=== PATIENT | female | born 1960 | race Caucasian/White ===

== ENCOUNTER 2017-06-24 14:27 | Emergency (ER) | payer MEDICARE, MEDICAID ==
[2017-06-24 15:02] LABS: #Eosinphils 0.1 thou/uL (0.0-0.7); #Lymphocytes 1.4 thou/uL (1.20-3.40); #Monocytes 0.5 thou/uL (0.11-0.59); #Neutrophils 5.3 thou/uL (1.40-6.50); %Basophils 0.2 % (0.0-1.0); %Eosinophils 1.4 % (0.0-10.0); %Lymphocytes 18.7 % (21.0-51.0); %Neutrophils 72.7 % (42.0-75.0); Hemoglobin 9.5 g/dL (12.0-16.0); Mean Corpuscular HGB CONC 32.2 g/dL (32.0-36.0); Mean Corpuscular Hemoglobin 28.7 pg (27.0-31.0); Mean Corpuscular Volume 89.2 fl (81.0-99.0); Mean Platelet Volume 6.8 fL (7.4-10.4); Platelet Count 256 thou/uL (130-400); RBC Distribution Width 14.7 % (11.5-14.5); White Blood Cell (WBC) Count 7.2 thou/uL (4.8-10.8)
[2017-06-24 15:23] LABS: ALT (SGPT) 14 U/L (8-55); AST (SGOT) 14 U/L (5-34); Albumin 3.5 g/dL (3.5-5.0); Alkaline Phosphatase 120 U/L (40-150); Anion Gap 13 mmol/L (10-20); BUN (Urea Nitrogen) 20 mg/dL (9.8-20.1); Bilirubin, Total 0.3 mg/dL (0.2-1.2); CK (CPK) 109 U/L (29-168); Calc. Creatinine Clearance 0 mL/min (70-130); Calcium 9.2 mg/dL (7.8-10.44); Carbon Dioxide 24 mmol/L (22-29); Chloride 104 mmol/L (98-107); Estimated GFR-MDRD 30; Globulin 3.3 g/dL (2.4-3.5); Glucose 288 mg/dL (70-105); Potassium 5.2 mmol/L (3.5-5.1); Protein, Total 6.8 g/dL (6.0-8.3); Sodium 136 mmol/L (136-145)
--- NOTE | 2017-06-24 15:25 | RAD ---
4 VIEWS RIGHT ANKLE: Date: 06/24/17 INDICATION: History of fall with right ankle pain. FINDINGS: No acute fracture or subluxation is evident. There is moderate degenerative change involving the mid foot. Ankle mortise and talar dome are preserved. Soft tissue swelling is seen involving the lower le g and ankle. IMPRESSION: 1. Soft tissue swelling of the right ankle and right hindfoot may be related to lymphedema or possib ly cellulitis. Recommend correlation. 2. Osteoarthrosis of the visualized right foot. 3. No acute fracture or subluxation. POS: [facility]
--- NOTE | 2017-06-24 15:26 | RAD ---
AP VIEW CHEST: INDICATIONS: History of chest pain. FINDINGS: There is cardiomegaly with pulmonary vascular congestion and perihilar interstitial prominence, suspi cious for pulmonary edema. The left costophrenic angle is excluded. The right costophrenic angle ap pears sharp. The osseous structures appear unchanged. IMPRESSION: Findings suggesting either volume overload or mild congestive heart failure. POS: [facility]
[2017-06-24 15:27] LABS: CKMB 1.9 ng/mL (0-6.6); Troponin I 0.019 ng/mL (< 0.028)
[2017-06-24] MEDS ORDERED: Ketorolac Tromethamine 30 MG/ML VIAL ONE (16:26)
== END 2017-06-24 17:31 | disposition home or self-care (01) ==
LOC: ERS 14:27
DX: J40 Bronchitis, not specified as acute or chronic (principal); R07.89 Other chest pain; S93.401A Sprain of unspecified ligament of right ankle, initial encounter; J44.9 Chronic obstructive pulmonary disease, unspecified; E11.9 Type 2 diabetes mellitus without complications; E78.5 Hyperlipidemia, unspecified; I10 Essential (primary) hypertension; F32.9 Major depressive disorder, single episode, unspecified; W19.XXXA Unspecified fall, initial encounter
CPT/HCPCS: 71045; 80053; 82553; 84484; 85025; 93005; 94640; 96374; J1885; J7620

== ENCOUNTER 2017-07-04 11:01 | Emergency (ER) | payer MEDICARE, MEDICAID ==
--- NOTE | 2017-07-04 12:04 | CT ---
HEAD CT WITHOUT CONTRAT: DATE: 07/04/17. COMPARISON: 04/17/14. HISTORY: Head injury, fall, pain. TECHNIQUE: Serial axial CT imaging at 5 mm intervals from vertex through the skull base without contrast. FINDINGS: There is partial opacification of bilateral ethmoid air cells and the left maxillary sinus. There is no displaced calvarial fracture. No intracranial hemorrhage, midline shift, mass effect, or ventric ular enlargement. IMPRESSION: No intracranial hemorrhage or displaced calvarial fracture. POS: [facility]
--- NOTE | 2017-07-04 12:07 | CT ---
CT OF THE CERVICAL SPINE WITHOUT CONTRAST: COMPARISON: None. HISTORY: Head injury after a fall. Neck pain and pain in the shoulders. TECHNIQUE: Multiple contiguous axial images were obtained in a CT of the cervical spine without contrast. Sagit ella and coronal reformats were performed. FINDINGS: This exam is limited in the lower cervical spine secondary to beam hardening artifact and signal nois e ratio secondary to patient's large body habitus. There are degenerative changes in the cervical sp ine. The vertebral bodies demonstrate normal height and alignment without acute fracture or subluxat ion. No prevertebral soft tissue swelling is seen. The posterior facets are well aligned. Normal alignment of the skull base with the cervical spine is seen. IMPRESSION: Degenerative changes in the cervical spine without acute osseous abnormality. POS: [facility]
--- NOTE | 2017-07-04 12:15 | CT ---
THORACIC SPINE CT WITHOUT CONTRAST: Date: 07/04/17 HISTORY: Fall. Post-traumatic pain. COMPARISON: None. TECHNIQUE: Thoracic spine CT is performed without contrast. Coronal reformatted and sagittal reformatted images are submitted for interpretation. FINDINGS: Limited evaluation of the mediastinum. There is enlarged right paratracheal lymph node with a preserv ed fatty hilum, measuring 1.8 x 2.0 cm. Visualized heart size is normal. There is an indeterminate lesion involving the right adrenal gland measuring 1.8 x 2.2 cm with attenu ation coefficient of 24 Hounsfield units. Trachea and central bronchi are patent. Visualized lung parenchyma and hilum demonstrate what is pres umed to be chronic change. There is some peribronchial soft tissue prominence, predominantly in the l eft lower lobe. Evaluation is incomplete. Nonemergent chest CT can be performed for better interrogat ion of the lung parenchyma. There is a focal ground-glass opacity in the superior segment of the righ t lower lobe (axial image 43) which is incompletely evaluated. No paraspinal hematoma. Visualized aorta demonstrates a normal caliber. There is extensive osteophyte formation of the thoracic spine suggesting DISH. Thoracic spine vertebr al body height is maintained. No malalignment. No fracture. IMPRESSION: 1. No thoracic spine fracture. 2. Increased peribronchial thickening in the left lower lobe with a ground-glass opacity in the righ t lower lobe. Evaluation is incomplete. Nonemergent chest CT. 3. Indeterminate right adrenal nodule. CODE LN. POS: [facility]
== END 2017-07-04 13:04 | disposition home or self-care (01) ==
LOC: ERS 11:01
DX: S09.90XA Unspecified injury of head, initial encounter (principal); S16.1XXA Strain of muscle, fascia and tendon at neck level, initial encounter; S29.012A Strain of muscle and tendon of back wall of thorax, initial encounter; E66.01 Morbid (severe) obesity due to excess calories; J44.9 Chronic obstructive pulmonary disease, unspecified; E11.40 Type 2 diabetes mellitus with diabetic neuropathy, unspecified; E78.5 Hyperlipidemia, unspecified; I10 Essential (primary) hypertension; F32.9 Major depressive disorder, single episode, unspecified; W10.9XXA Fall (on) (from) unspecified stairs and steps, initial encounter
CPT/HCPCS: 70450; 72125; 72128

== ENCOUNTER 2017-07-30 23:54 | Inpatient (IN) | payer MEDICARE, MEDICAID ==
[2017-07-31] MEDS ORDERED: Magnesium Sulfate 2 GM/100 ML BAG ONE (00:23)
[2017-07-31] MEDS ORDERED: methylPREDNISolone Sod Succ/PF 125 MG/2 ML VIAL ONE (00:23)
[2017-07-31] MEDS ORDERED: Albuterol Sulfate 2.5 mg/3 ml Neb ONE (00:37)
[2017-07-31 00:38] LABS: #Basophils 0.1 thou/uL (0.0-0.2); #Eosinphils 0.1 thou/uL (0.0-0.7); #Lymphocytes 1.3 thou/uL (1.20-3.40); #Monocytes 0.6 thou/uL (0.11-0.59); #Neutrophils 6.8 thou/uL (1.40-6.50); %Basophils 0.6 % (0.0-1.0); %Eosinophils 1.5 % (0.0-10.0); %Lymphocytes 14.3 % (21.0-51.0); %Monocytes 6.4 % (0.0-10.0); %Neutrophils 77.1 % (42.0-75.0); Hemoglobin 9.2 g/dL (12.0-16.0); Mean Corpuscular HGB CONC 31.8 g/dL (32.0-36.0); Mean Corpuscular Hemoglobin 28.1 pg (27.0-31.0); Mean Corpuscular Volume 88.6 fl (81.0-99.0); Mean Platelet Volume 7.7 fL (7.4-10.4); Platelet Count 184 thou/uL (130-400); RBC Distribution Width 15.1 % (11.5-14.5); Red Blood Cell (RBC) Count 3.28 mill/uL (4.20-5.40); White Blood Cell (WBC) Count 8.9 thou/uL (4.8-10.8)
[2017-07-31 01:12] LABS: CKMB 1.2 ng/mL (0-6.6); Troponin I 0.014 ng/mL (< 0.028)
[2017-07-31 01:28] LABS: ALT (SGPT) 13 U/L (8-55); AST (SGOT) 13 U/L (5-34); Albumin 3.5 g/dL (3.5-5.0); Alkaline Phosphatase 103 U/L (40-150); BUN (Urea Nitrogen) 46 mg/dL (9.8-20.1); Bilirubin, Total 0.2 mg/dL (0.2-1.2); Calc. Creatinine Clearance 0 mL/min (70-130); Calcium 8.9 mg/dL (7.8-10.44); Carbon Dioxide 18 mmol/L (22-29); Estimated GFR-MDRD 27; Globulin 3.4 g/dL (2.4-3.5); Glucose 191 mg/dL (70-105); Protein, Total 6.9 g/dL (6.0-8.3)
[2017-07-31 02:03] LABS: Anion Gap 11 mmol/L (10-20); Chloride 112 mmol/L (98-107); Potassium 5.9 mmol/L (3.5-5.1); Sodium 137 mmol/L (136-145)
[2017-07-31] MEDS ORDERED: Azithromycin 500 MG VIAL ONE (04:01)
[2017-07-31 04:18] LABS: Troponin I 0.025 ng/mL (< 0.028)
[2017-07-31] MEDS ORDERED: Ondansetron ODT 4 MG TAB PO PRN (04:36)
[2017-07-31] MEDS ORDERED: Loperamide HCl 2 MG CAP PO PRN (04:36)
[2017-07-31] MEDS ORDERED: Acetaminophen 325 MG TAB PO PRN (04:36)
[2017-07-31] MEDS ORDERED: Milk Of Magnesia 30 ML UDCUP PO PRN (04:36)
[2017-07-31] MEDS ORDERED: Zolpidem Tartrate 5 MG TAB PO PRN (04:36)
[2017-07-31] MEDS ORDERED: Sodium Chloride 0.65% Nasal 44 ML BOT EA NARE PRN (04:36)
[2017-07-31] MEDS ORDERED: Nitroglycerin 0.4 MG TAB (25 Tab Bottle) SL PRN (04:36)
[2017-07-31] MEDS ORDERED: Mag-Al 1200 mg/1200 mg/30 ML UDCUP PO PRN (04:36)
[2017-07-31] MEDS ORDERED: Dextrose 5% in Water 1,000 ML IV PRN (04:36)
[2017-07-31] MEDS ORDERED: Artificial Tears 18 DROP/0.9 ML EA EYE PRN (04:36)
[2017-07-31] MEDS ORDERED: hydrALAZINE 20 MG/ML VIAL SLOW IVP PRN (04:36)
[2017-07-31] MEDS ORDERED: Eucerin (Mineral Oil/Petrolatum,White) 30 gm Jar TOP PRN (04:36)
[2017-07-31] MEDS ORDERED: Loratadine 10 MG TAB PO PRN (04:36)
[2017-07-31] MEDS ORDERED: Senokot 8.6 MG TAB PO PRN (04:36)
[2017-07-31] MEDS ORDERED: Dextrose 50% Abboject 50 ML SYRINGE SLOW IVP PRN (04:36)
[2017-07-31] MEDS ORDERED: Diabetic Tussin 200 MG/10 ML UDCUP PO PRN (04:36)
[2017-07-31] MEDS ORDERED: Ondansetron HCl/PF 4 MG/2 ML Vial IVP PRN (04:36)
[2017-07-31] MEDS: cefTRIAXone\\ROCEPHIN 1 GM in Syringe 10 ML IVPB SCH (05:24)
[2017-07-31] MEDS: Levothyroxine Sodium 100 MCG TAB PO SCH (05:30)
[2017-07-31 07:04] LABS: Troponin I 0.014 ng/mL (< 0.028)
--- NOTE | 2017-07-31 07:50 | HP ---
PRIMARY CARE PHYSICIAN: Dr. Scott Hull. REASON FOR ADMISSION: Chronic obstructive pulmonary disease/asthma exacerbation, acute on chronic ki dney injury, hyperkalemia. HISTORY OF PRESENT ILLNESS: A 56-year-old female who has underlying history of COPD/asthma, chronic kidney disease stage 3, diabetes type 2, hypertension, morbid obesity, dyslipidemia, hypothyroidism, gastroesophageal reflux disease, anxiety and depression, who came to emergency room for evaluation of increasing shortness of breath and chest discomfort for last 5 days. The patient reports that her c hest is feeling tight with the shortness of breath. She is also having cough, which is predominantly dry in nature with a scant amount of sputum. She denies any fevers. She denies any hemoptysis. Sh kaleigh has chronic diarrhea after eating food and the patient also reports that lately she was experiencin g little bit blood with the stool. She denies any fever or chills. She denies any UTI symptoms. Danny farris denies any melenotic stool. She denies any abdominal pain. She denies any NSAID abuse. The patient is not using oxygen at home. In the emergency room, the patient appeared short of breath and she was having low grade fever. Her routine blood tests showed hyperkalemia with potassium 5.9 and creatinine elevated to 1.96. Her hemoglobin is 9.2. We are admitting this patient for further evaluation and treatment as well as for COPD treatment. PAST MEDICAL HISTORY: Reactive airway disease/asthma, diabetes type 2, osteoarthritis, hypertension, dyslipidemia, morbid obesity, peripheral neuropathy. PAST PSYCHIATRIC HISTORY: Anxiety and depression. PAST SURGICAL HISTORY: Partial hysterectomy, oophorectomy of left ovary, right knee replacement surg paulina subsequent complication with a Staph infection required a spacer and prosthetic replacement, left knee cyst removal. SOCIAL HISTORY: Patient lives with her girlfriend and roommate. She currently denies any tobacco ab use. She abused marijuana in the past. She denies any alcohol abuse. She denies any other illicit drug abuse. She is on disability from her knee problem. ALLERGIES: CIPROFLOXACIN, MELOXICAM, MORPHINE, SULFA. FAMILY HISTORY: Mother of complication of renal failure. Father has a history of diabetes. REVIEW OF SYSTEMS: The following complete review of systems was negative, unless otherwise mentioned in the HPI or below: Constitutional: Weight loss or gain, ability to conduct usual activities. Skin: Rash, itching. Eyes: Double vision, pain. ENT/Mouth: Nose bleeding, neck stiffness, pain, tenderness. Cardiovascular: Palpitations, dyspnea on exertion, orthopnea. Respiratory: Shortness of breath, wheezing, cough, hemoptysis, fever or night sweats. Gastrointestinal: Poor appetite, abdominal pain, heartburn, nausea, vomiting, constipation, or diarr hea. Genitourinary: Urgency, frequency, dysuria, nocturia. Musculoskeletal: Pain, swelling. Neurologic/Psychiatric: Anxiety, depression. Allergy/Immunologic: Skin rash, bleeding tendency. Please see my HPI for pertinent positive and negative. All other review of systems reviewed and nega tive except as mentioned in the HPI. EMERGENCY ROOM COURSE: Patient is given magnesium sulfate, Solu-Medrol 125 mg, albuterol nebulizatio n, azithromycin 500 mg. CURRENT HOME MEDICATIONS: Leivasy 5 one tablet q.6 hourly p.r.n., albuterol 2 puffs q.4 hourly p.r.n., Zocor 40 mg p.o. at bedtime, Actos 30 mg p.o. daily, lisinopril 20 mg p.o. daily, Lasix 40 mg p.o. d aily, bupropion 150 mg p.o. daily, Synthroid 200 mcg p.o. daily, ranitidine 150 mg p.o. b.i.d., ibupr ofen 800 mg 3 times p.r.n. basis, Cymbalta 30 mg p.o. daily, timolol ophthalmic drops right eye b.i.d ., Tradjenta 5 mg p.o. daily, vitamin D3 1000 unit p.o. daily, Lyrica 100 mg p.o. t.i.d., vitamin B12 one tablet p.o. daily. PHYSICAL EXAMINATION: VITAL SIGNS: Currently, blood pressure 176/65, pulse 83, respiratory rate 22, temperature 99.1, satu ration 94% on room air, weight 172.4 kilograms. GENERAL: Patient is currently alert, awake, in no obvious acute distress. HEENT: Head: Normocephalic, atraumatic. Eyes: Pupils round, reactive to light. Extraocular muscl e intact. ENT: Oropharynx within normal limits. Moist mucous membranes. No oral lesion, no pharyn geal erythema, no exudate. NECK: Supple, no JVD, no thyromegaly, no carotid bruit, no jugular venous distention. LUNGS: Bilateral end expiratory wheezing heard, no rales. CARDIAC: S1, S2 regular. No murmur, no gallop, no rub. ABDOMEN: Morbid obesity, limiting examination. Bowel sounds present. No peritoneal sign, no guardi ng, no rigidity, no rebound, no suprapubic tenderness. BACK: Unremarkable, no CVA tenderness. EXTREMITIES: Upper extremity: Passive movement of all joints are normal. Lower extremity: Bilater al chronic lower extremity venous insufficiency changes noted. Good distal pulsation. SKIN: No skin rash. HEMATOLOGICAL: No lymphadenopathy. PSYCHIATRIC: Normal affect. NEUROLOGIC: Nonfocal examination. SIGNIFICANT LABORATORY DATA AND IMAGING: EKG showing normal sinus rhythm, left anterior fascicular b lock, low voltage QRS complex. Chest x-ray based on my review, no acute cardiopulmonary process. CB C: WBC 8.9, hemoglobin 9.2, platelet 184. BMP shows sodium 137, potassium 5.9, chloride 112, carbon dioxide 18, anion gap 11, BUN 46, creatinine 1.96, glucose 191, calcium 8.9. Lactic acid 1.0. LFT: AST 13, ALT 13, alkaline phosphatase 103, albumin 3.5. CK-MB 1.2, troponin 0.014, BNP 128. ASSESSMENT AND PLAN: 1. Chronic obstructive pulmonary disease/asthma exacerbation. At this point, we will continue DuoNe b q.4 hourly and p.r.n. basis, Dulera 2 puffs inhalation b.i.d., Mucinex 600 mg twice daily, empiric antibiotic therapy with Rocephin 1 gram q.24 hours, azithromycin 500 mg daily, Solu-Medrol 40 mg IV q .6 hourly. We will monitor clinical response. 2. Acute on chronic kidney failure with baseline chronic kidney disease stage 3. We will hold on La six therapy at this point. We will avoid nephrotoxin agent and we will repeat labs tomorrow. 3. Hyperkalemia. We will give her a dose of Kayexalate and will repeat labs tomorrow. 4. Metabolic acidosis. We will start sodium bicarbonate 325 mg p.o. twice daily. 5. Elevated BNP. We will obtain echocardiography to assess ejection fraction and other structural a bnormality. 6. Anemia, normocytic, normochromic. We will continue ferrous sulfate 325 mg p.o. daily. We will a lso check stool for guaiac to rule out any occult bleeding and then we will decide whether this patie nt needs any more investigation or not. The patient is advised to get outpatient endoscopic evaluati on. 7. Dyslipidemia. Continue Lipitor 40 mg p.o. at bedtime. 8. Hypothyroidism. Continue Synthroid 100 mcg p.o. daily. 9. Gastroesophageal reflux disease. We will add Protonix 40 mg p.o. daily. 10. Peripheral neuropathy. Continue Lyrica 100 mg three times daily. 11. Glaucoma. Continue Timolol maleate ophthalmic drops to right eye twice daily. 12. Anxiety and depression. Continue bupropion 150 mg p.o. daily and Cymbalta 30 mg p.o. daily as p er home dosage. 13. Hypertension. We will hold on lisinopril therapy because of hyperkalemia and worsening of renal failure, instead we will use Procardia 60 mg p.o. daily. 14. Diabetes type 2. We will continue Actos 30 mg p.o. daily. We will hold on Tradjenta, because w e do not have that medication in our hospital, instead we will continue with insulin as per sliding s jennifer protocol. Diabetic diet will be given. 15. Morbid obesity. Dietary education given, weight loss education given. Healthy lifestyle measur es discussed with the patient. 16. Deep venous thrombosis prophylaxis, heparin 5000 units subcu twice daily. 18. Gastrointestinal prophylaxis, Protonix 40 mg p.o. daily. 19. CODE STATUS: The patient is FULL CODE. Patient does not have any surrogate decision maker. Danny farris is making her decision by herself. 20. Chest pain. We will do serial cardiac enzymes x3 to rule out acute coronary syndrome, but most likely this patient's chest tightness is related with her chronic obstructive pulmonary disease/asthm a exacerbation. We will monitor on telemetry floor. Disposition plan based on clinical course. We are expecting the patient's stay in hospital more than 2 midnights. Plan of care discussed with the patient in detail.
--- NOTE | 2017-07-31 07:53 | RAD ---
AP VIEW CHEST: HISTORY: Dyspnea. FINDINGS: AP view chest is obtained on 07/31/17. Comparison is made to previous exam from 06/24/17. AP view chest demonstrates some mild pulmonary vascular congestion. No evidence of effusions, pneumo jeannine, or pneumothorax is seen. IMPRESSION: Pulmonary vascular congestion; otherwise, unremarkable AP view chest. POS: [facility]
[2017-07-31] MEDS: Mometasone/Formoterol 120 PUFF INHALER INH SCH ×2 (08:23→18:36)
[2017-07-31] MEDS: Timolol 0.25% Ophth Soln 5 ml Bottle R EYE SCH ×2 (08:53→21:43)
[2017-07-31] MEDS: Pioglitazone HCl 15 MG TAB PO SCH (08:54)
[2017-07-31] MEDS: Azithromycin 250 MG TAB PO SCH (08:55)
[2017-07-31] MEDS: guaiFENesin ER 600 MG TAB PO SCH ×2 (08:55→21:41)
[2017-07-31] MEDS: Heparin 5,000 UNITS/ML VIAL SC SCH ×4 (08:55→21:42)
[2017-07-31] MEDS: Pregabalin 50 MG CAP PO SCH ×3 (08:56→21:42)
[2017-07-31] MEDS ORDERED: DULoxetine 30 MG CAP PO SCH ×2 (09:00)
[2017-07-31] MEDS ORDERED: Bupropion 150 MG XL TAB PO SCH (09:00)
[2017-07-31 09:39] LABS: Bilirubin Negative (Negative); Blood, Urine Small (Negative); Clarity CLEAR (Clear); Glucose, Urine (Dipstick) 500 mg/dL (Negative); Leukocyte Negative (Negative); Nitrite Negative (Negative); Protein, Urine (Dipstick) 100 mg/dL (Neg-Trace); Specific Gravity, Urine 1.016 (1.002-1.036); Urobilinogen 0.2 mg/dL (0.2-1.0); pH, Urine 5.5 (5.0-9.0)
[2017-07-31 09:41] LABS: Bacteria/HPF None Seen HPF (None Seen); Hyaline Casts/LPF 0-3 HYALINE CAST LPF (0-3 Hyaline); RBC/HPF 0-3 HPF (0-3); Squamous Epithelial None Seen HPF (0-3); WBC/HPF None Seen HPF (0-3)
[2017-07-31 09:56] LABS: Creatinine, Urine 39.09 mg/dL (47-110)
--- NOTE | 2017-07-31 11:08 | PDOC.EVN ---
Event Note - Event Note Event Note: Patient seen and examined, continues to wheeze but subjectively feels better. Continue w/ steroids/duonebs and abx for now, no changes in plan of care. Weight loss advised, patient exposed to 2nd hand smoke for many years as well.
[2017-07-31] MEDS: HumaLOG 300 UNITS/3 ML VIAL SC PRN ×3 (12:11→21:43)
[2017-07-31] MEDS: HYDROcodone/Acetaminophen 5/325 mg Tablet PO PRN ×2 (15:10→23:43)
[2017-07-31] MEDS: Atorvastatin Calcium 20 MG TAB PO SCH (21:41)
[2017-08-01 05:18] LABS: #Lymphocytes 0.7 thou/uL (1.20-3.40); #Monocytes 0.3 thou/uL (0.11-0.59); %Basophils 0.1 % (0.0-1.0); %Eosinophils 0.3 % (0.0-10.0); %Lymphocytes 7.8 % (21.0-51.0); %Monocytes 3.4 % (0.0-10.0); %Neutrophils 88.4 % (42.0-75.0); Hemoglobin 9.9 g/dL (12.0-16.0); Mean Corpuscular HGB CONC 31.8 g/dL (32.0-36.0); Mean Corpuscular Hemoglobin 28.3 pg (27.0-31.0); Mean Corpuscular Volume 88.9 fl (81.0-99.0); Mean Platelet Volume 7.9 fL (7.4-10.4); Platelet Count 179 thou/uL (130-400); RBC Distribution Width 15.1 % (11.5-14.5); White Blood Cell (WBC) Count 9.1 thou/uL (4.8-10.8)
[2017-08-01] MEDS: cefTRIAXone\\ROCEPHIN 1 GM in Syringe 10 ML IVPB SCH (05:33)
[2017-08-01] MEDS: Levothyroxine Sodium 100 MCG TAB PO SCH (05:34)
[2017-08-01] MEDS: cloNIDine 0.1 MG TAB PO PRN (05:34)
[2017-08-01 05:58] LABS: ALT (SGPT) 13 U/L (8-55); AST (SGOT) 11 U/L (5-34); Albumin 3.7 g/dL (3.5-5.0); Alkaline Phosphatase 101 U/L (40-150); Anion Gap 15 mmol/L (10-20); BUN (Urea Nitrogen) 46 mg/dL (9.8-20.1); Bilirubin, Total 0.2 mg/dL (0.2-1.2); Calc. Creatinine Clearance 90 mL/min (70-130); Carbon Dioxide 15 mmol/L (22-29); Chloride 107 mmol/L (98-107); Estimated GFR-MDRD 25; Globulin 3.8 g/dL (2.4-3.5); Glucose 334 mg/dL (70-105); Potassium 6.4 mmol/L (3.5-5.1); Protein, Total 7.5 g/dL (6.0-8.3); Sodium 131 mmol/L (136-145)
[2017-08-01] MEDS: Mometasone/Formoterol 120 PUFF INHALER INH SCH ×2 (08:19→19:11)
[2017-08-01] MEDS: Timolol 0.25% Ophth Soln 5 ml Bottle R EYE SCH ×2 (08:47→21:54)
[2017-08-01] MEDS: Pregabalin 50 MG CAP PO SCH ×3 (08:47→21:58)
[2017-08-01] MEDS: Pioglitazone HCl 15 MG TAB PO SCH ×2 (08:48→10:39)
[2017-08-01] MEDS: DULoxetine 30 MG CAP PO SCH ×2 (08:48)
[2017-08-01] MEDS: Ferrous Sulfate 325 MG TAB PO SCH (08:48)
[2017-08-01] MEDS: Azithromycin 250 MG TAB PO SCH (08:49)
[2017-08-01] MEDS: hydrALAZINE 25 MG TAB PO SCH ×3 (08:49→20:07)
[2017-08-01] MEDS: NIFEdipine XL 60 MG TAB PO SCH (08:49)
[2017-08-01] MEDS: Bupropion 150 MG XL TAB PO SCH (08:49)
[2017-08-01] MEDS: Heparin 5,000 UNITS/ML VIAL SC SCH ×4 (08:49→21:53)
[2017-08-01] MEDS: guaiFENesin ER 600 MG TAB PO SCH ×2 (08:50→21:53)
--- NOTE | 2017-08-01 08:50 | PDOC.PN ---
- Subjective Encounter Start Date: 08/01/17 Encounter Start Time: 07:30 -: old records requested/rev Patient seen and examined. No new complaints. No overnight events pt reports not feeling good though when entered in her room she was comfortable , on room air, no fever BP is high and blood sugar high - Objective Resuscitation Status: Resuscitation Status FULL:Full Resuscitation MAR Reviewed: Yes Vital Signs & Weight: Vital Signs (12 hours) Temp Pulse Resp BP Pulse Ox 08/01/17 08:21 64 16 95 08/01/17 08:19 64 16 95 08/01/17 08:00 97.3 F L 66 13 140/67 94 L 08/01/17 05:00 97.6 F 84 16 217/97 H 93 L 08/01/17 02:23 89 12 94 L 08/01/17 00:00 97.7 F 89 16 177/74 H 93 L 07/31/17 22:20 74 14 96 Weight Weight 02188 lb I&O: 07/31/17 08/01/17 08/02/17 06:59 06:59 06:59 Intake Total 1820 Output Total 600 Balance 1220 Result Diagrams: 08/01/17 05:04 08/01/17 05:04 Additional Labs: Accuchecks 08/01/17 07/31/17 07/31/17 06:00 20:32 16:56 POC Glucose 321 H 331 H 336 H 07/31/17 11:21 POC Glucose 334 H EKG Reviewed by me: Yes (nsr) Phys Exam - Physical Examination Constitutional: NAD HEENT: PERRLA, moist MMs, sclera anicteric Neck: no JVD, supple Respiratory: no wheezing, no rales, no rhonchi morbid obesity limiting exam Cardiovascular: RRR, no significant murmur, no rub Gastrointestinal: soft, non-tender, no distention, positive bowel sounds morbid obesity Musculoskeletal: no edema, pulses present chronic venous stasis Neurological: non-focal, normal sensation, moves all 4 limbs Lymphatic: no nodes Psychiatric: normal affect, A&O x 3 Skin: no rash, normal turgor Dx/Plan (1) Acute worsening of stage 3 chronic kidney disease Code(s): N18.3 - CHRONIC KIDNEY DISEASE, STAGE 3 (MODERATE) Status: Acute Comment: nephrology consulted, avoid nephrotoxin and monitor renal function (2) COPD exacerbation Code(s): J44.1 - CHRONIC OBSTRUCTIVE PULMONARY DISEASE W (ACUTE) EXACERBATION Status: Acute Comment: now improving (3) Hyperkalemia Code(s): E87.5 - HYPERKALEMIA Status: Acute Comment: will give kayexalate, hold lisnopril, low potassium diet advised (4) Hypertension Code(s): I10 - ESSENTIAL (PRIMARY) HYPERTENSION Status: Acute Comment: not controlled, due to steroid, so added procardia and hydralazine (5) Metabolic acidosis Code(s): E87.2 - ACIDOSIS Status: Acute (6) Anemia, normocytic normochromic Code(s): D64.9 - ANEMIA, UNSPECIFIED Status: Chronic Comment: ferrous sulfate added (7) Anxiety and depression Code(s): F41.9 - ANXIETY DISORDER, UNSPECIFIED; F32.9 - MAJOR DEPRESSIVE DISORDER, SINGLE EPISODE, UNSPECIFIED Status: Chronic (8) CKD (chronic kidney disease) stage 3, GFR 30-59 ml/min Status: Chronic (9) DM type 2 (diabetes mellitus, type 2) Status: Chronic (10) Dyslipidemia Code(s): E78.5 - HYPERLIPIDEMIA, UNSPECIFIED Status: Chronic (11) Morbid obesity with BMI of 60.0-69.9, adult Code(s): E66.01 - MORBID (SEVERE) OBESITY DUE TO EXCESS CALORIES; Z68.44 - BODY MASS INDEX (BMI) 60.0-69.9, ADULT Status: Chronic - Plan cont current plan of care, continue antibiotics, respiratory therapy * will reduce solumedrol 20 mg IV q 8 hourly * add levemir 15 unit SC bid * continue selected home medication * give dose of kayexalate * add sodium bicarbonate. * consult nephrology * repeat labs tomorrow * add procardia XL and hydralazine for BP control * medication reviewed as below * symptomatic treatment Review of Systems - Review of Systems Constitutional: negative: fever, chills, sweats, weakness, malaise, other Eyes: negative: Pain, Vision Change, Conjunctivae Inflammation, Eyelid Inflammation, Redness, Other Respiratory: negative: Cough, Dry, Shortness of Breath, Hemoptysis, SOB with Excertion, Pleuritic Pain, Sputum, Wheezing Cardiovascular: negative: chest pain, palpitations, orthopnea, paroxysmal nocturnal dyspnea, edema, light headedness, other Gastrointestinal: negative: Nausea, Vomiting, Abdominal Pain, Diarrhea, Constipation, Melena, Hematochezia, Other Genitourinary: negative: Dysuria, Frequency, Incontinence, Hematuria, Retention , Other Musculoskeletal: negative: Neck Pain, Shoulder Pain, Arm Pain, Back Pain, Hand Pain, Leg Pain, Foot Pain, Other Skin: negative: Rash, Lesions, Srinath, Bruising, Other Neurological: negative: Weakness, Numbness, Incoordination, Change in Speech, Confusion, Seizures, Other - Medications/Allergies Allergies/Adverse Reactions: Allergies Allergy/AdvReac Type Severity Reaction Status Date / Time ciprofloxacin Allergy Verified 04/21/15 11:57 meloxicam Allergy Verified 04/21/15 11:57 morphine Allergy Verified 04/21/15 11:57 sulfamethoxazole Allergy Verified 04/21/15 11:57 [From Bactrim] tramadol Allergy Verified 04/21/15 11:57 trimethoprim [From Bactrim] Allergy Verified 04/21/15 11:57 Medications: Current Medications Acetaminophen (Tylenol) 650 mg PO Q4H PRN PRN Reason: Headache/Fever or Pain Hydrocodone Bitart/Acetaminophen ([place] 5/325) 1 tab PO Q4H PRN PRN Reason: Moderate Pain (4-6) Last Admin: 07/31/17 23:43 Dose: 1 tab Al Hydroxide/Mg Hydroxide (Maalox) 30 ml PO Q6H PRN PRN Reason: Heartburn or Indigestion Albuterol/Ipratropium (Duoneb) 3 ml NEB [id number] [facility] Last Admin: 08/01/17 08:21 Dose: 3 ml Artificial Tears (Tears Naturale) 0 drop EA EYE PRN PRN PRN Reason: Dry Eyes Atorvastatin Calcium (Lipitor) 20 mg PO HS [facility] Last Admin: 07/31/17 21:41 Dose: 20 mg Azithromycin (Zithromax) 250 mg PO DAILY [facility] Stop: 08/03/17 09:01 Last Admin: 07/31/17 08:55 Dose: 250 mg Bupropion HCl (Wellbutrin Xl) 300 mg PO DAILY [facility] Clonidine (Catapres) 0.1 mg PO Q4H PRN PRN Reason: Systolic BP > 180 Last Admin: 08/01/17 05:34 Dose: 0.1 mg Dextrose/Water (Dextrose 50%) 25 gm SLOW IVP PRN PRN PRN Reason: Hypoglycemia Duloxetine HCl (Cymbalta) 60 mg PO DAILY [facility] Ferrous Sulfate (Feosol) 325 mg PO QAM[facility] Glucagon (Glucagon) 1 mg IM PRN PRN PRN Reason: Hypoglycemia Guaifenesin (Robitussin Sf) 200 mg PO Q4H PRN PRN Reason: Cough Guaifenesin (Mucinex) 600 mg PO Q12HR [facility] Last Admin: 07/31/17 21:41 Dose: 600 mg Heparin Sodium (Porcine) (Heparin) 5,000 units SC BID [facility] Last Admin: 07/31/17 21:42 Dose: 5,000 units Hydralazine HCl (Apresoline) 10 mg SLOW IVP Q4H PRN PRN Reason: Systolic BP > 180 Last Admin: 07/31/17 12:25 Dose: 10 mg Hydralazine HCl (Apresoline) 25 mg PO TID [facility] Ceftriaxone Sodium 1 gm/ (Syringe) 10 mls @ 120 mls/hr IVPB Q24HR [facility] Last Admin: 08/01/17 05:33 Dose: 10 mls Dextrose/Water (D5w) 1,000 mls @ 0 mls/hr IV .Q0M PRN; As Directed PRN Reason: Hypoglycemia Insulin Detemir 15 units/ (Miscellaneous Medication) 0.15 mls @ 0 mls/hr SC HS [facility] Insulin Detemir 15 units/ (Miscellaneous Medication) 0.15 mls @ 0 mls/hr SC QAM [facility] Insulin Human Lispro (Humalog) 0 units SC .MODERATE SLIDING SC PRN PRN Reason: Moderate Correctional Scale Last Admin: 07/31/17 17:36 Dose: 8 unit Insulin Human Lispro (Humalog) 0 units SC .BEDTIME SLIDING SC PRN PRN Reason: Bedtime Correctional Scale Last Admin: 07/31/17 21:43 Dose: 4 unit Levothyroxine Sodium (Synthroid) 100 mcg PO 0600 [facility] Last Admin: 08/01/17 05:34 Dose: 100 mcg Loperamide HCl (Imodium) 2 mg PO PRN PRN PRN Reason: Diarrhea/Loose Stools Loratadine (Claritin) 10 mg PO DAILYPRN PRN PRN Reason: Sinus Symptoms Magnesium Hydroxide (Milk Of Magnesium) 30 ml PO DAILYPRN PRN PRN Reason: Constipation Methylprednisolone Sodium Succinate (Solu-Medrol) 20 mg IVP Q8HR [facility] Mineral Oil/White Petrolatum (Eucerin Cream) 0 gm TOP BIDPRN PRN PRN Reason: Dry Skin Mometasone Furoate/Formoterol Fumar (Dulera 200 Mcg/5 Mcg Inhaler) 2 puff INH BID-RT [facility] Last Admin: 08/01/17 08:19 Dose: 2 puff Nifedipine (Procardia Xl) 60 mg PO DAILY [facility] Nitroglycerin (Nitrostat) 0.4 mg SL Q5MIN PRN PRN Reason: Chest Pain Ondansetron HCl (Zofran Odt) 4 mg PO Q6H PRN PRN Reason: Nausea/Vomiting Ondansetron HCl (Zofran) 4 mg IVP Q6H PRN PRN Reason: Nausea/Vomiting Pantoprazole Sodium (Protonix) 40 mg PO DAILY [facility] Last Admin: 07/31/17 08:55 Dose: 40 mg Phenol (Chloraseptic [place] 180 Ml Bot) 0 ml PO PRN PRN PRN Reason: Sore Throat Pioglitazone HCl (Actos) 30 mg PO DAILY [facility] Last Admin: 07/31/17 08:54 Dose: 30 mg Pregabalin (Lyrica) 100 mg PO TID [facility] Last Admin: 07/31/17 21:42 Dose: 100 mg Senna (Senokot) 2 tab PO HSPRN PRN PRN Reason: Constipation Sodium Bicarbonate (Bicarbonate, Sodium) 650 mg PO BID [facility] Sodium Chloride (Aiken Nasal [place] 0.65%) 0 ml EA NARE QIDPRN PRN PRN Reason: Nasal Congestion Sodium Polystyrene Sulfonate (Kayexelate Oral Susp 15 Gm/60 Ml) 30 gm PO 0730 [facility] Stop: 08/01/17 10:00 Timolol Maleate (Timoptic 0.25% Ophth Soln) 1 drop R EYE BID [facility] Last Admin: 07/31/17 21:43 Dose: 1 drop Zolpidem Tartrate (Ambien) 5 mg PO HSPRN PRN PRN Reason: Insomnia
[2017-08-01] MEDS ORDERED: Sodium Bicarbonate Tab 325 MG TAB PO SCH (09:00)
[2017-08-01] MEDS: Insulin Detemir 100 UNITS/ML 15 UNITS in Pre-Filled Syringe 1 EACH SC SCH ×2 (10:37→21:53)
[2017-08-01] MEDS: HYDROcodone/Acetaminophen 5/325 mg Tablet PO PRN (10:40)
[2017-08-01] MEDS ORDERED: Sodium Bicarbonate 150 MEQ in Dextrose 5% in Water 1,000 ML IV SCH ×2 (10:45)
[2017-08-01] MEDS: HumaLOG 300 UNITS/3 ML VIAL SC PRN ×4 (10:50→21:59)
--- NOTE | 2017-08-01 13:34 | CON ---
DATE OF CONSULTATION: 08/01/2017 CONSULTING PHYSICIAN: Dr. Adela Palacios. REASON FOR CONSULTATION: Acute kidney injury and hyperkalemia. REASON FOR ADMISSION: Shortness of breath. HISTORY OF PRESENT ILLNESS: This is a 56-year-old female with morbid obesity, CKD, type 2 diabetes, hypertension, hyperlipidemia, who came to the hospital with above complaints and was found to have el evated creatinine and potassium of 6. Nephrology is consulted. The patient not able to give a good history, very lethargic, sleepy, and somnolent while during the exam. No nausea or vomiting reported . PAST MEDICAL HISTORY: Positive for COPD, type 2 diabetes, hypertension, hyperlipidemia, morbid obesi ty, and peripheral neuropathy. PAST SURGICAL HISTORY: Hysterectomy and left knee cyst removal. HOME MEDICATIONS: Include vitamin D3, [place], Trulicity, Toujeo, vitamin B12, Lyrica, lisinopril, Cym alea, levothyroxine, furosemide, Zocor, pioglitazone, linagliptin, and Wellbutrin. ALLERGIES: CIPRO, MELOXICAM, MORPHINE, TRAMADOL, and BACTRIM. SOCIAL HISTORY: She denies any tobacco use, but history of marijuana use in the past. No alcohol us e. FAMILY HISTORY: No history of kidney disease. REVIEW OF SYSTEMS: The following complete review of systems was negative, unless otherwise mentioned in the HPI or below: Constitutional: Weight loss or gain, ability to conduct usual activities. Skin: Rash, itching. Eyes: Double vision, pain. ENT/Mouth: Nose bleeding, neck stiffness, pain, tenderness. Cardiovascular: Palpitations, dyspnea on exertion, orthopnea. Respiratory: Shortness of breath, wheezing, cough, hemoptysis, fever or night sweats. Gastrointestinal: Poor appetite, abdominal pain, heartburn, nausea, vomiting, constipation, or diarrh ea. Genitourinary: Urgency, frequency, dysuria, nocturia. Musculoskeletal: Pain, swelling. Neurologic/Psychiatric: Anxiety, depression. Allergy/Immunologic: Skin rash, bleeding tendency. PHYSICAL EXAMINATION: GENERAL: This is a morbidly obese female in mild distress. VITAL SIGNS: Temperature 96, pulse 73, respiratory rate 18, and blood pressure 120/82. HEENT: Atraumatic, normocephalic. Oral mucosa dry. NECK: Supple. HEART: S1 and S2 heard. RESPIRATORY: Clear. ABDOMEN: Soft. MUSCULOSKELETAL: No edema. DERMATOLOGIC: No skin rash, but chronic skin lesions and possible signs of chronic venous stasis on the lower extremity with hyperemia. NEUROLOGIC: Somnolent but able to be arousable. EXTREMITIES: Moving all the extremities. LABORATORY DATA: Hemoglobin is 9.9, potassium is 6.4, BUN is 46, creatinine is 2.04. Bicarbonate is 15. ASSESSMENT AND PLAN: 1. Acute kidney injury, was started on IV fluids. The patient likely within the dehydrated side. 2. Chronic obstructive pulmonary disease. Continue medications. 3. Hyperkalemia. Limit potassium. 4. Acidosis. We will check ABG. We will start on bicarbonate drip for now given the hyperkalemia. 5. Recheck labs in the evening. 6. Hypoalbuminemia. 7. Anemia, mild. 8. Morbid obesity. Plan is to start on bicarbonate drip, stopped oral bicarbonate for now and monitor closely. We will follow. Recheck potassium in the evening.
[2017-08-01] MEDS: Chloraseptic Spray 180 ml Bottle PO PRN (19:49)
[2017-08-01 20:28] LABS: Anion Gap 16 mmol/L (10-20); BUN (Urea Nitrogen) 53 mg/dL (9.8-20.1); Calc. Creatinine Clearance 8842 mL/min (70-130); Calcium 9.1 mg/dL (7.8-10.44); Carbon Dioxide 19 mmol/L (22-29); Chloride 103 mmol/L (98-107); Estimated GFR-MDRD 25; Glucose 383 mg/dL (70-105); Potassium 5.6 mmol/L (3.5-5.1); Sodium 132 mmol/L (136-145)
[2017-08-01] MEDS: Atorvastatin Calcium 20 MG TAB PO SCH (21:53)
[2017-08-02] MEDS: cefTRIAXone\\ROCEPHIN 1 GM in Syringe 10 ML IVPB SCH (05:07)
[2017-08-02] MEDS: Levothyroxine Sodium 100 MCG TAB PO SCH (05:08)
[2017-08-02 05:16] LABS: #Lymphocytes 0.8 thou/uL (1.20-3.40); #Monocytes 0.5 thou/uL (0.11-0.59); #Neutrophils 9.6 thou/uL (1.40-6.50); %Basophils 0.2 % (0.0-1.0); %Eosinophils 0.4 % (0.0-10.0); %Lymphocytes 7.3 % (21.0-51.0); %Monocytes 4.8 % (0.0-10.0); %Neutrophils 87.3 % (42.0-75.0); Hemoglobin 9.3 g/dL (12.0-16.0); Mean Corpuscular HGB CONC 32.1 g/dL (32.0-36.0); Mean Corpuscular Hemoglobin 28.3 pg (27.0-31.0); Mean Corpuscular Volume 88.1 fl (81.0-99.0); Mean Platelet Volume 7.5 fL (7.4-10.4); Platelet Count 212 thou/uL (130-400); RBC Distribution Width 15.2 % (11.5-14.5); Red Blood Cell (RBC) Count 3.28 mill/uL (4.20-5.40); White Blood Cell (WBC) Count 10.9 thou/uL (4.8-10.8)
[2017-08-02 05:38] LABS: Albumin 3.5 g/dL (3.5-5.0); Anion Gap 16 mmol/L (10-20); BUN (Urea Nitrogen) 53 mg/dL (9.8-20.1); Calc. Creatinine Clearance 9336 mL/min (70-130); Calcium 8.9 mg/dL (7.8-10.44); Carbon Dioxide 17 mmol/L (22-29); Chloride 103 mmol/L (98-107); Estimated GFR-MDRD 26; Glucose 352 mg/dL (70-105); Potassium 5.5 mmol/L (3.5-5.1); Sodium 130 mmol/L (136-145)
[2017-08-02] MEDS: Mometasone/Formoterol 120 PUFF INHALER INH SCH ×2 (08:00→18:19)
[2017-08-02 08:46] VITALS: BMI 64.5
[2017-08-02] MEDS: Heparin 5,000 UNITS/ML VIAL SC SCH ×4 (09:56→21:32)
[2017-08-02] MEDS: HumaLOG 300 UNITS/3 ML VIAL SC PRN ×2 (09:56→16:02)
[2017-08-02] MEDS: NIFEdipine XL 60 MG TAB PO SCH (09:59)
[2017-08-02] MEDS: guaiFENesin ER 600 MG TAB PO SCH ×2 (09:59→21:32)
[2017-08-02] MEDS: DULoxetine 30 MG CAP PO SCH ×2 (09:59)
[2017-08-02] MEDS: Pioglitazone HCl 15 MG TAB PO SCH (09:59)
[2017-08-02] MEDS: Pregabalin 50 MG CAP PO SCH ×3 (10:00→21:30)
[2017-08-02] MEDS: Bupropion 150 MG XL TAB PO SCH (10:00)
[2017-08-02] MEDS ORDERED: Sodium Bicarbonate 150 MEQ in Dextrose 5% in Water 1,000 ML IV SCH ×2 (10:00)
[2017-08-02] MEDS: Chloraseptic Spray 180 ml Bottle PO PRN (10:01)
[2017-08-02] MEDS: Ferrous Sulfate 325 MG TAB PO SCH (10:01)
[2017-08-02] MEDS: Azithromycin 250 MG TAB PO SCH (10:01)
[2017-08-02] MEDS: hydrALAZINE 25 MG TAB PO SCH ×3 (10:02→21:31)
[2017-08-02] MEDS: Insulin Detemir 100 UNITS/ML 15 UNITS in Pre-Filled Syringe 1 EACH SC SCH ×2 (10:02→22:51)
[2017-08-02] MEDS: Timolol 0.25% Ophth Soln 5 ml Bottle R EYE SCH ×2 (10:03→21:00)
--- NOTE | 2017-08-02 15:35 | PDOC.PN ---
- Subjective Encounter Start Date: 08/02/17 Encounter Start Time: 15:49 Subjective: No complaints -: No acute events overnight - Objective Resuscitation Status: Resuscitation Status FULL:Full Resuscitation MAR Reviewed: Yes Vital Signs & Weight: Vital Signs (12 hours) Temp Pulse Resp BP BP Pulse Ox 08/02/17 14:43 98.7 F 75 18 08/02/17 14:40 98.7 F 75 18 170/102 H 95 08/02/17 14:32 75 170/102 H 08/02/17 14:09 100 20 08/02/17 11:26 95 15 95 08/02/17 10:02 99 160/56 H 08/02/17 09:59 115 H 160/56 H 08/02/17 09:53 97.3 F L 95 16 160/56 H 95 08/02/17 08:00 99 16 08/02/17 07:30 97.3 F L 95 15 95 08/02/17 04:00 97.2 F L 79 14 148/67 H 95 Weight Admit Weight 397 lb 8 oz Weight 400 lb I&O: 08/01/17 08/02/17 08/03/17 06:59 06:59 06:59 Intake Total 1820 550 Output Total 600 Balance 1220 550 Result Diagrams: 08/02/17 04:45 08/02/17 04:45 Additional Labs: Accuchecks 08/02/17 08/02/17 08/01/17 10:07 06:06 21:03 POC Glucose 277 H 331 H 374 H 08/01/17 17:02 POC Glucose 297 H Phys Exam - Physical Examination Constitutional: NAD HEENT: PERRLA, moist MMs, sclera anicteric Neck: no JVD, supple, full ROM Respiratory: no wheezing, no rales, no rhonchi, clear to auscultation bilateral Cardiovascular: RRR, no significant murmur, no rub Gastrointestinal: soft, non-tender, no distention, positive bowel sounds Musculoskeletal: no edema, pulses present Neurological: non-focal, moves all 4 limbs Psychiatric: normal affect, A&O x 3 Skin: no rash, normal turgor Dx/Plan (1) Acute worsening of stage 3 chronic kidney disease Code(s): N18.3 - CHRONIC KIDNEY DISEASE, STAGE 3 (MODERATE) Status: Acute Comment: Improving. Nephrology on board. We will avoid nephrotoxins and monitor renal function. (2) Hyperkalemia Code(s): E87.5 - HYPERKALEMIA Status: Acute Comment: will give kayexalate, hold lisnopril, low potassium diet advised (3) Hypertension Code(s): I10 - ESSENTIAL (PRIMARY) HYPERTENSION Status: Acute Comment: not controlled, due to steroid, so added procardia and hydralazine (4) Metabolic acidosis Code(s): E87.2 - ACIDOSIS Status: Acute Comment: Nephrology on board. Parenteral Sodium bicarb started. (5) Anemia, normocytic normochromic Code(s): D64.9 - ANEMIA, UNSPECIFIED Status: Chronic Comment: ferrous sulfate added (6) Anxiety and depression Code(s): F41.9 - ANXIETY DISORDER, UNSPECIFIED; F32.9 - MAJOR DEPRESSIVE DISORDER, SINGLE EPISODE, UNSPECIFIED Status: Chronic (7) DM type 2 (diabetes mellitus, type 2) Status: Chronic Qualifiers: Diabetes mellitus complication status: with kidney complications Diabetes mellitus complication detail: with chronic kidney disease Chronic kidney disease stage: stage 4 (severe) Comment: Achieving better control. (8) Dyslipidemia Code(s): E78.5 - HYPERLIPIDEMIA, UNSPECIFIED Status: Chronic (9) Morbid obesity with BMI of 60.0-69.9, adult Code(s): E66.01 - MORBID (SEVERE) OBESITY DUE TO EXCESS CALORIES; Z68.44 - BODY MASS INDEX (BMI) 60.0-69.9, ADULT Status: Chronic (10) COPD exacerbation Code(s): J44.1 - CHRONIC OBSTRUCTIVE PULMONARY DISEASE W (ACUTE) EXACERBATION Status: Resolved - Plan cont current plan of care, continue antibiotics, respiratory therapy, DVT proph w/heparin * . Review of Systems - Medications/Allergies Allergies/Adverse Reactions: Allergies Allergy/AdvReac Type Severity Reaction Status Date / Time ciprofloxacin Allergy Verified 04/21/15 11:57 meloxicam Allergy Verified 04/21/15 11:57 morphine Allergy Verified 04/21/15 11:57 sulfamethoxazole Allergy Verified 04/21/15 11:57 [From Bactrim] tramadol Allergy Verified 04/21/15 11:57 trimethoprim [From Bactrim] Allergy Verified 04/21/15 11:57 Medications: Current Medications Acetaminophen (Tylenol) 650 mg PO Q4H PRN PRN Reason: Headache/Fever or Pain Hydrocodone Bitart/Acetaminophen (Ramey 5/325) 1 tab PO Q4H PRN PRN Reason: Moderate Pain (4-6) Last Admin: 08/01/17 10:40 Dose: 1 tab Al Hydroxide/Mg Hydroxide (Maalox) 30 ml PO Q6H PRN PRN Reason: Heartburn or Indigestion Albuterol/Ipratropium (Duoneb) 3 ml NEB [id number] [facility] Last Admin: 08/02/17 14:09 Dose: 3 ml Artificial Tears (Tears Naturale) 0 drop EA EYE PRN PRN PRN Reason: Dry Eyes Atorvastatin Calcium (Lipitor) 20 mg PO HS [facility] Last Admin: 08/01/17 21:53 Dose: 20 mg Azithromycin (Zithromax) 250 mg PO DAILY [facility] Stop: 08/03/17 09:01 Last Admin: 08/02/17 10:01 Dose: 250 mg Bupropion HCl (Wellbutrin Xl) 300 mg PO DAILY [facility] Last Admin: 08/02/17 10:00 Dose: 300 mg Clonidine (Catapres) 0.1 mg PO Q4H PRN PRN Reason: Systolic BP > 180 Last Admin: 08/01/17 05:34 Dose: 0.1 mg Dextrose/Water (Dextrose 50%) 25 gm SLOW IVP PRN PRN PRN Reason: Hypoglycemia Duloxetine HCl (Cymbalta) 60 mg PO DAILY [facility] Last Admin: 08/02/17 09:59 Dose: 60 mg Ferrous Sulfate (Feosol) 325 mg PO QA-[facility] Last Admin: 08/02/17 10:01 Dose: 325 mg Glucagon (Glucagon) 1 mg IM PRN PRN PRN Reason: Hypoglycemia Guaifenesin (Robitussin Sf) 200 mg PO Q4H PRN PRN Reason: Cough Guaifenesin (Mucinex) 600 mg PO Q12HR [facility] Last Admin: 08/02/17 09:59 Dose: 600 mg Heparin Sodium (Porcine) (Heparin) 5,000 units SC BID [facility] Last Admin: 08/02/17 09:56 Dose: 5,000 units Hydralazine HCl (Apresoline) 10 mg SLOW IVP Q4H PRN PRN Reason: Systolic BP > 180 Last Admin: 07/31/17 12:25 Dose: 10 mg Hydralazine HCl (Apresoline) 25 mg PO TID [facility] Last Admin: 08/02/17 14:32 Dose: 25 mg Ceftriaxone Sodium 1 gm/ (Syringe) 10 mls @ 120 mls/hr IVPB Q24HR [facility] Last Admin: 08/02/17 05:07 Dose: 10 mls Dextrose/Water (D5w) 1,000 mls @ 0 mls/hr IV .Q0M PRN; As Directed PRN Reason: Hypoglycemia Insulin Detemir 15 units/ (Miscellaneous Medication) 0.15 mls @ 0 mls/hr SC HS [facility] Last Admin: 08/01/17 21:53 Dose: 0.15 mls Insulin Detemir 15 units/ (Miscellaneous Medication) 0.15 mls @ 0 mls/hr SC QAM [facility] Last Admin: 08/02/17 10:02 Dose: 0.15 mls Sodium Bicarbonate 150 meq/ (Dextrose/Water) 1,150 mls @ 125 mls/hr IV NOW [facility] Stop: 08/02/17 19:11 Last Admin: 08/02/17 11:59 Dose: 1,150 mls Insulin Human Lispro (Humalog) 0 units SC .MODERATE SLIDING SC PRN PRN Reason: Moderate Correctional Scale Last Admin: 08/02/17 09:56 Dose: 6 unit Insulin Human Lispro (Humalog) 0 units SC .BEDTIME SLIDING SC PRN PRN Reason: Bedtime Correctional Scale Last Admin: 08/01/17 21:59 Dose: 5 unit Levothyroxine Sodium (Synthroid) 100 mcg PO 0600 [facility] Last Admin: 08/02/17 05:08 Dose: 100 mcg Loperamide HCl (Imodium) 2 mg PO PRN PRN PRN Reason: Diarrhea/Loose Stools Loratadine (Claritin) 10 mg PO DAILYPRN PRN PRN Reason: Sinus Symptoms Magnesium Hydroxide (Milk Of Magnesium) 30 ml PO DAILYPRN PRN PRN Reason: Constipation Methylprednisolone Sodium Succinate (Solu-Medrol) 20 mg IVP Q8HR [facility] Last Admin: 08/02/17 14:32 Dose: 20 mg Mineral Oil/White Petrolatum (Eucerin Cream) 0 gm TOP BIDPRN PRN PRN Reason: Dry Skin Mometasone Furoate/Formoterol Fumar (Dulera 200 Mcg/5 Mcg Inhaler) 2 puff INH BID-RT [facility] Last Admin: 08/02/17 08:00 Dose: 2 puff Nifedipine (Procardia Xl) 60 mg PO DAILY [facility] Last Admin: 08/02/17 09:59 Dose: 60 mg Nitroglycerin (Nitrostat) 0.4 mg SL Q5MIN PRN PRN Reason: Chest Pain Ondansetron HCl (Zofran Odt) 4 mg PO Q6H PRN PRN Reason: Nausea/Vomiting Ondansetron HCl (Zofran) 4 mg IVP Q6H PRN PRN Reason: Nausea/Vomiting Pantoprazole Sodium (Protonix) 40 mg PO DAILY [facility] Last Admin: 08/02/17 10:00 Dose: 40 mg Phenol (Chloraseptic [place] 180 Ml Bot) 0 ml PO PRN PRN PRN Reason: Sore Throat Last Admin: 08/02/17 10:01 Dose: 1 ml Pioglitazone HCl (Actos) 30 mg PO DAILY [facility] Last Admin: 08/02/17 09:59 Dose: 30 mg Pregabalin (Lyrica) 100 mg PO TID [facility] Last Admin: 08/02/17 14:31 Dose: 100 mg Senna (Senokot) 2 tab PO HSPRN PRN PRN Reason: Constipation Sodium Chloride (Evans Nasal [place] 0.65%) 0 ml EA NARE QIDPRN PRN PRN Reason: Nasal Congestion Timolol Maleate (Timoptic 0.25% Ophth Soln) 1 drop R EYE BID [facility] Last Admin: 08/02/17 10:03 Dose: 1 drop Zolpidem Tartrate (Ambien) 5 mg PO HSPRN PRN PRN Reason: Insomnia
[2017-08-02] MEDS: Atorvastatin Calcium 20 MG TAB PO SCH (21:32)
[2017-08-03] MEDS: HYDROcodone/Acetaminophen 5/325 mg Tablet PO PRN (03:24)
[2017-08-03] MEDS: Levothyroxine Sodium 100 MCG TAB PO SCH (04:46)
[2017-08-03] MEDS: cloNIDine 0.1 MG TAB PO PRN (04:46)
[2017-08-03] MEDS: HumaLOG 300 UNITS/3 ML VIAL SC PRN ×2 (04:48→11:56)
[2017-08-03 05:00] LABS: #Lymphocytes 0.7 thou/uL (1.20-3.40); #Monocytes 0.5 thou/uL (0.11-0.59); #Neutrophils 7.7 thou/uL (1.40-6.50); %Basophils 0.1 % (0.0-1.0); %Eosinophils 0.4 % (0.0-10.0); %Lymphocytes 7.6 % (21.0-51.0); %Monocytes 5.5 % (0.0-10.0); %Neutrophils 86.5 % (42.0-75.0); Hemoglobin 9.4 g/dL (12.0-16.0); Mean Corpuscular HGB CONC 33.1 g/dL (32.0-36.0); Mean Corpuscular Hemoglobin 28.6 pg (27.0-31.0); Mean Corpuscular Volume 86.3 fl (81.0-99.0); Platelet Count 216 thou/uL (130-400); RBC Distribution Width 14.9 % (11.5-14.5); Red Blood Cell (RBC) Count 3.29 mill/uL (4.20-5.40); White Blood Cell (WBC) Count 8.9 thou/uL (4.8-10.8)
[2017-08-03 05:10] LABS: Anion Gap 15 mmol/L (10-20); BUN (Urea Nitrogen) 53 mg/dL (9.8-20.1); Calc. Creatinine Clearance 97 mL/min (70-130); Calcium 9.1 mg/dL (7.8-10.44); Carbon Dioxide 23 mmol/L (22-29); Chloride 101 mmol/L (98-107); Estimated GFR-MDRD 28; Glucose 329 mg/dL (70-105); Potassium 4.8 mmol/L (3.5-5.1); Sodium 134 mmol/L (136-145)
[2017-08-03] MEDS: cefTRIAXone\\ROCEPHIN 1 GM in Syringe 10 ML IVPB SCH (05:55)
[2017-08-03] MEDS: Mometasone/Formoterol 120 PUFF INHALER INH SCH (06:21)
[2017-08-03] MEDS: Timolol 0.25% Ophth Soln 5 ml Bottle R EYE SCH (09:19)
[2017-08-03] MEDS: Insulin Detemir 100 UNITS/ML 15 UNITS in Pre-Filled Syringe 1 EACH SC SCH (09:19)
[2017-08-03] MEDS: Heparin 5,000 UNITS/ML VIAL SC SCH ×2 (09:19)
[2017-08-03] MEDS: guaiFENesin ER 600 MG TAB PO SCH (09:20)
[2017-08-03] MEDS: NIFEdipine XL 60 MG TAB PO SCH (09:20)
[2017-08-03] MEDS: Azithromycin 250 MG TAB PO SCH (09:20)
[2017-08-03] MEDS: DULoxetine 30 MG CAP PO SCH ×2 (09:20)
[2017-08-03] MEDS: Pregabalin 50 MG CAP PO SCH (09:21)
[2017-08-03] MEDS: hydrALAZINE 25 MG TAB PO SCH (09:21)
[2017-08-03] MEDS: Pioglitazone HCl 15 MG TAB PO SCH (09:21)
[2017-08-03] MEDS: Ferrous Sulfate 325 MG TAB PO SCH (09:21)
[2017-08-03] MEDS: Bupropion 150 MG XL TAB PO SCH (09:22)
[2017-08-03] MEDS ORDERED: Insulin Detemir 100 UNITS/ML 20 UNITS in Pre-Filled Syringe 1 EACH SC SCH ×4 (10:23)
[2017-08-03 11:56] VITALS: BP 164/87; TEMP 97.7
--- NOTE | 2017-08-03 14:25 | DIS ---
DATE OF ADMISSION: 07/31/2017 DATE OF DISCHARGE: 08/03/2017 DISCHARGE DIAGNOSES: Metabolic acidosis, hyperkalemia, acute kidney injury on chronic kidney disease , chronic obstructive pulmonary disease/asthma exacerbation, anemia of chronic disorder, anxiety/depr ession, dyslipidemia, type 2 diabetes mellitus, morbid obesity. HISTORY OF PRESENT ILLNESS AND HOSPITAL COURSE: Ms. David Verdugo is a 56-year-old female, who pres ented to the emergency room for evaluation of increasing shortness of breath and chest discomfort for 5 days' duration. She reports tightness in her chest as well as shortness of breath with cough, whi ch is predominantly dry in nature with a scant amount of sputum. She had no fevers, hemoptysis. She also has chronic diarrhea after eating food and she stated that according to her, there is a little bit of blood in her stool. She had no fevers, no chills. Denied any UTI symptoms or melanotic stool , abdominal pain or NSAID use. She is on home oxygen, but at the emergency room, she appeared short of breath and had a low grade fever. Routine tests showed hyperkalemia with potassium of 5.9 and a c reatinine elevated to 1.96, hemoglobin was 9.2. She was admitted for COPD/asthma exacerbation. She received nebulizer treatments, parenteral steroids and antibiotics with good response. She also had a metabolic acidosis, hyperkalemia for which Nephrology was consulted. She was started on a bicarbon ate drip with improvement of her renal indices. She is to follow up with Nephrology on an outpatient basis. Her renal function also improved before discharge with creatinine improving to 1.89. From , her creatinine has ranged from 1.74-2.39. She was also hyperglycemic during admission, but this is likely worsened due to her being on parenteral steroids intravenously. DISCHARGE MEDICATIONS: Albuterol sulfate inhaler 2 puffs q.4 hours p.r.n. for shortness of breath, c lonidine 0.1 mg every 4 hours as needed for systolic blood pressure greater than 180, ferrous sulfat e 325 mg every morning with breakfast, hydralazine 50 mg 3 times a day, mometasone/formoterol inhaler 2 puffs twice a day, nifedipine 60 mg daily, nitroglycerin 0.4 mg every 5 minutes p.r.n. for chest p ain, prednisone 40 mg every morning with breakfast, senna 2 tabs at bedtime as needed for constipatio n, sodium bicarbonate 325 mg twice a day, dulaglutide 1.5 mg subcu every week, Insulin Glargine 70 u nits subcu at bedtime, cyanocobalamin 500 mcg daily, pregabalin 100 mg 3 times a day, Timolol maleate eyedrops 1 drop in the right eye twice a day, ranitidine 150 mg twice a day, duloxetine 60 mg daily, levothyroxine 100 mcg daily, simvastatin 40 mg at bedtime, pioglitazone 30 mg daily, linagliptin 5 mg daily, bupropion hydrochlori de 300 mg every morning, hydrocodone/acetaminophen 7.5/325 one tablet every 8 hours as needed, cholec alciferol 1 tablet daily, furosemide 40 mg daily, lisinopril 20 mg daily (she is to hold lisinopril a nd furosemide until she is seen by her digital service engineer). PHYSICAL EXAMINATION: She was examined on the day of discharge. VITAL SIGNS: Temperature 97.7, pulse rate 74, respiratory rate 16, oxygen saturation 95% on room air , blood pressure 164/87. GENERAL: Not in acute distress, sitting comfortably in bed and excited she is being discharged today . HEENT: PERRLA, EOMI, moist mucous membranes. Sclerae are anicteric. NECK: No JVD, supple. Full range of movement. RESPIRATORY: Vesicular breath sounds bilaterally. No wheezes, rales or rhonchi. CARDIOVASCULAR: S1 and S2 with regular rate and rhythm. No murmurs, rubs or gallops. GASTROINTESTINAL: Soft, nontender, nondistended, positive bowel sounds, no hepatosplenomegaly. MUSCULOSKELETAL: No edema with pulses present. NEUROLOGIC: Alert and well oriented to time, place and person. No focal deficit. PSYCHIATRIC: Normal mood and affect. SKIN: Warm, dry, well perfused. No rashes or lesions. LABORATORY DATA: Sodium 134, potassium 4.8, chloride 101, carbon dioxide 23, anion gap 15, BUN 53, c reatinine 1.89, glucose 329, calcium 9.1. WBC 8.9, hemoglobin 9.4, platelet count 216. X-RAY FINDINGS: Chest x-ray showed pulmonary vascular congestion, otherwise unremarkable AP chest. CONSULTATIONS: Nephrology. CONDITION ON DISCHARGE: Stable and improved. PROCEDURES: None. DIET: Diabetic, heart healthy. CARE GOALS: To follow up with primary care physician within 1 week of discharge for repeat labs. Danny farris is to hold furosemide and lisinopril until she is seen by her primary care physician. She is also to follow up with digital service engineer for treatment of her chronic kidney disease. ACTIVITY: As tolerated. DISCHARGE TIME: A 65 minutes including chart review and documentation.
--- NOTE | 2017-08-03 17:03 | PRG ---
DATE OF SERVICE: 08/02/2017 SUBJECTIVE: Patient was seen and examined at bedside and overnight events noted. Patient denies any shortness of breath or chest pain or palpitation. No history of nausea or vomiting or diarrhea or f ever or chills or cramps. OBJECTIVE: GENERAL: Morbidly obese female in no apparent distress. VITAL SIGNS: Temperature 97.3, pulse 95, respirations 16, blood pressure 160/56. HEENT: Atraumatic, normocephalic. Oral mucosa is moist. NECK: Supple. CARDIOVASCULAR: S1, S2 heard. Rate and rhythm regular. RESPIRATORY: Clear to auscultation. GASTROINTESTINAL: Abdomen is soft. MUSCULOSKELETAL: No tenderness. No edema. DERMATOLOGIC: No skin rash. NEUROLOGIC: Alert and awake and oriented x3. No focal neurologic deficits. Moving all the extremit ies. PSYCHIATRIC: Mood and affect normal LABORATORY DATA: Potassium is 5.5, BUN is 53, creatinine is 1.9, bicarbonate is 17. ASSESSMENT AND PLAN: 1. Acute kidney injury. Renal function slightly better. 2. Chronic obstructive pulmonary disease. 3. Hyperkalemia. Limit potassium. 4. Acidosis, better. We will give another bag of bicarbonate. I have to monitor in the hospital 1 more day. 5. Hypoalbuminemia. 6. Morbid obesity. 7. Continue bicarbonate drip. Possible discharge in 24 hours.
--- NOTE | 2017-08-03 17:39 | PRG ---
DATE OF SERVICE: 08/03/2017 SUBJECTIVE: Patient was seen and examined at bedside and overnight events noted. Patient denies any shortness of breath or chest pain or palpitation. No history of nausea or vomiting or diarrhea or f ever or chills or cramps. OBJECTIVE: GENERAL: This is a morbidly obese female in no apparent distress. VITAL SIGNS: Temperature is 98.0, pulse 80, respiratory rate 16 and blood pressure 164/87. HEENT: Atraumatic, normocephalic. Oral mucosa is moist. NECK: Supple. CARDIOVASCULAR: S1, S2 heard. Rate and rhythm regular. RESPIRATORY: Clear to auscultation. GASTROINTESTINAL: Abdomen is soft. MUSCULOSKELETAL: No tenderness. No edema. DERMATOLOGIC: No skin rash. NEUROLOGIC: Alert and awake and oriented x3. No focal neurologic deficits. Moving all the extremit ies. PSYCHIATRIC: Mood and affect normal. LABORATORY DATA: Potassium is 4.8, BUN is 53 and creatinine is 1.89. ASSESSMENT AND PLAN: 1. Acute kidney injury, better with IV fluids, most likely chronic kidney disease. The patient is a dvised to follow up with the clinic in 1-2 weeks. 2. Hyperkalemia, better. 3. Acidosis, much better with bicarbonate. 4. Hypoalbuminemia. 5. Morbid obesity. Okay to discharge home. Follow up in the clinic in 1-2 weeks.
[2017-08-04] MEDS ORDERED: predniSONE 20 MG TAB PO SCH (08:00)
== END 2017-08-03 12:32 | disposition home or self-care (01) | DRG 191 ==
LOC: ERS 23:54 → 2NO 07-31 02:30 → T4-A 08-02 14:03
PROVIDERS: ADMIT Internal Medicine; ATTEND Internal Medicine
DX: J44.1 Chronic obstructive pulmonary disease with (acute) exacerbation (principal); N17.9 Acute kidney failure, unspecified; E11.22 Type 2 diabetes mellitus with diabetic chronic kidney disease; E11.42 Type 2 diabetes mellitus with diabetic polyneuropathy; N18.3 Chronic kidney disease, stage 3 (moderate); E87.2 Acidosis; E66.01 Morbid (severe) obesity due to excess calories; E87.5 Hyperkalemia; I12.9 Hypertensive chronic kidney disease with stage 1 through stage 4 chronic kidney disease, or unspecified chronic kidney disease; E78.5 Hyperlipidemia, unspecified; E03.9 Hypothyroidism, unspecified; K21.9 Gastro-esophageal reflux disease without esophagitis; F41.9 Anxiety disorder, unspecified; F32.9 Major depressive disorder, single episode, unspecified; M19.90 Unspecified osteoarthritis, unspecified site; H40.9 Unspecified glaucoma; D64.9 Anemia, unspecified; R07.9 Chest pain, unspecified; E88.09 Other disorders of plasma-protein metabolism, not elsewhere classified; Z88.1 Allergy status to other antibiotic agents; Z88.2 Allergy status to sulfonamides; Z88.5 Allergy status to narcotic agent; Z90.710 Acquired absence of both cervix and uterus
CPT/HCPCS: 36415; 36416; 71045; 80048; 80053; 80069; 81001; 82274; 82553; 82570; 83605; 83880; 83970; 84100; 84156; 84484; 85025; 93005; 94640; 94664; 94760; 96365; 96375; J0360; J0456; J0696; J1644; J1815; J2920; J2930; J3475; J7070; J7611; J7620

== ENCOUNTER 2018-02-04 23:42 | Inpatient (IN) | payer MEDICARE, MEDICAID ==
[2018-02-05 00:29] LABS: #Eosinphils 0.1 thou/uL (0.0-0.7); #Monocytes 0.3 thou/uL (0.11-0.59); #Neutrophils 2.9 thou/uL (1.40-6.50); %Basophils 0.9 % (0.0-1.0); %Eosinophils 2.9 % (0.0-10.0); %Lymphocytes 23.3 % (21.0-51.0); %Monocytes 6.8 % (0.0-10.0); %Neutrophils 66.2 % (42.0-75.0); Hemoglobin 8.4 g/dL (12.0-16.0); Mean Corpuscular HGB CONC 31.3 g/dL (32.0-36.0); Mean Corpuscular Hemoglobin 28.5 pg (27.0-31.0); Mean Platelet Volume 8.7 fL (7.4-10.4); Platelet Count 145 thou/uL (130-400); Red Blood Cell (RBC) Count 2.95 mill/uL (4.20-5.40); White Blood Cell (WBC) Count 4.4 thou/uL (4.8-10.8)
[2018-02-05] MEDS ORDERED: HYDROcodone/Acetaminophen 10/325 mg Tablet ONE (00:40)
[2018-02-05 00:49] LABS: ALT (SGPT) 14 U/L (8-55); AST (SGOT) 12 U/L (5-34); Albumin 3.5 g/dL (3.5-5.0); Alkaline Phosphatase 69 U/L (40-150); Anion Gap 12 mmol/L (10-20); BUN (Urea Nitrogen) 57 mg/dL (9.8-20.1); Bilirubin, Total 0.4 mg/dL (0.2-1.2); CK (CPK) 102 U/L (29-168); Calc. Creatinine Clearance 0 mL/min (70-130); Calcium 8.8 mg/dL (7.8-10.44); Carbon Dioxide 21 mmol/L (22-29); Chloride 112 mmol/L (98-107); Estimated GFR-MDRD 20; Globulin 3.2 g/dL (2.4-3.5); Glucose 100 mg/dL (70-105); Protein, Total 6.7 g/dL (6.0-8.3); Sodium 138 mmol/L (136-145)
[2018-02-05 00:52] LABS: CKMB 1.5 ng/mL (0-6.6); Troponin I Less than 0.010 ng/mL (< 0.028)
[2018-02-05 00:55] LABS: Potassium 7.1 mmol/L (3.5-5.1)
[2018-02-05] MEDS ORDERED: Calcium Chloride 1 GM/10 ML Abboject SYRINGE ONE ×2 (01:01→03:04)
[2018-02-05 01:47] LABS: Potassium 7.3 mmol/L (3.5-5.1)
[2018-02-05 02:17] LABS: Potassium 7.2 mmol/L (3.5-5.1)
[2018-02-05] MEDS ORDERED: Ondansetron ODT 4 MG TAB SL PRN (03:00)
[2018-02-05] MEDS ORDERED: Ondansetron HCl/PF 4 MG/2 ML Vial IVP PRN (03:00)
[2018-02-05] MEDS ORDERED: Furosemide 100 MG/10 ML VIAL ONE (03:03)
[2018-02-05] MEDS ORDERED: Dextrose 50% Abboject 50 ML SYRINGE ONE ×2 (03:04→03:09)
[2018-02-05] MEDS ORDERED: Sodium Bicarb 50 MEQ/50 ML Abboject 8.4% SYRINGE ONE ×2 (03:04→03:10)
[2018-02-05] MEDS ORDERED: Insulin Regular 300 UNITS/3 ML VIAL ONE ×2 (03:04→03:11)
[2018-02-05] MEDS ORDERED: Albuterol Sulfate 2.5 mg/0.5 ml Neb ONE (06:20)
[2018-02-05] MEDS ORDERED: Albuterol Sulfate 2.5 mg/3 ml Neb ONE (06:20)
--- NOTE | 2018-02-05 07:38 | RAD ---
CHEST 1 VIEW: INDICATION: History of bilateral lower extremity swelling and pain. FINDINGS: There is cardiomegaly with mild pulmonary vascular congestion. No catherine pleural effusion or pneumoth orax is evident. IMPRESSION: Cardiomegaly with pulmonary vascular congestion. Recommend correlation for congestive heart failure. POS: [facility]
[2018-02-05 08:27] VITALS: BMI 69.5
[2018-02-05 08:40] LABS: Anion Gap 16 mmol/L (10-20); BUN (Urea Nitrogen) 56 mg/dL (9.8-20.1); Calc. Creatinine Clearance 83 mL/min (70-130); Calcium 9.7 mg/dL (7.8-10.44); Carbon Dioxide 18 mmol/L (22-29); Chloride 113 mmol/L (98-107); Estimated GFR-MDRD 21; Potassium 5.8 mmol/L (3.5-5.1); Sodium 141 mmol/L (136-145)
--- NOTE | 2018-02-05 08:58 | ULT ---
PRELIMINARY REPORT/[facility]/EMERGENTY AFTER-HOURS PROCEDURE US Bilateral Duplex Lower Extremity Veins EXAM DATE/TIME: 02/05/2018 12:31 AM CLINICAL HISTORY: 57 years old, female; Pain; Other: Ble pain, swelling, redness; Prior surgery; Surgery date: 6+ month s; Surgery type: RT knee TECHNIQUE: Real-time duplex ultrasound of the Bilateral Lower Extremities with 2-D porter scale, color Doppler analisa w and spectral waveform analysis. Complete exam focused on the bilateral lower extremity veins. COMPARISON: No relevant prior studies available. FINDINGS: Right deep veins: Unremarkable. The common femoral, femoral and popliteal veins are patent without th rombus. Normal compressibility, augmentation response and Doppler waveforms. Right superficial veins: Saphenofemoral junction is patent without thrombus. Left deep veins: Unremarkable. The common femoral, femoral and popliteal veins are patent without thr ombus. Normal compressibility, augmentation response and Doppler waveforms. Left superficial veins: Saphenofemoral junction is patent without thrombus. Soft tissues: Superficial edema. IMPRESSION: 1. Superficial edema. 2. No evidence of DVT. Thank you for allowing us to participate in the care of your patient. Dictated and Authenticated by: Blue Singh MD 02/05/2018 2:02 AM Central Time ([place] & [place]) FINAL REPORT BILATERAL LOWER EXTREMITY VENOUS ULTRASOUND WITH DOPPLER: HISTORY: Edema. Swelling. COMPARISON: 08/30/2013. TECHNIQUE: Porter scale, color flow, Doppler imaging with spectral waveform analysis is performed of the left and right lower extremity venous system. FINDINGS: This report is in agreement with the preliminary report by [facility]. There is bilateral lower extremity s oft tissue edema and swelling. Bilaterally, no evidence of deep vein thrombus in the visualized veno us system. POS: [facility]
[2018-02-05 09:04] LABS: Glucose 56 mg/dL (70-105)
[2018-02-05] MEDS: Sodium Chloride 0.9% 1,000 ML IV SCH ×2 (09:47→12:08)
[2018-02-05] MEDS ORDERED: Furosemide 40 MG/4 ML VIAL SLOW IVP SCH ×2 (12:00→19:00)
[2018-02-05 12:47] LABS: Anion Gap 15 mmol/L (10-20); BUN (Urea Nitrogen) 57 mg/dL (9.8-20.1); Calc. Creatinine Clearance 84 mL/min (70-130); Calcium 9.4 mg/dL (7.8-10.44); Carbon Dioxide 19 mmol/L (22-29); Chloride 112 mmol/L (98-107); Estimated GFR-MDRD 22; Glucose 97 mg/dL (70-105); Sodium 139 mmol/L (136-145)
[2018-02-05 12:48] LABS: Potassium 6.7 mmol/L (3.5-5.1)
--- NOTE | 2018-02-05 13:57 | HP ---
PRIMARY CARE PROVIDER: Scott Hull M.D. CHIEF COMPLAINT: Shortness of breath. HISTORY OF PRESENT ILLNESS: Ms. Verdugo is a pleasant 57-year-old lady who was seen at [facility] on February 05, 2018. She reports that she has a history of chronic kidney disease. She reports having leg swelling over t he last 2 weeks. The leg swelling has been getting progressively worse, to the point she is unable t o walk secondary to leg pain. Over the last 2 days, she also developed shortness of breath with exer tion. She denies any chest pain, fevers, chills, nausea, or vomiting. She reports diarrhea over the last 2 days, which resolved after she took Imodium. She has also not been eating for the last few d ays secondary to stress. REVIEW OF SYSTEMS: All other systems reviewed and found to be negative. PAST MEDICAL HISTORY: Chronic kidney disease stage 3 to 4; intermittent hyperkalemia; COPD; anemia o f chronic kidney disease; anxiety/depression; dyslipidemia; diabetes mellitus type 2, insulin requiri ng; morbid obesity; and peripheral neuropathy. PAST SURGICAL HISTORY: 1. Status post partial hysterectomy. 2. Status post left oophorectomy. 3. Status post right knee replacement with postoperative Staphylococcal infection, requiring antibio tic spacer, and prosthetic replacement and status post left knee cyst removal. ALLERGIES: CIPROFLOXACIN, MELOXICAM, MORPHINE, and SULFA. CURRENT MEDICATIONS: Dulaglutide 1.5 mg subcutaneously every week, Wellbutrin-XL 300 mg daily, vitam in D3 1000 units daily, vitamin B12 500 mcg daily, Cymbalta 60 mg daily, ferrous sulfate 325 mg daily , [place] 7.5/325 mg every 8 hours as needed, Toujeo 70 units at bedtime, levothyroxine 100 mcg daily, Tradjenta 5 mg daily, pioglitazone 30 mg daily, prednisone 40 mg daily, Pregabalin 100 mg 3 times a d ay, ranitidine 150 mg 2 times a day, Zocor 40 mg at bedtime, Timolol 1 drop to right eye 2 times a da y. SOCIAL HISTORY: The patient denies tobacco use, alcohol use, or recreational drug use. FAMILY HISTORY: She denies any family history of heart disease. PHYSICAL EXAMINATION: GENERAL: Ms. Verdugo is awake and alert, not in acute distress. She is morbidly obese, with a BMI o f 69.6. VITAL SIGNS: Blood pressure is 147/63, pulse 83, respiratory rate 18, and oxygen saturation 97% on r oom air. She is afebrile. EYES: No scleral icterus. No conjunctival pallor. ENT: Moist mucosal membranes, no oropharyngeal erythema or exudates. NECK: Supple, nontender, trachea is midline. RESPIRATORY: Accessory muscles of breathing are not active. Chest wall movements are symmetric bila terally. LUNGS: Clear to auscultation without wheeze, rhonchi, or crepitations. CARDIOVASCULAR: S1 and S2 are heard, regular. Peripheral pulses palpable. No carotid bruit, no per icardial rub. ABDOMEN: Soft, distended, nontender, bowel sounds are heard. NEUROLOGIC: Cranial nerves II-XII are intact. Deep tendon reflexes are 2+. MUSCULOSKELETAL: Power is 5/5 in all 4 extremities. SKIN: Mild erythema over the right blanchard, nontender, no elevated temperature. LYMPHATIC: No cervical lymphadenopathy. PSYCHIATRIC: Normal mood, normal affect. The patient is oriented to person, place, and time. LABORATORY DATA: Ms. Verdugo's labs and investigations were reviewed. I reviewed her electrocardiog dianne, which shows normal sinus rhythm, no tall tented T waves, no ST changes to suggest an acute coron alethea syndrome. I also reviewed her chest x-ray, which does not show any pulmonary infiltrates. She d oes have cardiomegaly with congestion of the pulmonary vessels. She has a white count of 4400, normo cytic anemia with hemoglobin 8.4, normal platelet count, elevated D-dimer of 1.25, normal sodium, arlette vated potassium of 5.8, decreased from 7.2, elevated blood urea nitrogen of 56, elevated creatinine o f 2.37, lactate dehydrogenase is elevated at 334, BNP mildly elevated at 126.1 and an unremarkable li daniel profile. ASSESSMENT AND PLAN: Ms. Verdugo is a pleasant 57-year-old lady who was seen at [facility] on February 05, 2018. Her problem list includes: 1. Hyperkalemia: Ms. Verdugo is presenting with significant hyperkalemia. She has received treatme nts in the form of insulin, Kayexalate, and lactulose. We will recheck her potassium level. 2. Shortness of breath: Differential is wide at this point, also includes pulmonary embolism and co ngestive heart failure. We will diurese her. We will check VQ scan. Further management depending o n the outcome. 3. Diabetes mellitus type 2: Start Accu-Cheks and insulin sliding scale. 4. Chronic kidney disease: Appears to be stable. Nephrology Service is being consulted both for hy perkalemia and for chronic kidney disease. 5. Dyslipidemia: Continue statin. 6. Chronic obstructive pulmonary disease: The patient does not appear to be in exacerbation at this time. Many thanks for allowing me to participate in your patient's care. Please feel free to contact me wi th any questions or concerns. LEVEL OF RISK: High. LEVEL OF COMPLEXITY: High.
[2018-02-05] MEDS ORDERED: Insulin Regular 300 UNITS/3 ML VIAL SC SCH (14:30)
[2018-02-05] MEDS ORDERED: Dextrose 50% Abboject 50 ML SYRINGE SLOW IVP SCH (14:30)
[2018-02-06 05:46] LABS: Anion Gap 13 mmol/L (10-20); BUN (Urea Nitrogen) 58 mg/dL (9.8-20.1); Calc. Creatinine Clearance 82 mL/min (70-130); Calcium 8.9 mg/dL (7.8-10.44); Carbon Dioxide 19 mmol/L (22-29); Chloride 111 mmol/L (98-107); Estimated GFR-MDRD 21; Glucose 113 mg/dL (70-105); Sodium 136 mmol/L (136-145)
[2018-02-06 05:51] LABS: Potassium 6.8 mmol/L (3.5-5.1)
[2018-02-06] MEDS ORDERED: Insulin Regular 300 UNITS/3 ML VIAL SC SCH (08:30)
[2018-02-06] MEDS ORDERED: Dextrose 50% Abboject 50 ML SYRINGE SLOW IVP SCH (08:30)
[2018-02-06] MEDS ORDERED: Albuterol Sulfate 2.5 mg/3 ml Neb NEB SCH (08:30)
[2018-02-06] MEDS: Furosemide 40 MG/4 ML VIAL SLOW IVP SCH (09:01)
[2018-02-06 09:09] LABS: Actual Bicarbonate (HCO3a) 21.9 mEq/L (22-28); Base Excess (BEa) -4.9 mEq/L (-2.0 to +3.0); CO2 Tension 49.4 mmHg (35.0-45.0); Carboxyhemoglobin (COHb) 0.2 gm% (0.0-3.0); Hemoglobin (Hb) 8.8 g/dL (12.0-16.0); O2 Tension (PaO2) 257.7 mmHg (80.0-100.0); pH, Arterial 7.27 (7.35-7.45)
[2018-02-06 09:10] LABS: Calcium, Ionized 1.18 mmol/L (1.12-1.30); Potassium - ABG Lab 5.78 mmol/L (3.70-5.30); Puncture Site LBA
--- NOTE | 2018-02-06 10:34 | PRG ---
DATE OF SERVICE: 02/06/2018 SUBJECTIVE: This is a 57-year-old female being seen for acute kidney injury. The patient denies any nausea, vomiting or chest pain. PHYSICAL EXAMINATION: GENERAL: Patient is awake, alert. VITAL SIGNS: Afebrile, pulse 60, breathing 16, blood pressure 130/59. OBJECTIVE: See above. Awake, alert, in no acute distress. GENERAL APPEARANCE AND MENTAL STATUS: Fair. HEAD/NECK: Normocephalic. Atraumatic. EYES: EOMI. No deformity. EARS: Clear. No ulcers. NOSE: Intact. No lesions. MOUTH: Clear. No discharge. THROAT: Clear. No exudate. LUNGS: Clear. No crackles. CARDIAC: S1, S2. No rub. ABDOMEN: Benign. BS+. GENITALIA/RECTUM: Cuevas absent. BACK/EXTREMITIES: Edema 0+ Ulcer- NEUROLOGICAL: Alert and motor intact. SKIN: Rash- Bruise- LYMPHATICS: Edema- Ulcer- LABORATORY: Creatinine 2.3, bicarbonate 19, potassium was 5.7 on blood gas. ASSESSMENT AND RECOMMENDATIONS: 1. Acute kidney injury with chronic kidney disease due to cardiorenal syndrome, hyperkalemia. Agree with Kayexalate. Patient's blood serum potassium is drawn because of poor veins. Would recommend c hecking a blood gas with potassium as there is tissue present in the serum potassium. History of ser um with tissue potassium. 2. Anemia, stable. 3. Respiratory failure management per primary team. Overall, prognosis is poor.
--- NOTE | 2018-02-06 11:06 | CON ---
DATE OF CONSULTATION: 02/05/2018 CONSULTING PHYSICIAN: Ryan Willard DO REASON FOR CONSULTATION: Acute kidney injury. REASON FOR ADMISSION: Shortness of breath, leg swelling. HISTORY OF PRESENT ILLNESS: This is a 56-year-old morbidly obese female with past medical history of chronic kidney disease stage 3, COPD, anemia, hypertension, type 2 diabetes, who came to the [facility] with leg swelling and was found to have elevated creatinine. The patient's creatinine was found to be 2.4, which is in the range that he has been with a GFR of 21. Her last GFR was 16-19 and a few m onths back, she was 26. The patient is feeling a little bit better. She was on IV fluids. Her sugars were also low. The pa tient is very sleepy. No chest pain or palpitation. No fever or chills. No nausea or vomiting repo rted to me. PAST MEDICAL HISTORY: Positive for chronic kidney disease stage IV, chronic obstructive pulmonary di sease, anemia, hypertension, anxiety, diabetes, morbid obesity, peripheral vascular disease. PAST SURGICAL HISTORY: Hysterectomy, oophorectomy, knee replacement. HOME MEDICATIONS: Include Tradjenta, , Trulicity, Cymbalta, Augmentin, Wellbutrin, sodium bicar bonate, Zocor, ranitidine, Pregabalin, nitro, Procardia, prednisone, hydralazine, clonidine. ALLERGIES: CIPRO, MELOXICAM, MORPHINE, SULFAMETHOXAZOLE, TRAMADOL, TRIMETHOPRIM. SOCIAL HISTORY: No smoking, alcohol or drugs. FAMILY HISTORY: No history of kidney disease. REVIEW OF SYSTEMS: The following complete review of systems was negative, unless otherwise mentioned in the HPI or below: Constitutional: Weight loss or gain, ability to conduct usual activities. Skin: Rash, itching. Eyes: Double vision, pain. ENT/Mouth: Nose bleeding, neck stiffness, pain, tenderness. Cardiovascular: Palpitations, dyspnea on exertion, orthopnea. Respiratory: Shortness of breath, wheezing, cough, hemoptysis, fever or night sweats. Gastrointestinal: Poor appetite, abdominal pain, heartburn, nausea, vomiting, constipation, or diarrhea. Genitourinary: Urgency, frequency, dysuria, nocturia. Musculoskeletal: Pain, swelling. Neurologic/Psychiatric: Anxiety, depression. Allergy/Immunologic: Skin rash, bleeding tendency. PHYSICAL EXAMINATION: GENERAL: This is a morbidly obese female, sleepy, lethargic. VITAL SIGNS: Temperature 97.5, pulse 87, respiratory 18, blood pressure 140/62. HEENT: Atraumatic, normocephalic. NECK: Supple. HEART: S1, S2 heard. RESPIRATORY: Clear. GASTROINTESTINAL: Abdomen is soft. MUSCULOSKELETAL: 1+ edema. DERMATOLOGIC: No skin rash. NEUROLOGIC: Alert, awake. PSYCHIATRIC: Mood and affect normal. DATA: Hemoglobin is 8.4, potassium is 5.8, BUN 56, creatinine 2.3, potassium 7.3 on admission. ASSESSMENT AND PLAN: 1. Acute kidney injury on chronic kidney stage IV. Renal function not much different from her basel ine. We will add Lasix given her edema. 2. Hyperkalemia. We will have Lasix. I agree with Kayexalate and limit potassium. metabolic acidosis. 3. History of type 2 diabetes and morbid obesity. 4. Hypertension. 5. Chronic anemia. 6. Prognosis guarded. We will have a dose of Lasix and monitor. Limit potassium intake. I will st op intravenous fluids for now. We will follow.
[2018-02-06] MEDS: Metolazone 2.5 MG TAB PO SCH (11:36)
[2018-02-06 11:37] LABS: #Eosinphils 0.1 thou/uL (0.0-0.7); #Lymphocytes 1.3 thou/uL (1.20-3.40); #Monocytes 0.4 thou/uL (0.11-0.59); #Neutrophils 2.4 thou/uL (1.40-6.50); %Basophils 0.4 % (0.0-1.0); %Eosinophils 3.3 % (0.0-10.0); %Lymphocytes 30.4 % (21.0-51.0); %Monocytes 8.5 % (0.0-10.0); %Neutrophils 57.4 % (42.0-75.0); Hemoglobin 8.1 g/dL (12.0-16.0); Mean Corpuscular HGB CONC 31.2 g/dL (32.0-36.0); Mean Corpuscular Hemoglobin 28.1 pg (27.0-31.0); Mean Corpuscular Volume 90.3 fL (78.0-98.0); Mean Platelet Volume 8.6 fL (7.4-10.4); Platelet Count 135 thou/uL (130-400); RBC Distribution Width 14.9 % (11.5-14.5); Red Blood Cell (RBC) Count 2.86 mill/uL (4.20-5.40); White Blood Cell (WBC) Count 4.2 thou/uL (4.8-10.8)
--- NOTE | 2018-02-06 14:27 | PDOC.PN ---
- Subjective Encounter Start Date: 02/06/18 Encounter Start Time: 10:00 Pt seen for followup re: hyperkalemia. Denies chest pain. Pt is tearful at times, tells me electricity is turned off at her house. Does not want to speak to drug abuse social worker. - Objective MAR Reviewed: Yes Vital Signs & Weight: Vital Signs (12 hours) Temp Pulse Resp BP Pulse Ox 02/06/18 11:47 98.1 F 77 20 108/51 L 97 02/06/18 08:51 97.9 F 72 20 159/69 H 95 02/06/18 08:42 63 16 02/06/18 04:00 97.9 F 63 16 144/65 H 94 L Weight Weight 446 lb 8 oz I&O: 02/05/18 02/06/18 02/07/18 06:59 06:59 06:59 Intake Total 2540 Output Total 3000 Balance -460 Result Diagrams: 02/06/18 11:22 02/06/18 05:13 Additional Labs: Accuchecks 02/06/18 02/06/18 02/05/18 10:45 06:24 20:50 POC Glucose 133 H 119 H 108 02/05/18 16:41 POC Glucose 127 H EKG Reviewed by me: Yes (Tele: NSR) Phys Exam - Physical Examination Morbid obesity HEENT: moist MMs, sclera anicteric, oral pharynx no lesions, 2+ tonsils Neck: no nodes, no JVD, supple, full ROM Respiratory: no wheezing, no rales, no rhonchi, clear to auscultation bilateral Cardiovascular: RRR, no rub S1, S2 Gastrointestinal: soft, non-tender, positive bowel sounds distention Neurological: moves all 4 limbs Psychiatric: A&O x 3 Deviation from normal: Tearful Dx/Plan (1) Hyperkalemia Code(s): E87.5 - HYPERKALEMIA Status: Acute Comment: administer kayexalate, insulin. Potassium is better on ABG (2) CKD (chronic kidney disease) stage 3, GFR 30-59 ml/min Status: Chronic Comment: stable (3) DM type 2 (diabetes mellitus, type 2) Status: Chronic Comment: continue accuchecks, insulin sliding scale (4) Hypertension Code(s): I10 - ESSENTIAL (PRIMARY) HYPERTENSION Status: Chronic Qualifiers: Hypertension type: essential hypertension Qualified Code(s): I10 - Essential (primary) hypertension Comment: monitor vital signs, titrate antihypertensives as needed (5) Dyslipidemia Code(s): E78.5 - HYPERLIPIDEMIA, UNSPECIFIED Status: Chronic Comment: continue statin - Plan * . Review of Systems - Review of Systems Constitutional: negative: fever, chills, sweats, weakness, malaise Respiratory: SOB with Excertion. negative: Cough, Dry, Shortness of Breath, Hemoptysis, Pleuritic Pain, Sputum, Wheezing Cardiovascular: negative: chest pain, palpitations, orthopnea, paroxysmal nocturnal dyspnea, edema, light headedness Gastrointestinal: negative: Nausea, Vomiting, Abdominal Pain, Diarrhea, Constipation, Melena, Hematochezia Genitourinary: negative: Dysuria, Frequency, Incontinence, Hematuria, Retention Skin: negative: Rash, Lesions, Srinath, Bruising - Medications/Allergies Allergies/Adverse Reactions: Allergies Allergy/AdvReac Type Severity Reaction Status Date / Time ciprofloxacin Allergy Verified 04/21/15 11:57 meloxicam Allergy Verified 04/21/15 11:57 morphine Allergy Verified 04/21/15 11:57 sulfamethoxazole Allergy Verified 04/21/15 11:57 [From Bactrim] tramadol Allergy Verified 04/21/15 11:57 trimethoprim [From Bactrim] Allergy Verified 04/21/15 11:57 Medications: Current Medications Acetaminophen (Tylenol) 650 mg PO Q6H PRN PRN Reason: Headache/Fever or Pain Furosemide (Lasix) 40 mg SLOW IVP DAILY [facility] Last Admin: 02/06/18 09:01 Dose: 40 mg Metolazone (Zaroxolyn) 2.5 mg PO 1000 [place] Last Admin: 02/06/18 11:36 Dose: 2.5 mg Sodium Chloride (Flush - Normal Saline) 10 ml IVF PRN PRN PRN Reason: Saline Flush
--- NOTE | 2018-02-06 14:40 | NM ---
VQ SCAN: INDICATION: Elevated D-dimer. RADIOPHARMACEUTICAL: 6.5 mCi of Technetium 99m-MAA IV and 25.5 mCi Xenon 133 inhaled. FINDINGS: No large mismatched perfusion defect is evident when comparing the ventilatory and perfusion nuclear medicine evaluations. There is some loss of the perfusion radiotracer intensity of the left lung on the left lateral and left anterior oblique perfusion images likely related to attenuation from the gail dy wall. Comparisons are made with the chest radiograph dated 02/04/2018. No definite ventilatory r etention is evident. IMPRESSION: Low probability of VQ scan for PE. POS: [facility]
[2018-02-06] MEDS: Acetaminophen 325 MG TAB PO PRN (16:05)
[2018-02-06 18:55] LABS: Potassium 5.3 mmol/L (3.5-5.1)
[2018-02-06] MEDS ORDERED: HYDROcodone/Acetaminophen 5/325 mg Tablet PO PRN (23:30)
[2018-02-07] MEDS ORDERED: HYDROcodone/Acetaminophen 5/325 mg Tablet ONE (01:57)
[2018-02-07 06:22] LABS: #Eosinphils 0.1 thou/uL (0.0-0.7); #Lymphocytes 1.2 thou/uL (1.20-3.40); #Monocytes 0.4 thou/uL (0.11-0.59); %Basophils 0.5 % (0.0-1.0); %Eosinophils 2.9 % (0.0-10.0); %Lymphocytes 31.8 % (21.0-51.0); %Monocytes 9.6 % (0.0-10.0); %Neutrophils 55.2 % (42.0-75.0); Mean Corpuscular HGB CONC 31.3 g/dL (32.0-36.0); Mean Corpuscular Volume 89.5 fL (78.0-98.0); Mean Platelet Volume 8.7 fL (7.4-10.4); Platelet Count 137 thou/uL (130-400); RBC Distribution Width 15.1 % (11.5-14.5); Red Blood Cell (RBC) Count 2.86 mill/uL (4.20-5.40); White Blood Cell (WBC) Count 3.7 thou/uL (4.8-10.8)
[2018-02-07 06:44] LABS: BUN (Urea Nitrogen) 52 mg/dL (9.8-20.1); Calc. Creatinine Clearance 88 mL/min (70-130); Calcium 8.8 mg/dL (7.8-10.44); Carbon Dioxide 21 mmol/L (22-29); Chloride 109 mmol/L (98-107); Estimated GFR-MDRD 22; Glucose 128 mg/dL (70-105); Potassium 5.7 mmol/L (3.5-5.1); Sodium 138 mmol/L (136-145)
[2018-02-07 07:09] LABS: Anion Gap 14 mmol/L (10-20)
[2018-02-07] MEDS ORDERED: Metolazone 2.5 MG TAB PO SCH (09:15)
--- NOTE | 2018-02-07 09:29 | PRG ---
DATE OF SERVICE: 02/07/2018 SUBJECTIVE: This is a 57-year-old female being seen for acute kidney injury. The patient denies any nausea, vomiting or chest pain. PHYSICAL EXAMINATION: GENERAL: Patient is awake, alert. VITAL SIGNS: Afebrile, pulse 69, breathing 16, blood pressure 150/67. OBJECTIVE: See above. Awake, alert, in no acute distress. GENERAL APPEARANCE AND MENTAL STATUS: Fair. HEAD/NECK: Normocephalic. Atraumatic. EYES: EOMI. No deformity. EARS: Clear. No ulcers. NOSE: Intact. No lesions. MOUTH: Clear. No discharge. THROAT: Clear. No exudate. LUNGS: Clear. No crackles. CARDIAC: S1, S2. No rub. ABDOMEN: Benign. BS+. GENITALIA/RECTUM: Cuevas absent. BACK/EXTREMITIES: Edema 0+ Ulcer- NEUROLOGICAL: Alert and motor intact. SKIN: Rash- Bruise- LYMPHATICS: Edema- Ulcer- LABORATORY: Hemoglobin 8.0, potassium was 5.7, creatinine 2.3. ASSESSMENT: 1. Chronic kidney disease stage 4, stable. 2. Hypertension, stable. 3. Hyperkalemia, improved. Would recommend giving Kayexalate. 4. Hyperkalemia. We will give Kayexalate and Zaroxolyn. 5. Anemia, stable. 6. Medication based on glomerular filtration rate are appropriate.
[2018-02-07] MEDS: Furosemide 40 MG/4 ML VIAL SLOW IVP SCH (09:39)
[2018-02-07] MEDS: Metolazone 2.5 MG TAB PO SCH (09:39)
[2018-02-07] MEDS: HYDROcodone/Acetaminophen 5/325 mg Tablet PO PRN (09:47)
[2018-02-07 10:44] LABS: Actual Bicarbonate (HCO3a) 23.7 mEq/L (22-28); Base Excess (BEa) -1.9 mEq/L (-2.0 to +3.0); CO2 Tension 43.9 mmHg (35.0-45.0); Calcium, Ionized 1.15 mmol/L (1.12-1.30); Carboxyhemoglobin (COHb) 1.1 gm% (0.0-3.0); Hemoglobin (Hb) 8.6 g/dL (12.0-16.0); O2 Tension (PaO2) 75.9 mmHg (80.0-100.0); Potassium - ABG Lab 5.05 mmol/L (3.70-5.30); Puncture Site RRA; pH, Arterial 7.35 (7.35-7.45)
[2018-02-07 10:45] LABS: ALV-art Gradient 18.955 (0-20)
[2018-02-07] MEDS ORDERED: cloNIDine 0.1 MG TAB PO PRN (11:33)
[2018-02-07] MEDS ORDERED: Nitroglycerin 0.4 MG TAB (25 Tab Bottle) SL PRN (11:33)
[2018-02-07] MEDS ORDERED: Senokot 8.6 MG TAB PO PRN (11:33)
[2018-02-07] MEDS ORDERED: Dextrose 5% in Water 1,000 ML IV PRN (11:37)
[2018-02-07] MEDS ORDERED: Dextrose 50% Abboject 50 ML SYRINGE SLOW IVP PRN (11:37)
[2018-02-07] MEDS ORDERED: HumaLOG 300 UNITS/3 ML VIAL SC PRN (11:37)
[2018-02-07] MEDS ORDERED: PROVENTIL INHALER 6.7 G (200 INHALATIONS) INH PRN (11:45)
[2018-02-07] MEDS ORDERED: Calcium Carbonate 500 MG ChewTAB PO PRN (11:48)
--- NOTE | 2018-02-07 14:24 | PDOC.PN ---
- Subjective Encounter Start Date: 02/07/18 Encounter Start Time: 07:20 Pt seen for followup re: hyperkalemia. Denies chest pain, shortness of breath, fevers or chills. - Objective MAR Reviewed: Yes Vital Signs & Weight: Vital Signs (12 hours) Temp Pulse Resp BP Pulse Ox 02/07/18 11:29 97.7 F 78 18 181/61 H 96 02/07/18 09:13 98.3 F 72 15 166/72 H 96 02/07/18 03:02 98.1 F 69 15 150/67 H 93 L Weight Weight 446 lb 8 oz I&O: 02/06/18 02/07/18 02/08/18 06:59 06:59 06:59 Intake Total 2540 Output Total 3000 Balance -460 Result Diagrams: 02/07/18 05:42 02/07/18 05:42 Additional Labs: Accuchecks 02/07/18 02/07/18 02/06/18 11:08 05:08 20:06 POC Glucose 139 H 132 H 161 H 02/06/18 16:48 POC Glucose 147 H EKG Reviewed by me: Yes (Tele: NSR) Phys Exam - Physical Examination Morbid obesity HEENT: moist MMs, sclera anicteric, oral pharynx no lesions, 2+ tonsils Neck: no nodes, no JVD, supple, full ROM Respiratory: no wheezing, no rales, no rhonchi, clear to auscultation bilateral Cardiovascular: RRR, no rub S1, S2 Gastrointestinal: soft, non-tender, positive bowel sounds distention Musculoskeletal: edema present Neurological: moves all 4 limbs Psychiatric: normal affect, A&O x 3 Dx/Plan (1) Hyperkalemia Code(s): E87.5 - HYPERKALEMIA Status: Acute Comment: Potassium improved to 5.7, pt to receive kayexalate today (2) CKD (chronic kidney disease) stage 3, GFR 30-59 ml/min Status: Chronic Comment: stable, creatinine is 2.32 today (3) DM type 2 (diabetes mellitus, type 2) Status: Chronic Comment: start lantus at lower than home dose (episode of hypoglycemia), continue accuchecks, insulin sliding scale (4) Hypertension Code(s): I10 - ESSENTIAL (PRIMARY) HYPERTENSION Status: Chronic Qualifiers: Hypertension type: essential hypertension Qualified Code(s): I10 - Essential (primary) hypertension Comment: resume home medications, monitor vital signs, titrate antihypertensives as needed (5) Dyslipidemia Code(s): E78.5 - HYPERLIPIDEMIA, UNSPECIFIED Status: Chronic Comment: continue statin - Plan * . Review of Systems - Review of Systems Constitutional: negative: fever, chills, sweats, weakness, malaise Respiratory: negative: Cough, Shortness of Breath, SOB with Excertion, Pleuritic Pain, Wheezing Cardiovascular: negative: chest pain, palpitations, orthopnea, paroxysmal nocturnal dyspnea, edema, light headedness Skin: negative: Rash, Lesions, Srinath, Bruising Neurological: negative: Weakness, Numbness, Incoordination, Change in Speech, Confusion, Seizures - Medications/Allergies Allergies/Adverse Reactions: Allergies Allergy/AdvReac Type Severity Reaction Status Date / Time ciprofloxacin Allergy Verified 04/21/15 11:57 meloxicam Allergy Verified 04/21/15 11:57 morphine Allergy Verified 04/21/15 11:57 sulfamethoxazole Allergy Verified 04/21/15 11:57 [From Bactrim] tramadol Allergy Verified 04/21/15 11:57 trimethoprim [From Bactrim] Allergy Verified 04/21/15 11:57 Medications: Current Medications Acetaminophen (Tylenol) 650 mg PO Q6H PRN PRN Reason: Headache/Fever/MILD PAIN 1-3 Last Admin: 02/06/18 16:05 Dose: 650 mg Hydrocodone Bitart/Acetaminophen ([place] 5/325) 1 tab PO Q6H PRN PRN Reason: Moderate Pain (4-6) Hydrocodone Bitart/Acetaminophen ([place] 5/325) 2 tab PO Q6H PRN PRN Reason: Severe Pain (7-10) Last Admin: 02/07/18 09:47 Dose: 2 tab Albuterol Sulfate (Proventil Hfa) 2 puff INH Q4H PRN PRN Reason: SOB &/or Wheezing Bupropion HCl (Wellbutrin Xl) 300 mg PO DAILY [place] Calcium Carbonate (Tums) 1,000 mg PO Q4H PRN PRN Reason: STOMACH ACID Cholecalciferol (Vitamin D3) 1,000 units PO DAILY [place] Clonidine (Catapres) 0.1 mg PO Q4H PRN PRN Reason: Systolic BP > 180 Cyanocobalamin (Vitamin B-12) 500 mcg PO DAILY [facility] Dextrose/Water (Dextrose 50%) 25 gm SLOW IVP PRN PRN PRN Reason: Hypoglycemia Duloxetine HCl (Cymbalta) 60 mg PO DAILY [facility] Famotidine (Pepcid) 20 mg PO 2100 [facility] Ferrous Sulfate (Feosol) 325 mg PO QAM [facility] Furosemide (Lasix) 40 mg SLOW IVP DAILY [facility] Last Admin: 02/07/18 09:39 Dose: 40 mg Glucagon (Glucagon) 1 mg IM PRN PRN PRN Reason: Hypoglycemia Hydralazine HCl (Apresoline) 50 mg PO TID [facility] Dextrose/Water (D5w) 1,000 mls @ 0 mls/hr IV .Q0M PRN PRN Reason: Hypoglycemia Insulin Glargine 20 units/ (Miscellaneous Medication) 0.2 mls @ 0 mls/hr SC QAM [facility] Insulin Human Lispro (Humalog) 0 units SC .MILD SLIDING SCALE PRN PRN Reason: Mild Correctional Scale Levothyroxine Sodium (Synthroid) 100 mcg PO 0600 [facility] Metolazone (Zaroxolyn) 2.5 mg PO 1000 [place] Last Admin: 02/07/18 09:39 Dose: 2.5 mg Mometasone Furoate/Formoterol Fumar (Dulera 200 Mcg/5 Mcg Inhaler) 2 puff INH BID-RT [facility] Nifedipine (Procardia Xl) 60 mg PO DAILY [facility] Nitroglycerin (Nitrostat) 0.4 mg SL Q5MIN PRN PRN Reason: Chest Pain Pregabalin (Lyrica) 100 mg PO TID [facility] Senna (Senokot) 2 tab PO HSPRN PRN PRN Reason: Constipation Simvastatin (Zocor) 40 mg PO HS [facility] Sodium Chloride (Flush - Normal Saline) 10 ml IVF PRN PRN PRN Reason: Saline Flush Timolol Maleate (Timoptic 0.5% [facility]) 1 drop R EYE BID [facility]
[2018-02-07] MEDS: Pregabalin 50 MG CAP PO SCH ×2 (15:03→20:40)
[2018-02-07] MEDS: hydrALAZINE 25 MG TAB PO SCH ×2 (15:04→20:39)
[2018-02-07] MEDS: Acetaminophen 325 MG TAB PO PRN (18:37)
[2018-02-07] MEDS: Mometasone/Formoterol 120 PUFF INHALER INH SCH (18:55)
[2018-02-07] MEDS: Timolol 0.5% Ophth Soln 5 ml Bottle R EYE SCH (20:57)
[2018-02-07] MEDS ORDERED: INSULIN GLARGINE HUM REC ANLOG 70 UNIT SQ SCH (21:00)
[2018-02-07] MEDS ORDERED: Simvastatin 40 MG TAB PO SCH (21:00)
[2018-02-07] MEDS ORDERED: Famotidine 20 MG TAB PO SCH (21:00)
[2018-02-08 05:50] LABS: #Eosinphils 0.1 thou/uL (0.0-0.7); #Lymphocytes 0.9 thou/uL (1.20-3.40); #Monocytes 0.4 thou/uL (0.11-0.59); %Basophils 0.7 % (0.0-1.0); %Lymphocytes 26.7 % (21.0-51.0); %Monocytes 10.3 % (0.0-10.0); %Neutrophils 59.4 % (42.0-75.0); Hemoglobin 8.4 g/dL (12.0-16.0); Mean Corpuscular HGB CONC 31.6 g/dL (32.0-36.0); Mean Corpuscular Hemoglobin 28.4 pg (27.0-31.0); Mean Platelet Volume 8.7 fL (7.4-10.4); Platelet Count 139 thou/uL (130-400); RBC Distribution Width 14.9 % (11.5-14.5); Red Blood Cell (RBC) Count 2.94 mill/uL (4.20-5.40); White Blood Cell (WBC) Count 3.4 thou/uL (4.8-10.8)
[2018-02-08] MEDS ORDERED: Levothyroxine Sodium 100 MCG TAB PO SCH (06:00)
[2018-02-08 06:07] LABS: Anion Gap 13 mmol/L (10-20); BUN (Urea Nitrogen) 45 mg/dL (9.8-20.1); Calc. Creatinine Clearance 98 mL/min (70-130); Calcium 8.7 mg/dL (7.8-10.44); Carbon Dioxide 22 mmol/L (22-29); Chloride 108 mmol/L (98-107); Estimated GFR-MDRD 25; Glucose 171 mg/dL (70-105); Potassium 4.8 mmol/L (3.5-5.1); Sodium 138 mmol/L (136-145)
[2018-02-08] MEDS: Mometasone/Formoterol 120 PUFF INHALER INH SCH (07:17)
[2018-02-08] MEDS ORDERED: Insulin Glargine 20 UNITS in Pre-Filled Syringe 1 EACH SC SCH (09:00)
[2018-02-08] MEDS ORDERED: Ferrous Sulfate 325 MG TAB PO SCH (09:00)
[2018-02-08] MEDS ORDERED: DULoxetine 30 MG CAP PO SCH (09:00)
[2018-02-08] MEDS ORDERED: Cyanocobalamin (Vitamin B-12) 1,000 MCG TAB PO SCH (09:00)
[2018-02-08] MEDS ORDERED: Non-Formulary Item 1 EACH (Linagliptin [Tradjenta] 5 MG) PO SCH (09:00)
[2018-02-08] MEDS ORDERED: Bupropion 150 MG XL TAB PO SCH (09:00)
[2018-02-08] MEDS ORDERED: NIFEdipine XL 60 MG TAB PO SCH (09:00)
[2018-02-08] MEDS: hydrALAZINE 25 MG TAB PO SCH ×2 (09:07→14:52)
[2018-02-08] MEDS: Acetaminophen 325 MG TAB PO PRN (09:09)
[2018-02-08] MEDS: Furosemide 40 MG/4 ML VIAL SLOW IVP SCH (09:09)
[2018-02-08] MEDS: Pregabalin 50 MG CAP PO SCH ×2 (09:09→14:52)
[2018-02-08] MEDS: Metolazone 2.5 MG TAB PO SCH (09:16)
[2018-02-08] MEDS: Timolol 0.5% Ophth Soln 5 ml Bottle R EYE SCH (09:20)
[2018-02-08] MEDS: HYDROcodone/Acetaminophen 5/325 mg Tablet PO PRN (10:59)
[2018-02-08 11:36] VITALS: TEMP 98
--- NOTE | 2018-02-08 12:33 | PRG ---
DATE OF SERVICE: 02/08/2018 SUBJECTIVE: A 57-year-old female, being seen for acute kidney injury. The patient denies any nausea , vomiting, or chest pain. OBJECTIVE: See above. GENERAL: Patient is awake and alert. VITAL SIGNS: Afebrile, pulse is 69, breathing at 16, blood pressure 132/60. GENERAL APPEARANCE AND MENTAL STATUS: Fair. HEAD/NECK: Normocephalic. Atraumatic. EYES: EOMI. No deformity. EARS: Clear. No ulcers. NOSE: Intact. No lesions. MOUTH: Clear. No discharge. THROAT: Clear. No exudate. LUNGS: Clear. No crackles. CARDIAC: S1, S2. No rub. ABDOMEN: Benign. BS+. GENITALIA/RECTUM: Cuevas absent. BACK/EXTREMITIES: Edema 0+, ulcer. NEUROLOGICAL: Alert and motor intact. SKIN: Rash - bruise. LYMPHATICS: Edema - ulcer. LABORATORY DATA: Labs show hemoglobin 8.4, creatinine 2.0. ASSESSMENT AND RECOMMENDATIONS: 1. Acute kidney injury with chronic kidney disease stage 4, stable. 2. Hypertension, stable. 3. Anemia, stable. 4. Metabolic acidosis, stable. 5. Hyperkalemia, stable. No indication for dialysis. The patient will follow up with Dr. Corey.
--- NOTE | 2018-02-08 13:32 | DIS ---
DATE OF ADMISSION: 02/05/2018 DATE OF DISCHARGE: 02/08/2018 PRIMARY CARE PHYSICIAN: Scott Hull M.D. ADMITTING DIAGNOSES: 1. Hyperkalemia. 2. Acute on chronic stage 4 renal failure. 3. Hypoglycemia. CONDITION OF PATIENT ON THE DAY OF DISCHARGE: Stable. I assessed Ms. Verdugo on the day of discharg e. She denies any chest pain or shortness of breath. PHYSICAL EXAMINATION: VITAL SIGNS: Stable. HEART: S1 and S2 are heard, regular. LUNGS: Clear to auscultation bilaterally. DISCHARGE MEDICATIONS: Lasix 20 mg daily, Lantus insulin 20 units daily, Wellbutrin-XL 300 mg in the morning, vitamin D3 1000 units daily, vitamin B12 500 mcg daily, Cymbalta 60 mg daily, ferrous sulfa te 325 mg daily, levothyroxine 100 mcg daily, Lyrica 100 mg 3 times a day, ranitidine 150 mg 2 times a day, Zocor 40 mg at bedtime, timolol eyedrops 1 drop to right eye 2 times a day, Proventil HFA 2 p uffs every 4 hours as needed, and Procardia-XL 60 mg daily. CONSULTATIONS DURING THIS HOSPITALIZATION: Nephrology, Dr. Celia Bowles. HOSPITAL COURSE: Ms. Verdugo is a pleasant 57-year-old lady who was admitted to [facility] on February 05, 2018, for hyperkalemia. She also had an elevated D-dimer at the time of admission. She also had shortness of breath, likely secondary to volume overload. She received diu retics. VQ scan was low probability for pulmonary embolism. Lower extremity venogram did not show a ny evidence of deep vein thrombosis. She received treatments for hyperkalemia, with marked improvement of her potassium level. It is susp ected that her venous potassium was higher because of contamination from tissue potassium, since her potassium level on ABG was lower than that on the venous sample. She also had acute on chronic stage IV renal failure at the time of admission, with a creatinine of 2 .46. It improved to 2.08 on the day of discharge. She had episode of hypoglycemia during this hospitalization. Her Lantus insulin dose has been change d to 20 units daily. She has been advised to check her Accu-Cheks and adjust her insulin accordingly after showing the readings to her primary care provider. Many thanks for allowing me to participate in your patient's care. Please feel free to contact me wi th any questions or concerns. DISCHARGE DESTINATION: Home. TOTAL AMOUNT OF TIME SPENT COORDINATING THIS DISCHARGE: 32 minutes.
[2018-02-08 14:53] VITALS: BP 137/80
[2018-02-14] MEDS ORDERED: Non-Formulary Item 1 EACH (Dulaglutide [Trulicity] 1.5 MG) SQ SCH (09:00)
== END 2018-02-08 16:05 | disposition home or self-care (01) | DRG 682 ==
LOC: ERS 23:42 → 2NO 02-05 07:25
PROVIDERS: ADMIT Internal Medicine; ATTEND Internal Medicine
DX: N17.9 Acute kidney failure, unspecified (principal); J96.90 Respiratory failure, unspecified, unspecified whether with hypoxia or hypercapnia; Z68.45 Body mass index [BMI] 70 or greater, adult; E87.5 Hyperkalemia; J44.9 Chronic obstructive pulmonary disease, unspecified; D63.1 Anemia in chronic kidney disease; F41.9 Anxiety disorder, unspecified; F32.9 Major depressive disorder, single episode, unspecified; E78.5 Hyperlipidemia, unspecified; N18.4 Chronic kidney disease, stage 4 (severe); E11.22 Type 2 diabetes mellitus with diabetic chronic kidney disease; I12.9 Hypertensive chronic kidney disease with stage 1 through stage 4 chronic kidney disease, or unspecified chronic kidney disease; E11.649 Type 2 diabetes mellitus with hypoglycemia without coma; E11.42 Type 2 diabetes mellitus with diabetic polyneuropathy; E66.01 Morbid (severe) obesity due to excess calories; Z79.4 Long term (current) use of insulin; Z88.5 Allergy status to narcotic agent; Z88.2 Allergy status to sulfonamides; Z88.8 Allergy status to other drugs, medicaments and biological substances; Z96.651 Presence of right artificial knee joint
CPT/HCPCS: 36415; 36416; 71045; 78582; 80048; 80053; 82553; 82805; 83615; 83880; 84484; 85025; 85379; 93005; 93970; 94640; 94664; 96361; 96374; 96375; A9540; A9558; J1815; J1940; J3370; J7611

== ENCOUNTER 2018-03-10 14:56 | Inpatient (IN) | payer MEDICARE, MEDICAID ==
[2018-03-10 15:50] LABS: #Eosinphils 0.1 thou/uL (0.0-0.7); #Monocytes 0.5 thou/uL (0.11-0.59); #Neutrophils 5.3 thou/uL (1.40-6.50); %Basophils 0.4 % (0.0-1.0); %Eosinophils 1.6 % (0.0-10.0); %Lymphocytes 14.7 % (21.0-51.0); %Monocytes 7.3 % (0.0-10.0); %Neutrophils 76.1 % (42.0-75.0); Hemoglobin 8.9 g/dL (12.0-16.0); Mean Corpuscular HGB CONC 31.7 g/dL (32.0-36.0); Mean Corpuscular Hemoglobin 28.2 pg (27.0-31.0); Mean Corpuscular Volume 88.8 fL (78.0-98.0); Mean Platelet Volume 8.7 fL (7.4-10.4); Platelet Count 182 thou/uL (130-400); RBC Distribution Width 14.9 % (11.5-14.5); Red Blood Cell (RBC) Count 3.17 mill/uL (4.20-5.40)
[2018-03-10 15:54] LABS: ALT (SGPT) 12 U/L (8-55); AST (SGOT) 10 U/L (5-34); Albumin 3.5 g/dL (3.5-5.0); Alkaline Phosphatase 95 U/L (40-150); Anion Gap 13 mmol/L (10-20); BUN (Urea Nitrogen) 31 mg/dL (9.8-20.1); Bilirubin, Total 0.3 mg/dL (0.2-1.2); Calc. Creatinine Clearance 0 mL/min (70-130); Calcium 8.9 mg/dL (7.8-10.44); Carbon Dioxide 24 mmol/L (22-29); Chloride 106 mmol/L (98-107); Estimated GFR-MDRD 31; Globulin 3.3 g/dL (2.4-3.5); Glucose 297 mg/dL (70-105); Potassium 4.5 mmol/L (3.5-5.1); Protein, Total 6.8 g/dL (6.0-8.3); Sodium 138 mmol/L (136-145)
[2018-03-10] MEDS ORDERED: MEROPENEM 1 GM/50 ML 1 GM in Premix Bag 1 BAG IVPB SCH (16:45)
--- NOTE | 2018-03-10 17:44 | ULT ---
BILATERAL LOWER EXTREMITY VENOUS ULTRASOUND WITH DOPPLER: HISTORY: Past medical history of swelling and edema. Cellulitis. COMPARISON: 02/05/2018 TECHNIQUE: Porter-scale, color-flow, Doppler imaging, and spectral wave-form analysis is performed of the left and right lower extremity venous system. FINDINGS: Bilaterally, there is compressibility, presence of flow, and augmentation in the common femoral veins , femoral veins, and popliteal veins. There is flow in the bilateral greater saphenous veins, poplit eal veins, and posterior tibial veins. IMPRESSION: No evidence of thrombus in the left or right lower extremity deep venous system. POS: [facility]
[2018-03-10] MEDS ORDERED: hydrALAZINE 20 MG/ML VIAL ONE (18:21)
[2018-03-10] MEDS ORDERED: Sodium Chloride 0.9% 1,000 ML IV SCH (19:30)
[2018-03-10] MEDS ORDERED: Ondansetron PF 4 MG/2 ML Vial IVP PRN (19:37)
[2018-03-10] MEDS ORDERED: Dextrose 5% in Water 1,000 ML IV PRN (19:37)
[2018-03-10] MEDS ORDERED: Dextrose 50% Abboject 50 ML SYRINGE SLOW IVP PRN (19:37)
[2018-03-10] MEDS ORDERED: hydrALAZINE 20 MG/ML VIAL SLOW IVP PRN (19:40)
[2018-03-10] MEDS: Acetaminophen 325 MG TAB PO PRN (21:07)
[2018-03-11] MEDS ORDERED: HYDROcodone/Acetaminophen 5/325 mg Tablet PO SCH (00:15)
[2018-03-11 00:33] VITALS: BMI 70.2
[2018-03-11] MEDS: MEROPENEM 1 GM/50 ML 1 GM in Premix Bag 1 BAG IVPB SCH ×3 (02:48→17:25)
[2018-03-11] MEDS ORDERED: diphenhydrAMINE 25 MG CAP PO SCH (05:00)
[2018-03-11] MEDS: HumaLOG 300 UNITS/3 ML VIAL SC PRN (06:11)
[2018-03-11 06:31] LABS: #Eosinphils 0.1 thou/uL (0.0-0.7); #Lymphocytes 1.1 thou/uL (1.20-3.40); #Monocytes 0.5 thou/uL (0.11-0.59); #Neutrophils 4.2 thou/uL (1.40-6.50); %Basophils 0.8 % (0.0-1.0); %Monocytes 8.5 % (0.0-10.0); %Neutrophils 69.7 % (42.0-75.0); Hemoglobin 7.9 g/dL (12.0-16.0); Mean Corpuscular HGB CONC 31.6 g/dL (32.0-36.0); Mean Corpuscular Hemoglobin 27.9 pg (27.0-31.0); Mean Corpuscular Volume 88.3 fL (78.0-98.0); Mean Platelet Volume 8.5 fL (7.4-10.4); Platelet Count 175 thou/uL (130-400); RBC Distribution Width 14.7 % (11.5-14.5); Red Blood Cell (RBC) Count 2.83 mill/uL (4.20-5.40)
[2018-03-11] MEDS: Sodium Chloride 0.9% 1,000 ML IV SCH ×2 (06:36→16:01)
[2018-03-11 06:58] LABS: Anion Gap 11 mmol/L (10-20); BUN (Urea Nitrogen) 27 mg/dL (9.8-20.1); Calc. Creatinine Clearance 129 mL/min (70-130); Calcium 8.5 mg/dL (7.8-10.44); Carbon Dioxide 23 mmol/L (22-29); Chloride 110 mmol/L (98-107); Estimated GFR-MDRD 35; Glucose 161 mg/dL (70-105); Potassium 4.1 mmol/L (3.5-5.1); Sodium 140 mmol/L (136-145)
[2018-03-11] MEDS: Enoxaparin Sodium 40 MG/0.4 ML SYRINGE SC SCH (08:10)
[2018-03-11] MEDS: Insulin Glargine 20 UNITS in Pre-Filled Syringe SC SCH (08:10)
[2018-03-11] MEDS: Acetaminophen 325 MG TAB PO PRN ×2 (08:12→20:32)
--- NOTE | 2018-03-11 22:27 | PDOC.PN ---
- Subjective Encounter Start Date: 03/11/18 Encounter Start Time: 12:00 Patient seen and examined for Cellulitis. No new complaints. No overnight events - Objective Resuscitation Status: Resuscitation Status FULL:Full Resuscitation MAR Reviewed: Yes Vital Signs & Weight: Vital Signs (12 hours) Temp Pulse Resp BP Pulse Ox 03/11/18 20:00 94 L 03/11/18 19:55 97.8 F 83 16 159/77 H 94 L 03/11/18 16:37 97.9 F 80 20 174/71 H 95 03/11/18 11:38 97.5 F L 61 18 170/72 H 95 Weight Weight 434 lb 15.905 oz I&O: 03/10/18 03/11/18 03/12/18 06:59 06:59 06:59 Intake Total 720 Balance 720 Result Diagrams: 03/11/18 05:51 03/11/18 05:51 Additional Labs: Accuchecks 03/11/18 03/11/18 03/11/18 19:52 16:31 11:22 POC Glucose 232 H 228 H 179 H 03/11/18 04:44 POC Glucose 181 H Phys Exam - Physical Examination Constitutional: NAD Respiratory: no wheezing, no rhonchi Cardiovascular: RRR, no rub Gastrointestinal: soft, non-tender, positive bowel sounds Musculoskeletal: edema present Erythema in LE Neurological: moves all 4 limbs Dx/Plan - Plan DVT proph w/lovenox, DVT proph w/SCDs 1. LLE Cellulitis 2. Morbid obesity BMI 70.2 3. Chronic Anemia 4. CKD 4 5. DM2 / HTN/ Other issues per previous notes PLAN: Cont Vancomycin and Meropenema Monitor Vancomycin level AM labs Cont sliding scale Home meds to be verified Start Procardia XL Review of Systems - Review of Systems Respiratory: negative: Cough, Dry, Shortness of Breath, Hemoptysis, SOB with Excertion, Pleuritic Pain, Sputum, Wheezing Cardiovascular: negative: chest pain, palpitations, orthopnea, paroxysmal nocturnal dyspnea, edema, light headedness, other - Medications/Allergies Allergies/Adverse Reactions: Allergies Allergy/AdvReac Type Severity Reaction Status Date / Time ciprofloxacin Allergy Verified 04/21/15 11:57 meloxicam Allergy Verified 04/21/15 11:57 morphine Allergy Verified 04/21/15 11:57 sulfamethoxazole Allergy Verified 04/21/15 11:57 [From Bactrim] tramadol Allergy Verified 04/21/15 11:57 trimethoprim [From Bactrim] Allergy Verified 04/21/15 11:57 Medications: Current Medications Acetaminophen (Tylenol) 650 mg PO Q6H PRN PRN Reason: Headache/Fever or Pain Last Admin: 03/11/18 20:32 Dose: 650 mg Dextrose/Water (Dextrose 50%) 25 gm SLOW IVP PRN PRN PRN Reason: Hypoglycemia Enoxaparin Sodium (Lovenox) 40 mg SC 0900 [facility] Last Admin: 03/11/18 08:10 Dose: 40 mg Glucagon (Glucagon) 1 mg IM PRN PRN PRN Reason: Hypoglycemia Hydralazine HCl (Apresoline) 10 mg SLOW IVP Q6H PRN PRN Reason: SYSTOLIC BP >170 Meropenem 1 gm/ Device 50 mls @ 100 mls/hr IVPB 0200,1000,1800 [facility] Stop: 03/16/18 04:30 Last Admin: 03/11/18 17:25 Dose: 50 mls Dextrose/Water (D5w) 1,000 mls @ 0 mls/hr IV .Q0M PRN PRN Reason: Hypoglycemia Insulin Glargine 20 units/ (Miscellaneous Medication) 0.2 mls @ 0 mls/hr SC QAM [facility] Last Admin: 03/11/18 08:10 Dose: 0.2 mls Vancomycin HCl 2 gm/ Sodium (Chloride) 500 mls @ 250 mls/hr IVPB 2100 [facility] Last Admin: 03/11/18 20:35 Dose: 500 mls Sodium Chloride (Normal Saline 0.9%) 1,000 mls @ 90 mls/hr IV .Q11H7M [facility] Last Admin: 03/11/18 16:01 Dose: 1,000 mls Insulin Human Lispro (Humalog) 0 units SC .MILD SLIDING SCALE PRN PRN Reason: Mild Correctional Scale Last Admin: 03/11/18 06:11 Dose: 2 unit Miscellaneous Medication (Pharmacy To Dose) 0 each IVPB ONE [facility] Stop: 03/20/18 21:16 Ondansetron HCl (Zofran) 4 mg IVP Q6H PRN PRN Reason: Nausea/Vomiting
[2018-03-11] MEDS ORDERED: hydrALAZINE 20 MG/ML VIAL SLOW IVP PRN (22:28)
[2018-03-11] MEDS ORDERED: cloNIDine 0.1 MG TAB PO PRN (22:28)
[2018-03-12] MEDS: MEROPENEM 1 GM/50 ML 1 GM in Premix Bag 1 BAG IVPB SCH ×2 (02:00→09:43)
[2018-03-12] MEDS: HumaLOG 300 UNITS/3 ML VIAL SC PRN ×2 (05:14→11:35)
[2018-03-12] MEDS: Sodium Chloride 0.9% 1,000 ML IV SCH ×2 (05:26→07:48)
[2018-03-12] MEDS ORDERED: Levothyroxine Sodium 100 MCG TAB PO SCH (06:00)
[2018-03-12] MEDS: Enoxaparin Sodium 40 MG/0.4 ML SYRINGE SC SCH (07:45)
[2018-03-12 07:51] VITALS: BP 164/74; TEMP 97.9
[2018-03-12 08:27] LABS: #Eosinphils 0.2 thou/uL (0.0-0.7); #Lymphocytes 0.9 thou/uL (1.20-3.40); #Monocytes 0.6 thou/uL (0.11-0.59); #Neutrophils 4.3 thou/uL (1.40-6.50); %Basophils 0.1 % (0.0-1.0); %Eosinophils 2.5 % (0.0-10.0); %Lymphocytes 15.6 % (21.0-51.0); %Monocytes 9.2 % (0.0-10.0); %Neutrophils 72.6 % (42.0-75.0); Hemoglobin 8.5 g/dL (12.0-16.0); Mean Corpuscular HGB CONC 31.4 g/dL (32.0-36.0); Mean Corpuscular Hemoglobin 28.2 pg (27.0-31.0); Mean Corpuscular Volume 89.9 fL (78.0-98.0); Mean Platelet Volume 9.2 fL (7.4-10.4); Platelet Count 164 thou/uL (130-400); Red Blood Cell (RBC) Count 3.01 mill/uL (4.20-5.40); White Blood Cell (WBC) Count 5.9 thou/uL (4.8-10.8)
[2018-03-12] MEDS: Insulin Glargine 20 UNITS in Pre-Filled Syringe SC SCH (08:27)
[2018-03-12 08:46] LABS: Anion Gap 13 mmol/L (10-20); BUN (Urea Nitrogen) 22 mg/dL (9.8-20.1); Calc. Creatinine Clearance 131 mL/min (70-130); Calcium 8.9 mg/dL (7.8-10.44); Carbon Dioxide 21 mmol/L (22-29); Chloride 110 mmol/L (98-107); Estimated GFR-MDRD 36; Glucose 181 mg/dL (70-105); Potassium 4.7 mmol/L (3.5-5.1); Sodium 139 mmol/L (136-145)
[2018-03-12] MEDS ORDERED: NIFEdipine XL 30 MG TAB PO SCH (09:00)
--- NOTE | 2018-03-12 14:28 | HP ---
PRIMARY CARE DOCTOR: . CODE STATUS: FULL CODE. TIME OF EVALUATION: 7:40 p.m. CHIEF COMPLAINT: Left leg redness and tenderness. HISTORY OF PRESENT ILLNESS: This is a 57-year-old female patient with past medical history of being morbidly obese, also history of diabetes, asthma, history of kidney failure, COPD, diabetes type 2, hyperlipidemia, hypertension, who came to the hospital after having left lower leg redness, pain, swelling, decreased range of motion, difficulty walking due to the tenderness, this is new , was noticed by the home health care nurse, no clear triggers, no alleviating factors, symptoms are reported as moderate gradual onset. REVIEW OF SYSTEMS: Constitutional: The patient has no fever. She reported occasional chills, generalized weakness. Respiratory: No cough, sputum production, or shortness of breath. Cardiovascular: No chest pain, palpitation. Gastrointestinal: No nausea, vomiting, diarrhea, or abdominal pain. [employer]: No dizziness, headache, or feeling lightheaded. Genitourinary: No burning with urination. Extremities: The patient has a left lower extremity redness, swelling, tenderness, decreased range of motion due to tenderness. All other systems were reviewed and negative except for the findings mentioned above. PAST MEDICAL HISTORY: As mentioned in the HPI. FAMILY HISTORY: from the father part, there is no history. The mother has history of cancer of the pancreas. PAST SURGICAL HISTORY: The patient has multiple right knee replacements, oophorectomy, hysterectomy. PSYCHIATRIC HISTORY: Depression. SOCIAL HISTORY: The patient lives alone at home. No alcohol, no drug use, no smoking history. She lives at home with family. ALLERGIES: CIPRO MELOXICAM, MORPHINE, SULFA and TRIMETHOPRIM. REPORTED MEDICATIONS: Albuterol, simvastatin, , lisinopril, bupropion, levothyroxine, ranitidine, ibuprofen, duloxetine, timolol, Tradjenta, vitamin D3 , Lyrica, vitamin B12, Lantus, Advair, Flexeril, tramadol, tranexamic acid. PHYSICAL EXAMINATION: VITAL SIGNS: On presentation, blood pressure 190/77 with heart rate 82, respiratory rate was 18, temperature 98.2, pain 8, oxygen saturation 99 on room air. GENERAL APPEARANCE: The patient is alert, oriented, not in any acute distress. HEENT: Eyes, normal conjunctiva, moist oral mucosa. Anicteric. NECK: No JVD. RESPIRATORY: Bilateral air entry. No rales, no wheezing. Symmetric expansion. CARDIOVASCULAR: Normal rate, regular rhythm. No murmurs, no gallop. Bilateral leg edema. ABDOMEN: Soft, normal bowel sounds. The patient is morbidly obese. MUSCULOSKELETAL: Baseline range of motion and strength and no tenderness except for the left lower leg. There is redness, swelling, decreased range of motion, tenderness. SKIN: Please see musculoskeletal description. Peripheral pulses are brisk and capillary refill seems to be intact. NEUROLOGIC: No evidence of any new focal weakness. Baseline speech. Cranial nerve seems to be intact. PSYCHIATRIC: The patient is in good mood. No anxiety, oriented, optimal adjustment. IMAGING STUDIES: DVT studies were done. The patient has no evidence of thrombus in the left or right lower extremities . LABORATORY DATA: Labs were reviewed. The patient has white count 7.0, hemoglobin 8.9, MCV 88.8, platelet count 182. Sodium 138, potassium 4.5, chloride 106, carbon dioxide 24, anion gap 13, BUN 31, creatinine 1.72. In previous visits, the patient had creatinine of 2.0, so this is chronic. Glucose . GFR 31. Lactic acid 1.5. LFTs were normal. ASSESSMENT AND PLAN: The patient was placed in the hospital with the following medical problems. 1. Acute left lower extremity cellulitis, due to redness, swelling, tenderness and decreased range of motion, the patient will be placed on antibiotics. We will continue for now, follow cultures, . 2. Morbidly obese. The patient has been advised to lose weight. 3. History of diabetes, that is uncontrolled with blood sugar 297-hyperglycemia , sliding scale for optimal control, reconcile home medications. 4. uncontrolled Hypertension. The patient presented with uncontrolled hypertension with systolic blood pressure in the 190s, reconcile home medications, we will adjust treatment as needed. 5. Hyperlipidemia. Low cholesterol diet is advised. 6. Deep venous thrombosis prophylaxis. 7. History of chronic kidney disease, creatinine seems better than the previous admissions, reconcile home meds, monitor kidney function, might need __ ___ if kidney function gets worse. [facility]
--- NOTE | 2018-03-13 11:58 | DIS ---
DATE OF ADMISSION: 03/10/2018 DATE OF DISCHARGE: 03/12/2018 DISCHARGE DISPOSITION: Home. FOLLOWUP: Follow up with primary care physician, Dr. Hull, in 1 week. ALLERGIES: The patient is allergic to multiple medications including CIPROFLOXACIN and BACTRIM. A base met after 2 weeks is recommended. Primary care physician advised to follow. DISCHARGE MEDICATIONS: Keflex 250 mg every 8 hourly for next 10 days, doxycycline 100 mg twice a day for 10 days. All other home medications were left, unchanged. Please note that home medications ar e still unclear. The patient was unable to provide the list of home medications. BRIEF HOSPITAL COURSE: The patient is a 57-year-old female with morbid obesity, diabetes mellitus ty pe 2, hypertension and hyperlipidemia who presented to the hospital with left lower extremity erythem a and tenderness. Her workup was consistent with left lower extremity cellulitis. Please refer to briana luciano history and physical for further details. She showed good improvement with IV antibiotics. Due t o some personal reasons she requested to be discharged. Her blood culture so far has been negative. She still has significant erythema; however, has improved since admission. She understands the risk of early dismissal. She will be placed on Keflex and doxycycline. She was advised to follow up wit h the primary care physician next week. FINAL DIAGNOSES: 1. Left lower extremity cellulitis. 2. Morbid obesity with a BMI of 70.2. 3. Chronic anemia. 4. Chronic kidney disease stage 4. 5. Diabetes mellitus type 2. 6. Hypertension. Plan of care was discussed with the patient in detail. She stated understanding. DIAGNOSTIC TESTS: Bilateral lower extremity Doppler was negative for DVT.
== END 2018-03-12 16:01 | disposition home or self-care (01) | DRG 603 ==
LOC: ERS 14:56 → T4-B 16:30 → ERS 18:26
PROVIDERS: ADMIT Internal Medicine; ATTEND Internal Medicine
DX: L03.116 Cellulitis of left lower limb (principal); Z68.45 Body mass index [BMI] 70 or greater, adult; E66.01 Morbid (severe) obesity due to excess calories; E11.65 Type 2 diabetes mellitus with hyperglycemia; J45.909 Unspecified asthma, uncomplicated; E11.22 Type 2 diabetes mellitus with diabetic chronic kidney disease; J44.9 Chronic obstructive pulmonary disease, unspecified; E78.5 Hyperlipidemia, unspecified; I12.9 Hypertensive chronic kidney disease with stage 1 through stage 4 chronic kidney disease, or unspecified chronic kidney disease; Z96.651 Presence of right artificial knee joint; Z88.1 Allergy status to other antibiotic agents; Z88.2 Allergy status to sulfonamides; Z88.5 Allergy status to narcotic agent; Z88.8 Allergy status to other drugs, medicaments and biological substances; D64.9 Anemia, unspecified
CPT/HCPCS: 36415; 36416; 80048; 80053; 83605; 85025; 87040; 93970; J0360; J1650; J2185; J3370; J7050

== ENCOUNTER 2018-06-23 12:58 | Emergency (ER) | payer MEDICARE, MEDICAID ==
[2018-06-23] MEDS ORDERED: Ondansetron ODT 4 MG TAB ONE (14:20)
[2018-06-23] MEDS ORDERED: HYDROcodone/Acetaminophen 10/325 mg Tablet ONE (14:59)
--- NOTE | 2018-06-23 15:43 | RAD ---
RIGHT FEMUR 2 VIEWS: Date: 06/23/18 HISTORY: Right femur injury secondary to a fall. FINDINGS: Right total knee arthroplasty changes are noted. No evidence for acute femoral fracture or dislocatio n or malalignment. Mild degenerative changes of the hip joint. IMPRESSION: No acute fracture or dislocation. Right total knee arthroplasty. Mild degenerative changes. POS: [facility]
[2018-06-23] MEDS ORDERED: traMADol HCl 50 MG TAB ONE (16:40)
== END 2018-06-23 16:50 | disposition home or self-care (01) ==
LOC: ERS 12:58
DX: S09.90XA Unspecified injury of head, initial encounter (principal); S70.01XA Contusion of right hip, initial encounter; J44.9 Chronic obstructive pulmonary disease, unspecified; E11.9 Type 2 diabetes mellitus without complications; I10 Essential (primary) hypertension; F32.9 Major depressive disorder, single episode, unspecified; Z79.899 Other long term (current) drug therapy; W18.30XA Fall on same level, unspecified, initial encounter
CPT/HCPCS: Q0162

== ENCOUNTER 2018-09-23 14:48 | Emergency (ER) | payer MEDICARE, MEDICAID | END 2018-09-23 15:59 | disposition home or self-care (01) | LOC: ERS 14:48 | DX: S91.114A Laceration without foreign body of right lesser toe(s) without damage to nail, initial encounter (principal); J45.909 Unspecified asthma, uncomplicated; E78.5 Hyperlipidemia, unspecified; I10 Essential (primary) hypertension; E11.40 Type 2 diabetes mellitus with diabetic neuropathy, unspecified; F41.9 Anxiety disorder, unspecified; F31.9 Bipolar disorder, unspecified; W01.0XXA Fall on same level from slipping, tripping and stumbling without subsequent striking against object, initial encounter | CPT/HCPCS: 99283 ==

== ENCOUNTER 2018-11-01 20:11 | Inpatient (IN) | payer MEDICARE, MEDICAID ==
[~2018-11-01 20:11] MED LIST: ISOVUE-370 76%-LOCM 1 ML ONE
--- NOTE | 2018-11-01 20:50 | RAD ---
CHEST ONE VIEW: 11/01/18 HISTORY: Dyspnea. COMPARISON: 02/04/18. FINDINGS: Heart size is enlarged. Mild pulmonary venous congestion. No pneumothorax. No significant effusion. N o acute osseous abnormality. IMPRESSION: Cardiomegaly and mild pulmonary venous congestion. POS: HOME
[2018-11-01 20:51] LABS: #Eosinphils 0.1 thou/uL (0.0-0.7); #Lymphocytes 1.6 thou/uL (1.20-3.40); #Monocytes 0.5 thou/uL (0.11-0.59); #Neutrophils 6.4 thou/uL (1.40-6.50); %Basophils 0.1 % (0.0-1.0); %Eosinophils 1.5 % (0.0-10.0); %Monocytes 6.1 % (0.0-10.0); %Neutrophils 74.3 % (42.0-75.0); Hemoglobin 10.2 g/dL (12.0-16.0); Mean Corpuscular HGB CONC 31.9 g/dL (32.0-36.0); Mean Corpuscular Hemoglobin 27.9 pg (27.0-31.0); Mean Corpuscular Volume 87.5 fL (78.0-98.0); Mean Platelet Volume 7.3 fL (7.4-10.4); Platelet Count 249 thou/uL (130-400); RBC Distribution Width 15.2 % (11.5-14.5); Red Blood Cell (RBC) Count 3.67 mill/uL (4.20-5.40); White Blood Cell (WBC) Count 8.6 thou/uL (4.8-10.8)
[2018-11-01] MEDS ORDERED: Nitroglycerin 2% Ointment 1 INCH/1 GM Packet ONE (21:03)
[2018-11-01 21:07] LABS: ALT (SGPT) 13 U/L (8-55); AST (SGOT) 9 U/L (5-34); Albumin 3.2 g/dL (3.5-5.0); Alkaline Phosphatase 99 U/L (40-150); Anion Gap 11 mmol/L (10-20); BUN (Urea Nitrogen) 21 mg/dL (9.8-20.1); Bilirubin, Total 0.3 mg/dL (0.2-1.2); CK (CPK) 27 U/L (29-168); Calc. Creatinine Clearance 0 mL/min (70-130); Calcium 8.7 mg/dL (7.8-10.44); Carbon Dioxide 25 mmol/L (22-29); Chloride 102 mmol/L (98-107); Estimated GFR-MDRD 32; Glucose 448 mg/dL (70-105); Potassium 4.2 mmol/L (3.5-5.1); Protein, Total 6.2 g/dL (6.0-8.3); Sodium 134 mmol/L (136-145)
[2018-11-01 21:15] LABS: Acetaminophen Less than 6.0 mcg/mL (10.0-30.0); Alcohol Less than 10 mg/dL (Less than 10); Salicylate Less than 8.0 mg/dL (15.0-30.0)
--- NOTE | 2018-11-01 22:26 | CT ---
EXAM: CT pulmonary angiogram with IV contrast and 3-D MIP reconstructions PROVIDED CLINICAL HISTORY: Shortness of breath COMPARISON: 09/02/2017 FINDINGS: Filling defects are noted within the right lower lobe pulmonary artery and several of its branches co mpatible with pulmonary emboli. Vascular calcification including coronary calcium. The lungs are free of significant opacity. No pleural fluid or pneumothorax apparent. No evidence for thoracic lymp h node enlargement. The airway appears patent and of normal caliber. Stable right adrenal mass. Gallstone noted. Hypodensity left kidney incompletely characterized not definitely a cyst. The osseou s structures demonstrate no concerning lytic or blastic lesions. IMPRESSION: 1. Right-sided pulmonary emboli as above. 2. Incompletely characterized left renal hypodensity. Follow-up nonemergent renal ultrasound recommen ded.
[2018-11-01] MEDS ORDERED: Acetaminophen 500 MG TAB ONE (22:50)
[2018-11-01] MEDS ORDERED: Enoxaparin Sodium 60 MG/0.6 ML SYRINGE ONE ×2 (23:25→23:52)
[2018-11-01] MEDS ORDERED: Enoxaparin Sodium 100 MG/ML SYRINGE ONE (23:25)
[2018-11-01 23:40] LABS: Bacteria/HPF None Seen HPF (None Seen); Bilirubin Negative (Negative); Blood, Urine 1+ (Negative); Clarity Clear (Clear); Glucose, Urine (Dipstick) Greater than 1000 mg/dL (Negative); Leukocyte Negative Leu/uL (Negative); Nitrite Negative (Negative); Protein, Urine (Dipstick) 300 mg/dL (Neg-Trace); RBC/HPF 0-3 HPF (0-3); Urobilinogen Normal mg/dL (Less than 2)
[2018-11-01 23:50] LABS: Amphetamine Not Detected (NotDetected); Barbiturates Screen Not Detected (NotDetected); Benzodiazepine Screen Not Detected (NotDetected); Cocaine Metabolite Screen Not Detected (NotDetected); Medtox Control Line Valid? VALID (VALID); Medtox Reader # READER 4; Methadone Not Detected (NotDetected); Methamphetamine Not Detected (NotDetected); Opiate Screen Not Detected (NotDetected); Oxycodone Screen Not Detected (NotDetected); Phencyclidine (PCP) Not Detected (NotDetected); THC/Cannabinoid Screen Not Detected (NotDetected); Tricyclic Screen Not Detected (NotDetected)
[2018-11-01] MEDS ORDERED: Enoxaparin Sodium 30 MG/0.3 ML SYRINGE ONE (23:50)
[2018-11-01] MEDS ORDERED: Enoxaparin Sodium 40 MG/0.4 ML SYRINGE ONE (23:52)
[2018-11-02] MEDS ORDERED: hydrALAZINE 20 MG/ML VIAL ONE
[2018-11-02 00:13] LABS: Troponin I Less than 0.010 ng/mL (< 0.028)
[2018-11-02] MEDS ORDERED: Ondansetron PF 4 MG/2 ML Vial IVP PRN ×2 (01:45→07:41)
[2018-11-02] MEDS ORDERED: Ondansetron ODT 4 MG TAB SL PRN (01:45)
[2018-11-02] MEDS ORDERED: [UNRECOGNIZED DRUG - REMARK] IVPB PRN (02:38)
[2018-11-02 02:54] LABS: Hemoglobin 11.3 g/dL (12.0-16.0); Platelet Count 256 thou/uL (130-400)
[2018-11-02 03:02] LABS: INR-International Normal Ratio 1.1; PTT 26.9 SEC (22.9-36.1); Prothrombin Time 13.7 SEC (12.0-14.7)
[2018-11-02 03:11] LABS: Troponin I 0.024 ng/mL (< 0.028)
[2018-11-02] MEDS: Heparin 25,000 units/D5W 500 ML IVPB SCH ×2 (04:37→15:38)
[2018-11-02] MEDS ORDERED: Dextrose 5% in Water 1,000 ML IV PRN (07:37)
[2018-11-02] MEDS ORDERED: Dextrose 50% Abboject 50 ML SYRINGE SLOW IVP PRN (07:37)
[2018-11-02] MEDS ORDERED: Insulin Regular 300 UNITS/3 ML VIAL SC PRN (07:37)
[2018-11-02] MEDS ORDERED: cloNIDine 0.1 MG TAB PO PRN (07:38)
[2018-11-02] MEDS ORDERED: PROVENTIL INHALER 6.7 G (200 INHALATIONS) INH PRN (07:38)
[2018-11-02] MEDS ORDERED: Ondansetron ODT 4 MG TAB PO PRN (07:41)
[2018-11-02] MEDS ORDERED: Calcium Carbonate 500 MG ChewTAB PO PRN (07:41)
[2018-11-02] MEDS ORDERED: Bisacodyl 10 MG SUPP PR PRN (07:41)
[2018-11-02] MEDS ORDERED: Melatonin 3 MG TAB PO PRN (07:44)
[2018-11-02] MEDS ORDERED: hydrALAZINE 20 MG/ML VIAL SLOW IVP PRN (07:44)
[2018-11-02] MEDS ORDERED: Nitroglycerin 0.4 MG TAB (25 Tab Bottle) PO PRN (07:44)
[2018-11-02] MEDS: Acetaminophen 325 MG TAB PO PRN (08:29)
[2018-11-02] MEDS: Cyanocobalamin (Vitamin B-12) 1,000 MCG TAB PO SCH (08:29)
[2018-11-02] MEDS: glipiZIDE 5 MG TAB PO SCH (08:29)
[2018-11-02] MEDS: DULoxetine 60 MG CAP PO SCH (08:30)
[2018-11-02] MEDS: Lisinopril 20 MG TAB PO SCH (08:30)
[2018-11-02] MEDS: Bupropion 150 MG XL TAB PO SCH (08:31)
[2018-11-02] MEDS: hydrALAZINE 25 MG TAB PO SCH (08:31)
[2018-11-02] MEDS: Famotidine 20 MG TAB PO SCH ×2 (08:31→20:18)
[2018-11-02] MEDS: Ferrous Sulfate 325 MG TAB PO SCH (08:31)
[2018-11-02] MEDS: Furosemide 40 MG TAB PO SCH (08:31)
[2018-11-02] MEDS: Senokot S 8.6-50 MG TAB PO SCH ×2 (08:32→20:22)
[2018-11-02] MEDS ORDERED: Famotidine 20 MG TAB PO SCH (09:00)
[2018-11-02] MEDS ORDERED: Non-Formulary Item 1 EACH (Ferrous Sulfate 325 MG) PO SCH (09:00)
[2018-11-02] MEDS ORDERED: Non-Formulary Item 1 EACH (Cyanocobalamin (Vitamin B-12) [Vitamin B-12] 500 MCG) PO SCH (09:00)
[2018-11-02] MEDS ORDERED: Non-Formulary Item 1 EACH (Pregabalin [Lyrica] 100 MG) PO SCH (09:00)
[2018-11-02] MEDS ORDERED: CHOLECALCIFEROL PO SCH (09:00)
[2018-11-02] MEDS ORDERED: Furosemide 20 MG TAB PO SCH (09:00)
[2018-11-02] MEDS ORDERED: Non-Formulary Item 1 EACH (Linagliptin [Tradjenta] 5 MG) PO SCH (09:00)
[2018-11-02] MEDS ORDERED: Non-Formulary Item 1 EACH (Ranitidine Hcl [Ranitidine Hcl] 150 MG) PO SCH (09:00)
[2018-11-02] MEDS ORDERED: Non-Formulary Item 1 EACH (Bupropion Hcl [Wellbutrin Xl] 300 MG) PO SCH (09:00)
[2018-11-02] MEDS ORDERED: Non-Formulary Item 1 EACH (Sertraline Hcl [Zoloft] 50 MG) PO SCH (09:00)
[2018-11-02] MEDS ORDERED: Non-Formulary Item 1 EACH (Fluticasone/Salmeterol [Advair Diskus 100/50] 1 INH) IH SCH (09:00)
--- NOTE | 2018-11-02 09:34 | ULT ---
Bilateral lower extremity venous Doppler ultrasound: 11/02/2018 COMPARISON: None HISTORY: Acute pulmonary embolism noted on CT examination of chest performed 11/01/2018 TECHNIQUE: Multiplanar grayscale sonographic imaging of the venous structures of bilateral lower extr emities obtained with color flow and spectral analysis FINDINGS: Right common femoral vein, greater saphenous vein, and profunda femoral vein appears grossl y unremarkable. Secondary to body habitus, the proximal and distal aspects of the right femoral vein are not well seen. Mid right femoral vein appears patent. There is partially compressible clot within the right popliteal vein consistent with right popliteal vein nonocclusive DVT. Right posterior tibial vein appears patent. The left common femoral vein, greater saphenous vein, profunda femoral vein, and mid femoral vein nhi ear unremarkable. The distal left femoral vein is not well seen secondary to body habitus. Left popliteal vein appears patent as does left posterior tibial vein IMPRESSION: DVT within the right popliteal vein.
[2018-11-02] MEDS: Alogliptin 25 MG TAB PO SCH (10:05)
[2018-11-02] MEDS: Pregabalin 50 MG CAP PO SCH ×4 (10:05→20:20)
[2018-11-02] MEDS: Timolol 0.5% Ophth Soln 5 ml Bottle R EYE SCH ×2 (11:16→20:49)
[2018-11-02] MEDS ORDERED: Insulin Glargine 25 UNITS in Pre-Filled Syringe 1 EACH SC SCH (11:45)
[2018-11-02] MEDS: Insulin Regular 300 UNITS/3 ML VIAL SC PRN ×3 (12:46→21:31)
--- NOTE | 2018-11-02 13:33 | CT ---
CT BRAIN WITHOUT CONTRAST: HISTORY: Persistent worsening headache COMPARISON: 07/04/2017 FINDINGS: No evidence of acute infarct, hemorrhage, midline shift or abnormal extra-axial fluid collections is seen. The ventricular size is appropriate and the basilar cisterns are patent. The bony calvarium is intact. The visualized paranasal sinuses and mastoid air cells are well aerated. IMPRESSION: No CT evidence of acute intracranial process.
[2018-11-02] MEDS: HYDROcodone/Acetaminophen 5/325 mg Tablet PO PRN ×2 (14:03→20:53)
--- NOTE | 2018-11-02 14:52 | CON ---
DATE OF CONSULTATION: 11/02/2018 REASON FOR CONSULTATION: Pulmonary embolism. CONSULTING PHYSICIAN: Hospitalist Group. The following encompassed 70 minutes of time, of that time, greater than 50% was spent with the patient and/or the patient's unit in the hospital. HISTORY OF PRESENT ILLNESS: The patient is a 57-year-old female, who presented to the hospital with a month long history of increasing shortness of breath. She had a workup in the ER and was found to have a right-sided pulmonary emboli in the right lower lobe. She subsequently has had a venogram since admission, which demonstrates a DVT in the right popliteal vein. She says she has never had any type of blood clot issues in the past. She has had multiple surgical procedures on the right leg, but nothing recent. She is morbidly obese and has difficulty ambulating. PAST MEDICAL HISTORY: 1. Morbid obesity. 2. Asthma. 3. Chronic kidney disease with a baseline creatinine about 1.6. 4. Diabetes mellitus. 5. Hyperlipidemia. 6. Hypertension. 7. Neuropathy. PAST SURGICAL HISTORY: 1. Partial hysterectomy with left oophorectomy. 2. Right knee replacement. 3. Left cyst removal. SOCIAL HISTORY: Does not smoke or drink alcohol. Has used marijuana in the past. ALLERGIES: CIPRO, MELOXICAM, MORPHINE, SULFA, TRAMADOL, AND TRIMETHOPRIM. REVIEW OF SYSTEMS: Remarkable for lack of mobility. Denies any hematemesis, melena, hematochezia, hematuria, or dysuria. PHYSICAL EXAMINATION: VITAL SIGNS: Temperature 97.9, pulse 85, respirations 20, O2 saturation 99% on room air, and blood pressure 207/99. The patient is 5 feet and 6 inches, weighs 374 pounds. HEENT: Unremarkable. NECK: No adenopathy or JVD. CHEST: Clear to auscultation without wheezing. CARDIAC: S1 and S2. Regular. ABDOMEN: Morbidly obese, soft, and nontender. EXTREMITIES: She has edematous bilateral lower extremities. She has multiple scars of her right knee. Her right distal leg below the knee is swollen, more so on the right side than the left. LABORATORY DATA: Hemoglobin 11, hematocrit 34, and platelet count 256. PTT 53.2. Sodium 134, potassium 4.2, chloride 102, CO2 of 25, BUN 21, creatinine 1.6, and glucose 448. IMAGING DATA: I reviewed her CT pulmonary angiogram. I did confirm the pulmonary embolism. ASSESSMENT: 1. Pulmonary embolism. 2. Deep venous thrombosis. RECOMMENDATIONS: At least 6 months of anticoagulation. It appears that the Primary Service will be treating with a heparin drip and then warfarin. I would assume warfarin is being given because of the patient's elevated creatinine. She will need frequent outpatient checks of her INR with the primary care provider. No further workup is indicated at this time. Job ID: [id number]
[2018-11-02] MEDS: Warfarin Sodium 5 MG TAB PO SCH (17:15)
[2018-11-02] MEDS ORDERED: Mometasone/Formoterol 120 PUFF INHALER INH SCH (18:30)
[2018-11-02] MEDS: Mometasone/Formoterol 120 PUFF INHALER INH SCH (19:03)
[2018-11-02] MEDS: Atorvastatin Calcium 20 MG TAB PO SCH ×2 (20:17→20:18)
[2018-11-02] MEDS: Insulin Glargine 30 UNITS in Pre-Filled Syringe 1 EACH SC SCH (20:56)
[2018-11-02] MEDS ORDERED: Insulin Glargine 50 UNITS in Pre-Filled Syringe 1 EACH SC SCH (21:00)
[2018-11-02] MEDS ORDERED: INSULIN GLARGINE HUM REC ANLOG 50 UNIT SQ SCH (21:00)
[2018-11-02] MEDS ORDERED: Simvastatin 40 MG TAB PO SCH (21:00)
[2018-11-03] MEDS: Heparin 25,000 units/D5W 500 ML IVPB SCH ×3 (01:49→20:33)
[2018-11-03 03:47] LABS: Hemoglobin 9.6 g/dL (12.0-16.0); Platelet Count 263 thou/uL (130-400)
[2018-11-03 03:49] LABS: Prothrombin Time 13.5 SEC (12.0-14.7)
[2018-11-03 04:01] LABS: ALT (SGPT) 11 U/L (8-55); AST (SGOT) 8 U/L (5-34); Albumin 3.1 g/dL (3.5-5.0); Alkaline Phosphatase 91 U/L (40-150); Anion Gap 15 mmol/L (10-20); BUN (Urea Nitrogen) 24 mg/dL (9.8-20.1); Bilirubin, Total 0.3 mg/dL (0.2-1.2); Calc. Creatinine Clearance 90 mL/min (70-130); Calcium 8.6 mg/dL (7.8-10.44); Carbon Dioxide 20 mmol/L (22-29); Chloride 102 mmol/L (98-107); Estimated GFR-MDRD 28; Globulin 3.1 g/dL (2.4-3.5); Glucose 144 mg/dL (70-105); Magnesium 1.6 mg/dL (1.6-2.6); Potassium 4.2 mmol/L (3.5-5.1); Protein, Total 6.2 g/dL (6.0-8.3); Sodium 133 mmol/L (136-145)
--- NOTE | 2018-11-03 07:42 | HP ---
PRIMARY CARE PHYSICIAN: Dr. Scott Hull. CHIEF COMPLAINT: Shortness of breath. HISTORY OF PRESENT ILLNESS: The patient is a 57-year-old white female with diabetes mellitus type 2, hypertension, morbid obesity with a BMI of 60.4, presented to the emergency room with shortness of breath. Over the last 1 month, the patient has progressive worsening shortness of breath. The shortness of breath got worse over the last 24 to 48 hours. She also had some chest tightness earlier today. She denies any syncope, palpitations, or diaphoresis. The shortness of breath gets worse on minimal exertion. Earlier today while she was sitting on her couch, she had some hallucinations per the patient report. At this time, the patient denies any double vision, blurring of vision, facial asymmetry, or hallucinations. She has mild generalized headache that has been going on for last 3 to 4 days. She denies any recent fall, cough, or wheezing. In the emergency room, CT angiogram of the chest was positive for pulmonary embolism. She received 1 mg/kg dose of Lovenox. Nitro patch was placed. She also received hydralazine IV and Tylenol. PAST MEDICAL HISTORY: 1. Morbid obesity with a BMI of 60.4. 2. Hypertension. 3. Diabetes mellitus, type 2. 4. Chronic kidney disease, stage 3. 5. Hyperlipidemia. 6. Depression. PAST SURGICAL HISTORY: 1. Multiple knee surgeries. 2. Hysterectomy. 3. Oophorectomy. ALLERGIES: THE PATIENT IS ALLERGIC TO MULTIPLE MEDICATIONS INCLUDING MORPHINE, BACTRIM, MELOXICAM, AND CIPROFLOXACIN. CURRENT HOME MEDICATIONS: The patient is unable to recall all of her home medications. We will try to obtain the list from the family. SOCIAL HISTORY: The patient currently lives at home. No alcohol, tobacco, or drug use. FAMILY HISTORY: Negative for heart disease. Mother with pancreatic cancer. REVIEW OF SYSTEMS: All other review of systems was reviewed and was found negative. PHYSICAL EXAMINATION: VITAL SIGNS: Temperature 98.3, respiration of 18, pulse rate of 99, blood pressure of 202/107 with O2 saturation 99% on room air. GENERAL: A 57-year-old female, in no significant distress at rest. Denies any hallucination at this time. HEENT: Head; atraumatic and normocephalic. Sclerae anicteric. Moist mucous membranes. No oral lesion. NECK: Supple. No JVD. No carotid bruit. LUNGS: Clear to auscultation bilaterally. No wheezing, rales, or rhonchi. There is diminished air entry at bilateral bases. HEART: S1 and S2 present. Regular rate and rhythm. No rubs or gallops. ABDOMEN: Soft and nontender. Bowel sounds present. Obese. EXTREMITIES: Bilateral lower extremity edema with some calf tenderness. PERIPHERAL VASCULAR: Radial pulses palpable bilaterally. MUSCULOSKELETAL: No joint swelling tenderness. SKIN: Warm and dry. LYMPH NODES: No palpable lymph nodes in the neck. NEUROLOGIC: Power was 5/5 in all extremities. Sypubw-iq-aerm test was normal. LABORATORY FINDINGS: WBC 8.6, hemoglobin 10.2, hematocrit 32.1, platelet 249. INR 1.1. Creatinine 1.6, BUN 21, sodium 134, potassium 4.2. Troponin was negative. TSH 2.3. Urinalysis showed 7 to 10 wbc's without any bacteria. Urine drug screen was negative. IMAGING STUDIES: Chest x-ray by my review was negative for infiltrate. CT angiogram of the chest by my review showed right-sided pulmonary embolism. There is an incompletely characterized left renal hypodensity. Primary care physician advised to follow. EKG by my review showed sinus rhythm with nonspecific ST-T wave changes. IMPRESSION: 1. Pulmonary embolism probably secondary to immobilization. 2. Right lower extremity deep venous thrombosis. 3. Morbid obesity with a BMI of 60.4. 4. Diabetes mellitus, type 2. 5. Hypertension. 6. Hyperlipidemia. 7. Chronic kidney disease, stage 3. 8. Hypothyroidism. 9. Depression, mild, stable. The patient denies any suicidal ideation. 10. Gastroesophageal reflux disease. 11. Glaucoma. 12. Headache without any focal findings. PLAN: The patient will be monitored in the telemetry unit. We will continue heparin drip for now. We will get echocardiogram. We will get CT scan of the brain noncontrast due to persistent headache. We will obtain an echocardiogram. We will monitor hemoglobin and hematocrit closely. The patient understands the risk associated with anticoagulation. We will verify home medications and start accordingly. Continuous pulse oximetry. Plan of care was discussed with the patient in detail. She stated understanding. The patient will require 3 to 4 days for stabilization. Job ID: [id number]
[2018-11-03] MEDS: Mometasone/Formoterol 120 PUFF INHALER INH SCH ×2 (07:50→18:38)
[2018-11-03] MEDS: Levothyroxine Sodium 100 MCG TAB PO SCH (08:26)
[2018-11-03] MEDS: Senokot S 8.6-50 MG TAB PO SCH ×2 (08:27→20:37)
[2018-11-03] MEDS: Alogliptin 25 MG TAB PO SCH (08:28)
[2018-11-03] MEDS: Ferrous Sulfate 325 MG TAB PO SCH (08:28)
[2018-11-03] MEDS: Bupropion 150 MG XL TAB PO SCH (08:28)
[2018-11-03] MEDS: DULoxetine 60 MG CAP PO SCH (08:28)
[2018-11-03] MEDS: Furosemide 40 MG TAB PO SCH (08:28)
[2018-11-03] MEDS: Famotidine 20 MG TAB PO SCH ×2 (08:28→20:34)
[2018-11-03] MEDS: glipiZIDE 5 MG TAB PO SCH (08:28)
[2018-11-03] MEDS: Lisinopril 20 MG TAB PO SCH (08:29)
[2018-11-03] MEDS: Cyanocobalamin (Vitamin B-12) 1,000 MCG TAB PO SCH (08:29)
[2018-11-03] MEDS: hydrALAZINE 25 MG TAB PO SCH (08:29)
[2018-11-03] MEDS: Timolol 0.5% Ophth Soln 5 ml Bottle R EYE SCH ×3 (08:31→20:47)
[2018-11-03] MEDS: Insulin Glargine 30 UNITS in Pre-Filled Syringe 1 EACH SC SCH ×2 (09:30→20:31)
--- NOTE | 2018-11-03 09:38 | PRG ---
DATE OF SERVICE: 11/03/2018 SUBJECTIVE: The patient feels okay. Has no acute complaints. OBJECTIVE: VITAL SIGNS: On exam, temperature 97.6, pulse 61, O2 saturation 96% on room air, and blood pressure 140/63. HEENT: Unremarkable. NECK: No JVD. LUNGS: Clear, but distant breath sounds. CARDIAC: S1 and S2, regular. ABDOMEN: Morbidly obese. EXTREMITIES: No edema. LABORATORY DATA: Sodium 133, potassium 4.2, BUN 24, creatinine 1.9, and glucose 144. PTT is 97.3. Hematocrit 31.6. ASSESSMENT: 1. Deep vein thrombosis/pulmonary embolism. 2. Chronic renal insufficiency. PLAN: The patient is currently on heparin drip, waiting for conversion to therapeutic INR on Coumadin. Dr. Paulino will be available this weekend if needed. Otherwise, I will check again on Tuesday. Job ID: [id number]
[2018-11-03] MEDS: Insulin Regular 300 UNITS/3 ML VIAL SC PRN ×2 (11:32→16:59)
[2018-11-03] MEDS: Pregabalin 50 MG CAP PO SCH ×2 (15:28→20:34)
[2018-11-03] MEDS: Warfarin Sodium 5 MG TAB PO SCH (17:00)
[2018-11-03] MEDS ORDERED: cefOXitin Sodium/Dextrose,Iso 2 GM in Premix Bag 1 BAG IVPB SCH (17:30)
--- NOTE | 2018-11-03 20:18 | PDOC.PN ---
- Subjective Encounter Start Date: 11/03/18 Encounter Start Time: 08:30 Patient seen and examined for PE. Discomfort in perineal area with small amt of bleeding earlier. No fever/chills.. No other complaints. No overnight events - Objective Resuscitation Status - Order Detail: 11/02/18 07:41 Resuscitation Status Routine Resuscitation Status: FULL: Full Resuscitation MAR Reviewed: Yes Vital Signs & Weight: Vital Signs (12 hours) Temp Pulse Pulse Resp BP BP Pulse Ox 11/03/18 18:38 95 11/03/18 18:37 96 11/03/18 18:34 94 L 11/03/18 15:15 98.2 F 62 20 136/64 99 11/03/18 13:52 78 16 94 L 11/03/18 11:20 97.9 F 64 20 153/70 H 99 11/03/18 11:08 66 153/70 H 11/03/18 10:22 75 16 93 L Weight Admit Weight 374 lb Weight 381 lb 12.8 oz I&O: 11/02/18 11/03/18 11/04/18 06:59 06:59 06:59 Intake Total 240 3040 1580 Output Total 1 870 640 Balance 239 2170 940 Result Diagrams: 11/03/18 02:53 11/03/18 02:53 Additional Labs: Accuchecks 11/03/18 11/03/18 11/03/18 16:46 10:41 05:37 POC Glucose 187 H 207 H 140 H 11/02/18 20:38 POC Glucose 223 H Radiology Reviewed by me: Yes (CT chest - PE) EKG Reviewed by me: Yes (Tele SR) Phys Exam - Physical Examination Constitutional: NAD Neck: no JVD Respiratory: no wheezing, no rales, no rhonchi, clear to auscultation bilateral Cardiovascular: RRR, no rub no heaves/pulsations Gastrointestinal: soft, non-tender, no distention, positive bowel sounds Musculoskeletal: edema present Neurological: non-focal, moves all 4 limbs Dx/Plan - Plan IMPRESSION: 1. Pulmonary embolism/RLE DVT 2. Perineal abscess 3. Morbid obesity with a BMI of 60.4. 4. Diabetes mellitus, type 2. 5. Hypertension. 6. Hyperlipidemia. 7. Chronic kidney disease, stage 3. 8. Hypothyroidism. 9. Depression, mild, stable. The patient denies any suicidal ideation. 10. Gastroesophageal reflux disease. 11. Glaucoma. 12. Headache - improved 13. Chronic diastolic HF PLAN: Cont IV Heparin drip with PTT monitoring Cont Warfarin with INR monitoring Consult Gen surg per wound care rec Add PO Doxy Echo - normal EF Cont Tele monitoring AM labs Review of Systems - Review of Systems Respiratory: SOB with Excertion. negative: Cough, Dry, Shortness of Breath, Hemoptysis, Pleuritic Pain, Sputum, Wheezing Cardiovascular: negative: chest pain, palpitations, orthopnea, paroxysmal nocturnal dyspnea, edema, light headedness, other Gastrointestinal: negative: Nausea, Vomiting, Abdominal Pain, Diarrhea, Constipation, Melena, Hematochezia, Other - Medications/Allergies Allergies/Adverse Reactions: Allergies Allergy/AdvReac Type Severity Reaction Status Date / Time ciprofloxacin Allergy Verified 04/21/15 11:57 meloxicam Allergy Verified 04/21/15 11:57 morphine Allergy Verified 04/21/15 11:57 sulfamethoxazole Allergy Verified 04/21/15 11:57 [From Bactrim] trimethoprim [From Bactrim] Allergy Verified 04/21/15 11:57 Medications: Current Medications Acetaminophen (Tylenol) 650 mg PO Q4H PRN PRN Reason: Headache/Fever or Mild Pain Last Admin: 11/02/18 08:29 Dose: 650 mg Albuterol Sulfate (Proventil Hfa) 2 puff INH Q6H PRN PRN Reason: SOB &/or Wheezing Albuterol/Ipratropium (Duoneb) 3 ml NEB [id number] [facility] Last Admin: 11/03/18 18:34 Dose: 3 ml Albuterol/Ipratropium (Duoneb) 3 ml NEB [id number] PRN PRN Reason: SOB &/or Wheezing Alogliptin Benzoate (Alogliptin) 25 mg PO DAILY [facility] Last Admin: 11/03/18 08:28 Dose: 25 mg Atorvastatin Calcium (Lipitor) 20 mg PO HS [facility] Last Admin: 11/02/18 20:18 Dose: 20 mg Bisacodyl (Dulcolax) 10 mg [place] DAILYPRN PRN PRN Reason: Constipation Bupropion HCl (Wellbutrin Xl) 300 mg PO DAILY [facility] Last Admin: 11/03/18 08:28 Dose: 300 mg Calcium Carbonate (Tums) 1,000 mg PO Q4H PRN PRN Reason: Heartburn or Indigestion Cholecalciferol (Vitamin D3) 1,000 units PO DAILY [facility] Last Admin: 11/03/18 08:28 Dose: 1,000 units Clonidine (Catapres) 0.1 mg PO Q4H PRN PRN Reason: Systolic BP > 180 Cyanocobalamin (Vitamin B-12) 500 mcg PO DAILY [facility] Last Admin: 11/03/18 08:29 Dose: 500 mcg Dextrose/Water (Dextrose 50%) 25 gm SLOW IVP PRN PRN PRN Reason: Hypoglycemia Duloxetine HCl (Cymbalta) 60 mg PO DAILY [facility] Last Admin: 11/03/18 08:28 Dose: 60 mg Famotidine (Pepcid) 20 mg PO BID [facility] Last Admin: 11/03/18 08:28 Dose: 20 mg Ferrous Sulfate (Feosol) 325 mg PO QAM [facility] Last Admin: 11/03/18 08:28 Dose: 325 mg Furosemide (Lasix) 40 mg PO DAILY [facility] Last Admin: 11/03/18 08:28 Dose: 40 mg Glipizide (Glucotrol) 5 mg PO DAILY [facility] Last Admin: 11/03/18 08:28 Dose: 5 mg Glucagon (Glucagon) 1 mg IM PRN PRN PRN Reason: Hypoglycemia Heparin Sodium (Porcine) (Heparin 1,000 Units/Ml (10 Ml)) 0 units SLOW IVP ASDIR [facility]; Protocol Hydralazine HCl (Apresoline) 25 mg PO DAILY [facility] Last Admin: 11/03/18 08:29 Dose: 25 mg Hydralazine HCl (Apresoline) 10 mg SLOW IVP Q4H PRN PRN Reason: SBP Greater Than 180 Heparin Sodium/Dextrose (Heparin 25,000 Units/D5w 500 Ml) 500 mls @ 0 mls/hr IVPB INF [facility]; Protocol Last Admin: 11/03/18 11:31 Dose: 500 mls Dextrose/Water (D5w) 1,000 mls @ 0 mls/hr IV .Q0M PRN PRN Reason: Hypoglycemia Insulin Glargine 30 units/ (Miscellaneous Medication) 0.3 mls @ 0 mls/hr SC BID [facility] Last Admin: 11/03/18 09:30 Dose: 0.3 mls Cefoxitin Sodium/Dextrose 2 gm (/ Device) 50 mls @ 100 mls/hr IVPB ONCALL-OR [facility] Stop: 11/04/18 17:31 Insulin Human Regular (Humulin R) 0 units SC .BEDTIME SLIDING SC PRN PRN Reason: Bedtime Correctional Scale Last Admin: 11/02/18 21:31 Dose: 2 unit Insulin Human Regular (Humulin R) 0 units SC .AGGRESSIVE SLIDING PRN PRN Reason: Aggressive Sliding Scale Last Admin: 11/03/18 16:59 Dose: 3 unit Levothyroxine Sodium (Synthroid) 100 mcg PO 0600 [facility] Last Admin: 11/03/18 08:26 Dose: 100 mcg Lisinopril (Zestril) 20 mg PO DAILY [facility] Last Admin: 11/03/18 08:29 Dose: 20 mg Melatonin (Melatonin) 3 mg PO HS PRN PRN Reason: Insomnia Miscellaneous Medication (Pharmacy To Dose) 1 each IVPB ONE PRN PRN Reason: DOSING Stop: 12/02/18 02:39 Mometasone Furoate/Formoterol Fumar (Dulera 100 Mcg/5 Mcg Inhaler) 2 puff INH BID-RT [facility] Last Admin: 11/03/18 18:38 Dose: 2 puff Nitroglycerin (Nitrostat) 0.4 mg PO Q5MIN PRN PRN Reason: Chest Pain Ondansetron HCl (Zofran Odt) 4 mg PO Q6H PRN PRN Reason: Nausea/Vomiting Ondansetron HCl (Zofran) 4 mg IVP Q6H PRN PRN Reason: Nausea/Vomiting Pregabalin (Lyrica) 100 mg PO TID [facility] Last Admin: 11/03/18 15:28 Dose: Not Given Senna/Docusate Sodium (Senokot S) 2 tab PO BID [facility] Last Admin: 11/03/18 08:27 Dose: 2 tab Sertraline HCl (Zoloft) 50 mg PO DAILY [facility] Last Admin: 11/03/18 08:29 Dose: 50 mg Sodium Chloride (Flush - Normal Saline) 10 ml IVF Q12HR [facility] Last Admin: 11/03/18 08:31 Dose: Not Given Sodium Chloride (Flush - Normal Saline) 10 ml IVF PRN PRN PRN Reason: Saline Flush Timolol Maleate (Timoptic 0.5% Oph Soln) 1 drop R EYE BID [facility] Last Admin: 11/03/18 08:31 Dose: 1 drop Warfarin Sodium (Coumadin) 5 mg PO 1700 [facility] Last Admin: 11/03/18 17:00 Dose: 5 mg
[2018-11-03] MEDS: Doxycycline 100 MG CAP PO SCH (22:12)
--- NOTE | 2018-11-03 22:25 | CON ---
DATE OF CONSULTATION: CHIEF COMPLAINT: Painful cyst in perineum. HISTORY OF PRESENT ILLNESS: The patient is a 57-year-old diabetic female, morbidly obese, who was admitted with a pulmonary embolus and is anticoagulated. She says that about a year ago she had a cyst removed from near her labia on the left side. She said once they started anticoagulation, it started draining bloody fluid and is causing pain. PAST MEDICAL HISTORY: Insulin-dependent diabetes, morbid obesity, hypertension, renal insufficiency, bipolar, anxiety. PAST SURGICAL HISTORY: She has had a hysterectomy and she has had 6 knee surgeries. ALLERGIES: SHE HAS ALLERGIES TO MULTIPLE MEDICATIONS INCLUDING MORPHINE, BACTRIM, MELOXICAM, CIPROFLOXACIN. HOME MEDICATIONS: She knows about insulin, she do not remember. SOCIAL HISTORY: She is single, unemployed. Lives alone. No tobacco. No alcohol. FAMILY HISTORY: Mother had colon cancer. Grandmother and uncle had nose cancer. PHYSICAL EXAMINATION: VITAL SIGNS: Temperature 98.2, pulse 62, blood pressure 136/64. GENERAL: She is awake, alert, does not appear to be in any distress. She is morbidly obese. HEENT: Unremarkable. LUNGS: Clear. HEART: Regular rate and rhythm. ABDOMEN: Soft, obese, nontender. PERINEUM: She has a 3-cm raised tender mass just lateral to the labia majora on the left side that is draining bloody purulent fluid. EXTREMITIES: She has hypertrophic scars, right knee and a lot of venous stasis changes as well as edema. ASSESSMENT: Perineal abscess, on anticoagulation. PLAN: I and D in the OR under controlled circumstances. Job ID: [id number]
[2018-11-04] MEDS: Levothyroxine Sodium 100 MCG TAB PO SCH (05:21)
[2018-11-04 06:13] LABS: #Eosinphils 0.2 thou/uL (0.0-0.7); #Lymphocytes 1.8 thou/uL (1.20-3.40); #Monocytes 0.7 thou/uL (0.11-0.59); #Neutrophils 6.6 thou/uL (1.40-6.50); %Basophils 0.2 % (0.0-1.0); %Lymphocytes 19.3 % (21.0-51.0); %Monocytes 7.5 % (0.0-10.0); %Neutrophils 70.9 % (42.0-75.0); Hemoglobin 9.2 g/dL (12.0-16.0); Mean Corpuscular HGB CONC 30.6 g/dL (32.0-36.0); Mean Corpuscular Hemoglobin 27.3 pg (27.0-31.0); Mean Corpuscular Volume 89.3 fL (78.0-98.0); Mean Platelet Volume 7.6 fL (7.4-10.4); Platelet Count 243 thou/uL (130-400); RBC Distribution Width 15.7 % (11.5-14.5); Red Blood Cell (RBC) Count 3.36 mill/uL (4.20-5.40); White Blood Cell (WBC) Count 9.3 thou/uL (4.8-10.8)
[2018-11-04 06:32] LABS: Anion Gap 15 mmol/L (10-20); BUN (Urea Nitrogen) 32 mg/dL (9.8-20.1); Calc. Creatinine Clearance 78 mL/min (70-130); Calcium 8.1 mg/dL (7.8-10.44); Carbon Dioxide 21 mmol/L (22-29); Chloride 97 mmol/L (98-107); Estimated GFR-MDRD 22; Glucose 191 mg/dL (70-105); Potassium 4.4 mmol/L (3.5-5.1); Sodium 129 mmol/L (136-145)
[2018-11-04 06:34] LABS: Prothrombin Time 13.5 SEC (12.0-14.7)
[2018-11-04] MEDS: Mometasone/Formoterol 120 PUFF INHALER INH SCH ×2 (06:54→18:24)
[2018-11-04 07:00] LABS: PTT 123.5 SEC (22.9-36.1)
[2018-11-04] MEDS ORDERED: Fentanyl 100 MCG/2 ML VIAL ONE (07:31)
[2018-11-04] MEDS ORDERED: Famotidine/PF 20 mg/2ml Vial ONE (07:31)
[2018-11-04] MEDS ORDERED: Bupivacaine/Epinephrine 0.25% 30 ML VIAL ONE (07:38)
[2018-11-04] MEDS ORDERED: Midazolam HCl 2 mg/2 ml Vial ONE (07:48)
[2018-11-04] MEDS ORDERED: cefOXitin 2 GM VIAL ONE (07:52)
[2018-11-04] MEDS ORDERED: Sodium Chloride 0.9% 100 ML ONE (07:53)
[2018-11-04] MEDS ORDERED: Ondansetron HCl/PF 4 MG/2 ML Vial IVP PRN (08:27)
[2018-11-04] MEDS ORDERED: Promethazine HCl 25 MG/ML VIAL SLOW IVP PRN (08:27)
[2018-11-04] MEDS ORDERED: Promethazine HCl 25 MG/ML VIAL IM PRN (08:27)
[2018-11-04] MEDS: Heparin 25,000 units/D5W 500 ML IVPB SCH ×2 (11:10→23:54)
[2018-11-04] MEDS: Ferrous Sulfate 325 MG TAB PO SCH (11:26)
[2018-11-04] MEDS: Cyanocobalamin (Vitamin B-12) 1,000 MCG TAB PO SCH (11:26)
[2018-11-04] MEDS: DULoxetine 60 MG CAP PO SCH (11:28)
[2018-11-04] MEDS: Lisinopril 20 MG TAB PO SCH (11:30)
[2018-11-04] MEDS: Pregabalin 50 MG CAP PO SCH ×3 (11:30→20:52)
[2018-11-04] MEDS: glipiZIDE 5 MG TAB PO SCH (11:30)
[2018-11-04] MEDS: Furosemide 40 MG TAB PO SCH (11:30)
[2018-11-04] MEDS: hydrALAZINE 25 MG TAB PO SCH (11:31)
[2018-11-04] MEDS: Famotidine 20 MG TAB PO SCH ×2 (11:31→20:53)
[2018-11-04] MEDS: Senokot S 8.6-50 MG TAB PO SCH ×2 (11:32→20:53)
[2018-11-04] MEDS: Alogliptin 25 MG TAB PO SCH (11:32)
[2018-11-04] MEDS: Acetaminophen 325 MG TAB PO PRN (11:34)
[2018-11-04] MEDS: Timolol 0.5% Ophth Soln 5 ml Bottle R EYE SCH ×2 (11:45→21:27)
--- NOTE | 2018-11-04 13:04 | EKG ---
Test Reason : Blood Pressure : / mmHG Vent. Rate : 089 BPM Atrial Rate : 089 BPM P-R Int : 198 ms QRS Dur : 096 ms QT Int : 402 ms P-R-T Axes : 071 -49 044 degrees QTc Int : 489 ms Normal sinus rhythm Left axis deviation Low voltage QRS Septal infarct , age undetermined Abnormal ECG Confirmed by IVY GILLETTE, DURGA Fraga ([id number]), medical transcription editor ALBERT TRAN ([id number]) on 11/04/2018 1:04:23 PM Referred By: Confirmed By:DURGA HAYNES MD
[2018-11-04] MEDS: Insulin Glargine 30 UNITS in Pre-Filled Syringe 1 EACH SC SCH ×2 (15:51→20:53)
[2018-11-04] MEDS: Bupropion 150 MG XL TAB PO SCH (15:54)
[2018-11-04] MEDS: Doxycycline 100 MG CAP PO SCH ×2 (15:56→20:52)
[2018-11-04] MEDS ORDERED: Lidocaine 1% PF 5 ML VIAL ONE (16:18)
[2018-11-04] MEDS ORDERED: PROPOFOL 200 MG/20 ML VIAL ONE (16:18)
[2018-11-04] MEDS ORDERED: Ondansetron PF 4 MG/2 ML Vial ONE (16:18)
[2018-11-04] MEDS ORDERED: Metoclopramide HCl 10 MG/2 ML VIAL ONE (16:18)
[2018-11-04] MEDS ORDERED: Succinylcholine Chloride 20 MG/ML 10 ml SYRINGE FS ONE (16:18)
[2018-11-04] MEDS: Warfarin Sodium 5 MG TAB PO SCH (17:26)
[2018-11-04] MEDS: Insulin Regular 300 UNITS/3 ML VIAL SC PRN ×2 (17:26→20:53)
--- NOTE | 2018-11-04 17:38 | PDOC.PN ---
- Subjective Encounter Start Date: 11/04/18 Encounter Start Time: 17:36 Patient seen and examined for PE. s/p perineal abscess I&D. No fever/chills. No new complaints. No overnight events - Objective Resuscitation Status - Order Detail: 11/02/18 07:41 Resuscitation Status Routine Resuscitation Status: FULL: Full Resuscitation MAR Reviewed: Yes Vital Signs & Weight: Vital Signs (12 hours) Temp Pulse Resp BP BP BP Pulse Ox 11/04/18 16:00 97.8 F 66 20 131/64 94 L 11/04/18 13:54 72 14 98 11/04/18 12:00 97.6 F 72 18 156/79 H 98 11/04/18 11:52 95 11/04/18 11:45 77 171/85 H 11/04/18 11:31 77 171/85 H 11/04/18 11:30 171/85 H 11/04/18 09:40 97.7 F 74 18 171/85 H 95 11/04/18 06:54 98 11/04/18 06:53 77 14 98 Weight Admit Weight 374 lb Weight 390 lb 11.2 oz I&O: 11/03/18 11/04/18 11/05/18 06:59 06:59 06:59 Intake Total 3040 3599.7 Output Total 870 640 Balance 2170 2959.7 Result Diagrams: 11/04/18 05:29 11/04/18 05:29 Additional Labs: Accuchecks 11/04/18 11/04/18 11/04/18 17:05 11:59 05:41 POC Glucose 215 H 199 H 207 H 11/03/18 20:10 POC Glucose 150 H Phys Exam - Physical Examination Constitutional: NAD Respiratory: no wheezing, no rhonchi Cardiovascular: RRR, no rub Gastrointestinal: soft, non-tender, positive bowel sounds Musculoskeletal: no edema Neurological: moves all 4 limbs Dx/Plan - Plan IMPRESSION: 1. Pulmonary embolism/RLE DVT - on IV Heparin/Warfarin 2. Perineal abscess - s/p I&D 11/04 3. SINA on CKD 3 4. Diabetes mellitus, type 2. - on sliding scale 5. Hypertension. 6. Hyperlipidemia. 7. Morbid obesity with a BMI of 60.4. 8. Hypothyroidism. 9. Depression, mild, stable. 10. Gastroesophageal reflux disease. 11. Glaucoma. 12. Headache - improved 13. Chronic diastolic HF PLAN: Cont IV Heparin with Warfarin Daily INR Hold Lisinopril/Lasix due to SINA AM labs Cont PO Doxycycline Cont other meds as below Review of Systems - Review of Systems Respiratory: negative: Cough, Dry, Shortness of Breath, Hemoptysis, SOB with Excertion, Pleuritic Pain, Sputum, Wheezing Cardiovascular: negative: chest pain, palpitations, orthopnea, paroxysmal nocturnal dyspnea, edema, light headedness, other Gastrointestinal: negative: Nausea, Vomiting, Abdominal Pain, Diarrhea, Constipation, Melena, Hematochezia, Other - Medications/Allergies Allergies/Adverse Reactions: Allergies Allergy/AdvReac Type Severity Reaction Status Date / Time ciprofloxacin Allergy Verified 04/21/15 11:57 meloxicam Allergy Verified 04/21/15 11:57 morphine Allergy Verified 04/21/15 11:57 sulfamethoxazole Allergy Verified 04/21/15 11:57 [From Bactrim] trimethoprim [From Bactrim] Allergy Verified 04/21/15 11:57 Medications: Current Medications Acetaminophen (Tylenol) 650 mg PO Q4H PRN PRN Reason: Headache/Fever or Mild Pain Last Admin: 11/04/18 11:34 Dose: 650 mg Albuterol Sulfate (Proventil Hfa) 2 puff INH Q6H PRN PRN Reason: SOB &/or Wheezing Albuterol/Ipratropium (Duoneb) 3 ml NEB [id number] [facility] Last Admin: 11/04/18 13:54 Dose: 3 ml Albuterol/Ipratropium (Duoneb) 3 ml NEB [id number] PRN PRN Reason: SOB &/or Wheezing Alogliptin Benzoate (Alogliptin) 25 mg PO DAILY [facility] Last Admin: 11/04/18 11:32 Dose: 25 mg Atorvastatin Calcium (Lipitor) 20 mg PO HS [facility] Last Admin: 11/02/18 20:18 Dose: 20 mg Bisacodyl (Dulcolax) 10 mg [place] DAILYPRN PRN PRN Reason: Constipation Bupropion HCl (Wellbutrin Xl) 300 mg PO DAILY [facility] Last Admin: 11/04/18 15:54 Dose: 300 mg Calcium Carbonate (Tums) 1,000 mg PO Q4H PRN PRN Reason: Heartburn or Indigestion Cholecalciferol (Vitamin D3) 1,000 units PO DAILY [facility] Last Admin: 11/04/18 11:29 Dose: 1,000 units Clonidine (Catapres) 0.1 mg PO Q4H PRN PRN Reason: Systolic BP > 180 Cyanocobalamin (Vitamin B-12) 500 mcg PO DAILY [facility] Last Admin: 11/04/18 11:26 Dose: 500 mcg Dextrose/Water (Dextrose 50%) 25 gm SLOW IVP PRN PRN PRN Reason: Hypoglycemia Doxycycline Hyclate (Vibramycin) 100 mg PO BID [facility] Last Admin: 11/04/18 15:56 Dose: Not Given Duloxetine HCl (Cymbalta) 60 mg PO DAILY [facility] Last Admin: 11/04/18 11:28 Dose: 60 mg Famotidine (Pepcid) 20 mg PO BID [facility] Last Admin: 11/04/18 11:31 Dose: 20 mg Ferrous Sulfate (Feosol) 325 mg PO QAM [facility] Last Admin: 11/04/18 11:26 Dose: 325 mg Furosemide (Lasix) 40 mg PO DAILY [facility] Last Admin: 11/04/18 11:30 Dose: 40 mg Glipizide (Glucotrol) 5 mg PO DAILY [facility] Last Admin: 11/04/18 11:30 Dose: 5 mg Glucagon (Glucagon) 1 mg IM PRN PRN PRN Reason: Hypoglycemia Heparin Sodium (Porcine) (Heparin 1,000 Units/Ml (10 Ml)) 0 units SLOW IVP ASDIR [facility]; Protocol Hydralazine HCl (Apresoline) 25 mg PO DAILY [facility] Last Admin: 11/04/18 11:31 Dose: 25 mg Hydralazine HCl (Apresoline) 10 mg SLOW IVP Q4H PRN PRN Reason: SBP Greater Than 180 Heparin Sodium/Dextrose (Heparin 25,000 Units/D5w 500 Ml) 500 mls @ 0 mls/hr IVPB INF [facility]; Protocol Last Admin: 11/04/18 11:10 Dose: 500 mls Dextrose/Water (D5w) 1,000 mls @ 0 mls/hr IV .Q0M PRN PRN Reason: Hypoglycemia Insulin Glargine 30 units/ (Miscellaneous Medication) 0.3 mls @ 0 mls/hr SC BID [facility] Last Admin: 11/04/18 15:51 Dose: Not Given Insulin Human Regular (Humulin R) 0 units SC .BEDTIME SLIDING SC PRN PRN Reason: Bedtime Correctional Scale Last Admin: 11/02/18 21:31 Dose: 2 unit Insulin Human Regular (Humulin R) 0 units SC .AGGRESSIVE SLIDING PRN PRN Reason: Aggressive Sliding Scale Last Admin: 11/04/18 17:26 Dose: 6 unit Levothyroxine Sodium (Synthroid) 100 mcg PO 0600 [facility] Last Admin: 11/04/18 05:21 Dose: 100 mcg Lisinopril (Zestril) 20 mg PO DAILY [facility] Last Admin: 11/04/18 11:30 Dose: 20 mg Melatonin (Melatonin) 3 mg PO HS PRN PRN Reason: Insomnia Miscellaneous Medication (Pharmacy To Dose) 1 each IVPB ONE PRN PRN Reason: DOSING Stop: 12/02/18 02:39 Mometasone Furoate/Formoterol Fumar (Dulera 100 Mcg/5 Mcg Inhaler) 2 puff INH BID-RT [facility] Last Admin: 11/04/18 06:54 Dose: 2 puff Nitroglycerin (Nitrostat) 0.4 mg PO Q5MIN PRN PRN Reason: Chest Pain Ondansetron HCl (Zofran Odt) 4 mg PO Q6H PRN PRN Reason: Nausea/Vomiting Ondansetron HCl (Zofran) 4 mg IVP Q6H PRN PRN Reason: Nausea/Vomiting Pregabalin (Lyrica) 100 mg PO TID [facility] Last Admin: 11/04/18 15:55 Dose: Not Given Senna/Docusate Sodium (Senokot S) 2 tab PO BID [facility] Last Admin: 11/04/18 11:32 Dose: 2 tab Sertraline HCl (Zoloft) 50 mg PO DAILY [facility] Last Admin: 11/04/18 11:30 Dose: 50 mg Sodium Chloride (Flush - Normal Saline) 10 ml IVF Q12HR [facility] Last Admin: 11/04/18 11:46 Dose: Not Given Sodium Chloride (Flush - Normal Saline) 10 ml IVF PRN PRN PRN Reason: Saline Flush Timolol Maleate (Timoptic 0.5% Oph Soln) 1 drop R EYE BID [facility] Last Admin: 11/04/18 11:45 Dose: Not Given Warfarin Sodium (Coumadin) 5 mg PO 1700 [facility] Last Admin: 11/04/18 17:26 Dose: 5 mg
[2018-11-04] MEDS: Heparin 10,000 UNITS/ 10 ML VIAL SLOW IVP SCH (19:16)
[2018-11-04] MEDS: Atorvastatin Calcium 20 MG TAB PO SCH (20:53)
[2018-11-05 01:06] LABS: PTT 130.1 SEC (22.9-36.1)
[2018-11-05 03:18] LABS: Hemoglobin 9.1 g/dL (12.0-16.0); Platelet Count 223 thou/uL (130-400)
[2018-11-05 05:46] LABS: Anion Gap 15 mmol/L (10-20); BUN (Urea Nitrogen) 35 mg/dL (9.8-20.1); Calc. Creatinine Clearance 67 mL/min (70-130); Calcium 7.9 mg/dL (7.8-10.44); Carbon Dioxide 19 mmol/L (22-29); Chloride 101 mmol/L (98-107); Estimated GFR-MDRD 19; Glucose 98 mg/dL (70-105); Potassium 4.5 mmol/L (3.5-5.1); Sodium 130 mmol/L (136-145)
[2018-11-05] MEDS: Levothyroxine Sodium 100 MCG TAB PO SCH (06:16)
[2018-11-05 06:34] LABS: INR-International Normal Ratio 1.1; Prothrombin Time 13.8 SEC (12.0-14.7)
[2018-11-05] MEDS: Mometasone/Formoterol 120 PUFF INHALER INH SCH ×2 (07:51→18:20)
[2018-11-05] MEDS: Timolol 0.5% Ophth Soln 5 ml Bottle R EYE SCH ×2 (09:25→21:07)
[2018-11-05] MEDS: hydrALAZINE 25 MG TAB PO SCH (09:26)
[2018-11-05] MEDS: DULoxetine 60 MG CAP PO SCH (09:27)
[2018-11-05] MEDS: Cyanocobalamin (Vitamin B-12) 1,000 MCG TAB PO SCH (09:28)
[2018-11-05] MEDS: Pregabalin 50 MG CAP PO SCH ×2 (09:28→21:00)
[2018-11-05] MEDS: Famotidine 20 MG TAB PO SCH ×2 (09:28→21:01)
[2018-11-05] MEDS: glipiZIDE 5 MG TAB PO SCH (09:28)
[2018-11-05] MEDS: Ferrous Sulfate 325 MG TAB PO SCH (09:28)
[2018-11-05] MEDS: Alogliptin 25 MG TAB PO SCH (09:28)
[2018-11-05] MEDS: Insulin Glargine 30 UNITS in Pre-Filled Syringe 1 EACH SC SCH ×2 (09:29→21:01)
[2018-11-05] MEDS: Senokot S 8.6-50 MG TAB PO SCH ×2 (09:31→21:00)
[2018-11-05] MEDS: Sodium Chloride 0.9% 1,000 ML IV SCH ×2 (09:38→23:57)
--- NOTE | 2018-11-05 10:17 | PRG ---
DATE OF SERVICE: 11/05/2018 SUBJECTIVE: The patient is doing well, not really complaining of any pain. She has not had any wound care to the area. OBJECTIVE: VITAL SIGNS: On examination, temperature 97, pulse 68, blood pressure 108/58. GENERAL: She looks comfortable. The wound is clean. There is no cellulitis. There was a little packing that was removed. No active bleeding. LABORATORY DATA: The micro is growing Proteus. ASSESSMENT: Doing well. PLAN: Continue antibiotics, local wound care, sitz baths. As long she is doing well, no need to follow up with me. Job ID: [id number]
[2018-11-05] MEDS: Bupropion 150 MG XL TAB PO SCH (12:22)
[2018-11-05] MEDS: Doxycycline 100 MG CAP PO SCH ×2 (12:22→21:07)
[2018-11-05] MEDS: Heparin 10,000 UNITS/ 10 ML VIAL SLOW IVP SCH (14:08)
[2018-11-05] MEDS: Heparin 25,000 units/D5W 500 ML IVPB SCH (15:30)
--- NOTE | 2018-11-05 15:34 | PDOC.PN ---
- Subjective Encounter Start Date: 11/05/18 Encounter Start Time: 08:00 Patient seen and examined for PE. No CP/SOB. No Perineal pain. No new complaints. No overnight events - Objective Resuscitation Status - Order Detail: 11/02/18 07:41 Resuscitation Status Routine Resuscitation Status: FULL: Full Resuscitation MAR Reviewed: Yes Vital Signs & Weight: Vital Signs (12 hours) Temp Pulse Resp BP BP Pulse Ox 11/05/18 11:00 97.8 F 68 18 123/82 96 11/05/18 09:26 68 108/58 L 11/05/18 09:25 68 11/05/18 08:00 97.7 F 68 18 108/56 L 96 11/05/18 04:00 97.7 F 69 18 99/85 96 Weight Admit Weight 374 lb Weight 393 lb I&O: 11/04/18 11/05/18 11/06/18 06:59 06:59 06:59 Intake Total 3599.7 2230 Output Total 640 Balance 2959.7 2230 Result Diagrams: 11/05/18 03:10 11/05/18 05:18 Additional Labs: Accuchecks 11/05/18 11/05/18 11/04/18 11:55 04:56 19:39 POC Glucose 135 H 102 209 H 11/04/18 17:05 POC Glucose 215 H Phys Exam - Physical Examination Constitutional: NAD Respiratory: no wheezing, no rhonchi Cardiovascular: RRR, no rub Gastrointestinal: soft, non-tender, positive bowel sounds Musculoskeletal: no edema Neurological: moves all 4 limbs Dx/Plan - Plan IMPRESSION: 1. Pulmonary embolism/RLE DVT - on IV Heparin/Warfarin 2. Perineal abscess - s/p I&D 11/04 3. SINA on CKD 3 - Lasix/Lisinopril on hold 4. Diabetes mellitus, type 2. - on sliding scale 5. Hypertension. 6. Hyperlipidemia. 7. Morbid obesity with a BMI of 60.4. 8. Hypothyroidism. 9. Depression, mild, stable. 10. Gastroesophageal reflux disease. 11. Glaucoma. 12. Headache - improved 13. Chronic diastolic HF PLAN: Cont IV Heparin Cont Warfarin Increase Warfarin dose Daily INR Start IVF Hold Lisinopril/Lasix due to SINA Check UA AM labs Cont PO Doxycycline for Perineal abscess - I confirmed with Dr Rogers Reduce Lyrica dose due to SINA Cont other meds as below Review of Systems - Review of Systems Respiratory: negative: Cough, Dry, Shortness of Breath, Hemoptysis, SOB with Excertion, Pleuritic Pain, Sputum, Wheezing Cardiovascular: negative: chest pain, palpitations, orthopnea, paroxysmal nocturnal dyspnea, edema, light headedness, other - Medications/Allergies Allergies/Adverse Reactions: Allergies Allergy/AdvReac Type Severity Reaction Status Date / Time ciprofloxacin Allergy Verified 04/21/15 11:57 meloxicam Allergy Verified 04/21/15 11:57 morphine Allergy Verified 04/21/15 11:57 sulfamethoxazole Allergy Verified 04/21/15 11:57 [From Bactrim] trimethoprim [From Bactrim] Allergy Verified 04/21/15 11:57 Medications: Current Medications Acetaminophen (Tylenol) 650 mg PO Q4H PRN PRN Reason: Headache/Fever or Mild Pain Last Admin: 11/04/18 11:34 Dose: 650 mg Albuterol Sulfate (Proventil Hfa) 2 puff INH Q6H PRN PRN Reason: SOB &/or Wheezing Albuterol/Ipratropium (Duoneb) 3 ml NEB A2FS-AQ PRN PRN Reason: SOB &/or Wheezing Alogliptin Benzoate (Alogliptin) 25 mg PO DAILY [facility] Last Admin: 11/05/18 09:28 Dose: 25 mg Atorvastatin Calcium (Lipitor) 20 mg PO HS [facility] Last Admin: 11/04/18 20:53 Dose: 20 mg Bisacodyl (Dulcolax) 10 mg [place] DAILYPRN PRN PRN Reason: Constipation Bupropion HCl (Wellbutrin Xl) 300 mg PO DAILY [facility] Last Admin: 11/05/18 12:22 Dose: 300 mg Calcium Carbonate (Tums) 1,000 mg PO Q4H PRN PRN Reason: Heartburn or Indigestion Cholecalciferol (Vitamin D3) 1,000 units PO DAILY [facility] Last Admin: 11/05/18 09:28 Dose: 1,000 units Clonidine (Catapres) 0.1 mg PO Q4H PRN PRN Reason: Systolic BP > 180 Cyanocobalamin (Vitamin B-12) 500 mcg PO DAILY [facility] Last Admin: 11/05/18 09:28 Dose: 500 mcg Dextrose/Water (Dextrose 50%) 25 gm SLOW IVP PRN PRN PRN Reason: Hypoglycemia Doxycycline Hyclate (Vibramycin) 100 mg PO BID [facility] Last Admin: 11/05/18 12:22 Dose: 100 mg Duloxetine HCl (Cymbalta) 60 mg PO DAILY [facility] Last Admin: 11/05/18 09:27 Dose: 60 mg Famotidine (Pepcid) 20 mg PO BID [facility] Last Admin: 11/05/18 09:28 Dose: 20 mg Ferrous Sulfate (Feosol) 325 mg PO QAM [facility] Last Admin: 11/05/18 09:28 Dose: 325 mg Furosemide (Lasix) 40 mg PO DAILY [facility] Last Admin: 11/04/18 11:30 Dose: 40 mg Glipizide (Glucotrol) 5 mg PO DAILY [facility] Last Admin: 11/05/18 09:28 Dose: 5 mg Glucagon (Glucagon) 1 mg IM PRN PRN PRN Reason: Hypoglycemia Heparin Sodium (Porcine) (Heparin 1,000 Units/Ml (10 Ml)) 0 units SLOW IVP ASDIR [facility]; Protocol Last Admin: 11/05/18 14:08 Dose: 6.7 ml Hydralazine HCl (Apresoline) 25 mg PO DAILY [facility] Last Admin: 11/05/18 09:26 Dose: Not Given Hydralazine HCl (Apresoline) 10 mg SLOW IVP Q4H PRN PRN Reason: SBP Greater Than 180 Heparin Sodium/Dextrose (Heparin 25,000 Units/D5w 500 Ml) 500 mls @ 0 mls/hr IVPB INF [facility]; Protocol Last Admin: 11/05/18 15:30 Dose: 500 mls Dextrose/Water (D5w) 1,000 mls @ 0 mls/hr IV .Q0M PRN PRN Reason: Hypoglycemia Insulin Glargine 30 units/ (Miscellaneous Medication) 0.3 mls @ 0 mls/hr SC BID [facility] Last Admin: 11/05/18 09:29 Dose: 0.3 mls Sodium Chloride (Normal Saline 0.9%) 1,000 mls @ 70 mls/hr IV .[id number] [facility] Last Admin: 11/05/18 09:38 Dose: 1,000 mls Insulin Human Regular (Humulin R) 0 units SC .BEDTIME SLIDING SC PRN PRN Reason: Bedtime Correctional Scale Last Admin: 11/04/18 20:53 Dose: 2 unit Insulin Human Regular (Humulin R) 0 units SC .AGGRESSIVE SLIDING PRN PRN Reason: Aggressive Sliding Scale Last Admin: 11/04/18 17:26 Dose: 6 unit Levothyroxine Sodium (Synthroid) 100 mcg PO 0600 [facility] Last Admin: 11/05/18 06:16 Dose: 100 mcg Lisinopril (Zestril) 20 mg PO DAILY [facility] Last Admin: 11/04/18 11:30 Dose: 20 mg Melatonin (Melatonin) 3 mg PO HS PRN PRN Reason: Insomnia Miscellaneous Medication (Pharmacy To Dose) 1 each IVPB ONE PRN PRN Reason: DOSING Stop: 12/02/18 02:39 Miscellaneous Medication (Pharmacy To Dose) 1 each PO .WARFARIN [facility] Mometasone Furoate/Formoterol Fumar (Dulera 100 Mcg/5 Mcg Inhaler) 2 puff INH BID-RT [facility] Last Admin: 11/05/18 07:51 Dose: 2 puff Nitroglycerin (Nitrostat) 0.4 mg PO Q5MIN PRN PRN Reason: Chest Pain Ondansetron HCl (Zofran Odt) 4 mg PO Q6H PRN PRN Reason: Nausea/Vomiting Ondansetron HCl (Zofran) 4 mg IVP Q6H PRN PRN Reason: Nausea/Vomiting Pregabalin (Lyrica) 100 mg PO BID [facility] Last Admin: 11/05/18 09:28 Dose: 100 mg Senna/Docusate Sodium (Senokot S) 2 tab PO BID [facility] Last Admin: 11/05/18 09:31 Dose: 2 tab Sertraline HCl (Zoloft) 50 mg PO DAILY [facility] Last Admin: 11/05/18 09:27 Dose: 50 mg Sodium Chloride (Flush - Normal Saline) 10 ml IVF Q12HR [facility] Last Admin: 11/05/18 09:00 Dose: Not Given Sodium Chloride (Flush - Normal Saline) 10 ml IVF PRN PRN PRN Reason: Saline Flush Timolol Maleate (Timoptic 0.5% [facility] Sol) 1 drop R EYE BID [facility] Last Admin: 11/05/18 09:25 Dose: Not Given Warfarin Sodium (Coumadin) 10 mg PO 1700 [facility]
[2018-11-05] MEDS: Warfarin Sodium 10 MG TAB PO SCH (16:41)
[2018-11-05] MEDS: Insulin Regular 300 UNITS/3 ML VIAL SC PRN (16:41)
[2018-11-05 18:01] LABS: Bilirubin Negative (Negative); Blood, Urine Trace (Negative); Clarity Clear (Clear); Glucose, Urine (Dipstick) Normal (Negative); Leukocyte 25 Leu/uL (Negative); Nitrite Negative (Negative); Protein, Urine (Dipstick) 70 mg/dL (Neg-Trace); RBC/HPF 0-3 HPF (0-3); Squamous Epithelial 0-3 HPF (0-3); Urobilinogen Normal mg/dL (Less than 2)
[2018-11-05 18:09] LABS: Bacteria/HPF 1+ HPF (None Seen)
[2018-11-05 18:17] LABS: Unclassified Crystals None Seen HPF (None Seen)
[2018-11-05 20:24] LABS: PTT 140.4 SEC (22.9-36.1)
[2018-11-05] MEDS: Atorvastatin Calcium 20 MG TAB PO SCH (21:01)
[2018-11-06 05:14] LABS: INR-International Normal Ratio 1.2; Prothrombin Time 15.4 SEC (12.0-14.7)
[2018-11-06 05:15] LABS: PTT 61.7 SEC (22.9-36.1)
[2018-11-06 05:25] LABS: Anion Gap 15 mmol/L (10-20); BUN (Urea Nitrogen) 38 mg/dL (9.8-20.1); Calc. Creatinine Clearance 70 mL/min (70-130); Carbon Dioxide 21 mmol/L (22-29); Chloride 100 mmol/L (98-107); Estimated GFR-MDRD 20; Glucose 171 mg/dL (70-105); Potassium 4.5 mmol/L (3.5-5.1); Sodium 131 mmol/L (136-145)
[2018-11-06] MEDS: Levothyroxine Sodium 100 MCG TAB PO SCH (05:27)
[2018-11-06] MEDS: Heparin 10,000 UNITS/ 10 ML VIAL SLOW IVP SCH (06:00)
[2018-11-06] MEDS: Insulin Regular 300 UNITS/3 ML VIAL SC PRN ×2 (06:01→20:37)
[2018-11-06] MEDS: Heparin 25,000 units/D5W 500 ML IVPB SCH ×2 (07:11→22:48)
[2018-11-06] MEDS: Mometasone/Formoterol 120 PUFF INHALER INH SCH ×2 (07:35→18:58)
[2018-11-06] MEDS: Cyanocobalamin (Vitamin B-12) 1,000 MCG TAB PO SCH (08:08)
[2018-11-06] MEDS: Pregabalin 50 MG CAP PO SCH ×2 (08:08→20:33)
[2018-11-06] MEDS: glipiZIDE 5 MG TAB PO SCH (08:09)
[2018-11-06] MEDS: Senokot S 8.6-50 MG TAB PO SCH (08:09)
[2018-11-06] MEDS: Bupropion 150 MG XL TAB PO SCH (08:09)
[2018-11-06] MEDS: DULoxetine 60 MG CAP PO SCH (08:10)
[2018-11-06] MEDS: hydrALAZINE 25 MG TAB PO SCH (08:10)
[2018-11-06] MEDS: Doxycycline 100 MG CAP PO SCH ×2 (08:10→20:33)
[2018-11-06] MEDS: Ferrous Sulfate 325 MG TAB PO SCH (08:10)
[2018-11-06] MEDS: Alogliptin 25 MG TAB PO SCH (08:10)
[2018-11-06] MEDS: Famotidine 20 MG TAB PO SCH ×2 (08:10→20:34)
[2018-11-06] MEDS: Timolol 0.5% Ophth Soln 5 ml Bottle R EYE SCH ×2 (08:11→20:34)
[2018-11-06] MEDS: Insulin Glargine 30 UNITS in Pre-Filled Syringe 1 EACH SC SCH ×2 (08:11→20:34)
--- NOTE | 2018-11-06 08:35 | PRG ---
DATE OF SERVICE: 11/06/2018 SUBJECTIVE: The patient remains in the hospital on anticoagulation. She is not quite therapeutic yet. Her INR today is 1.2 and her PTT is 61.7. OBJECTIVE: VITAL SIGNS: Temperature 97.5, pulse 69, respirations 18, O2 saturation 97%, and blood pressure 154/78. HEENT: Unremarkable. NECK: No JVD. LUNGS: Clear to auscultation anteriorly. CARDIAC: S1 and S2. Regular. ABDOMEN: Obese, soft, nontender. EXTREMITIES: No edema. ASSESSMENT: Pulmonary embolism/deep vein thrombosis. PLAN: Await therapeutic anticoagulation. Job ID: [id number]
[2018-11-06] MEDS ORDERED: Cephalexin 250 MG CAP PO SCH (09:00)
[2018-11-06] MEDS ORDERED: Polyethylene Glycol 3350 17 GM Packet PO PRN (09:05)
[2018-11-06] MEDS ORDERED: Senokot 8.6 MG TAB PO PRN (09:05)
--- NOTE | 2018-11-06 09:21 | PDOC.PN ---
- Subjective Encounter Start Date: 11/06/18 Encounter Start Time: 09:16 Patient seen and examined for PE/DVT. No CP/SOB. No new complaints. No overnight events - Objective Resuscitation Status - Order Detail: 11/02/18 07:41 Resuscitation Status Routine Resuscitation Status: FULL: Full Resuscitation MAR Reviewed: Yes Vital Signs & Weight: Vital Signs (12 hours) Temp Pulse Resp BP Pulse Ox 11/06/18 07:13 97.5 F L 69 18 154/78 H 97 11/06/18 04:00 98.0 F 69 20 110/65 97 11/06/18 00:00 97.8 F 69 20 137/71 94 L Weight Admit Weight 374 lb Weight 398 lb 6.4 oz I&O: 11/05/18 11/06/18 11/07/18 06:59 06:59 06:59 Intake Total 2230 2820 Output Total 500 Balance 2230 2320 Result Diagrams: 11/05/18 03:10 11/06/18 04:34 Additional Labs: Accuchecks 11/06/18 11/05/18 11/05/18 04:55 20:02 16:25 POC Glucose 189 H 200 H 183 H 11/05/18 11:55 POC Glucose 135 H Phys Exam - Physical Examination Constitutional: NAD Respiratory: no wheezing, no rhonchi Cardiovascular: RRR, no rub Gastrointestinal: soft, non-tender, positive bowel sounds Musculoskeletal: no edema Neurological: moves all 4 limbs Psychiatric: A&O x 3 Dx/Plan - Plan IMPRESSION: 1. Pulmonary embolism/RLE DVT - on IV Heparin/Warfarin 2. Perineal abscess - s/p I&D 11/04 3. SINA on CKD 3 - Lasix/Lisinopril on hold 4. Diabetes mellitus, type 2. - on sliding scale 5. Hypertension. 6. Hyperlipidemia. 7. Morbid obesity with a BMI of 60.4. 8. Hypothyroidism. 9. Depression, mild, stable. 10. Gastroesophageal reflux disease. 11. Glaucoma. 12. Headache - improved 13. Chronic diastolic HF PLAN: Cont IV Heparin until INR therapeutic Cont Warfarin - dose increased Daily INR Cont IVF Lisinopril/Lasix on hold due to SINA Cont PO Doxycycline for Perineal abscess Add Keflex Reduce Bupropion dose due to SINA Cont other meds as below Review of Systems - Review of Systems Respiratory: negative: Cough, Dry, Shortness of Breath, Hemoptysis, SOB with Excertion, Pleuritic Pain, Sputum, Wheezing Cardiovascular: negative: chest pain, palpitations, orthopnea, paroxysmal nocturnal dyspnea, edema, light headedness, other Gastrointestinal: negative: Nausea, Vomiting, Abdominal Pain, Diarrhea, Constipation, Melena, Hematochezia, Other - Medications/Allergies Allergies/Adverse Reactions: Allergies Allergy/AdvReac Type Severity Reaction Status Date / Time ciprofloxacin Allergy Verified 04/21/15 11:57 meloxicam Allergy Verified 04/21/15 11:57 morphine Allergy Verified 04/21/15 11:57 sulfamethoxazole Allergy Verified 04/21/15 11:57 [From Bactrim] trimethoprim [From Bactrim] Allergy Verified 04/21/15 11:57 Medications: Current Medications Acetaminophen (Tylenol) 650 mg PO Q4H PRN PRN Reason: Headache/Fever or Mild Pain Last Admin: 11/04/18 11:34 Dose: 650 mg Albuterol Sulfate (Proventil Hfa) 2 puff INH Q6H PRN PRN Reason: SOB &/or Wheezing Albuterol/Ipratropium (Duoneb) 3 ml NEB C2OB-QD PRN PRN Reason: SOB &/or Wheezing Alogliptin Benzoate (Alogliptin) 25 mg PO DAILY [facility] Last Admin: 11/06/18 08:10 Dose: 25 mg Atorvastatin Calcium (Lipitor) 20 mg PO HS [facility] Last Admin: 11/05/18 21:01 Dose: 20 mg Bisacodyl (Dulcolax) 10 mg [place] DAILYPRN PRN PRN Reason: Constipation Bupropion HCl (Wellbutrin Xl) 150 mg PO DAILY [facility] Calcium Carbonate (Tums) 1,000 mg PO Q4H PRN PRN Reason: Heartburn or Indigestion Cephalexin (Keflex) 250 mg PO TID [facility] Cholecalciferol (Vitamin D3) 1,000 units PO DAILY [facility] Last Admin: 11/06/18 08:10 Dose: 1,000 units Clonidine (Catapres) 0.1 mg PO Q4H PRN PRN Reason: Systolic BP > 180 Cyanocobalamin (Vitamin B-12) 500 mcg PO DAILY [facility] Last Admin: 11/06/18 08:08 Dose: 500 mcg Dextrose/Water (Dextrose 50%) 25 gm SLOW IVP PRN PRN PRN Reason: Hypoglycemia Doxycycline Hyclate (Vibramycin) 100 mg PO BID [facility] Last Admin: 11/06/18 08:10 Dose: 100 mg Duloxetine HCl (Cymbalta) 60 mg PO DAILY [facility] Last Admin: 11/06/18 08:10 Dose: 60 mg Famotidine (Pepcid) 20 mg PO BID [facility] Last Admin: 11/06/18 08:10 Dose: 20 mg Ferrous Sulfate (Feosol) 325 mg PO QAM [facility] Last Admin: 11/06/18 08:10 Dose: 325 mg Furosemide (Lasix) 40 mg PO DAILY [facility] Last Admin: 11/04/18 11:30 Dose: 40 mg Glipizide (Glucotrol) 5 mg PO DAILY [facility] Last Admin: 11/06/18 08:09 Dose: 5 mg Glucagon (Glucagon) 1 mg IM PRN PRN PRN Reason: Hypoglycemia Heparin Sodium (Porcine) (Heparin 1,000 Units/Ml (10 Ml)) 0 units SLOW IVP ASDIR [facility]; Protocol Last Admin: 11/06/18 06:00 Dose: 6.8 ml Hydralazine HCl (Apresoline) 25 mg PO DAILY [facility] Last Admin: 11/06/18 08:10 Dose: 25 mg Hydralazine HCl (Apresoline) 10 mg SLOW IVP Q4H PRN PRN Reason: SBP Greater Than 180 Heparin Sodium/Dextrose (Heparin 25,000 Units/D5w 500 Ml) 500 mls @ 0 mls/hr IVPB INF [facility]; Protocol Last Admin: 11/06/18 07:11 Dose: 500 mls Dextrose/Water (D5w) 1,000 mls @ 0 mls/hr IV .Q0M PRN PRN Reason: Hypoglycemia Insulin Glargine 30 units/ (Miscellaneous Medication) 0.3 mls @ 0 mls/hr SC BID [facility] Last Admin: 11/06/18 08:11 Dose: 0.3 mls Sodium Chloride (Normal Saline 0.9%) 1,000 mls @ 70 mls/hr IV .[id number] [facility] Last Admin: 11/05/18 23:57 Dose: 1,000 mls Insulin Human Regular (Humulin R) 0 units SC .BEDTIME SLIDING SC PRN PRN Reason: Bedtime Correctional Scale Last Admin: 11/04/18 20:53 Dose: 2 unit Insulin Human Regular (Humulin R) 0 units SC .AGGRESSIVE SLIDING PRN PRN Reason: Aggressive Sliding Scale Last Admin: 11/06/18 06:01 Dose: 3 unit Levothyroxine Sodium (Synthroid) 100 mcg PO 0600 [facility] Last Admin: 11/06/18 05:27 Dose: 100 mcg Lisinopril (Zestril) 20 mg PO DAILY [facility] Last Admin: 11/04/18 11:30 Dose: 20 mg Melatonin (Melatonin) 3 mg PO HS PRN PRN Reason: Insomnia Miscellaneous Medication (Pharmacy To Dose) 1 each IVPB ONE PRN PRN Reason: DOSING Stop: 12/02/18 02:39 Miscellaneous Medication (Pharmacy To Dose) 1 each PO .WARFARIN [facility] Mometasone Furoate/Formoterol Fumar (Dulera 100 Mcg/5 Mcg Inhaler) 2 puff INH BID-RT [facility] Last Admin: 11/06/18 07:35 Dose: 2 puff Nitroglycerin (Nitrostat) 0.4 mg PO Q5MIN PRN PRN Reason: Chest Pain Ondansetron HCl (Zofran Odt) 4 mg PO Q6H PRN PRN Reason: Nausea/Vomiting Ondansetron HCl (Zofran) 4 mg IVP Q6H PRN PRN Reason: Nausea/Vomiting Polyethylene Glycol (Miralax) 17 gm PO DAILY PRN PRN Reason: Constipation Pregabalin (Lyrica) 100 mg PO BID [facility] Last Admin: 11/06/18 08:08 Dose: 100 mg Senna (Senokot) 2 tab PO HSPRN PRN PRN Reason: Constipation Sertraline HCl (Zoloft) 50 mg PO DAILY [facility] Last Admin: 11/06/18 08:10 Dose: 50 mg Sodium Chloride (Flush - Normal Saline) 10 ml IVF Q12HR [facility] Last Admin: 11/06/18 08:11 Dose: Not Given Sodium Chloride (Flush - Normal Saline) 10 ml IVF PRN PRN PRN Reason: Saline Flush Timolol Maleate (Timoptic 0.5% Oph Soln) 1 drop R EYE BID [facility] Last Admin: 11/06/18 08:11 Dose: Not Given Warfarin Sodium (Coumadin) 10 mg PO 1700 [facility] Last Admin: 11/05/18 16:41 Dose: 10 mg
--- NOTE | 2018-11-06 09:42 | OP ---
DATE OF PROCEDURE: 11/04/2018 PREOPERATIVE DIAGNOSIS: Left labial abscess. PROCEDURE PERFORMED: Incision and drainage. INDICATIONS: A 57-year-old female, who is being treated for an acute pulmonary embolus, on anticoagulation, who developed a perineal abscess. FINDINGS: A 3-cm left labial abscess. DESCRIPTION OF PROCEDURE: After informed consent was obtained, the patient was taken to the operating room, given general mask anesthesia, and placed in lithotomy position. Her perineum was prepped and draped in usual fashion. An elliptical incision was performed to drain this left labial abscess. Cultures were obtained. Hemostasis achieved with electrocautery. The wound irrigated. Surgicel was inserted after thorough cauterization and then a sterile bandage. The patient tolerated the procedure well, transferred to recovery in good condition. Sponge and needle count verified correct x2. Job ID: [id number]
[2018-11-06] MEDS: Cephalexin 250 MG CAP PO SCH ×3 (09:51→20:33)
[2018-11-06 12:19] LABS: PTT 219.5 SEC (22.9-36.1)
[2018-11-06] MEDS: Sodium Chloride 0.9% 1,000 ML IV SCH (14:48)
[2018-11-06] MEDS: Warfarin Sodium 10 MG TAB PO SCH (17:03)
[2018-11-06] MEDS: Atorvastatin Calcium 20 MG TAB PO SCH (20:33)
[2018-11-07 02:00] LABS: Hemoglobin 8.6 g/dL (12.0-16.0); Platelet Count 229 thou/uL (130-400)
[2018-11-07 02:18] LABS: INR-International Normal Ratio 1.4; Prothrombin Time 17.4 SEC (12.0-14.7)
[2018-11-07 02:29] LABS: Anion Gap 15 mmol/L (10-20); BUN (Urea Nitrogen) 40 mg/dL (9.8-20.1); Calc. Creatinine Clearance 78 mL/min (70-130); Calcium 8.5 mg/dL (7.8-10.44); Carbon Dioxide 22 mmol/L (22-29); Chloride 101 mmol/L (98-107); Estimated GFR-MDRD 22; Glucose 188 mg/dL (70-105); Potassium 4.8 mmol/L (3.5-5.1); Sodium 133 mmol/L (136-145)
[2018-11-07] MEDS: Heparin 10,000 UNITS/ 10 ML VIAL SLOW IVP SCH ×2 (02:35→21:59)
[2018-11-07] MEDS: Sodium Chloride 0.9% 1,000 ML IV SCH ×2 (04:42→20:09)
[2018-11-07] MEDS: Amoxicillin/Potassium Clav 250 MG TAB PO SCH ×3 (04:43→21:20)
[2018-11-07] MEDS: Levothyroxine Sodium 100 MCG TAB PO SCH (04:43)
[2018-11-07] MEDS: Mometasone/Formoterol 120 PUFF INHALER INH SCH ×2 (07:00→19:29)
--- NOTE | 2018-11-07 08:46 | PRG ---
DATE OF SERVICE: 11/07/2018 SUBJECTIVE: The patient is doing reasonably well. She has no acute complaints. OBJECTIVE: VITAL SIGNS: Her temperature is 97.9, pulse 69, blood pressure 126/71, and O2 saturation 97% on room air. HEENT: Unremarkable. NECK: No JVD. LUNGS: Clear. CARDIAC: S1 and S2. Regular. ABDOMEN: Soft. EXTREMITIES: No edema. LABORATORY DATA: Hematocrit is 27.3, hemoglobin 8.6. Creatinine 2.3. INR 1.4. ASSESSMENT: Deep venous thrombosis/pulmonary embolism. PLAN: Continuing heparin bridge with Coumadin. Awaiting INR of 2.0. No further recommendations at this time. We will sign off. Please recall, if further assistance is needed. Job ID: [id number]
[2018-11-07] MEDS: glipiZIDE 5 MG TAB PO SCH (09:34)
[2018-11-07] MEDS: Ferrous Sulfate 325 MG TAB PO SCH (09:34)
[2018-11-07] MEDS: Alogliptin 25 MG TAB PO SCH (09:35)
[2018-11-07] MEDS: Pregabalin 50 MG CAP PO SCH ×2 (09:35→20:10)
[2018-11-07] MEDS: Bupropion 150 MG XL TAB PO SCH (09:35)
[2018-11-07] MEDS: Famotidine 20 MG TAB PO SCH ×2 (09:35→20:10)
[2018-11-07] MEDS: hydrALAZINE 25 MG TAB PO SCH (09:35)
[2018-11-07] MEDS: Cyanocobalamin (Vitamin B-12) 1,000 MCG TAB PO SCH (09:35)
[2018-11-07] MEDS: Insulin Glargine 30 UNITS in Pre-Filled Syringe 1 EACH SC SCH (09:37)
[2018-11-07 10:07] LABS: PTT Greater than 250.0 SEC (22.9-36.1)
[2018-11-07] MEDS: Timolol 0.5% Ophth Soln 5 ml Bottle R EYE SCH ×2 (10:48→20:13)
[2018-11-07] MEDS: DULoxetine 60 MG CAP PO SCH (14:51)
[2018-11-07] MEDS: Heparin 25,000 units/D5W 500 ML IVPB SCH (15:34)
[2018-11-07] MEDS: Warfarin Sodium 10 MG TAB PO SCH (17:14)
--- NOTE | 2018-11-07 17:15 | PDOC.HOSPP ---
- Subjective Subjective: Patient seen and examined for PE. No CP/SOB or palpitations. No new complaints. No overnight events - Objective Vital Signs & Weight: Vital Signs (12 hours) Temp Pulse Resp BP Pulse Ox 11/07/18 10:48 69 11/07/18 09:35 69 11/07/18 08:32 97.8 F 69 20 156/88 H 97 11/07/18 08:00 97 Weight Admit Weight 374 lb Weight 398 lb 6.4 oz I&O: 11/06/18 11/07/18 11/08/18 06:59 06:59 06:59 Intake Total 2820 2320 Output Total 500 Balance 2320 2320 Result Diagrams: 11/07/18 01:46 11/07/18 01:46 Additional Labs: Accuchecks 11/07/18 11/07/18 11/06/18 11:51 04:37 19:50 POC Glucose 140 H 158 H 208 H ROS - Review of Systems All systems: All other ROS were reviewed and found negative. - Medication Medications: Active Medications Generic Name Dose Route Start Last Admin Trade Name Freq PRN Reason Stop Dose Admin Acetaminophen 650 mg 11/02/18 07:40 11/04/18 11:34 Tylenol PO 650 mg Q4H PRN Administration Headache/Fever or Mild Pain Alogliptin Benzoate 25 mg 11/02/18 09:00 11/07/18 09:35 Alogliptin PO 25 mg DAILY [facility] Administration Amoxicillin/Clavulanate Potassium 250 mg 11/07/18 06:00 11/07/18 14:51 Augmentin PO 250 mg Q8HR [facility] Administration Atorvastatin Calcium 20 mg 11/02/18 21:00 11/06/18 20:33 Lipitor PO 20 mg HS [facility] Administration Bupropion HCl 150 mg 11/07/18 09:00 11/07/18 09:35 Wellbutrin Xl PO 150 mg DAILY [facility] Administration Cholecalciferol 1,000 units 11/02/18 09:00 11/07/18 09:35 Vitamin D3 PO 1,000 units DAILY [facility] Administration Cyanocobalamin 500 mcg 11/02/18 09:00 11/07/18 09:35 Vitamin B-12 PO 500 mcg DAILY [facility] Administration Duloxetine HCl 60 mg 11/02/18 09:00 11/07/18 14:51 Cymbalta PO 60 mg DAILY [facility] Administration Famotidine 20 mg 11/02/18 09:00 11/07/18 09:35 Pepcid PO 20 mg BID [facility] Administration Ferrous Sulfate 325 mg 11/02/18 09:00 11/07/18 09:34 Feosol PO 325 mg QAM [facility] Administration Furosemide 40 mg 11/02/18 09:00 11/04/18 11:30 Lasix PO 40 mg DAILY [facility] Administration Glipizide 5 mg 11/02/18 09:00 11/07/18 09:34 Glucotrol PO 5 mg DAILY [facility] Administration Heparin Sodium (Porcine) 0 units 11/02/18 02:45 11/07/18 02:35 Heparin 1,000 Units/Ml (10 Ml) SLOW IVP 6.8 ml ASDIR [facility] Administration Protocol Hydralazine HCl 25 mg 11/02/18 09:00 11/07/18 09:35 Apresoline PO 25 mg DAILY [facility] Administration Heparin Sodium/Dextrose 500 mls @ 0 mls/hr 11/02/18 02:45 11/07/18 15:34 Heparin 25,000 Units/D5w 500 Ml IVPB 500 mls INF [facility] Administration Protocol Per Protocol Insulin Glargine 30 units/ 0.3 mls @ 0 mls/hr 11/02/18 21:00 11/07/18 09:37 Miscellaneous Medication SC 0.3 mls BID [facility] Administration Sodium Chloride 1,000 mls @ 70 mls/hr 11/05/18 08:45 11/07/18 04:42 Normal Saline 0.9% IV 1,000 mls .[id number] [facility] Administration Insulin Human Regular 0 units 11/02/18 07:37 11/06/18 20:37 Humulin R SC 2 unit .BEDTIME SLIDING SC PRN Administration Bedtime Correctional Scale Insulin Human Regular 0 units 11/02/18 11:40 11/06/18 06:01 Humulin R SC 3 unit .AGGRESSIVE SLIDING PRN Administration Aggressive Sliding Scale Levothyroxine Sodium 100 mcg 11/03/18 06:00 11/07/18 04:43 Synthroid PO 100 mcg 0600 [facility] Administration Lisinopril 20 mg 11/02/18 09:00 11/04/18 11:30 Zestril PO 20 mg DAILY [facility] Administration Mometasone Furoate/Formoterol Fumar 2 puff 11/02/18 18:30 11/07/18 07:00 Dulera 100 Mcg/5 Mcg Inhaler INH 2 puff BID-RT [facility] Administration Pregabalin 100 mg 11/05/18 09:00 11/07/18 09:35 Lyrica PO 100 mg BID [facility] Administration Sertraline HCl 50 mg 11/02/18 09:00 11/07/18 09:36 Zoloft PO 50 mg DAILY [facility] Administration Sodium Chloride 10 ml 11/02/18 09:00 11/07/18 10:48 Flush - Normal Saline IVF Not Given Q12HR [facility] Timolol Maleate 1 drop 11/02/18 09:00 11/07/18 10:48 Timoptic 0.5% Ophth Soln R EYE Not Given BID [facility] - Exam NAD Heart: RRR, no rubs Respiratory: CTAB, no ronchi Gastrointestinal: soft, non-tender, normal bowel sounds Neurological: no focal deficits Psychiatric: normal affect, A&O x 3 Hosp A/P - Plan IMPRESSION: 1. Pulmonary embolism/RLE DVT - on IV Heparin/Warfarin - INR 1.4 2. Perineal abscess - s/p I&D 11/04 3. SINA on CKD 3 - Lasix/Lisinopril on hold 4. Diabetes mellitus, type 2. - on sliding scale 5. Hypertension. 6. Hyperlipidemia. 7. Morbid obesity with a BMI of 60.4. 8. Hypothyroidism. 9. Depression, mild, stable. 10. Gastroesophageal reflux disease. 11. Glaucoma. 12. Headache - improved 13. Chronic diastolic HF PLAN: Cont IV Heparin until INR therapeutic Cont Warfarin Daily INR Cont IVF due to SINA - Lisinopril/Lasix on hold Change Atbx to Augmentin Cont other meds as below AM labs Reduce Lantus to 25 BID
[2018-11-07] MEDS: Atorvastatin Calcium 20 MG TAB PO SCH (20:10)
[2018-11-07] MEDS: Insulin Glargine 25 UNITS in Pre-Filled Syringe 1 EACH SC SCH (21:21)
[2018-11-07] MEDS: Insulin Regular 300 UNITS/3 ML VIAL SC PRN (21:22)
[2018-11-08 04:45] LABS: INR-International Normal Ratio 1.9; Prothrombin Time 21.6 SEC (12.0-14.7)
[2018-11-08 04:58] LABS: PTT 237.2 SEC (22.9-36.1)
[2018-11-08 04:59] LABS: Anion Gap 11 mmol/L (10-20); BUN (Urea Nitrogen) 37 mg/dL (9.8-20.1); Calc. Creatinine Clearance 90 mL/min (70-130); Carbon Dioxide 25 mmol/L (22-29); Chloride 106 mmol/L (98-107); Estimated GFR-MDRD 26; Glucose 123 mg/dL (70-105); Potassium 4.9 mmol/L (3.5-5.1); Sodium 137 mmol/L (136-145)
[2018-11-08] MEDS: Amoxicillin/Potassium Clav 250 MG TAB PO SCH ×3 (05:31→21:08)
[2018-11-08] MEDS: Levothyroxine Sodium 100 MCG TAB PO SCH (05:31)
[2018-11-08] MEDS: Mometasone/Formoterol 120 PUFF INHALER INH SCH ×2 (06:56→19:53)
[2018-11-08] MEDS: Insulin Glargine 25 UNITS in Pre-Filled Syringe 1 EACH SC SCH ×2 (09:49→21:11)
[2018-11-08] MEDS: Ferrous Sulfate 325 MG TAB PO SCH (09:50)
[2018-11-08] MEDS: Bupropion 150 MG XL TAB PO SCH (09:50)
[2018-11-08] MEDS: Famotidine 20 MG TAB PO SCH ×2 (09:50→21:08)
[2018-11-08] MEDS: Pregabalin 50 MG CAP PO SCH ×2 (09:50→21:08)
[2018-11-08] MEDS: glipiZIDE 5 MG TAB PO SCH (09:51)
[2018-11-08] MEDS: hydrALAZINE 25 MG TAB PO SCH (09:51)
[2018-11-08] MEDS: Alogliptin 25 MG TAB PO SCH (09:51)
[2018-11-08] MEDS: Cyanocobalamin (Vitamin B-12) 1,000 MCG TAB PO SCH (09:51)
[2018-11-08] MEDS: DULoxetine 60 MG CAP PO SCH (09:56)
[2018-11-08] MEDS: Heparin 25,000 units/D5W 500 ML IVPB SCH (09:57)
[2018-11-08] MEDS: Sodium Chloride 0.9% 1,000 ML IV SCH (09:58)
[2018-11-08] MEDS: Timolol 0.5% Ophth Soln 5 ml Bottle R EYE SCH ×2 (10:00→22:09)
--- NOTE | 2018-11-08 14:31 | PDOC.HOSPP ---
- Subjective Subjective: Pt seen for followup re:pulmonary embolism. Denies chest pain, shortness of breath, fevers or chills. - Objective Vital Signs & Weight: Vital Signs (12 hours) Temp Pulse Resp BP BP Pulse Ox 11/08/18 10:00 74 11/08/18 09:51 74 167/70 H 11/08/18 08:00 97 11/08/18 07:47 98.3 F 74 16 167/70 H 97 11/08/18 06:56 99 24 H 11/08/18 04:28 97.4 F L 74 20 153/74 H 97 Weight Admit Weight 374 lb Weight 398 lb 6.4 oz I&O: 11/07/18 11/08/18 11/09/18 06:59 06:59 06:59 Intake Total 2320 3740 440 Balance 2320 3740 440 Result Diagrams: 11/07/18 01:46 11/08/18 04:31 Additional Labs: Accuchecks 11/08/18 11/08/18 11/07/18 11:21 04:28 20:24 POC Glucose 118 H 131 H 206 H 11/07/18 16:48 POC Glucose 101 Labs and MARs reviewed by me ROS - Review of Systems All systems: All other ROS were reviewed and found negative. Respiratory: denies: cough, dry, shortness of breath, hemoptysis, SOB with excertion, pleuritic pain, sputum, wheezing Cardiovascular: denies: chest pain, palpitations, orthopnea, paroxysmal noc. dyspnea, edema, light headedness - Medication Medications: Active Medications Generic Name Dose Route Start Last Admin Trade Name Dukeq PRN Reason Stop Dose Admin Acetaminophen 650 mg 11/02/18 07:40 11/04/18 11:34 Tylenol PO 650 mg Q4H PRN Administration Headache/Fever or Mild Pain Alogliptin Benzoate 25 mg 11/02/18 09:00 11/08/18 09:51 Alogliptin PO 25 mg DAILY [facility] Administration Amoxicillin/Clavulanate Potassium 250 mg 11/07/18 06:00 11/08/18 13:49 Augmentin PO 250 mg Q8HR [facility] Administration Atorvastatin Calcium 20 mg 11/02/18 21:00 11/07/18 20:10 Lipitor PO 20 mg HS [facility] Administration Bupropion HCl 150 mg 11/07/18 09:00 11/08/18 09:50 Wellbutrin Xl PO 150 mg DAILY [facility] Administration Cholecalciferol 1,000 units 11/02/18 09:00 11/08/18 09:50 Vitamin D3 PO 1,000 units DAILY [facility] Administration Cyanocobalamin 500 mcg 11/02/18 09:00 11/08/18 09:51 Vitamin B-12 PO 500 mcg DAILY [facility] Administration Duloxetine HCl 60 mg 11/08/18 09:00 11/08/18 09:56 Cymbalta PO 60 mg DAILY [facility] Administration Famotidine 20 mg 11/02/18 09:00 11/08/18 09:50 Pepcid PO 20 mg BID [facility] Administration Ferrous Sulfate 325 mg 11/02/18 09:00 11/08/18 09:50 Feosol PO 325 mg QAM [facility] Administration Furosemide 40 mg 11/02/18 09:00 11/04/18 11:30 Lasix PO 40 mg DAILY [facility] Administration Glipizide 5 mg 11/02/18 09:00 11/08/18 09:51 Glucotrol PO 5 mg DAILY [facility] Administration Heparin Sodium (Porcine) 0 units 11/02/18 02:45 11/07/18 21:59 Heparin 1,000 Units/Ml (10 Ml) SLOW IVP 6.8 ml ASDIR M[facility] Administration Protocol Hydralazine HCl 25 mg 11/02/18 09:00 11/08/18 09:51 Apresoline PO 25 mg DAILY [facility] Administration Heparin Sodium/Dextrose 500 mls @ 0 mls/hr 11/02/18 02:45 11/08/18 09:57 Heparin 25,000 Units/D5w 500 Ml IVPB 500 mls INF [facility] Administration Protocol Per Protocol Sodium Chloride 1,000 mls @ 70 mls/hr 11/05/18 08:45 11/08/18 09:58 Normal Saline 0.9% IV 1,000 mls .[id number] [facility] Administration Insulin Glargine 25 units/ 0.25 mls @ 0 mls/hr 11/07/18 21:00 11/08/18 09:49 Miscellaneous Medication SC 0.25 mls BID [facility] Administration Insulin Human Regular 0 units 11/02/18 07:37 11/07/18 21:22 Humulin R SC 2 unit .BEDTIME SLIDING SC PRN Administration Bedtime Correctional Scale Insulin Human Regular 0 units 11/02/18 11:40 11/06/18 06:01 Humulin R SC 3 unit .AGGRESSIVE SLIDING PRN Administration Aggressive Sliding Scale Levothyroxine Sodium 100 mcg 11/03/18 06:00 11/08/18 05:31 Synthroid PO 100 mcg 0600 [facility] Administration Lisinopril 20 mg 11/02/18 09:00 11/04/18 11:30 Zestril PO 20 mg DAILY [facility] Administration Mometasone Furoate/Formoterol Fumar 2 puff 11/02/18 18:30 11/08/18 06:56 Dulera 100 Mcg/5 Mcg Inhaler INH 2 puff BID-RT [facility] Administration Pregabalin 100 mg 11/05/18 09:00 11/08/18 09:50 Lyrica PO 100 mg BID [facility] Administration Sertraline HCl 50 mg 11/02/18 09:00 11/08/18 09:50 Zoloft PO 50 mg DAILY [facility] Administration Sodium Chloride 10 ml 11/02/18 09:00 11/08/18 10:00 Flush - Normal Saline IVF Not Given Q12HR [facility] Timolol Maleate 1 drop 11/02/18 09:00 11/08/18 10:00 Timoptic 0.5% Ophth Soln R EYE Not Given BID M[facility] Warfarin Sodium 15 mg 11/07/18 17:00 11/07/18 17:14 Coumadin PO 15 mg 1700 [facility] Administration - Exam awake alert Eye: anicteric sclera ENT: moist mucosa Neck: supple Heart: RRR Respiratory: CTAB Gastrointestinal: soft, non-tender Extremities: no edema Skin: no rashes Musculoskeletal: normal strength Psychiatric: normal affect Hosp A/P (1) Pulmonary embolism Code(s): I26.99 - OTHER PULMONARY EMBOLISM WITHOUT ACUTE COR PULMONALE Status : Acute (2) Labial abscess Code(s): N76.4 - ABSCESS OF VULVA Status: Acute (3) DM type 2 (diabetes mellitus, type 2) Status: Chronic (4) Dyslipidemia Code(s): E78.5 - HYPERLIPIDEMIA, UNSPECIFIED Status: Chronic (5) Hypertension Code(s): I10 - ESSENTIAL (PRIMARY) HYPERTENSION Status: Chronic Qualifiers: Hypertension type: essential hypertension Qualified Code(s): I10 - Essential (primary) hypertension (6) Morbid obesity with BMI of 60.0-69.9, adult Code(s): E66.01 - MORBID (SEVERE) OBESITY DUE TO EXCESS CALORIES; Z68.44 - BODY MASS INDEX (BMI) 60.0-69.9, ADULT Status: Chronic - Plan continue antibiotics, PT/OT, out of bed/ambulate INR 1.9 today, continue heparin drip. Continue Augmentin for left labial abscess s/p I&D. Blood sugars reasonably controlled, continue accuchecks and insulin sliding scale.
[2018-11-08 14:53] VITALS: BMI 64.3
[2018-11-08] MEDS: Heparin 10,000 UNITS/ 10 ML VIAL SLOW IVP SCH (16:33)
[2018-11-08] MEDS: Warfarin Sodium 10 MG TAB PO SCH (17:52)
[2018-11-08] MEDS: Acetaminophen 325 MG TAB PO PRN (17:56)
[2018-11-08] MEDS: Atorvastatin Calcium 20 MG TAB PO SCH (21:08)
[2018-11-09] MEDS: Sodium Chloride 0.9% 1,000 ML IV SCH (01:30)
[2018-11-09 03:17] LABS: Hemoglobin 9.4 g/dL (12.0-16.0); Platelet Count 228 thou/uL (130-400)
[2018-11-09 03:25] LABS: INR-International Normal Ratio 2.1; Prothrombin Time 23.8 SEC (12.0-14.7)
[2018-11-09] MEDS: Heparin 25,000 units/D5W 500 ML IVPB SCH (05:16)
[2018-11-09] MEDS: Levothyroxine Sodium 100 MCG TAB PO SCH (05:17)
[2018-11-09] MEDS: Amoxicillin/Potassium Clav 250 MG TAB PO SCH (05:17)
[2018-11-09] MEDS: Mometasone/Formoterol 120 PUFF INHALER INH SCH (06:34)
[2018-11-09 07:46] VITALS: TEMP 97.7
[2018-11-09] MEDS: Bupropion 150 MG XL TAB PO SCH (08:57)
[2018-11-09] MEDS: Famotidine 20 MG TAB PO SCH (08:57)
[2018-11-09] MEDS: Cyanocobalamin (Vitamin B-12) 1,000 MCG TAB PO SCH (08:57)
[2018-11-09] MEDS: glipiZIDE 5 MG TAB PO SCH (08:57)
[2018-11-09] MEDS: Ferrous Sulfate 325 MG TAB PO SCH (08:57)
[2018-11-09] MEDS: DULoxetine 60 MG CAP PO SCH (08:57)
[2018-11-09] MEDS: Alogliptin 25 MG TAB PO SCH (08:57)
[2018-11-09] MEDS: hydrALAZINE 25 MG TAB PO SCH (08:58)
[2018-11-09] MEDS: Pregabalin 50 MG CAP PO SCH (08:58)
[2018-11-09] MEDS: Insulin Glargine 25 UNITS in Pre-Filled Syringe 1 EACH SC SCH (08:59)
[2018-11-09] MEDS: Timolol 0.5% Ophth Soln 5 ml Bottle R EYE SCH (09:00)
[2018-11-09 12:04] VITALS: BP 177/82
--- NOTE | 2018-11-10 05:29 | DIS ---
DATE OF ADMISSION: 11/01/2018 DATE OF DISCHARGE: 11/09/2018 DISCHARGE DIAGNOSES: 1. Right-sided pulmonary emboli. 2. Right lower extremity deep venous thrombosis. 3. Left labial abscess, status post incision and drainage 11/04/2018 with Proteus mirabilis and Klebsiella pneumoniae species. 4. Acute kidney injury on chronic kidney disease stage 3. 5. Diabetes mellitus type 2 with diabetic nephropathy. 6. Hypertension, stable. 7. Morbid obesity with a body mass index of 60.4. 8. Hypothyroidism. CONSULTATIONS: 1. Dr. Wheeler with Pulmonology Service. 2. Dr. Rogers with General Surgery Service. PERTINENT LAB AND X-RAY FINDINGS: Creatinine ranged between 1.66 to 2.64. Estimated GFR ranged between 19 to 32. BNP 141. TSH 2.36. CBC showed a hemoglobin ranged between 8.6 to 11.3, PT 23.8, INR 2.1, 11/09/2018. Urine drug screen dated 11/01/2018, negative. Perineal abscess culture dated 11/04/2018, showed Proteus mirabilis and Klebsiella pneumoniae species. CT angiogram of the chest dated 11/01/2018 showed right-sided pulmonary emboli. Portable chest x-ray dated 11/01/2018, showed cardiomegaly with mild pulmonary venous congestion. Bilateral lower extremity venous Doppler study dated 11/02/2018, showed DVT in the right popliteal vein. CT of the brain without contrast dated 11/02/2018, showed no acute intracranial process. 2D transthoracic echocardiogram dated 11/02/2018, showed ejection fraction of 55% to 60%. Grade 2 diastolic dysfunction. Moderate left atrial enlargement. HOSPITAL COURSE: The patient was initially admitted after presenting with increased shortness of breath and headache. The patient underwent extensive evaluation including CT angiogram of the chest showing evidence of a right pulmonary embolus. The patient also underwent bilateral venous Doppler study of the lower extremities confirming right popliteal vein thrombosis. The patient was initially placed on a heparin infusion and treated symptomatically. The patient also concomitantly was treated with Coumadin, attaining a therapeutic INR on the date of discharge. The patient was also evaluated for left perineal abscess during her hospital course, undergoing incision and drainage by the General Surgery Service without complication on 11/04/2018. The patient was placed on IV antibiotic therapy, transitioning to Augmentin to complete outpatient coverage. Overall, the patient did remain clinically stable during the hospital course, tolerating regular oral intake and ambulating without assistance or difficulty. I have examined the patient at the time of discharge and discussed followup instructions. The patient verbalized understanding and agreement, and ready for discharge on 11/09/2018. DISCHARGE MEDICATIONS: 1. Coumadin 5 mg p.o. daily with goal INR of 2 to 3. 2. Augmentin 250 mg p.o. t.i.d. x7 days. 3. ProAir HFA 2 puffs inhaled q.6 hours p.r.n. 4. Wellbutrin XL 300 mg p.o. daily. 5. Vitamin D3 of 1000 units p.o. daily. 6. Vitamin B12 of 500 mcg p.o. daily. 7. Trulicity 1.5 mg subcutaneously q.7 days. 8. Cymbalta 60 mg p.o. daily. 9. Ferrous sulfate 325 mg p.o. daily. 10. Advair Diskus one inhalation b.i.d. 11. Lasix 40 mg p.o. daily. 12. Glipizide 5 mg p.o. daily. 13. Hydralazine 25 mg p.o. daily. 14. Glargine insulin 70 units subcutaneously at bedtime. 15. Levothyroxine 100 mcg p.o. daily. 16. Tradjenta 5 mg p.o. daily. 17. Lisinopril 20 mg p.o. daily. 18. Lyrica 100 mg p.o. t.i.d. 19. Ranitidine 150 mg p.o. b.i.d. 20. Zoloft 50 mg p.o. daily. 21. Zocor 40 mg p.o. at bedtime. 22. Timolol Maleate one drop to the right eye b.i.d. 23. Ambien 2.5 mg p.o. at bedtime. 24. Dulera 2 puffs inhaled b.i.d. FOLLOWUP: The patient will follow up with her primary care provider, Dr. Scott Hull, within 7 days of discharge. CONDITION ON DISCHARGE: Fair. ACTIVITY: Ad-chiquis. DIET: Coumadin, prudent, ADA and heart healthy. SPECIAL INSTRUCTIONS: Repeat PT/INR in 3 days with goal INR of 2 to 3. CODE STATUS: Full. DISPOSITION: Home, 11/09/2018. TIME SPENT: Total time preparing and coordinating discharge, 32 minutes. Job ID: [id number]
== END 2018-11-09 12:09 | disposition home or self-care (01) | DRG 987 ==
LOC: ERS 20:11 → 2NO 22:35 → T4-A 11-04 09:44
PROVIDERS: ADMIT Family Medicine; ATTEND Family Medicine
PROC: 0U9MXZZ Drainage of Vulva, External Approach (ICD-10-PCS; principal; 2018-11-04)
DX: I82.401 Acute embolism and thrombosis of unspecified deep veins of right lower extremity (principal); I26.99 Other pulmonary embolism without acute cor pulmonale; Z68.44 Body mass index [BMI] 60.0-69.9, adult; I13.0 Hypertensive heart and chronic kidney disease with heart failure and stage 1 through stage 4 chronic kidney disease, or unspecified chronic kidney disease; I50.32 Chronic diastolic (congestive) heart failure; N17.9 Acute kidney failure, unspecified; N76.4 Abscess of vulva; E66.01 Morbid (severe) obesity due to excess calories; E11.22 Type 2 diabetes mellitus with diabetic chronic kidney disease; N18.3 Chronic kidney disease, stage 3 (moderate); E78.5 Hyperlipidemia, unspecified; J45.909 Unspecified asthma, uncomplicated; F41.9 Anxiety disorder, unspecified; E03.9 Hypothyroidism, unspecified; K21.9 Gastro-esophageal reflux disease without esophagitis; F31.9 Bipolar disorder, unspecified; H40.9 Unspecified glaucoma; R51 Headache; Z90.710 Acquired absence of both cervix and uterus; Z88.5 Allergy status to narcotic agent; Z88.1 Allergy status to other antibiotic agents; Z79.4 Long term (current) use of insulin; Z79.51 Long term (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 of inhaled steroids; Z79.899 Other long term (current) drug therapy
CPT/HCPCS: 36415; 36416; 70450; 71045; 71275; 80048; 80053; 80306; 80307; 81001; 81003; 81015; 82550; 83735; 83880; 84443; 84484; 85014; 85018; 85025; 85049; 85379; 85610; 85730; 87070; 87076; 87077; 87186; 87205; 93005; 93306; 93970; 94640; 94760; 96372; 96374; J0360; J0694; J1644; J1650; J1815; J2001; J2250; J2405; J2704; J2765; J3010; J3490; J7620; Q9966; S0028

== ENCOUNTER 2019-07-22 20:48 | Inpatient (IN) | payer MEDICARE, MEDICAID, OTHER ==
[~2019-07-22 20:48] MED LIST changes: +Heparin 1,000 UNITS/ML VIAL ONE; -ISOVUE-370 76%-LOCM 1 ML ONE; +Iopamidol 370 76% 50 ML VIAL FS ONE
[2019-07-22 21:13] LABS: Base Excess-Venous -5.8 mmol/L (-2.0 to 3.0); Bicarbonate (HCO3v) 18.8 mmol/L (22.0-28.0); Calcium, Ionized 1.08 mmol/L (See Comments:); Chloride 98 mmol/L (98-107); Hemoglobin - Calc 12.1 g/dL (12.0-16.0); Potassium 4.1 mmol/L (3.5-5.1); Sodium 129 mmol/L (138-145); T. Carbon Dioxide 19.8 mmol/L (22.0-28.0); vO2 Saturation-calc 90.4 % (60.0-85.0)
[2019-07-22 21:18] LABS: #Eosinphils 0.1 thou/uL (0.0-0.7); #Lymphocytes 1.8 thou/uL (1.20-3.40); #Monocytes 0.5 thou/uL (0.11-0.59); #Neutrophils 5.4 thou/uL (1.40-6.50); %Basophils 0.4 % (0.0-1.0); %Lymphocytes 23.5 % (21.0-51.0); %Monocytes 6.1 % (0.0-10.0); Hemoglobin 11.9 g/dL (12.0-16.0); Mean Corpuscular HGB CONC 33.2 g/dL (32.0-36.0); Mean Corpuscular Hemoglobin 29.3 pg (27.0-31.0); Mean Corpuscular Volume 88.1 fL (78.0-98.0); Mean Platelet Volume 8.3 fL (7.4-10.4); Platelet Count 267 thou/uL (130-400); RBC Distribution Width 13.5 % (11.5-14.5); Red Blood Cell (RBC) Count 4.06 mill/uL (4.20-5.40); White Blood Cell (WBC) Count 7.8 thou/uL (4.8-10.8)
[2019-07-22] MEDS ORDERED: Ketamine 50 MG/ML (10ML VIAL) ONE (21:20)
[2019-07-22 21:25] LABS: INR-International Normal Ratio 0.9; PTT 24.9 SEC (22.9-36.1); Prothrombin Time 11.7 SEC (12.0-14.7)
[2019-07-22 21:33] LABS: Acetaminophen Less than 6.0 mcg/mL (10.0-30.0); Alcohol Less than 10 mg/dL (Less than 10); Salicylate Less than 8.0 mg/dL (15.0-30.0)
[2019-07-22 21:42] LABS: ALT (SGPT) 11 U/L (8-55); AST (SGOT) 10 U/L (5-34); Albumin 3.2 g/dL (3.5-5.0); Alkaline Phosphatase 122 U/L (40-110); Anion Gap 17 mmol/L (10-20); BUN (Urea Nitrogen) 48 mg/dL (9.8-20.1); Bilirubin, Total 0.3 mg/dL (0.2-1.2); CK (CPK) 41 U/L (29-168); Calc. Creatinine Clearance 0 mL/min (70-130); Calcium 8.6 mg/dL (7.8-10.44); Carbon Dioxide 16 mmol/L (22-29); Chloride 96 mmol/L (98-107); Estimated GFR-MDRD 16; Globulin 3.8 g/dL (2.4-3.5); Lipase 62 U/L (8-78); Potassium 4.1 mmol/L (3.5-5.1); Sodium 125 mmol/L (136-145)
--- NOTE | 2019-07-22 21:51 | RAD ---
PORTABLE CHEST: History: Fall, altered mental status. Comparison: 11-01-18 FINDINGS: Heart size appears slightly enlarged. Lungs are clear of any infiltrative process. I do not see any s igns of failure. No rib fractures visualized. IMPRESSION: Mild cardiomegaly. POS: [facility]
[2019-07-22] MEDS ORDERED: Insulin Regular 300 UNITS/3 ML VIAL ONE (21:53)
[2019-07-22 21:55] LABS: Glucose 758 mg/dL (70-105)
[2019-07-22] MEDS ORDERED: Lorazepam 2 MG/ML VIAL ONE (21:56)
--- NOTE | 2019-07-22 22:03 | CT ---
CT OF BRAIN PERFORMED WITHOUT CONTRAST ENHANCEMENT: History: Altered mental status, confusion. Patient claims he cannot see. Comparison: 11-02-18 FINDINGS: The ventricular and cisternal system is within normal limits. There are no signs of intracerebral hem orrhage or extraaxial fluid collections. Mastoid air cells and visualized sinuses are clear. IMPRESSION: No acute intracranial abnormalities. Findings telephoned to Dr. Alicea at 2132 hours. POS: [facility] [place]
--- NOTE | 2019-07-22 22:07 | CT ---
CT ANGIOGRAM OF HEAD AND NECK PERFORMED WITH INTRAVENOUS CONTRAST ENHANCEMENT WITH 3D RECONSTRUCTIONS : History: Altered mental status. Patient states she cannot see. FINDINGS: Some mild air trapping in the lung apices. The thyroid gland is normal in appearance. No jugular chain adenopathy. Fatty changes of the parotid glands are noted. Parapharyngeal spaces are clear. Angiographic portion of this examination shows a separate origin of the left common carotid artery fr om the aortic arch. The vertebral arteries appear co-dominant. On the right side there is mild plaque formation at the origin of the right internal carotid artery w ithout any significant stenosis by NASCET criteria. On the left side there is a focally prominent plaque at the origin of the left internal carotid arter y. This makes it difficult to assess this area but narrowing appears to be less than 50%. CT ANGIOGRAM OF HEAD: The vertebral basilar system appear unremarkable. The anterior and middle cerebral arteries and the b ranches are unremarkable. IMPRESSION: 1. Moderate plaque formation in the origin of the left internal carotid artery without definite signi ficant stenosis. No intracranial findings. Mild air trapping in the lung bases. 2. Findings telephoned to Dr. Alicea at 2145 hours. [place]: [facility] [place]
[2019-07-22] MEDS ORDERED: Haloperidol Lactate 5 MG/ML VIAL ONE (22:10)
[2019-07-22] MEDS ORDERED: Rocuronium Bromide 10 MG/ML (10ML VIAL) ONE (22:31)
[2019-07-22] MEDS ORDERED: Propofol 1,000 MG/100 ML VIAL IV ONE (22:52)
[2019-07-22 23:22] LABS: Analyzer IN Cardio ER; Base Excess (BEa) -9.3 mEq/L (-2.0 to +3.0); CO2 Tension 38.4 mmHg (35.0-45.0); Calcium, Ionized 1.19 mmol/L (1.12-1.30); O2 Tension (PaO2) 93.5 mmHg (80.0-100.0); Potassium - ABG Lab 3.86 mmol/L (3.70-5.30); pH, Arterial 7.26 (7.35-7.45)
[2019-07-22 23:25] LABS: Puncture Site LRA
--- NOTE | 2019-07-22 23:27 | RAD ---
PORTABLE CHEST: History: Intubation. FINDINGS: Comparison is made with exam from earlier in the day. Endotracheal tube has been placed. The tip is at or near the level of the right mainstem bronchus and should be retracted slightly for more optimal placement. An NG tube is coiled within the diaphragm. IMPRESSION: Endotracheal tube which appears slightly low in position. It is at the level of the right mainstem br onchus. POS: [facility]
[2019-07-22] MEDS ORDERED: Ondansetron PF 4 MG/2 ML Vial IVP PRN (23:33)
[2019-07-22 23:39] LABS: Bacteria/HPF None Seen HPF (None Seen); Bilirubin Negative (Negative); Blood, Urine Trace (Negative); Clarity Clear (Clear); Glucose, Urine (Dipstick) Greater than 1000 mg/dL (Negative); Leukocyte Negative Leu/uL (Negative); Nitrite Negative (Negative); Protein, Urine (Dipstick) 300 mg/dL (Neg-Trace); RBC/HPF 0-3 HPF (0-3); Squamous Epithelial None Seen HPF (0-3); Urobilinogen Normal mg/dL (Less than 2); WBC/HPF 0-3 HPF (0-3)
[2019-07-22] MEDS ORDERED: niCARdipine 20MG In NaCl 20 MG/200 ML BAG ONE (23:42)
[2019-07-22] MEDS ORDERED: DISCONTINUE PREVIOUS NARCOTIC PAIN MEDICATIONS AND BENZODIAZEPINES FS SCH (23:43)
[2019-07-22] MEDS ORDERED: fentaNYL Citrate/PF 2,000 MCG in Sodium Chloride 0.9% 60 ML IV SCH (23:43)
[2019-07-22] MEDS ORDERED: Propofol BOLUS 1,000 MG/100 ML VIAL IV PRN (23:43)
[2019-07-22] MEDS ORDERED: Fentanyl BOLUS 250 ML IVPB PRN (23:43)
[2019-07-22] MEDS ORDERED: HUMULIN R 100 UNITS in Sodium Chloride 0.9% 100 ML IVPB SCH (23:45)
[2019-07-22] MEDS ORDERED: Ventilator Sedation Protocol 1 EACH FS SCH (23:45)
[2019-07-22] MEDS ORDERED: Sodium Chloride 0.9% 1,000 ML IV SCH ×2 (23:45)
[2019-07-22 23:47] LABS: Amphetamine Not Detected (NotDetected); Barbiturates Screen Not Detected (NotDetected); Benzodiazepine Screen Not Detected (NotDetected); Cocaine Metabolite Screen Not Detected (NotDetected); Medtox Control Line Valid? VALID (VALID); Medtox Reader # READER 4; Methadone Not Detected (NotDetected); Methamphetamine Not Detected (NotDetected); Opiate Screen Not Detected (NotDetected); Oxycodone Screen Not Detected (NotDetected); Phencyclidine (PCP) Not Detected (NotDetected); THC/Cannabinoid Screen Not Detected (NotDetected); Tricyclic Screen Not Detected (NotDetected)
[2019-07-22] MEDS ORDERED: cefTRIAXone\\ROCEPHIN 2 GM in Sodium Chloride 0.9% 100 ML IVPB SCH (23:59)
[2019-07-23] MEDS ORDERED: Enoxaparin Sodium 100 MG/ML SYRINGE ONE (00:08)
[2019-07-23] MEDS ORDERED: Enoxaparin Sodium 60 MG/0.6 ML SYRINGE ONE (00:08)
[2019-07-23] MEDS ORDERED: niCARdipine 40MG In NaCl 40 MG/200 ML BAG IVPB SCH (00:15)
[2019-07-23] MEDS ORDERED: Vancomycin HCl 2.5 GM in Sodium Chloride 0.9% 500 ML IVPB SCH (01:00)
[2019-07-23] MEDS: Propofol 1,000 MG/100 ML VIAL IV PRN ×7 (01:56→23:45)
[2019-07-23] MEDS: niCARdipine 50 MG in Sodium Chloride 0.9% 250 ML 230 ML IV SCH ×2 (02:03→05:11)
[2019-07-23] MEDS: Lorazepam 2 MG/ML VIAL SLOW IVP PRN ×6 (02:18→19:27)
[2019-07-23 04:15] LABS: ALT (SGPT) 13 U/L (8-55); AST (SGOT) 31 U/L (5-34); Albumin 2.9 g/dL (3.5-5.0); Alkaline Phosphatase 111 U/L (40-110); Anion Gap 21 mmol/L (10-20); BUN (Urea Nitrogen) 50 mg/dL (9.8-20.1); Bilirubin, Total 0.3 mg/dL (0.2-1.2); Calc. Creatinine Clearance 51 mL/min (70-130); Calcium 8.3 mg/dL (7.8-10.44); Carbon Dioxide 11 mmol/L (22-29); Chloride 100 mmol/L (98-107); Estimated GFR-MDRD 15; Globulin 4.4 g/dL (2.4-3.5); Glucose 757 mg/dL (70-105); Protein, Total 7.3 g/dL (6.0-8.3); Sodium 127 mmol/L (136-145)
[2019-07-23 04:26] LABS: Hemoglobin 11.9 g/dL (12.0-16.0); Mean Corpuscular HGB CONC 32.6 g/dL (32.0-36.0); Mean Corpuscular Hemoglobin 29.7 pg (27.0-31.0); Mean Corpuscular Volume 91.1 fL (78.0-98.0); Mean Platelet Volume 9.7 fL (7.4-10.4); Platelet Count 285 thou/uL (130-400); RBC Distribution Width 13.9 % (11.5-14.5); Red Blood Cell (RBC) Count 4.02 mill/uL (4.20-5.40); White Blood Cell (WBC) Count 19.9 thou/uL (4.8-10.8)
[2019-07-23 04:27] LABS: Band 8 % (5-11); Lymphocytes 2 % (21-51); MDiff Complete? YES; Monocytes 7 % (0-10); Neutrophil 83 % (42-75); Platelet Morphology Comment Appears Adequate; RBC Morphology Normal
[2019-07-23] MEDS ORDERED: Dextrose 5% in Water 1,000 ML IV PRN ×2 (04:42→18:05)
[2019-07-23] MEDS ORDERED: NS 0.9% w/ 20 MEQ KCL 1,000 ML/1,000 ML BAG IV PRN ×2 (04:42)
[2019-07-23] MEDS ORDERED: Sodium Chloride 0.9% 1,000 ML IV PRN ×4 (04:42)
[2019-07-23] MEDS ORDERED: Dextrose 5 %-0.45 % NaCl 1,000 ML IV PRN (04:42)
[2019-07-23] MEDS ORDERED: D5 1/2 NS w/20 mEq KCL 1,000 ML IV PRN (04:42)
[2019-07-23] MEDS ORDERED: Potassium Chloride 40 MEQ in Sodium Chloride 0.9% 250 ML 250 ML IVPB PRN ×2 (04:43→11:01)
[2019-07-23] MEDS ORDERED: CCU ELECTROLYTE REPLACEMENT PROTOCOL FS PRN ×2 (04:43→11:01)
[2019-07-23] MEDS ORDERED: Magnesium Oxide 400 MG TAB PO PRN ×4 (04:43→11:01)
[2019-07-23] MEDS ORDERED: Potassium Chloride 20 MEQ TAB PO PRN ×2 (04:43→11:01)
[2019-07-23] MEDS ORDERED: Dextrose 50% Abboject 50 ML SYRINGE SLOW IVP PRN ×2 (04:43→18:05)
[2019-07-23] MEDS ORDERED: Potassium Phosphate 9 MMOL in Sodium Chloride 0.9% 100 ML IVPB PRN ×2 (04:43→11:01)
[2019-07-23] MEDS ORDERED: PHOS-NAK 1 PKT PACK PO PRN ×4 (04:43→11:01)
[2019-07-23] MEDS ORDERED: Potassium Phosphate 12 MMOL in Sodium Chloride 0.9% 250 ML 250 ML IV PRN ×2 (04:43→11:01)
[2019-07-23] MEDS ORDERED: Potassium Chloride 40 MEQ in Premix Bag 1 BAG IVPB PRN ×2 (04:43→11:01)
[2019-07-23] MEDS ORDERED: Potassium Phosphate 15 MMOL in Sodium Chloride 0.9% 250 ML 250 ML IV PRN ×2 (04:43→11:01)
[2019-07-23] MEDS ORDERED: Magnesium 2 GM/50 ML 2 GM in Premix Bag 1 BAG IVPB PRN ×2 (04:43→11:01)
[2019-07-23] MEDS ORDERED: Insulin Regular 300 UNITS/3 ML VIAL IVP SCH (04:45)
[2019-07-23] MEDS ORDERED: ADD ELECTROLYTE REPLACEMENT SET TO PROFILE FS SCH (04:45)
--- NOTE | 2019-07-23 05:00 | PDOC.EVN ---
Event Note - Event Note Event Note: H& P dictated
[2019-07-23 05:17] LABS: Actual Bicarbonate (HCO3a) 14.4 mEq/L (22-28); Base Excess (BEa) -11.6 mEq/L (-2.0 to +3.0); CO2 Tension 32.9 mmHg (35.0-45.0); Calcium, Ionized 1.13 mmol/L (1.12-1.30); Carboxyhemoglobin (COHb) 0.5 gm% (0.0-3.0); O2 Tension (PaO2) 87.9 mmHg (80.0-100.0); pH, Arterial 7.26 (7.35-7.45)
[2019-07-23 05:21] LABS: ALV-art Gradient 156.175 (0-20); Puncture Site LRA
--- NOTE | 2019-07-23 05:45 | HP ---
CHIEF COMPLAINT: Altered mental status. HISTORY OF PRESENT ILLNESS: Ms. Verdugo is a 58-year-old female with multiple medical problems including diabetes mellitus, type 2; BMI more than 60, hypertension, chronic kidney disease, stage 3; hyperlipidemia; depression, among others, was brought to the emergency room by EMS with altered mental status. The patient was combative and screaming, she states that she cannot see, though, she does follow commands by nurse to grab certain things. She is morbidly obese, weighing more than 380 pounds. The patient was not cooperative in the emergency room, screaming. EMS stated that her blood sugar was so high. No reports of trauma. Family found the patient down about 2 hours ago. In the emergency room , the patient was not able to coherently answer any questions, very restless. The patient was given ketamine immediately upon arrival and then she was able to go for CTA of the brain and neck, which came back no acute finding. The patient became more combative after that and the patient had to be intubated and mechanically ventilated. Initial lab work, the patient was found to have a glucose more than 700. Anion gap is 17. Sodium 125. Troponin 0.04. The patient also was found to be hypertensive with a blood pressure 230/130. The patient was started on Cardene drip in the ED. The patient is being admitted to the intensive care unit for further management. PAST MEDICAL HISTORY: Pulmonary embolism. As mentioned above in history of present illness. PAST SURGICAL HISTORY: 1. Multiple knee surgeries. 2. Hysterectomy. 3. Oophorectomy. ALLERGIES: THE PATIENT IS ALLERGIC TO MULTIPLE MEDICATIONS INCLUDING MORPHINE, BACTRIM, MELOXICAM, CIPROFLOXACIN. HOME MEDICATIONS: Please see home medication reconciliation form for updated medications. SOCIAL HISTORY: As per records, the patient lives at home. No alcohol, tobacco , or drug use. FAMILY HISTORY: As per records, mother had a pancreatic cancer. REVIEW OF SYSTEMS: Unable to obtain. The patient currently intubated and sedated, mechanically ventilated. PHYSICAL EXAMINATION: VITAL SIGNS: Blood pressure 230/130, pulse is 140, respiratory rate is 22, oxygen saturation is 100% on ventilator, temperature 97.6. GENERAL: The patient is intubated, mechanically ventilated, and sedated. Morbidly obese. HEAD AND NECK: Head is normocephalic. Neck is supple. No JVD. CHEST: Decreased air entry bilaterally. HEART: S1, S2. Regular, tachycardic. ABDOMEN: Obese, soft. Bowel sounds present. NEURO: Unable to assess. The patient is intubated, sedated and mechanically ventilated. PSYCH: Intubated, sedated, mechanically ventilated. EXTREMITIES: No clubbing or cyanosis. SKIN: Unable to assess at this point. Deferred. LABORATORY DATA: As mentioned above in history of present illness. IMAGING STUDIES: As mentioned above in history of present illness. ASSESSMENT AND PLAN: Acute Respiratory Failure 1. Acute encephalopathy, metabolic?? ?Suscpected COVID 2019 infection.. Unlikely, Test done in ED 2. Severe hyperglycemia secondary to diabetes mellitus type 2. 3. Hypertensive urgency/emergency. 4. Acute on chronic renal failure. 5. Morbid obesity with BMI more than 60. 6. History of pulmonary embolism. 7. Hyperlipidemia. 8. Depression. PLAN: 1. Admit to the intensive care unit. 2. Continue full ventilator support. 3. Pulmonary/art editor consulted for critical care management. 4. Frequent neuro checks. 5. Monitor and control blood glucose. We will start the patient on insulin drip and IV fluids. 6. The patient's Cardene drip was started. Monitor blood pressure closely. 7. We will give the patient one dose empirically of IV vancomycin and ceftriaxone, reassess in a.m., no obvious source of infection at this time. 8. DVT prophylaxis as appropriate. 9. GI prophylaxis as appropriate. 10. Reconcile home medications. 11. The patient's condition is critical. 12. Expected length of stay, 3 midnights or more. Job ID: [id number] [facility]
[2019-07-23 08:28] LABS: Anion Gap 17 mmol/L (10-20); BUN (Urea Nitrogen) 49 mg/dL (9.8-20.1); Calc. Creatinine Clearance 51 mL/min (70-130); Calcium 8.2 mg/dL (7.8-10.44); Carbon Dioxide 13 mmol/L (22-29); Chloride 104 mmol/L (98-107); Estimated GFR-MDRD 15; Magnesium 1.6 mg/dL (1.6-2.6); Potassium 4.5 mmol/L (3.5-5.1); Sodium 129 mmol/L (136-145)
[2019-07-23 08:31] LABS: Glucose 585 mg/dL (70-105); Phosphorus 1.7 mg/dL (2.3-4.7)
[2019-07-23] MEDS: Famotidine/PF 20 mg/2ml Vial SLOW IVP SCH (08:34)
[2019-07-23] MEDS: Heparin 5,000 UNITS/ML VIAL SC SCH ×3 (09:48→21:29)
[2019-07-23] MEDS ORDERED: CCU Electrolyte Replacement 1 EACH FS ONE (10:55)
[2019-07-23] MEDS ORDERED: Sodium Bicarbonate Tab 325 MG TAB PO SCH (11:30)
--- NOTE | 2019-07-23 12:11 | CON ---
DATE OF CONSULTATION: REASON FOR CONSULTATION: Elevated creatinine. HISTORY OF PRESENT ILLNESS: This is a very pleasant 58-year-old female, who presented to the hospital with a creatinine of more than 3. Her prior baseline was in the 2s. The patient was admitted for altered mental status as well as hyperglycemia, metabolic acidosis, and acute renal failure. The patient is being ruled out for COVID-19. The patient was hypertensive as well. The patient also had a CAT scan with contrast. PAST MEDICAL HISTORY: Significant for CKD, acute kidney injury, hyperkalemia, pulmonary embolism, multiple knee surgery, hysterectomy, oophorectomy, morbid obesity, and COPD. MEDICATIONS: Home medications list reviewed. Hospital medications list reviewed. ALLERGIES: REVIEWED. REVIEW OF SYSTEMS: Unobtainable. PHYSICAL EXAMINATION: GENERAL: The patient is resting. VITAL SIGNS: Afebrile, pulse 75, breathing at 16, and blood pressure 130/70. HEENT: Head normocephalic and atraumatic. Eyes intact, no ulcers. Nose intact , no ulcers. Ears intact, no ulcers. NECK: Supple. No JVD. CHEST: Symmetrical and clear. CARDIOVASCULAR: Shows S1 and S2, no rub, no murmur. GASTROINTESTINAL: Abdomen is soft, bowel sounds positive. EXTREMITIES: Show no edema or ulcers. SKIN: Shows no rash or petechiae. MUSCULOSKELETAL: Shows no joint swelling or stiffness. GENITOURINARY: Shows no Cuevas or CVA tenderness. NEUROLOGIC: Motor intact. Cranial nerves intact. LABORATORY DATA: Reviewed. ASSESSMENT AND PLAN: 1. Acute kidney injury with chronic kidney disease in the setting of sepsis, most likely because of acute tubular necrosis. The patient does not require dialysis at this time. 2. Metabolic acidosis, anion gap and non-anion gap with respiratory acidosis. Continue current management. Can start bicarbonate if the bicarbonate is lower any further. 3. Anemia, stable. Medication based on GFR are appropriate. No indication for dialysis. Overall, prognosis is poor. Job ID: [id number] [facility]
[2019-07-23] MEDS ORDERED: Insulin Glargine 10 UNITS in Pre-Filled Syringe 1 EACH SC SCH (17:00)
--- NOTE | 2019-07-23 17:11 | PDOC.EVN ---
Event Note - Event Note Event Note: pt continues to spike a fever on ceftriaxone and vanco. urine is negative. covid pending but cxr no infiltrate noted. blood cx done. Tried to call family multiple times to get a better history but no answer. I will cover her will for possible meningitis. her change in mental status could be from her hyperglycemia but unclear about fever. she also has a elevated wbc. pt examined by consultants will follow along.
[2019-07-23] MEDS: Ampicillin 2 GM in Sodium Chloride 0.9% 100 ML IVPB SCH ×2 (17:42→23:46)
[2019-07-23] MEDS ORDERED: HumaLOG 300 UNITS/3 ML VIAL SC PRN (18:05)
[2019-07-23] MEDS: Acetaminophen 325 MG TAB PO PRN ×2 (18:07→23:46)
[2019-07-23] MEDS: Sodium Chloride 0.9% 1,000 ML IV SCH (18:19)
[2019-07-23] MEDS: cefTRIAXone\\ROCEPHIN 2 GM in Sodium Chloride 0.9% 100 ML IVPB SCH (19:25)
[2019-07-23] MEDS ORDERED: cefTRIAXone\\ROCEPHIN 2 GM in Sodium Chloride 0.9% 100 ML IVPB SCH (21:00)
[2019-07-23] MEDS: Sodium Bicarbonate Tab 325 MG TAB PO SCH (21:30)
[2019-07-23] MEDS: SODIUM CHLORIDE 0.9% IVPB SCH (21:30)
[2019-07-23] MEDS: Atorvastatin Calcium 20 MG TAB PO SCH (21:30)
[2019-07-23] MEDS: ACYCLOVIR SODIUM IVPB SCH (21:30)
[2019-07-23] MEDS ORDERED: Meropenem 1 GM in Sodium Chloride 0.9% 100 ML IVPB SCH (22:00)
[2019-07-23] MEDS: HumaLOG 300 UNITS/3 ML VIAL SC PRN (23:52)
[2019-07-24] MEDS ORDERED: Vancomycin 1 GM in Premix Bag 1 BAG IVPB SCH (01:00)
[2019-07-24] MEDS: Lorazepam 2 MG/ML VIAL SLOW IVP PRN ×3 (01:23→15:32)
[2019-07-24] MEDS: Vancomycin 1 GM in Premix Bag 1 BAG IVPB SCH (02:06)
[2019-07-24 03:43] LABS: Band 4 % (5-11); Lymphocytes 22 % (21-51); MDiff Complete? YES; Mean Corpuscular HGB CONC 34.1 g/dL (32.0-36.0); Mean Corpuscular Hemoglobin 30.1 pg (27.0-31.0); Mean Corpuscular Volume 88.4 fL (78.0-98.0); Mean Platelet Volume 9.4 fL (7.4-10.4); Monocytes 4 % (0-10); Neutrophil 70 % (42-75); Platelet Count 192 thou/uL (130-400); Platelet Morphology Comment Appears Adequate; RBC Distribution Width 13.6 % (11.5-14.5); White Blood Cell (WBC) Count 10.4 thou/uL (4.8-10.8)
[2019-07-24 03:47] LABS: ALT (SGPT) 9 U/L (8-55); AST (SGOT) 18 U/L (5-34); Albumin 2.4 g/dL (3.5-5.0); Alkaline Phosphatase 73 U/L (40-110); Anion Gap 17 mmol/L (10-20); BUN (Urea Nitrogen) 49 mg/dL (9.8-20.1); Bilirubin, Total Less than 0.2 mg/dL (0.2-1.2); Calc. Creatinine Clearance 49 mL/min (70-130); Calcium 7.9 mg/dL (7.8-10.44); Carbon Dioxide 12 mmol/L (22-29); Chloride 109 mmol/L (98-107); Estimated GFR-MDRD 14; Globulin 3.2 g/dL (2.4-3.5); Glucose 290 mg/dL (70-105); Potassium 4.3 mmol/L (3.5-5.1); Protein, Total 5.6 g/dL (6.0-8.3); Sodium 134 mmol/L (136-145)
[2019-07-24] MEDS: Propofol 1,000 MG/100 ML VIAL IV PRN ×5 (04:33→23:20)
[2019-07-24] MEDS: Ampicillin 2 GM in Sodium Chloride 0.9% 100 ML IVPB SCH ×4 (05:12→23:21)
[2019-07-24] MEDS: HumaLOG 300 UNITS/3 ML VIAL SC PRN ×4 (05:56→23:21)
[2019-07-24] MEDS: Acetaminophen 325 MG TAB PO PRN (05:57)
[2019-07-24] MEDS: Levothyroxine Sodium 100 MCG TAB PO SCH (05:57)
[2019-07-24] MEDS: SODIUM CHLORIDE 0.9% IVPB SCH ×3 (05:57→21:57)
[2019-07-24] MEDS: ACYCLOVIR SODIUM IVPB SCH ×3 (05:57→21:57)
[2019-07-24] MEDS: Sodium Chloride 0.9% 1,000 ML IV SCH (05:58)
[2019-07-24] MEDS: cefTRIAXone\\ROCEPHIN 2 GM in Sodium Chloride 0.9% 100 ML IVPB SCH ×2 (08:20→20:15)
[2019-07-24] MEDS: Bupropion 150 MG XL TAB PO SCH (08:21)
[2019-07-24] MEDS: Sodium Bicarbonate Tab 325 MG TAB PO SCH ×2 (08:21→20:30)
[2019-07-24] MEDS: DULoxetine 60 MG CAP PO SCH (08:21)
[2019-07-24] MEDS: Famotidine/PF 20 mg/2ml Vial SLOW IVP SCH (08:22)
[2019-07-24 08:26] LABS: Actual Bicarbonate (HCO3a) 15.2 mEq/L (22-28); Base Excess (BEa) -10.5 mEq/L (-2.0 to +3.0); Calcium, Ionized 1.17 mmol/L (1.12-1.30); Carboxyhemoglobin (COHb) 0.1 gm% (0.0-3.0); Hemoglobin (Hb) 9.8 g/dL (12.0-16.0); O2 Tension (PaO2) 122.5 mmHg (80.0-100.0); Potassium - ABG Lab 4.03 mmol/L (3.70-5.30); pH, Arterial 7.28 (7.35-7.45)
[2019-07-24 08:35] LABS: Puncture Site RR
[2019-07-24] MEDS: Heparin 5,000 UNITS/ML VIAL SC SCH ×3 (09:14→20:30)
[2019-07-24] MEDS: Sodium Bicarbonate 75 MEQ in Sodium Chloride 0.45% 1,000 ML IV SCH ×2 (09:23→21:57)
--- NOTE | 2019-07-24 10:51 | CON ---
DATE OF CONSULTATION: 07/23/2019 HISTORY OF PRESENT ILLNESS: David Verdugo is a 58-year-old female, who presented with altered mental status. She was subsequently intubated. She is care unit. She is unable go give a history. PAST MEDICAL HISTORY: Remarkable for; 1. Diabetes. 2. Life-threatening obesity. 3. Hypertension. 4. disorder. 5. Depression. 6. History of knee surgery in the past. 7. Status post hysterectomy. ALLERGIES: SHE REPORTS ALLERGIES TO MORPHINE, BACTRIM, MELOXICAM, AND CIPRO. FAMILY HISTORY: Negative for PHYSICAL EXAMINATION: VITAL SIGNS: Heart rate is in the 90s, blood pressure 147/71, rate in the 20s. LUNGS: Clear and distant. HEART: Regular rhythm. ABDOMEN: Soft . EXTREMITIES: . LABORATORY DATA: White count . Sodium 129, potassium 4.5, chloride 104, bicarb 13, BUN 59, creatinine 3.16, glucose was 757. IMPRESSION: 1. Hyperosmolar state, likely encephalopathy. 2. Life-threatening obesity. 3. Febrile illness of unclear source. chest x-ray showed on presentation she had no infiltrates to suggest . COVID has ruled out. Cultures so far are negative. We will follow the other physicians . Critical care time is 35 minutes. Job ID: [id number] [facility]
--- NOTE | 2019-07-24 11:05 | PRG ---
DATE OF SERVICE: 07/24/2019 SUBJECTIVE: This is a 58-year-old female, being seen for acute kidney injury. The patient is resting. OBJECTIVE: General: The patient is resting. Vital Signs: Afebrile, pulse 88, breathing 16, and blood pressure 119/76. HEENT: Head normocephalic and atraumatic. Eyes intact, no ulcers. Nose intact, no ulcers. Ears intact, no ulcers. Neck: Supple. No JVD. Chest: Symmetrical and clear. Cardiovascular: Shows S1 and S2, no rub, no murmur. Gastrointestinal: Abdomen is soft, bowel sounds positive. Extremities: Show no edema or ulcers. Skin: Shows no rash or petechiae. Musculoskeletal: Shows no joint swelling or stiffness. Genitourinary: Shows no Cuevas or CVA tenderness. Neurologic: The patient is resting. LABORATORY DATA: Creatinine is 3.4. Hemoglobin is 10. Bicarb is 12. ASSESSMENT AND RECOMMENDATIONS: 1. Acute kidney injury with chronic kidney disease, most likely due to sepsis and possibly contrast-induced nephropathy. No indication for dialysis. Continue hydration. The patient is nonoliguric. 2. Medication based on GFR appropriate. Job ID: [id number]
--- NOTE | 2019-07-24 15:09 | PRG ---
DATE OF SERVICE: 07/24/2019 SUBJECTIVE: Ms. Verdugo remains mechanically ventilated. Her exam is reported as unchanged. OBJECTIVE: VITAL SIGNS: She is afebrile. Blood pressure 151/83, FiO2 is 40%, respiratory rates in the teens. LUNGS: Reported as unchanged. HEART: Reported as unchanged. ABDOMEN: Reported as unchanged. GENERAL: She is sedated for ventilation. LABORATORY DATA: White count 10.4, hemoglobin 10.0, and platelets 192,000. Sodium 134, potassium 4.3, chloride 109, bicarb 12, BUN 49, and creatinine 3.34, up from 3.16 yesterday. Intake and output positive 2646. IMPRESSION: 1. Respiratory failure secondary to her encephalopathy, which is likely related to a hyperosmolar state. Until we have her COVID status, we would not recommend extubation or weaning. 2. Acute on chronic kidney disease. 3. Life-threatening obesity. PLAN: Continue supportive care. Critical care time is 35 minutes. Job ID: [id number] [facility]
--- NOTE | 2019-07-24 19:55 | PQF ---
BEST CHEW KARISHMA [id number] CLINICAL DOCUMENTATION IMPROVEMENT CLARIFICATION FORM: ICD-10 Updated PLEASE DO AN ADDENDUM TO THE PROGRESS NOTE WITH ANY DOCUMENTATION UPDATES OR ADDITIONS AND CARRY THROUGH TO DC SUMMARY. THANK YOU. DATE: 07/24/2019, 07/25/2019 ATTN: DR. Gino DIEGO Please exercise your independent, professional judgment in responding to the clarification form. Clinical indicators are provided on the bottom of this form for your review. Please check appropriate box(es): [ x] Sepsis present on admission [ ] Sepsis NOT present on admission [ ] Unable to determine [ ] Sepsis Due to: COVID 19 [ ] Sepsis Not Due to COVID 19 [ ] Severe sepsis present on admission [ ] Severe Sepsis NOT present on admission [ ] Unable to determine with acute organ dysfunction of: ____ [ ] Septic Shock present on Admission [ ] Septic Shock NOT present on Admission [ ] Unable to determine [ ] Other diagnosis [ ] Unable to determine For continuity of documentation, please document condition throughout progress notes and discharge summary. Thank You. CLINICAL INDICATORS - SIGNS / SYMPTOMS / LABS / RESULTS AND LOCATION IN MR 07/22 TEMP 100.5 - 103.2, WBC 19.9, LACTIC ACID 4 07/23 TEMP 103.7 07/22 ED REPORT : PRESENTS FOR AMS, SCREAMING AND COMBATIVE, VS FOLLOWS: , P 114-142, RESP 16-22, TEMP 101.3, O2 SATS 100 % VENTILATOR, ED PHYSICIAN FINAL DX : AMS, COVID PRECAUTIONS, MORBID OBESITY, HYPERGLYCEMIA 07/22 H&P (COLIN) A/P ? SUSPECTED COVID 19, UNLIKELY, TEST DONE IN ED. 07/22 CONSULT ( LISA) A/P: SINA WITH CKD IN THE SETTING OF SEPSIS MOST LIKELY BECAUSE OF ACUTE TUBULAR NECROSIS. 07/22 EVENT NOTE (JOHNATHON) PT CONTINUES TO SPIKE FEER ON CEFTRIAXONE AND VANCO. URINE IS NEGATIVE, COVID IS PENDING BUT CXR W NO INFILTRATES NOTED. 07/23 PN (LISA) SINA WITH CKD MOST LIKELY DUE TO SEPSIS AND POSSIBLY CONTRAST INDUCED NEPHROLOGY RISK: SUSPECTED COVID 19, ACUTE RESPIRATORY FAILURE, ( H&P/MOHAMED) 4/6 ACUTE TUBULAR NECROSIS( CONSULT/LISA) 07/22 TREATMENTS: MECHANICAL VENTILATION (07/22 - PRESENT) ROCEPHIN IV (07/22 - PRESENT) THANK YOU! SPIKE (This form is maintained as a part of the permanent medical record) 2014 [email or web address]. All Rights Reserved [email or web address]
[2019-07-24] MEDS: Atorvastatin Calcium 20 MG TAB PO SCH (20:30)
[2019-07-25 01:24] LABS: Vancomycin, Trough 18.4 ug/mL
[2019-07-25] MEDS: Vancomycin 1 GM in Premix Bag 1 BAG IVPB SCH (01:49)
[2019-07-25] MEDS: Propofol 1,000 MG/100 ML VIAL IV PRN ×6 (01:55→23:02)
[2019-07-25] MEDS: HumaLOG 300 UNITS/3 ML VIAL SC PRN ×4 (03:48→20:21)
[2019-07-25 03:59] LABS: ALT (SGPT) 8 U/L (8-55); AST (SGOT) 11 U/L (5-34); Albumin 2.4 g/dL (3.5-5.0); Alkaline Phosphatase 70 U/L (40-110); Anion Gap 15 mmol/L (10-20); BUN (Urea Nitrogen) 53 mg/dL (9.8-20.1); Bilirubin, Total Less than 0.2 mg/dL (0.2-1.2); Calc. Creatinine Clearance 43 mL/min (70-130); Calcium 7.7 mg/dL (7.8-10.44); Carbon Dioxide 16 mmol/L (22-29); Chloride 108 mmol/L (98-107); Estimated GFR-MDRD 12; Globulin 3.1 g/dL (2.4-3.5); Glucose 254 mg/dL (70-105); Potassium 4.1 mmol/L (3.5-5.1); Protein, Total 5.5 g/dL (6.0-8.3); Sodium 135 mmol/L (136-145)
[2019-07-25] MEDS: Ampicillin 2 GM in Sodium Chloride 0.9% 100 ML IVPB SCH ×4 (03:59→23:02)
[2019-07-25 04:03] LABS: Band 2 % (5-11); Hemoglobin 9.3 g/dL (12.0-16.0); Hypochromia SLIGHT = 6-15 cells (100X) (0-5/hpf); Lymphocytes 7 % (21-51); MDiff Complete? YES; Mean Corpuscular HGB CONC 33.5 g/dL (32.0-36.0); Mean Corpuscular Hemoglobin 29.9 pg (27.0-31.0); Mean Corpuscular Volume 89.1 fL (78.0-98.0); Monocytes 7 % (0-10); Neutrophil 84 % (42-75); Platelet Count 184 thou/uL (130-400); Platelet Morphology Comment Appears Adequate; RBC Distribution Width 13.8 % (11.5-14.5); White Blood Cell (WBC) Count 7.8 thou/uL (4.8-10.8)
[2019-07-25] MEDS: SODIUM CHLORIDE 0.9% IVPB SCH ×3 (05:40→21:58)
[2019-07-25] MEDS: Levothyroxine Sodium 100 MCG TAB PO SCH (05:40)
[2019-07-25] MEDS: ACYCLOVIR SODIUM IVPB SCH ×3 (05:40→21:58)
--- NOTE | 2019-07-25 08:09 | PDOC.EVN ---
Event Note - Event Note Event Note: pt continues to be intubated, her creatinine continues to worsen. will monitor. if her urine output worsens she may need dialysis. will continue abx. Unclear of her metabolic encephalopathy. will continue abx. COVID still pending
[2019-07-25 08:33] LABS: Actual Bicarbonate (HCO3a) 18.8 mEq/L (22-28); Base Excess (BEa) -7.5 mEq/L (-2.0 to +3.0); CO2 Tension 41.5 mmHg (35.0-45.0); Calcium, Ionized 1.13 mmol/L (1.12-1.30); Carboxyhemoglobin (COHb) 0.6 gm% (0.0-3.0); Hemoglobin (Hb) 9.4 g/dL (12.0-16.0); O2 Tension (PaO2) 141.8 mmHg (80.0-100.0); Potassium - ABG Lab 4.02 mmol/L (3.70-5.30); pH, Arterial 7.27 (7.35-7.45)
[2019-07-25 08:34] LABS: ALV-art Gradient 91.525 (0-20); Puncture Site L.R.
[2019-07-25] MEDS: cefTRIAXone\\ROCEPHIN 2 GM in Sodium Chloride 0.9% 100 ML IVPB SCH ×2 (08:56→20:30)
[2019-07-25] MEDS: DULoxetine 60 MG CAP PO SCH (08:58)
[2019-07-25] MEDS: Heparin 5,000 UNITS/ML VIAL SC SCH ×3 (08:58→20:30)
[2019-07-25] MEDS: Sodium Bicarbonate Tab 325 MG TAB PO SCH ×2 (08:58→20:37)
[2019-07-25] MEDS: Famotidine/PF 20 mg/2ml Vial SLOW IVP SCH (08:58)
[2019-07-25] MEDS: Bupropion 150 MG XL TAB PO SCH (08:58)
--- NOTE | 2019-07-25 10:18 | PRG ---
DATE OF SERVICE: SUBJECTIVE: A 58-year-old female being seen for acute kidney injury. The patient remains intubated. OBJECTIVE: GENERAL: The patient is resting. VITAL SIGNS: Afebrile, pulse 59, breathing at 16, blood pressure 136/67. HEENT: Head normocephalic and atraumatic. Eyes intact, no ulcers. Nose intact, no ulcers. Ears intact, no ulcers. NECK: Supple. No JVD. CHEST: Symmetrical and clear. CARDIOVASCULAR: Shows S1 and S2, no rub, no murmur. GASTROINTESTINAL: Abdomen is soft, bowel sounds positive. EXTREMITIES: Show no edema or ulcers. SKIN: Shows no rash or petechiae. MUSCULOSKELETAL: Shows no joint swelling or stiffness. GENITOURINARY: Shows no Cuevas or CVA tenderness. NEUROLOGIC: Motor intact. Cranial nerves intact. LABORATORY DATA: Hemoglobin 9.3. Creatinine 3.9. ASSESSMENT AND PLAN: Acute kidney injury with chronic kidney disease, stage 5, multifactorial, no urgent indication for dialysis. Acidosis, improved. Hypertension, stable. Medication based on GFR appropriate. I have discussed the risks versus benefits of dialysis with the patient's sister who is the medical power of personal injury attorney and she is undecided at this time. No urgent indication for dialysis. Continue current management and care. Overall prognosis is guarded. Job ID: [id number]
[2019-07-25] MEDS: Sodium Bicarbonate 75 MEQ in Sodium Chloride 0.45% 1,000 ML IV SCH (11:44)
--- NOTE | 2019-07-25 14:03 | EKG ---
Test Reason : Blood Pressure : / mmHG Vent. Rate : 101 BPM Atrial Rate : 101 BPM P-R Int : 190 ms QRS Dur : 110 ms QT Int : 380 ms P-R-T Axes : 066 -49 077 degrees QTc Int : 492 ms Sinus tachycardia Left anterior fascicular block Abnormal ECG Confirmed by HOWARD GILLETTE, DONNIE ([id number]), editor & co founder BERRY LOCO ([id number]) on 07/25/2019 2:03:04 PM Referred By: Confirmed By:DONNIE LAWRENCE MD
--- NOTE | 2019-07-25 14:46 | PRG ---
DATE OF SERVICE: 07/25/2019 SUBJECTIVE: David Verdugo remains mechanically ventilated. OBJECTIVE: VITAL SIGNS: Her heart rates in the 60s, blood pressure 160/67, respiratory rates in the teens, FiO2 is 40%. LUNGS: Reported as unchanged. HEART: Reported as unchanged. ABDOMEN: Reported as unchanged. EXTREMITIES: Reported as unchanged. LABORATORY DATA: White count 7.8, hemoglobin 9.3, and platelets 184. Sodium 135, potassium 4.1, chloride 108, bicarb 16, BUN 53, and creatinine 3.89. PH 7.27, CO2 of 41, pO2 of 141. IMPRESSION: 1. Respiratory failure. 2. Metabolic acidosis secondary to renal failure. 3. Hyperosmolar state. 4. Encephalopathy on admission leading to intubation. It is very likely she will end up getting dialyzed in my opinion in this admission. We still do not have COVID PCR results yet. Hopefully, we will have those soon. Critical care time 40 min. Job ID: [id number] MTDD
[2019-07-25] MEDS: Atorvastatin Calcium 20 MG TAB PO SCH (20:30)
[2019-07-25] MEDS: Lorazepam 2 MG/ML VIAL SLOW IVP PRN (21:08)
[2019-07-26] MEDS: HumaLOG 300 UNITS/3 ML VIAL SC PRN ×5 (00:25→20:23)
[2019-07-26] MEDS: Sodium Bicarbonate 75 MEQ in Sodium Chloride 0.45% 1,000 ML IV SCH ×2 (01:00→14:14)
[2019-07-26] MEDS: Propofol 1,000 MG/100 ML VIAL IV PRN ×7 (02:51→23:50)
[2019-07-26] MEDS: Vancomycin 1 GM in Premix Bag 1 BAG IVPB SCH (02:51)
[2019-07-26 03:58] LABS: Band 3 % (5-11); Eosinophils 1 % (0-10); Hemoglobin 8.1 g/dL (12.0-16.0); Lymphocytes 8 % (21-51); MDiff Complete? YES; Mean Corpuscular HGB CONC 33.1 g/dL (32.0-36.0); Mean Corpuscular Hemoglobin 29.5 pg (27.0-31.0); Mean Corpuscular Volume 89.3 fL (78.0-98.0); Mean Platelet Volume 8.5 fL (7.4-10.4); Monocytes 4 % (0-10); Neutrophil 83 % (42-75); Platelet Count 156 thou/uL (130-400); Platelet Morphology Comment Appears Adequate; RBC Distribution Width 13.7 % (11.5-14.5); Red Blood Cell (RBC) Count 2.75 mill/uL (4.20-5.40); White Blood Cell (WBC) Count 5.7 thou/uL (4.8-10.8)
[2019-07-26] MEDS: Lorazepam 2 MG/ML VIAL SLOW IVP PRN ×3 (04:00→15:07)
[2019-07-26 04:08] LABS: ALT (SGPT) 7 U/L (8-55); AST (SGOT) 8 U/L (5-34); Albumin 2.3 g/dL (3.5-5.0); Alkaline Phosphatase 63 U/L (40-110); Anion Gap 16 mmol/L (10-20); BUN (Urea Nitrogen) 50 mg/dL (9.8-20.1); Bilirubin, Total Less than 0.2 mg/dL (0.2-1.2); Calc. Creatinine Clearance 48 mL/min (70-130); Calcium 7.5 mg/dL (7.8-10.44); Carbon Dioxide 18 mmol/L (22-29); Chloride 108 mmol/L (98-107); Estimated GFR-MDRD 13; Globulin 2.9 g/dL (2.4-3.5); Glucose 209 mg/dL (70-105); Potassium 3.8 mmol/L (3.5-5.1); Protein, Total 5.2 g/dL (6.0-8.3); Sodium 138 mmol/L (136-145)
[2019-07-26] MEDS: Ampicillin 2 GM in Sodium Chloride 0.9% 100 ML IVPB SCH ×4 (05:04→23:49)
[2019-07-26] MEDS: ACYCLOVIR SODIUM IVPB SCH ×4 (05:36→21:08)
[2019-07-26] MEDS: Levothyroxine Sodium 100 MCG TAB PO SCH (05:36)
[2019-07-26] MEDS: SODIUM CHLORIDE 0.9% IVPB SCH ×4 (05:36→21:08)
[2019-07-26 07:10] LABS: Actual Bicarbonate (HCO3a) 19.7 mEq/L (22-28); CO2 Tension 39.7 mmHg (35.0-45.0); Calcium, Ionized 1.07 mmol/L (1.12-1.30); Carboxyhemoglobin (COHb) 0.2 gm% (0.0-3.0); Hemoglobin (Hb) 9.8 g/dL (12.0-16.0); O2 Tension (PaO2) 98.1 mmHg (80.0-100.0); Potassium - ABG Lab 3.88 mmol/L (3.70-5.30); pH, Arterial 7.31 (7.35-7.45)
[2019-07-26 07:17] LABS: Puncture Site RRA
[2019-07-26 07:18] LABS: ALV-art Gradient 137.475 (0-20)
[2019-07-26] MEDS: cefTRIAXone\\ROCEPHIN 2 GM in Sodium Chloride 0.9% 100 ML IVPB SCH ×2 (07:53→19:33)
[2019-07-26] MEDS: Famotidine/PF 20 mg/2ml Vial SLOW IVP SCH (08:08)
[2019-07-26] MEDS: Bupropion 150 MG XL TAB PO SCH (08:08)
[2019-07-26] MEDS: DULoxetine 60 MG CAP PO SCH (08:08)
[2019-07-26] MEDS: Heparin 5,000 UNITS/ML VIAL SC SCH ×3 (08:09→20:24)
[2019-07-26] MEDS: Sodium Bicarbonate Tab 325 MG TAB PO SCH ×2 (08:10→20:24)
--- NOTE | 2019-07-26 08:55 | RAD ---
EXAM: CHEST ONE VIEW HISTORY: Respiratory failure, intubated. COMPARISON: 07/22/2019 FINDINGS: Endotracheal tube has been withdrawn with tip now overlying the T4-5 level and above the level of the connor. Nasogastric tube noted in place which courses into the left upper quadrant. Tip is not well imaged. Cardiac silhouette is magnified by projection. Pulmonary vasculature is within normal li mits. There is patchy airspace opacity seen at the right lung base which could be related to pneumonitis/pneumonia. Follow-up to resolution is recommended. Probable small right pleural effusion is present. Degenerative changes noted spine. No other interval change IMPRESSION: 1. Interval increase in patchy airspace opacity at the right lung base worrisome for pneumonia/pneumo nitis. Follow-up to resolution is recommended. 2. Endotracheal tube has now been withdrawn and is above the level of the connor. 3. Nasogastric tube noted in place.
--- NOTE | 2019-07-26 10:09 | PRG ---
DATE OF SERVICE: 07/26/2019 SUBJECTIVE: Ms. Verdugo's COVID was negative. OBJECTIVE: VITAL SIGNS: She is afebrile. Heart rate is in the 60s, blood pressure 149/66, respiratory rate 20. LUNGS: Distant and clear. HEART: Regular rhythm. ABDOMEN: Soft. LABORATORY DATA: White count 5.7, hemoglobin 8.1, platelets 156. Sodium 138, potassium 3.8, chloride 108, bicarb 18, BUN 50, creatinine 3.52. PH 7.31, CO2 39, PO2 98. IMPRESSION: 1. Metabolic acidosis secondary to renal failure. 2. Encephalopathy on presentation, likely secondary to hyperosmolar state. We will add in some Haldol and see if this helps. She is not currently not weanable. She probably needs dialysis to correct her acid-base status. Surgery is consulted for line placement. CRITICAL CARE TIME: 30 minutes. Job ID: [id number]
[2019-07-26] MEDS: Haloperidol Lactate 5 MG/ML VIAL IM SCH ×3 (10:57→22:45)
--- NOTE | 2019-07-26 11:51 | PRG ---
DATE OF SERVICE: 07/26/2019 SUBJECTIVE: A 58-year-old female, being seen for acute kidney injury. The patient is resting. On exam, the patient is resting. PHYSICAL EXAMINATION: General: The patient is awake and alert. Vital Signs: Afebrile, pulse 65, breathing at 16, blood pressure 154/60. HEENT: Head normocephalic and atraumatic. Eyes intact, no ulcers. Nose intact, no ulcers. Ears intact, no ulcers. Neck: Supple. No JVD. Chest: Symmetrical and clear. Cardiovascular: Shows S1 and S2, no rub, no murmur. Gastrointestinal: Abdomen is soft, bowel sounds positive. Extremities: Show no edema or ulcers. Skin: Shows no rash or petechiae. Musculoskeletal: Shows no joint swelling or stiffness. Genitourinary: Shows no Cuevas or CVA tenderness. Neurologic: Motor intact. Cranial nerves intact. LABORATORY DATA: Lab showed hemoglobin 8.1, creatinine 3.5. ASSESSMENT AND PLAN: 1. Acute kidney injury, improved. 2. Chronic kidney disease, stage 5, stable. 3. Hypertension, stable. 4. No urgent indication for dialysis. We will follow renal function closely. Job ID: [id number]
--- NOTE | 2019-07-26 14:03 | CON ---
DATE OF CONSULTATION: 07/26/2019 CONSULTING PHYSICIAN: Hospitalist Service. IMPRESSION: 1. Toxic metabolic encephalopathy. 2. Morbid obesity. 3. Renal failure. 4. Sepsis. 5. Diabetes with uncontrolled sugars. 6. Severe hypertension. PLAN: 1. Continue supportive measures. 2. Cortisols level. HISTORY OF PRESENT ILLNESS: Ms. Verdugo is a 58-year-old woman, who came into the emergency room with signs of some degree of encephalopathy. She was agitated and combative. She had to be sedated with ketamine to obtain her CT of the brain. CT of the brain was negative. CT angiogram was also negative. Her blood sugar was over 700. Her BUN and creatinine were elevated. She has been subsequently intubated and on a propofol drip. She is on a Cardene drip to get her blood pressure under control. She had an initial fever and apparently is now afebrile. She has been a bit less agitated today according to the nurse. Dr. Ramírez started her on Haldol. I was asked to give a neurologic opinion. PAST MEDICAL HISTORY: As listed above. ALLERGIES: CIPROFLOXACIN, MELOXICAM, MORPHINE, SULFA. SOCIAL HISTORY: Unknown. FAMILY HISTORY: Unknown. REVIEW OF SYSTEMS: Not obtainable. PHYSICAL EXAMINATION: GENERAL: Morbidly overweight, middle-aged woman, on ventilatory support. VITAL SIGNS: Blood pressure 158/134, pulse 72 and in a sinus rhythm, saturations 100%, and respiratory rate of 20. HEENT: Pupils are equal. Conjunctivae are clear. Eyes are conjugate. She is orally intubated. NECK: Supple. EXTREMITIES: No cyanosis. NEUROLOGIC: She would not follow any commands. She moves all 4 extremities spontaneously at times. No abnormal movements are seen. She responds to peripheral stimulation. Her toes are downgoing bilaterally. LABORATORY DATA: COVID-19 antibody screening was negative. SUMMARY: This is a middle-aged woman with multiple medical problems, who presented with a degree of encephalopathy due to multiple issues. I agree with Dr. Ramírez's assessment and treatment plan. I will check her cortisol level for completeness. Job ID: [id number]
[2019-07-26] MEDS: Atorvastatin Calcium 20 MG TAB PO SCH (20:24)
[2019-07-27] MEDS: HumaLOG 300 UNITS/3 ML VIAL SC PRN ×5 (00:14→20:18)
[2019-07-27 01:32] LABS: Vancomycin, Trough 23.9 ug/mL
[2019-07-27] MEDS: Vancomycin 1 GM in Premix Bag 1 BAG IVPB SCH (01:41)
[2019-07-27 02:16] LABS: ALT (SGPT) 9 U/L (8-55); AST (SGOT) 20 U/L (5-34); Albumin 2.2 g/dL (3.5-5.0); Alkaline Phosphatase 80 U/L (40-110); Anion Gap 17 mmol/L (10-20); BUN (Urea Nitrogen) 47 mg/dL (9.8-20.1); Bilirubin, Total Less than 0.2 mg/dL (0.2-1.2); Calc. Creatinine Clearance 52 mL/min (70-130); Calcium 7.3 mg/dL (7.8-10.44); Carbon Dioxide 17 mmol/L (22-29); Chloride 108 mmol/L (98-107); Estimated GFR-MDRD 14; Globulin 3.4 g/dL (2.4-3.5); Glucose 200 mg/dL (70-105); Potassium 4.2 mmol/L (3.5-5.1); Protein, Total 5.6 g/dL (6.0-8.3); Sodium 138 mmol/L (136-145)
[2019-07-27] MEDS: Haloperidol Lactate 5 MG/ML VIAL IM SCH ×4 (04:35→21:37)
[2019-07-27] MEDS: Ampicillin 2 GM in Sodium Chloride 0.9% 100 ML IVPB SCH ×3 (05:00→18:22)
[2019-07-27 05:12] LABS: Band 6 % (5-11); Lymphocytes 13 % (21-51); MDiff Complete? YES; Mean Corpuscular HGB CONC 33.1 g/dL (32.0-36.0); Mean Corpuscular Hemoglobin 29.7 pg (27.0-31.0); Mean Corpuscular Volume 89.6 fL (78.0-98.0); Monocytes 9 % (0-10); Neutrophil 72 % (42-75); Platelet Count 156 thou/uL (130-400); RBC Distribution Width 13.7 % (11.5-14.5); Red Blood Cell (RBC) Count 2.69 mill/uL (4.20-5.40); White Blood Cell (WBC) Count 4.9 thou/uL (4.8-10.8)
[2019-07-27] MEDS: ACYCLOVIR SODIUM IVPB SCH ×3 (06:07→21:02)
[2019-07-27] MEDS: Levothyroxine Sodium 100 MCG TAB PO SCH (06:07)
[2019-07-27] MEDS: SODIUM CHLORIDE 0.9% IVPB SCH ×3 (06:07→21:02)
[2019-07-27] MEDS: Sodium Bicarbonate 75 MEQ in Sodium Chloride 0.45% 1,000 ML IV SCH ×2 (06:41→20:16)
[2019-07-27 06:55] LABS: Actual Bicarbonate (HCO3a) 22.7 mEq/L (22-28); Base Excess (BEa) -2.8 mEq/L (-2.0 to +3.0); CO2 Tension 42.4 mmHg (35.0-45.0); Calcium, Ionized 1.06 mmol/L (1.12-1.30); Carboxyhemoglobin (COHb) 0.3 gm% (0.0-3.0); Hemoglobin (Hb) 9.8 g/dL (12.0-16.0); O2 Tension (PaO2) 114.8 mmHg (80.0-100.0); Potassium - ABG Lab 3.77 mmol/L (3.70-5.30); pH, Arterial 7.35 (7.35-7.45)
[2019-07-27] MEDS: Propofol 1,000 MG/100 ML VIAL IV PRN (07:23)
--- NOTE | 2019-07-27 07:33 | PDOC.HOSPP ---
- Subjective Encounter Date: 07/26/19 Encounter Time: 10:15 Subjective: pt intubated - Objective Vital Signs & Weight: Vital Signs (12 hours) Temp Pulse Resp BP Pulse Ox 07/27/19 06:39 71 184/86 H 07/27/19 06:00 20 07/27/19 04:00 99.2 F 07/27/19 03:25 62 07/27/19 02:00 20 07/27/19 00:00 98.5 F 07/26/19 23:37 66 177/76 H 07/26/19 22:00 20 07/26/19 20:00 20 100 Weight Admit Weight 361 lb Weight 381 lb 6.395 oz Most Recent Monitor Data Heart Rate from ECG 64 NIBP 184/86 NIBP BP-Mean 118 Respiration from ECG 20 SpO2 100 I&O: 07/26/19 07/27/19 07/28/19 06:59 06:59 06:59 Intake Total 4463 4440 Output Total 1695 1820 Balance 3981 2620 Result Diagrams: 07/27/19 03:54 07/27/19 01:06 Additional Labs: Accuchecks 07/27/19 07/27/19 07/26/19 04:46 00:17 19:59 POC Glucose 236 H 230 H 220 H 07/26/19 07/26/19 07/26/19 18:15 12:13 09:04 POC Glucose 247 H 253 H 247 H Hospitalist ROS - Review of Systems Other: unable to obtain - Medication Medications: Active Medications Generic Name Dose Route Start Last Admin Trade Name Freq PRN Reason Stop Dose Admin Acetaminophen 650 mg 07/23/19 16:54 07/24/19 05:57 Tylenol PO 650 mg Q6H PRN Administration Fever > 101 Atorvastatin Calcium 20 mg 07/23/19 21:00 07/26/19 20:24 Lipitor PO 20 mg HS MADISON Administration Bupropion HCl 300 mg 07/24/19 09:00 07/26/19 08:08 Wellbutrin Xl PO 300 mg QAM MADISON Administration Duloxetine HCl 60 mg 07/24/19 09:00 07/26/19 08:08 Cymbalta PO 60 mg DAILY MADISON Administration Famotidine 20 mg 07/23/19 09:00 07/26/19 08:08 Pepcid SLOW IVP 20 mg DAILY MADISON Administration Haloperidol Lactate 10 mg 07/26/19 10:00 07/27/19 04:35 Haldol IM 10 mg Q6H MADISON Administration Heparin Sodium (Porcine) 5,000 units 07/23/19 09:00 07/26/19 20:24 Heparin SC 5,000 units TID MADISON Administration Insulin Human Regular 100 101 mls @ 0 mls/hr 07/22/19 23:45 07/23/19 02:16 units/ Sodium Chloride IVPB 101 mls INF MADISON Administration Protocol Titrate Nicardipine HCl 50 mg/ Sodium 250 mls @ 0 mls/hr 07/23/19 00:15 07/23/19 05: 11 Chloride IV 250 mls INF MADISON Administration Protocol As Directed Sodium Chloride 1,000 mls @ 500 mls/hr 07/23/19 04:42 07/23/19 07:29 Normal Saline 0.9% IV 1,000 mls INF PRN Administration STEP 2: DKA PROTOCOL Protocol Acyclovir Sodium 640 mg/ 112.8 mls @ 112.8 mls/hr 07/23/19 22:00 07/27/19 06: 07 Sodium Chloride IVPB 112.8 mls Q8HR MADISON Administration Ampicillin Sodium 2 gm/ Sodium 100 mls @ 200 mls/hr 07/23/19 18:00 07/27/19 05:00 Chloride IVPB 100 mls Q6HR MADISON Administration Ceftriaxone Sodium 2 gm/ 100 mls @ 200 mls/hr 07/23/19 20:00 07/26/19 19:33 Sodium Chloride IVPB 100 mls 0800,2000 MADISON Administration Sodium Bicarbonate 75 meq/ 1,075 mls @ 75 mls/hr 07/24/19 08:45 07/27/19 06: 41 Sodium Chloride IV 1,075 mls .[id number] MADISON Administration Insulin Human Lispro 0 units 07/23/19 18:05 07/27/19 04:59 Humalog SC 6 unit .AGGRESSIVE SLIDING PRN Administration Aggressive Correctional Scale Levothyroxine Sodium 100 mcg 07/24/19 06:00 07/27/19 06:07 Synthroid PO 100 mcg 0600 MADISON Administration Lorazepam 2 mg 07/22/19 23:43 07/26/19 15:07 Ativan SLOW IVP 08/21/19 23:43 2 mg Q1H PRN Administration Breakthrough agitation Miscellaneous Medication 1 pkt 07/23/19 11:01 07/23/19 12:47 Phos-Nak PO 1 pkt TIDPRN PRN Administration FOR PHOS LEVEL 1.0 - 1.8 Propofol 1,000 mg 07/22/19 23:43 07/27/19 07:23 Diprivan IV 08/21/19 23:43 1,000 mg INF PRN Administration TO ACHIEVE GOAL RASS Protocol Sertraline HCl 50 mg 07/24/19 09:00 07/26/19 08:09 Zoloft PO 50 mg DAILY MADISON Administration Sodium Bicarbonate 975 mg 07/23/19 21:00 07/26/19 20:24 Bicarbonate, Sodium PO 975 mg BID MADISON Administration Sodium Chloride 10 ml 07/23/19 09:00 07/26/19 20:51 Flush - Normal Saline IVF Not Given Q12HR MADISON - Exam Heart: negative: RRR, no murmur, no gallops, no rubs, normal peripheral pulses, irregular, diminshed peripheral pulses, murmur present, II/IV, III/IV Respiratory - other findings: dimished breath sound all over Extremities: negative: no cyanosis, no clubbing, no edema, 1+ LE edema, 2+ LE edema, clubbing Hosp A/P (1) Acute metabolic encephalopathy Code(s): G93.41 - METABOLIC ENCEPHALOPATHY Status: Acute (2) SINA (acute kidney injury) Code(s): N17.9 - ACUTE KIDNEY FAILURE, UNSPECIFIED Status: Acute (3) DM type 2 (diabetes mellitus, type 2) Status: Chronic (4) Hypertension Code(s): I10 - ESSENTIAL (PRIMARY) HYPERTENSION Status: Chronic Qualifiers: Hypertension type: essential hypertension Qualified Code(s): I10 - Essential (primary) hypertension (5) Morbid obesity with BMI of 60.0-69.9, adult Code(s): E66.01 - MORBID (SEVERE) OBESITY DUE TO EXCESS CALORIES; Z68.44 - BODY MASS INDEX (BMI) 60.0-69.9, ADULT Status: Chronic (6) Sepsis Code(s): A41.9 - SEPSIS, UNSPECIFIED ORGANISM Status: Resolved (7) DKA (diabetic ketoacidoses) Code(s): E11.10 - TYPE 2 DIABETES MELLITUS WITH KETOACIDOSIS WITHOUT COMA Status: Acute - Plan pt's has been afebrile, will continue abx for now. will order LP to rule meningitis. spoke with sister who states that pt has multiple medical issues but at baseline able to function independently. she also states that on the day of admission she texted her which did not make sense. pt also texted pt's friend and stated that she had a fall, slept for 2hours then woke up. Pt's friend and sister when over to check on pt. she was confused and was unable to follow commands. At this time ems was called. she did have a elevated blood sugar and fever. Urine/cxr/blood cx/covid all negative. pt's change in mental status could be due to hyperglycemia but unclear about pt's fever. she is on broad spectrum abx. Her creatinine is improving no need for dialysis for now. she has good urine output. ck normal, mild elevated trop. will monitor. neurology consulted.
--- NOTE | 2019-07-27 07:39 | PDOC.EVN ---
Event Note - Event Note Event Note: pt's has significant acidosis, will start her on bicarb. will also continue broad spectrum abx. pt had a fever early this am. will try to get a hold of family. Pt's sugars are being controlled. covid negative.
[2019-07-27] MEDS: cefTRIAXone\\ROCEPHIN 2 GM in Sodium Chloride 0.9% 100 ML IVPB SCH ×2 (09:08→20:15)
[2019-07-27] MEDS: Sodium Bicarbonate Tab 325 MG TAB PO SCH ×2 (09:09→21:01)
[2019-07-27] MEDS: DULoxetine 60 MG CAP PO SCH (09:09)
[2019-07-27] MEDS: Famotidine/PF 20 mg/2ml Vial SLOW IVP SCH (09:10)
[2019-07-27] MEDS: Heparin 5,000 UNITS/ML VIAL SC SCH ×3 (09:11→20:15)
[2019-07-27] MEDS: Bupropion 150 MG XL TAB PO SCH (09:56)
--- NOTE | 2019-07-27 11:07 | PRG ---
DATE OF SERVICE: SUBJECTIVE: A 58-year-old female being seen for acute kidney injury. The patient is resting, intubated. OBJECTIVE: GENERAL: The patient is resting. VITAL SIGNS: Afebrile, pulse 69, breathing at 16, blood pressure 151/65. HEENT: Head normocephalic and atraumatic. Eyes intact, no ulcers. Nose intact, no ulcers. Ears intact, no ulcers. NECK: Supple. No JVD. CHEST: Symmetrical and clear. CARDIOVASCULAR: Shows S1 and S2, no rub, no murmur. GASTROINTESTINAL: Abdomen is soft, bowel sounds positive. EXTREMITIES: Show no edema or ulcers. SKIN: Shows no rash or petechiae. MUSCULOSKELETAL: Shows no joint swelling or stiffness. GENITOURINARY: Shows no Cuevas or CVA tenderness. NEUROLOGIC: The patient is resting. LABORATORY DATA: Reviewed. ASSESSMENT AND PLAN: 1. Stage 5 chronic kidney disease, stable. 2. Hypertension, stable. 3. Anemia, stable. No indication for dialysis at this time. Job ID: [id number]
--- NOTE | 2019-07-27 16:11 | PRG ---
DATE OF SERVICE: 07/27/2019 SUBJECTIVE: David Verdugo will open her eyes, but she is not reliably following commands. OBJECTIVE: VITAL SIGNS: She is afebrile. Blood pressure respiratory rate . LUNGS: Distant, clear. HEART: Regular rhythm. ABDOMEN: Soft. EXTREMITIES: . LABORATORY DATA: White count 4.9, hemoglobin 8.0, platelets 156. Sodium , potassium 4.2, chloride 108, bicarb 17, BUN 47, creatinine 3.30, , pH 7.35, pCO2 42, and pO2 114. IMPRESSION AND PLAN: 1. Improving acid-base disorder, most likely secondary to improving function. 2. Encephalopathy on admission secondary to hyperosmolar state. Likely, she has meningitis or encephalitis. We will try switching her Precedex, see how she does with that. combative again, then adding Haldol may be helpful. Critical care time is 35 minutes. Job ID: [id number] MTDD
--- NOTE | 2019-07-27 19:20 | PDOC.HOSPP ---
- Subjective Encounter Date: 07/27/19 Encounter Time: 11:15 Subjective: pt intubated - Objective Vital Signs & Weight: Vital Signs (12 hours) Temp Pulse Resp BP 07/27/19 18:50 61 07/27/19 16:00 20 07/27/19 14:00 20 07/27/19 13:54 81 133/72 07/27/19 12:00 20 07/27/19 10:46 69 151/65 H 07/27/19 10:00 20 07/27/19 09:00 99.0 F 07/27/19 08:00 20 Weight Admit Weight 361 lb Weight 381 lb 6.395 oz Most Recent Monitor Data Heart Rate from ECG 73 NIBP 149/69 NIBP BP-Mean 95 Respiration from ECG 20 SpO2 100 I&O: 07/26/19 07/27/19 07/28/19 06:59 06:59 06:59 Intake Total 4463 4440 Output Total 8860 1827 851 Balance 2062 5819 -946 Result Diagrams: 07/27/19 03:54 07/27/19 01:06 Additional Labs: Accuchecks 07/27/19 07/27/19 07/26/19 04:46 00:17 19:59 POC Glucose 236 H 230 H 220 H 07/26/19 07/26/19 18:15 12:13 POC Glucose 247 H 253 H Hospitalist ROS - Review of Systems Other: pt intubated - Medication Medications: Active Medications Generic Name Dose Route Start Last Admin Trade Name Freq PRN Reason Stop Dose Admin Acetaminophen 650 mg 07/23/19 16:54 07/24/19 05:57 Tylenol PO 650 mg Q6H PRN Administration Fever > 101 Atorvastatin Calcium 20 mg 07/23/19 21:00 07/26/19 20:24 Lipitor PO 20 mg HS [place] Administration Bupropion HCl 300 mg 07/24/19 09:00 07/27/19 09:56 Wellbutrin Xl PO 300 mg QAM [facility] Administration Duloxetine HCl 60 mg 07/24/19 09:00 07/27/19 09:09 Cymbalta PO 60 mg DAILY [facility] Administration Famotidine 20 mg 07/23/19 09:00 07/27/19 09:10 Pepcid SLOW IVP 20 mg DAILY [facility] Administration Haloperidol Lactate 10 mg 07/26/19 10:00 07/27/19 15:58 Haldol IM 10 mg Q6H [facility] Administration Heparin Sodium (Porcine) 5,000 units 07/23/19 09:00 07/27/19 14:56 Heparin SC 5,000 units TID [facility] Administration Insulin Human Regular 100 101 mls @ 0 mls/hr 07/22/19 23:45 07/23/19 02:16 units/ Sodium Chloride IVPB 101 mls INF [facility] Administration Protocol Titrate Nicardipine HCl 50 mg/ Sodium 250 mls @ 0 mls/hr 07/23/19 00:15 07/23/19 05: 11 Chloride IV 250 mls INF [facility] Administration Protocol As Directed Sodium Chloride 1,000 mls @ 500 mls/hr 07/23/19 04:42 07/23/19 07:29 Normal Saline 0.9% IV 1,000 mls INF PRN Administration STEP 2: DKA PROTOCOL Protocol Acyclovir Sodium 640 mg/ 112.8 mls @ 112.8 mls/hr 07/23/19 22:00 07/27/19 14: 56 Sodium Chloride IVPB 112.8 mls Q8HR [place] Administration Ampicillin Sodium 2 gm/ Sodium 100 mls @ 200 mls/hr 07/23/19 18:00 07/27/19 18:22 Chloride IVPB 100 mls Q6HR [facility] Administration Ceftriaxone Sodium 2 gm/ 100 mls @ 200 mls/hr 07/23/19 20:00 07/27/19 09:08 Sodium Chloride IVPB 100 mls 0800,2000 [facility] Administration Sodium Bicarbonate 75 meq/ 1,075 mls @ 75 mls/hr 07/24/19 08:45 07/27/19 06: 41 Sodium Chloride IV 1,075 mls .[id number] [place] Administration Dexmedetomidine HCl 200 mcg/ 50 mls @ 0 mls/hr 07/27/19 09:15 07/27/19 18:29 Sodium Chloride IVPB 50 mls INF [facility] Administration Protocol Per Protocol Insulin Human Lispro 0 units 07/23/19 18:05 07/27/19 15:59 Humalog SC 9 unit .AGGRESSIVE SLIDING PRN Administration Aggressive Correctional Scale Levothyroxine Sodium 100 mcg 07/24/19 06:00 07/27/19 06:07 Synthroid PO 100 mcg 0600 [place] Administration Lorazepam 2 mg 07/22/19 23:43 07/26/19 15:07 Ativan SLOW IVP 08/21/19 23:43 2 mg Q1H PRN Administration Breakthrough agitation Miscellaneous Medication 1 pkt 07/23/19 11:01 07/23/19 12:47 Phos-Nak PO 1 pkt TIDPRN PRN Administration FOR PHOS LEVEL 1.0 - 1.8 Propofol 1,000 mg 07/22/19 23:43 07/27/19 07:23 Diprivan IV 08/21/19 23:43 1,000 mg INF PRN Administration TO ACHIEVE GOAL RASS Protocol Sertraline HCl 50 mg 07/24/19 09:00 07/27/19 09:10 Zoloft PO 50 mg DAILY [place] Administration Sodium Bicarbonate 975 mg 07/23/19 21:00 07/27/19 09:09 Bicarbonate, Sodium PO 975 mg BID [place] Administration Sodium Chloride 10 ml 07/23/19 09:00 07/27/19 18:23 Flush - Normal Saline IVF Not Given Q12HR [facility] - Exam Eye - other findings: pupil reactive Neck: negative: supple, symmetric, no JVD, no thyromegaly, no lymphadenopathy, no carotid bruit, JVD Heart: negative: RRR, no murmur, no gallops, no rubs, normal peripheral pulses, irregular, diminshed peripheral pulses, murmur present, II/IV, III/IV Respiratory - other findings: diminished Gastrointestinal: soft, normal bowel sounds Gastrointestinal - other findings: obse Extremities: 2+ LE edema Neurological - other findings: pt moving all ext but not following command Hosp A/P (1) Acute metabolic encephalopathy Code(s): G93.41 - METABOLIC ENCEPHALOPATHY Status: Acute (2) SINA (acute kidney injury) Code(s): N17.9 - ACUTE KIDNEY FAILURE, UNSPECIFIED Status: Acute (3) DM type 2 (diabetes mellitus, type 2) Status: Chronic (4) Hypertension Code(s): I10 - ESSENTIAL (PRIMARY) HYPERTENSION Status: Chronic Qualifiers: Hypertension type: essential hypertension Qualified Code(s): I10 - Essential (primary) hypertension (5) Morbid obesity with BMI of 60.0-69.9, adult Code(s): E66.01 - MORBID (SEVERE) OBESITY DUE TO EXCESS CALORIES; Z68.44 - BODY MASS INDEX (BMI) 60.0-69.9, ADULT Status: Chronic (6) Sepsis Code(s): A41.9 - SEPSIS, UNSPECIFIED ORGANISM Status: Resolved (7) DKA (diabetic ketoacidoses) Code(s): E11.10 - TYPE 2 DIABETES MELLITUS WITH KETOACIDOSIS WITHOUT COMA Status: Acute - Plan pt's has been afebrile, will continue abx for now. will order LP to rule meningitis. spoke with sister who states that pt has multiple medical issues but at baseline able to function independently. she also states that on the day of admission she texted her which did not make sense. pt also texted pt's friend and stated that she had a fall, slept for 2hours then woke up. Pt's friend and sister when over to check on pt. she was confused and was unable to follow commands. At this time ems was called. she did have a elevated blood sugar and fever. Urine/cxr/blood cx/covid all negative. pt's change in mental status could be due to hyperglycemia but unclear about pt's fever. she is on broad spectrum abx. Her creatinine is improving no need for dialysis for now. she has good urine output. ck normal, mild elevated trop. will monitor. neurology consulted. 07/26 will continue abx for now.she is on precedex. will add long acting insulin. Her creatinine is improving. she is on bicarb drip, nephrology notified and will follow. cta negative. MRI brain unable to do due to obesity.
[2019-07-27] MEDS: Atorvastatin Calcium 20 MG TAB PO SCH (20:15)
[2019-07-27] MEDS: Lorazepam 2 MG/ML VIAL SLOW IVP PRN (20:46)
[2019-07-27] MEDS ORDERED: Insulin Glargine 10 UNITS in Pre-Filled Syringe SC SCH (21:00)
[2019-07-28] MEDS: Ampicillin 2 GM in Sodium Chloride 0.9% 100 ML IVPB SCH ×2 (00:15→05:24)
[2019-07-28] MEDS: HumaLOG 300 UNITS/3 ML VIAL SC PRN ×6 (00:23→20:43)
--- NOTE | 2019-07-28 02:07 | PDOC.CNTRL ---
Central Line Procedure Note - Procedure Date: 07/28/19 Time: 00:10 - PreProcedure Diagnosis: Sepsis Acute encephalopathy - PostProcedure Diagnosis: Same as above - Description Focused site: femoral vein: Right Ultrasound guidance: Yes Complications: local bleeding Procedure in Details: Femoral Central Line Procedure Note INDICATION:Sepsis requiring IV access PROCEDURE ANGLE SHEAR SET UP OPERATOR: Rhina Oreilly MD ATTENDING PHYSICIAN: Dr. Sinha In Attendance Yes Ultrasound Used: Yes CONSENT: Consent unable to be obtained due to patient mental status. PROCEDURE SUMMARY: The [facility] Central Line Insertion Practices form was completed starting with the first handwash prior to starting sterile technique. A time out was performed. My hands were washed immediately prior to the procedure. I wore a surgical cap, mask with protective eyewear, sterile gown and sterile gloves throughout the procedure. The RIGHT inguinal region was prepped using chlorhexidine scrub and draped in sterile fashion using a full drape and sterile probe cover employed. The femoral pulse was identified. Anesthesia was achieved using 1% lidocaine. Using ultrasound guidance, the introducer needle was inserted medial to the femoral artery, inferior to the inguinal crease and into the femoral vein. Venous blood was withdrawn. The syringe was removed and a guidewire was advanced into the introducer needle. A small incision was made at the skin surface with a scalpel and the introducer needle was exchanged for a dilator over the guidewire. After appropriate dilation was obtained, the dilator was exchanged over the wire for a central venous catheter. The wire was removed and the catheter was sutured in place. A sterile sorbaview shield was placed over the catheter at the insertion site. The patient tolerated the procedure without any hemodynamic compromise. At time of procedure completion, all ports aspirated and flushed properly. Estimated blood loss is 1mL. ATTENDING ADDENDUM: I was present for and supervised the entire procedure. I agree with all of the resident documentation.
[2019-07-28] MEDS: Haloperidol Lactate 5 MG/ML VIAL IM SCH ×4 (03:57→21:38)
[2019-07-28 04:55] LABS: ALT (SGPT) 14 U/L (8-55); AST (SGOT) 18 U/L (5-34); Albumin 2.5 g/dL (3.5-5.0); Alkaline Phosphatase 123 U/L (40-110); Anion Gap 14 mmol/L (10-20); BUN (Urea Nitrogen) 45 mg/dL (9.8-20.1); Bilirubin, Total Less than 0.2 mg/dL (0.2-1.2); Calc. Creatinine Clearance 54 mL/min (70-130); Calcium 7.7 mg/dL (7.8-10.44); Carbon Dioxide 24 mmol/L (22-29); Chloride 107 mmol/L (98-107); Estimated GFR-MDRD 15; Globulin 3.2 g/dL (2.4-3.5); Glucose 299 mg/dL (70-105); Potassium 3.5 mmol/L (3.5-5.1); Protein, Total 5.7 g/dL (6.0-8.3); Sodium 141 mmol/L (136-145)
[2019-07-28 05:05] LABS: Band 5 % (5-11); Eosinophils 2 % (0-10); Hemoglobin 8.5 g/dL (12.0-16.0); Lymphocytes 15 % (21-51); MDiff Complete? YES; Mean Corpuscular HGB CONC 32.5 g/dL (32.0-36.0); Mean Corpuscular Hemoglobin 29.2 pg (27.0-31.0); Mean Corpuscular Volume 89.7 fL (78.0-98.0); Monocytes 2 % (0-10); Neutrophil 76 % (42-75); Platelet Count 172 thou/uL (130-400); RBC Distribution Width 13.6 % (11.5-14.5); Red Blood Cell (RBC) Count 2.92 mill/uL (4.20-5.40)
[2019-07-28] MEDS: Levothyroxine Sodium 100 MCG TAB PO SCH (05:23)
[2019-07-28] MEDS: SODIUM CHLORIDE 0.9% IVPB SCH ×3 (05:23→21:38)
[2019-07-28] MEDS: ACYCLOVIR SODIUM IVPB SCH ×3 (05:23→21:38)
[2019-07-28 07:20] LABS: Base Excess (BEa) -3.2 mEq/L (-2.0 to +3.0); CO2 Tension 40.2 mmHg (35.0-45.0); Calcium, Ionized 1.08 mmol/L (1.12-1.30); Carboxyhemoglobin (COHb) 0.3 gm% (0.0-3.0); Hemoglobin (Hb) 9.2 g/dL (12.0-16.0); O2 Tension (PaO2) 85.6 mmHg (80.0-100.0); Potassium - ABG Lab 3.59 mmol/L (3.70-5.30); pH, Arterial 7.36 (7.35-7.45)
[2019-07-28 07:21] LABS: Puncture Site RR
[2019-07-28] MEDS: hydrALAZINE 20 MG/ML VIAL SLOW IVP PRN ×2 (08:04→17:09)
[2019-07-28] MEDS: Heparin 5,000 UNITS/ML VIAL SC SCH ×3 (09:00→20:22)
[2019-07-28] MEDS ORDERED: Insulin Glargine 8 UNITS in Pre-Filled Syringe SC SCH (09:00)
[2019-07-28] MEDS: Famotidine/PF 20 mg/2ml Vial SLOW IVP SCH (09:01)
[2019-07-28] MEDS: Sodium Bicarbonate Tab 325 MG TAB PO SCH ×2 (09:02→20:23)
[2019-07-28] MEDS: Bupropion 150 MG XL TAB PO SCH (09:02)
[2019-07-28] MEDS: DULoxetine 60 MG CAP PO SCH (09:02)
[2019-07-28] MEDS: cefTRIAXone\\ROCEPHIN 2 GM in Sodium Chloride 0.9% 100 ML IVPB SCH ×2 (09:03→20:13)
[2019-07-28] MEDS: Vancomycin HCl 750 MG in Sodium Chloride 0.9% 250 ML 250 ML IVPB SCH ×2 (09:04→20:06)
[2019-07-28] MEDS ORDERED: Metoprolol Tartrate 25 MG TAB PO SCH (09:15)
[2019-07-28] MEDS: Sodium Chloride 0.45% 1,000 ML IV SCH (11:52)
--- NOTE | 2019-07-28 13:38 | PRG ---
DATE OF SERVICE: 07/28/2019 SUBJECTIVE: David Verdugo started to follow commands. OBJECTIVE: VITAL SIGNS: Heart rate 70s, blood pressure 164/71, and respiratory rate in the 20s. Intake and output, positive 2128. LUNGS: Clear and distant. HEART: Regular rhythm. Distant S1 and S2. ABDOMEN: Soft. EXTREMITIES: Chronic stasis changes. IMPRESSION: Status post intubation for a violent cephalopathy in the Emergency Department associated with a hyperosmolar state. We will decrease her ventilatory support simplify her antimicrobial therapy. Continue supportive care. Hopefully, she will become more cooperative with time. CRITICAL CARE TIME: 30 minutes. Job ID: [id number]
--- NOTE | 2019-07-28 14:30 | PDOC.HOSPP ---
- Subjective Encounter Date: 07/28/19 Encounter Time: 12:00 Subjective: is on vent, not in distress - Objective Vital Signs & Weight: Vital Signs (12 hours) Temp Pulse Resp BP Pulse Ox 07/28/19 12:00 20 07/28/19 10:22 72 164/71 H 07/28/19 10:00 20 07/28/19 08:30 97 07/28/19 08:04 60 196/82 H 07/28/19 08:00 20 07/28/19 07:00 100.6 F H 07/28/19 06:49 58 L 152/69 H 07/28/19 05:49 22 H 07/28/19 04:00 99.9 F H 20 07/28/19 03:25 58 L Weight Admit Weight 361 lb Weight 390 lb 14.073 oz Most Recent Monitor Data Heart Rate from ECG 61 NIBP 160/69 NIBP BP-Mean 99 Respiration from ECG 31 SpO2 100 I&O: 07/27/19 07/28/19 07/29/19 06:59 06:59 06:59 Intake Total 4440 4384 440 Output Total 1820 2255 895 Balance 2626 7619 -690 Result Diagrams: 07/28/19 03:55 07/28/19 03:55 Additional Labs: Accuchecks 07/28/19 07/28/19 07/28/19 11:56 03:58 00:26 POC Glucose 305 H 279 H 283 H 07/27/19 20:21 POC Glucose 298 H Hospitalist ROS - Medication Medications: Active Medications Generic Name Dose Route Start Last Admin Trade Name Freq PRN Reason Stop Dose Admin Acetaminophen 650 mg 07/23/19 16:54 07/24/19 05:57 Tylenol PO 650 mg Q6H PRN Administration Fever > 101 Atorvastatin Calcium 20 mg 07/23/19 21:00 07/27/19 20:15 Lipitor PO 20 mg HS [place] Administration Bupropion HCl 300 mg 07/24/19 09:00 07/28/19 09:02 Wellbutrin Xl PO 300 mg QAM [place] Administration Duloxetine HCl 60 mg 07/24/19 09:00 07/28/19 09:02 Cymbalta PO 60 mg DAILY [place] Administration Famotidine 20 mg 07/23/19 09:00 07/28/19 09:01 Pepcid SLOW IVP 20 mg DAILY [place] Administration Haloperidol Lactate 10 mg 07/26/19 10:00 07/28/19 09:36 Haldol IM 10 mg Q6H [place] Administration Heparin Sodium (Porcine) 5,000 units 07/23/19 09:00 07/28/19 09:00 Heparin SC 5,000 units TID [place] Administration Hydralazine HCl 20 mg 07/27/19 09:14 07/28/19 08:04 Apresoline SLOW IVP 20 mg Q6H PRN Administration SBP Greater Than 170 Insulin Human Regular 100 101 mls @ 0 mls/hr 07/22/19 23:45 07/23/19 02:16 units/ Sodium Chloride IVPB 101 mls INF [place] Administration Protocol Titrate Nicardipine HCl 50 mg/ Sodium 250 mls @ 0 mls/hr 07/23/19 00:15 07/23/19 05: 11 Chloride IV 250 mls INF [place] Administration Protocol As Directed Sodium Chloride 1,000 mls @ 500 mls/hr 07/23/19 04:42 07/23/19 07:29 Normal Saline 0.9% IV 1,000 mls INF PRN Administration STEP 2: DKA PROTOCOL Protocol Acyclovir Sodium 640 mg/ 112.8 mls @ 112.8 mls/hr 07/23/19 22:00 07/28/19 13: 31 Sodium Chloride IVPB 112.8 mls Q8HR [place] Administration Ceftriaxone Sodium 2 gm/ 100 mls @ 200 mls/hr 07/23/19 20:00 07/28/19 09:03 Sodium Chloride IVPB 100 mls 0800,2000 [place] Administration Insulin Glargine 10 units/ 0.1 mls @ 0 mls/hr 07/27/19 21:00 07/27/19 20:18 Miscellaneous Medication SC 0.1 mls HS [place] Administration Insulin Glargine 8 units/ 0.08 mls @ 0 mls/hr 07/28/19 09:00 07/28/19 09:01 Miscellaneous Medication SC 0.08 mls QAM [place] Administration Dexmedetomidine HCl 400 mcg/ 100 mls @ 0 mls/hr 07/28/19 00:45 07/28/19 13:31 Sodium Chloride IVPB 100 mls INF [place] Administration Protocol Per Protocol Sodium Chloride 1,000 mls @ 75 mls/hr 07/28/19 10:30 07/28/19 11:52 1/2 Normal Saline IV 1,000 mls .[id number] [place] Administration Insulin Human Lispro 0 units 07/23/19 18:05 07/28/19 11:56 Humalog SC 11 unit .AGGRESSIVE SLIDING PRN Administration Aggressive Correctional Scale Levothyroxine Sodium 100 mcg 07/24/19 06:00 07/28/19 05:23 Synthroid PO 100 mcg 0600 [place] Administration Lorazepam 2 mg 07/22/19 23:43 07/27/19 20:46 Ativan SLOW IVP 08/21/19 23:43 2 mg Q1H PRN Administration Breakthrough agitation Miscellaneous Medication 1 pkt 07/23/19 11:01 07/23/19 12:47 Phos-Nak PO 1 pkt TIDPRN PRN Administration FOR PHOS LEVEL 1.0 - 1.8 Propofol 1,000 mg 07/22/19 23:43 07/27/19 07:23 Diprivan IV 08/21/19 23:43 1,000 mg INF PRN Administration TO ACHIEVE GOAL RASS Protocol Sertraline HCl 50 mg 07/24/19 09:00 07/28/19 09:02 Zoloft PO 50 mg DAILY [place] Administration Sodium Bicarbonate 975 mg 07/23/19 21:00 07/28/19 09:02 Bicarbonate, Sodium PO 975 mg BID [place] Administration Sodium Chloride 10 ml 07/23/19 09:00 07/28/19 09:04 Flush - Normal Saline IVF 10 ml Q12HR [place] Administration - Exam Eye: PERRL, anicteric sclera ENT: no oropharyngeal lesions, dry oral mucosa Neck: supple, no JVD Heart: RRR, no murmur Respiratory: no wheezes, no rales Gastrointestinal: soft, non-tender, non-distended, normal bowel sounds Extremities: no cyanosis, 1+ LE edema Neurological: cranial nerve grossly intact, no focal deficits Hosp A/P (1) Acute metabolic encephalopathy Code(s): G93.41 - METABOLIC ENCEPHALOPATHY Status: Acute (2) DKA (diabetic ketoacidoses) Code(s): E11.10 - TYPE 2 DIABETES MELLITUS WITH KETOACIDOSIS WITHOUT COMA Status: Resolved Qualifiers: Diabetes mellitus type: type 2 (3) Acute worsening of stage 3 chronic kidney disease Code(s): N18.3 - CHRONIC KIDNEY DISEASE, STAGE 3 (MODERATE) Status: Acute (4) Metabolic acidosis Code(s): E87.2 - ACIDOSIS Status: Acute (5) Anemia, normocytic normochromic Code(s): D64.9 - ANEMIA, UNSPECIFIED Status: Chronic (6) Anxiety and depression Code(s): F41.9 - ANXIETY DISORDER, UNSPECIFIED; F32.9 - MAJOR DEPRESSIVE DISORDER, SINGLE EPISODE, UNSPECIFIED Status: Chronic (7) DM type 2 (diabetes mellitus, type 2) Status: Chronic Qualifiers: Diabetes mellitus terminal make up operator insulin use: with chcf use Diabetes mellitus complication status: with kidney complications Diabetes mellitus complication detail: with chronic kidney disease Chronic kidney disease stage : stage 3 (moderate) Qualified Code(s): E11.22 - Type 2 diabetes mellitus with diabetic chronic kidney disease; N18.3 - Chronic kidney disease, stage 3 ( moderate); Z79.4 - exterminator (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 of insulin (8) Dyslipidemia Code(s): E78.5 - HYPERLIPIDEMIA, UNSPECIFIED Status: Chronic (9) Hypertension Code(s): I10 - ESSENTIAL (PRIMARY) HYPERTENSION Status: Chronic Qualifiers: Hypertension type: essential hypertension Qualified Code(s): I10 - Essential (primary) hypertension (10) Sepsis Code(s): A41.9 - SEPSIS, UNSPECIFIED ORGANISM Status: Resolved Qualifiers: Sepsis type: sepsis due to unspecified organism (11) Obesity Code(s): E66.9 - OBESITY, UNSPECIFIED Status: Chronic Qualifiers: Obesity classification: adult class 3 (BMI >= 40) Body mass index: BMI 50.0 -59.9 (12) Acute respiratory failure with hypoxia Code(s): J96.01 - ACUTE RESPIRATORY FAILURE WITH HYPOXIA Status: Acute - Plan weaning when she is more oriented, likely from am is on haldol dka is resolving, is on 1/2 ns with hco3 on ceftriaxone, lipitor, welbutrin, cymbalta, zoloft, synthroid, lantus hemostable
--- NOTE | 2019-07-28 15:40 | PRG ---
DATE OF SERVICE: 07/28/2019 SUBJECTIVE: A 58-year-old female being seen for acute kidney injury. The patient is resting and intubated. OBJECTIVE: GENERAL: The patient is resting. VITAL SIGNS: Afebrile. Pulse 69, breathing 16, blood pressure 160/69. HEENT: Head normocephalic and atraumatic. Eyes intact, no ulcers. Nose intact, no ulcers. Ears intact, no ulcers. NECK: Supple. No JVD. CHEST: Symmetrical and clear. CARDIOVASCULAR: Shows S1 and S2, no rub, no murmur. GASTROINTESTINAL: Abdomen is soft, bowel sounds positive. EXTREMITIES: Show no edema or ulcers. SKIN: Shows no rash or petechiae. MUSCULOSKELETAL: Shows no joint swelling or stiffness. GENITOURINARY: Shows no Cuevas or CVA tenderness. NEUROLOGIC: Motor intact. Cranial nerves intact. LABORATORY DATA: Reviewed. ASSESSMENT AND PLAN: 1. Stage 4 chronic kidney disease, stable. 2. Acute kidney injury, stable. 3. Hypertension, stable. 4. Nonoliguric. No indication for dialysis. We will follow renal function closely. Job ID: [id number]
[2019-07-28] MEDS: Lorazepam 2 MG/ML VIAL SLOW IVP PRN (19:39)
[2019-07-28] MEDS: Atorvastatin Calcium 20 MG TAB PO SCH (20:23)
[2019-07-28] MEDS: Metoprolol Tartrate 25 MG TAB PO SCH (20:23)
[2019-07-28] MEDS ORDERED: Insulin Glargine 20 UNITS in Pre-Filled Syringe 1 EACH SC SCH (21:00)
[2019-07-29] MEDS: HumaLOG 300 UNITS/3 ML VIAL SC PRN ×6 (00:42→21:07)
[2019-07-29] MEDS: Sodium Chloride 0.45% 1,000 ML IV SCH ×2 (04:42→12:43)
[2019-07-29] MEDS: Haloperidol Lactate 5 MG/ML VIAL IM SCH ×4 (04:42→22:19)
[2019-07-29 05:00] LABS: ALT (SGPT) 19 U/L (8-55); AST (SGOT) 23 U/L (5-34); Albumin 2.5 g/dL (3.5-5.0); Alkaline Phosphatase 125 U/L (40-110); Anion Gap 11 mmol/L (10-20); BUN (Urea Nitrogen) 45 mg/dL (9.8-20.1); Bilirubin, Total Less than 0.2 mg/dL (0.2-1.2); Calc. Creatinine Clearance 60 mL/min (70-130); Calcium 7.9 mg/dL (7.8-10.44); Carbon Dioxide 26 mmol/L (22-29); Chloride 107 mmol/L (98-107); Estimated GFR-MDRD 17; Globulin 3.2 g/dL (2.4-3.5); Glucose 289 mg/dL (70-105); Potassium 3.4 mmol/L (3.5-5.1); Protein, Total 5.7 g/dL (6.0-8.3); Sodium 141 mmol/L (136-145)
[2019-07-29 05:22] LABS: Band 12 % (5-11); Eosinophils 1 % (0-10); Hemoglobin 8.4 g/dL (12.0-16.0); Lymphocytes 10 % (21-51); MDiff Complete? YES; Mean Corpuscular HGB CONC 33.2 g/dL (32.0-36.0); Mean Corpuscular Hemoglobin 30.2 pg (27.0-31.0); Mean Corpuscular Volume 90.7 fL (78.0-98.0); Mean Platelet Volume 8.4 fL (7.4-10.4); Monocytes 2 % (0-10); Neutrophil 74 % (42-75); Platelet Count 180 thou/uL (130-400); RBC Distribution Width 13.6 % (11.5-14.5); Red Blood Cell (RBC) Count 2.79 mill/uL (4.20-5.40); White Blood Cell (WBC) Count 8.3 thou/uL (4.8-10.8)
[2019-07-29] MEDS: SODIUM CHLORIDE 0.9% IVPB SCH (05:27)
[2019-07-29] MEDS: ACYCLOVIR SODIUM IVPB SCH (05:27)
[2019-07-29] MEDS: Levothyroxine Sodium 100 MCG TAB PO SCH (05:27)
[2019-07-29] MEDS: Lorazepam 2 MG/ML VIAL SLOW IVP PRN ×4 (07:19→20:33)
[2019-07-29 07:28] LABS: Actual Bicarbonate (HCO3a) 24.1 mEq/L (22-28); Base Excess (BEa) -1.9 mEq/L (-2.0 to +3.0); CO2 Tension 46.8 mmHg (35.0-45.0); Calcium, Ionized 1.15 mmol/L (1.12-1.30); Carboxyhemoglobin (COHb) 0.3 gm% (0.0-3.0); Hemoglobin (Hb) 9.2 g/dL (12.0-16.0); O2 Tension (PaO2) 85.7 mmHg (80.0-100.0); Potassium - ABG Lab 3.49 mmol/L (3.70-5.30); Puncture Site LR; pH, Arterial 7.33 (7.35-7.45)
[2019-07-29] MEDS: Heparin 5,000 UNITS/ML VIAL SC SCH ×3 (08:48→21:03)
[2019-07-29] MEDS: Insulin Glargine 30 UNITS in Pre-Filled Syringe 1 EACH SC SCH ×2 (08:48→21:00)
[2019-07-29] MEDS: cefTRIAXone\\ROCEPHIN 2 GM in Sodium Chloride 0.9% 100 ML IVPB SCH ×2 (08:48→20:01)
[2019-07-29] MEDS: Famotidine/PF 20 mg/2ml Vial SLOW IVP SCH (08:50)
[2019-07-29] MEDS: Bupropion 150 MG XL TAB PO SCH (08:50)
[2019-07-29] MEDS: Sodium Bicarbonate Tab 325 MG TAB PO SCH ×2 (08:51→21:04)
[2019-07-29] MEDS: DULoxetine 60 MG CAP PO SCH (08:52)
[2019-07-29] MEDS: Metoprolol Tartrate 25 MG TAB PO SCH ×2 (08:53→21:06)
--- NOTE | 2019-07-29 11:10 | PDOC.HOSPP ---
- Subjective Encounter Date: 07/29/19 Encounter Time: 10:45 Subjective: sedated, is on vent not in distress - Objective Vital Signs & Weight: Vital Signs (12 hours) Temp Pulse Resp BP Pulse Ox 07/29/19 11:00 97.8 F 07/29/19 10:00 14 07/29/19 08:00 14 07/29/19 07:56 99 07/29/19 07:00 99.4 F 07/29/19 06:50 50 L 154/76 H 07/29/19 06:00 20 07/29/19 04:22 51 L 07/29/19 04:00 99.2 F 14 07/29/19 02:00 15 07/29/19 00:00 98.9 F 22 H 07/28/19 23:36 55 L 152/66 H Weight Admit Weight 361 lb Weight 389 lb 9.6 oz Most Recent Monitor Data Heart Rate from ECG 52 NIBP 127/64 NIBP BP-Mean 85 Respiration from ECG 15 SpO2 100 I&O: 07/28/19 07/29/19 07/30/19 06:59 06:59 06:59 Intake Total 4384 4341 110 Output Total 2255 2440 295 Balance 2129 1901 -185 Result Diagrams: 07/29/19 04:20 07/29/19 04:20 Additional Labs: Accuchecks 07/29/19 07/29/19 07/29/19 08:45 04:26 00:40 POC Glucose 243 H 289 H 321 H 07/28/19 07/28/19 07/28/19 20:25 16:25 11:56 POC Glucose 285 H 306 H 305 H Hospitalist ROS - Medication Medications: Active Medications Generic Name Dose Route Start Last Admin Trade Name Freq PRN Reason Stop Dose Admin Acetaminophen 650 mg 07/23/19 16:54 07/24/19 05:57 Tylenol PO 650 mg Q6H PRN Administration Fever > 101 Atorvastatin Calcium 20 mg 07/23/19 21:00 07/28/19 20:23 Lipitor PO 20 mg HS [place] Administration Bupropion HCl 300 mg 07/24/19 09:00 07/29/19 08:50 Wellbutrin Xl PO 300 mg QAM [place] Administration Duloxetine HCl 60 mg 07/24/19 09:00 07/29/19 08:52 Cymbalta PO 60 mg DAILY [place] Administration Famotidine 20 mg 07/23/19 09:00 07/29/19 08:50 Pepcid SLOW IVP 20 mg DAILY [facility] Administration Haloperidol Lactate 10 mg 07/26/19 10:00 07/29/19 10:10 Haldol IM 10 mg Q6H [facility] Administration Heparin Sodium (Porcine) 5,000 units 07/23/19 09:00 07/29/19 08:48 Heparin SC 5,000 units TID [facility] Administration Hydralazine HCl 20 mg 07/27/19 09:14 07/28/19 17:09 Apresoline SLOW IVP 20 mg Q6H PRN Administration SBP Greater Than 170 Nicardipine HCl 50 mg/ Sodium 250 mls @ 0 mls/hr 07/23/19 00:15 07/23/19 05: 11 Chloride IV 250 mls INF [facility] Administration Protocol As Directed Sodium Chloride 1,000 mls @ 500 mls/hr 07/23/19 04:42 07/23/19 07:29 Normal Saline 0.9% IV 1,000 mls INF PRN Administration STEP 2: DKA PROTOCOL Protocol Ceftriaxone Sodium 2 gm/ 100 mls @ 200 mls/hr 07/23/19 20:00 07/29/19 08:48 Sodium Chloride IVPB 100 mls 0800,2000 [place] Administration Dexmedetomidine HCl 400 mcg/ 100 mls @ 0 mls/hr 07/28/19 00:45 07/29/19 11:06 Sodium Chloride IVPB 100 mls INF [facility] Administration Protocol Per Protocol Sodium Chloride 1,000 mls @ 75 mls/hr 07/28/19 10:30 07/29/19 04:42 1/2 Normal Saline IV Not Given .[id number] [facility] Insulin Glargine 30 units/ 0.3 mls @ 0 mls/hr 07/29/19 09:00 07/29/19 08:48 Miscellaneous Medication SC 0.3 mls BID [place] Administration Insulin Human Lispro 0 units 07/23/19 18:05 07/29/19 08:47 Humalog SC 6 unit .AGGRESSIVE SLIDING PRN Administration Aggressive Correctional Scale Levothyroxine Sodium 100 mcg 07/24/19 06:00 07/29/19 05:27 Synthroid PO 100 mcg 0600 [place] Administration Lorazepam 2 mg 07/22/19 23:43 07/29/19 07:19 Ativan SLOW IVP 08/21/19 23:43 2 mg Q1H PRN Administration Breakthrough agitation Metoprolol Tartrate 25 mg 07/28/19 21:00 07/29/19 08:53 Lopressor PO Not Given BID [facility] Miscellaneous Medication 1 pkt 07/23/19 11:01 07/23/19 12:47 Phos-Nak PO 1 pkt TIDPRN PRN Administration FOR PHOS LEVEL 1.0 - 1.8 Potassium Chloride 40 meq 07/23/19 11:01 07/29/19 08:51 Klor-Con PER TUBE 40 meq ASDIR PRN Administration FOR SERUM K+ 2.5-3.5 Propofol 1,000 mg 07/22/19 23:43 07/27/19 07:23 Diprivan IV 08/21/19 23:43 1,000 mg INF PRN Administration TO ACHIEVE GOAL RASS Protocol Sertraline HCl 50 mg 07/24/19 09:00 07/29/19 08:52 Zoloft PO 50 mg DAILY [place] Administration Sodium Bicarbonate 975 mg 07/23/19 21:00 07/29/19 08:51 Bicarbonate, Sodium PO 975 mg BID [place] Administration Sodium Chloride 10 ml 07/23/19 09:00 07/29/19 10:10 Flush - Normal Saline IVF 10 ml Q12HR [place] Administration - Exam Eye: PERRL, anicteric sclera ENT: no oropharyngeal lesions, dry oral mucosa Neck: supple, no JVD Heart: RRR, no murmur Respiratory: no wheezes, no rales Gastrointestinal: soft, non-tender, non-distended, normal bowel sounds Extremities: no cyanosis, no edema Neurological: cranial nerve grossly intact, no focal deficits Hosp A/P (1) Acute metabolic encephalopathy Code(s): G93.41 - METABOLIC ENCEPHALOPATHY Status: Acute (2) DKA (diabetic ketoacidoses) Code(s): E11.10 - TYPE 2 DIABETES MELLITUS WITH KETOACIDOSIS WITHOUT COMA Status: Resolved Qualifiers: Diabetes mellitus type: type 2 (3) Acute worsening of stage 3 chronic kidney disease Code(s): N18.3 - CHRONIC KIDNEY DISEASE, STAGE 3 (MODERATE) Status: Acute (4) Metabolic acidosis Code(s): E87.2 - ACIDOSIS Status: Acute (5) Anemia, normocytic normochromic Code(s): D64.9 - ANEMIA, UNSPECIFIED Status: Chronic (6) Anxiety and depression Code(s): F41.9 - ANXIETY DISORDER, UNSPECIFIED; F32.9 - MAJOR DEPRESSIVE DISORDER, SINGLE EPISODE, UNSPECIFIED Status: Chronic (7) DM type 2 (diabetes mellitus, type 2) Status: Chronic Qualifiers: Diabetes mellitus entertainment musician insulin use: with fci use Diabetes mellitus complication status: with kidney complications Diabetes mellitus complication detail: with chronic kidney disease Chronic kidney disease stage : stage 3 (moderate) Qualified Code(s): E11.22 - Type 2 diabetes mellitus with diabetic chronic kidney disease; N18.3 - Chronic kidney disease, stage 3 ( moderate); 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 (8) Dyslipidemia Code(s): E78.5 - HYPERLIPIDEMIA, UNSPECIFIED Status: Chronic (9) Hypertension Code(s): I10 - ESSENTIAL (PRIMARY) HYPERTENSION Status: Chronic Qualifiers: Hypertension type: essential hypertension Qualified Code(s): I10 - Essential (primary) hypertension (10) Sepsis Code(s): A41.9 - SEPSIS, UNSPECIFIED ORGANISM Status: Resolved Qualifiers: Sepsis type: sepsis due to unspecified organism (11) Obesity Code(s): E66.9 - OBESITY, UNSPECIFIED Status: Chronic Qualifiers: Obesity classification: adult class 3 (BMI >= 40) Body mass index: BMI 50.0 -59.9 (12) Acute respiratory failure with hypoxia Code(s): J96.01 - ACUTE RESPIRATORY FAILURE WITH HYPOXIA Status: Acute - Plan weaning per pulm advice is on haldol, increase lantus to 30u bid. dka is resolved, is on 1/2 ns on ceftriaxone, lipitor, welbutrin, cymbalta, zoloft, synthroid hemostable
--- NOTE | 2019-07-29 16:47 | PRG ---
DATE OF SERVICE: 07/29/2019 SUBJECTIVE: A 58-year-old female, being seen for acute kidney injury. The patient is resting and intubated. OBJECTIVE: General: The patient is awake and alert. Vital Signs: Afebrile, pulse 52, breathing at 16, blood pressure 147/71. HEENT: Head normocephalic and atraumatic. Eyes intact, no ulcers. Nose intact, no ulcers. Ears intact, no ulcers. Neck: Supple. No JVD. Chest: Symmetrical and clear. Cardiovascular: Shows S1 and S2, no rub, no murmur. Gastrointestinal: Abdomen is soft, bowel sounds positive. Extremities: Show no edema or ulcers. Skin: Shows no rash or petechiae. Musculoskeletal: Shows no joint swelling or stiffness. Genitourinary: Shows no Cuevas or CVA tenderness. Neurologic: The patient is resting. LABORATORY DATA: Show hemoglobin 8.4. Creatinine 2.9. ASSESSMENT AND PLAN: 1. Acute kidney injury, improved. 2. Hypertension, stable. 3. Anemia, stable. 4. Hypokalemia. Recommend potassium replacement. 5. No indication for dialysis. We will follow renal function closely. Baseline creatinine is 2. The patient is getting closer to baseline. Job ID: [id number]
--- NOTE | 2019-07-29 17:10 | PRG ---
DATE OF SERVICE: 07/29/2019 SUBJECTIVE: David Verdugo appears to be slowly clinically improving. OBJECTIVE: VITAL SIGNS: Heart rate 60, blood pressure 130/58, respiratory rate in the teens. LUNGS: Distant and equal breath sounds. HEART: Regular rhythm. ABDOMEN: Soft. EXTREMITIES: Without any change. NEUROLOGIC: Grossly nonfocal. LABORATORY DATA: White count 8.3, hemoglobin 8.4, platelets 180. Sodium 141, potassium 3.4, chloride 107, bicarb 26, BUN 45, creatinine 2.94. IMPRESSION: 1. Encephalopathy secondary to hyperosmolar state. 2. Yaacv-od-mabxlnz kidney disease. 3. Diabetes. 4. Hypoalbuminemia, most likely secondary to massive proteinuria. 5. 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 6. Life-threatening obesity. Her BMI is close to 60. 7. Renal function has improved somewhat and she has avoided dialysis. She is not weanable until her mental status is consistently more stable in my opinion. CRITICAL CARE TIME: 30 minutes. Job ID: [id number]
[2019-07-29] MEDS: Atorvastatin Calcium 20 MG TAB PO SCH (21:06)
[2019-07-30] MEDS: HumaLOG 300 UNITS/3 ML VIAL SC PRN ×6 (01:38→22:50)
[2019-07-30] MEDS: Lorazepam 2 MG/ML VIAL SLOW IVP PRN ×6 (01:46→21:34)
[2019-07-30] MEDS: Haloperidol Lactate 5 MG/ML VIAL IM SCH ×4 (03:59→22:23)
[2019-07-30 04:52] LABS: ALT (SGPT) 21 U/L (8-55); AST (SGOT) 13 U/L (5-34); Albumin 2.5 g/dL (3.5-5.0); Alkaline Phosphatase 128 U/L (40-110); Anion Gap 14 mmol/L (10-20); BUN (Urea Nitrogen) 48 mg/dL (9.8-20.1); Bilirubin, Total Less than 0.2 mg/dL (0.2-1.2); Calc. Creatinine Clearance 60 mL/min (70-130); Calcium 8.1 mg/dL (7.8-10.44); Carbon Dioxide 24 mmol/L (22-29); Chloride 107 mmol/L (98-107); Estimated GFR-MDRD 17; Globulin 3.4 g/dL (2.4-3.5); Glucose 280 mg/dL (70-105); Potassium 3.9 mmol/L (3.5-5.1); Protein, Total 5.9 g/dL (6.0-8.3); Sodium 141 mmol/L (136-145)
[2019-07-30 05:05] LABS: Band 4 % (5-11); Hemoglobin 8.4 g/dL (12.0-16.0); Lymphocytes 8 % (21-51); MDiff Complete? YES; Mean Corpuscular HGB CONC 33.4 g/dL (32.0-36.0); Mean Corpuscular Hemoglobin 31.3 pg (27.0-31.0); Mean Corpuscular Volume 93.6 fL (78.0-98.0); Mean Platelet Volume 8.3 fL (7.4-10.4); Metamyelocyte 1 % (0-0); Monocytes 10 % (0-10); Neutrophil 77 % (42-75); Platelet Count 188 thou/uL (130-400); Red Blood Cell (RBC) Count 2.68 mill/uL (4.20-5.40); White Blood Cell (WBC) Count 8.1 thou/uL (4.8-10.8)
[2019-07-30] MEDS: Levothyroxine Sodium 100 MCG TAB PO SCH (06:49)
--- NOTE | 2019-07-30 09:08 | RAD ---
PORTABLE CHEST 1 VIEW: Date: 07/30/2019 Time: 0442 hours HISTORY: Respiratory distress. COMPARISON: 07/26/2019. FINDINGS/IMPRESSION: Endotracheal and nasogastric tubes remain in place. The heart size is enlarged. Patchy air space opac ity in the right lower lung is again seen. No pneumothoraces or large effusions are identified. POS: ALLYSON
[2019-07-30] MEDS: Sodium Chloride 0.45% 1,000 ML IV SCH ×2 (09:29→16:17)
[2019-07-30] MEDS: cefTRIAXone\\ROCEPHIN 2 GM in Sodium Chloride 0.9% 100 ML IVPB SCH ×2 (09:31→21:30)
[2019-07-30] MEDS: DULoxetine 60 MG CAP PO SCH (09:33)
[2019-07-30] MEDS: Heparin 5,000 UNITS/ML VIAL SC SCH ×3 (09:35→21:31)
[2019-07-30] MEDS: Famotidine/PF 20 mg/2ml Vial SLOW IVP SCH (09:35)
[2019-07-30] MEDS: Metoprolol Tartrate 25 MG TAB PO SCH ×2 (09:35→21:32)
[2019-07-30] MEDS: Bupropion 150 MG XL TAB PO SCH (09:36)
[2019-07-30] MEDS: Sodium Bicarbonate Tab 325 MG TAB PO SCH ×2 (09:36→21:33)
[2019-07-30] MEDS: Insulin Glargine 30 UNITS in Pre-Filled Syringe 1 EACH SC SCH ×2 (09:36→21:31)
--- NOTE | 2019-07-30 12:23 | PRG ---
DATE OF SERVICE: 07/30/2019 SUBJECTIVE: The patient is seen and examined in ICU. Remains intubated. OBJECTIVE: VITAL SIGNS: Temperature 98.4, pulse 57, respiratory rate 18, blood pressure 150/72. HEENT: Intubated. CV: S1 and S2 heard. RESPIRATORY: Clear. MUSCULOSKELETAL: 1+ edema. NEUROLOGIC: Intubated. LABORATORY DATA: Potassium 3.8, BUN is 48, and creatinine is 2.9. ASSESSMENT AND PLAN: 1. Acute kidney injury with stable creatinine closer to her baseline. 2. Hypertension. 3. Anemia. 4. Acute hypoxic respiratory failure, intubated. 5. Hypokalemia, replace. 6. No acute indication for dialysis. We will monitor. Job ID: [id number]
--- NOTE | 2019-07-30 12:27 | PRG ---
DATE OF SERVICE: 07/30/2019 SUBJECTIVE: David Verdugo will awaken and follow commands intermittently, but she gets pretty combative and tachypneic. OBJECTIVE: VITAL SIGNS: Heart rates in the 50s, blood pressure is 150/72, and respiratory rate is in the teens. LUNGS: Unchanged. HEART: Unchanged. ABDOMEN: Unchanged. EXTREMITIES: Unchanged. LABORATORY DATA: White count 8.1, hemoglobin 8.4, and platelets 188. Electrolytes are unremarkable. Creatinine is 2.94. I suspect she is getting close to her baseline. Chest x-ray is unchanged. IMPRESSION: Respiratory failure associated with encephalopathy associated with a hyperosmolar state. Decrease ventilatory support breathing trial tomorrow. Critical care time 30 min. Job ID: [id number] MTDD
--- NOTE | 2019-07-30 12:56 | PDOC.HOSPP ---
- Subjective Encounter Date: 07/30/19 Encounter Time: 12:00 Subjective: sedated on vent gets combative when weaning trials are on per staff - Objective Vital Signs & Weight: Vital Signs (12 hours) Temp Pulse Resp BP Pulse Ox 07/30/19 10:31 48 L 150/72 H 07/30/19 10:00 16 07/30/19 08:00 14 100 07/30/19 07:00 98.4 F 07/30/19 06:56 49 L 149/88 H 07/30/19 06:00 13 07/30/19 04:11 50 L 07/30/19 04:00 97.5 F L 15 07/30/19 02:00 15 Weight Admit Weight 361 lb Weight 387 lb 11.2 oz Most Recent Monitor Data Heart Rate from ECG 53 NIBP 148/82 NIBP BP-Mean 104 Respiration from ECG 18 SpO2 96 I&O: 07/29/19 07/30/19 07/31/19 06:59 06:59 06:59 Intake Total 4341 3883 Output Total 2440 1290 165 Balance 1901 2593 -165 Result Diagrams: 07/30/19 04:05 07/30/19 04:05 Additional Labs: Accuchecks 07/30/19 07/30/19 07/30/19 09:35 04:01 01:30 POC Glucose 300 H 282 H 302 H 07/29/19 07/29/19 07/29/19 20:00 16:30 12:37 POC Glucose 295 H 286 H 282 H 07/28/19 07/27/19 07/27/19 08:05 16:03 12:36 POC Glucose 311 H 283 H 233 H 07/27/19 08:20 POC Glucose 220 H Hospitalist ROS - Medication Medications: Active Medications Generic Name Dose Route Start Last Admin Trade Name Freq PRN Reason Stop Dose Admin Acetaminophen 650 mg 07/23/19 16:54 07/24/19 05:57 Tylenol PO 650 mg Q6H PRN Administration Fever > 101 Atorvastatin Calcium 20 mg 07/23/19 21:00 07/29/19 21:06 Lipitor PO 20 mg HS MADISON Administration Bupropion HCl 300 mg 07/24/19 09:00 07/30/19 09:36 Wellbutrin Xl PO 300 mg QAM MADISON Administration Duloxetine HCl 60 mg 07/24/19 09:00 07/30/19 09:33 Cymbalta PO 60 mg DAILY MADISON Administration Famotidine 20 mg 07/23/19 09:00 07/30/19 09:35 Pepcid SLOW IVP 20 mg DAILY MADISON Administration Haloperidol Lactate 10 mg 07/26/19 10:00 07/30/19 09:35 Haldol IM 10 mg Q6H MAD[facility] Administration Heparin Sodium (Porcine) 5,000 units 07/23/19 09:00 07/30/19 09:35 Heparin SC 5,000 units TID MADISON Administration Hydralazine HCl 20 mg 07/27/19 09:14 07/28/19 17:09 Apresoline SLOW IVP 20 mg Q6H PRN Administration SBP Greater Than 170 Nicardipine HCl 50 mg/ Sodium 250 mls @ 0 mls/hr 07/23/19 00:15 07/23/19 05: 11 Chloride IV 250 mls INF MADISON Administration Protocol As Directed Sodium Chloride 1,000 mls @ 500 mls/hr 07/23/19 04:42 07/23/19 07:29 Normal Saline 0.9% IV 1,000 mls INF PRN Administration STEP 2: DKA PROTOCOL Protocol Ceftriaxone Sodium 2 gm/ 100 mls @ 200 mls/hr 07/23/19 20:00 07/30/19 09:31 Sodium Chloride IVPB 100 mls 0800,2000 MADISON Administration Dexmedetomidine HCl 400 mcg/ 100 mls @ 0 mls/hr 07/28/19 00:45 07/30/19 09:48 Sodium Chloride IVPB 100 mls INF MADISON Administration Protocol Per Protocol Sodium Chloride 1,000 mls @ 75 mls/hr 07/28/19 10:30 07/30/19 09:29 1/2 Normal Saline IV Not Given .[id number] MADISON Insulin Glargine 30 units/ 0.3 mls @ 0 mls/hr 07/29/19 09:00 07/30/19 09:36 Miscellaneous Medication SC 0.3 mls BID MADISON Administration Insulin Human Lispro 0 units 07/23/19 18:05 07/30/19 09:34 Humalog SC 9 unit .AGGRESSIVE SLIDING PRN Administration Aggressive Correctional Scale Levothyroxine Sodium 100 mcg 07/24/19 06:00 07/30/19 06:49 Synthroid PO 100 mcg 0600 [facility] Administration Lorazepam 2 mg 07/22/19 23:43 07/30/19 10:27 Ativan SLOW IVP 08/21/19 23:43 2 mg Q1H PRN Administration Breakthrough agitation Metoprolol Tartrate 25 mg 07/28/19 21:00 07/30/19 09:35 Lopressor PO 25 mg BID [place] Administration Miscellaneous Medication 1 pkt 07/23/19 11:01 07/23/19 12:47 Phos-Nak PO 1 pkt TIDPRN PRN Administration FOR PHOS LEVEL 1.0 - 1.8 Potassium Chloride 40 meq 07/23/19 11:01 07/29/19 08:51 Klor-Con PER TUBE 40 meq ASDIR PRN Administration FOR SERUM K+ 2.5-3.5 Propofol 1,000 mg 07/22/19 23:43 07/27/19 07:23 Diprivan IV 08/21/19 23:43 1,000 mg INF PRN Administration TO ACHIEVE GOAL RASS Protocol Sertraline HCl 50 mg 07/24/19 09:00 07/30/19 09:34 Zoloft PO 50 mg DAILY M[place] Administration Sodium Bicarbonate 975 mg 07/23/19 21:00 07/30/19 09:36 Bicarbonate, Sodium PO 975 mg BID M[place] Administration Sodium Chloride 10 ml 07/23/19 09:00 07/30/19 10:26 Flush - Normal Saline IVF 10 ml Q12HR MADISON Administration - Exam Eye: PERRL, anicteric sclera ENT: no oropharyngeal lesions, dry oral mucosa Neck: supple, no JVD Heart: RRR, no murmur Respiratory: no wheezes, no rales Gastrointestinal: soft, non-tender, non-distended, normal bowel sounds Extremities: no cyanosis, 1+ LE edema Neurological: cranial nerve grossly intact, no focal deficits Hosp A/P (1) Acute metabolic encephalopathy Code(s): G93.41 - METABOLIC ENCEPHALOPATHY Status: Acute (2) DKA (diabetic ketoacidoses) Code(s): E11.10 - TYPE 2 DIABETES MELLITUS WITH KETOACIDOSIS WITHOUT COMA Status: Resolved Qualifiers: Diabetes mellitus type: type 2 (3) Acute worsening of stage 3 chronic kidney disease Code(s): N18.3 - CHRONIC KIDNEY DISEASE, STAGE 3 (MODERATE) Status: Acute (4) Metabolic acidosis Code(s): E87.2 - ACIDOSIS Status: Resolved (5) Anemia, normocytic normochromic Code(s): D64.9 - ANEMIA, UNSPECIFIED Status: Chronic (6) Anxiety and depression Code(s): F41.9 - ANXIETY DISORDER, UNSPECIFIED; F32.9 - MAJOR DEPRESSIVE DISORDER, SINGLE EPISODE, UNSPECIFIED Status: Chronic (7) DM type 2 (diabetes mellitus, type 2) Status: Chronic Qualifiers: Diabetes mellitus intermediate insulin use: with intermediate use Diabetes mellitus complication status: with kidney complications Diabetes mellitus complication detail: with chronic kidney disease Chronic kidney disease stage : stage 3 (moderate) Qualified Code(s): E11.22 - Type 2 diabetes mellitus with diabetic chronic kidney disease; N18.3 - Chronic kidney disease, stage 3 ( moderate); Z79.4 - residential (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 of 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 (8) Dyslipidemia Code(s): E78.5 - HYPERLIPIDEMIA, UNSPECIFIED Status: Chronic (9) Hypertension Code(s): I10 - ESSENTIAL (PRIMARY) HYPERTENSION Status: Chronic Qualifiers: Hypertension type: essential hypertension Qualified Code(s): I10 - Essential (primary) hypertension (10) Sepsis Code(s): A41.9 - SEPSIS, UNSPECIFIED ORGANISM Status: Resolved Qualifiers: Sepsis type: sepsis due to unspecified organism (11) Obesity Code(s): E66.9 - OBESITY, UNSPECIFIED Status: Chronic Qualifiers: Obesity classification: adult class 3 (BMI >= 40) Body mass index: BMI 50.0 -59.9 (12) Acute respiratory failure with hypoxia Code(s): J96.01 - ACUTE RESPIRATORY FAILURE WITH HYPOXIA Status: Acute - Plan weaning per pulm advice is on haldol, lantus to 30u bid, home dose glipizide and gliptin. dka ladan resolved, is on 1/2 ns on ceftriaxone, lipitor, welbutrin, cymbalta, zoloft, synthroid hemostable
--- NOTE | 2019-07-30 17:05 | PDOC.PALCO ---
Palliative Care Consult - Consult Details Requesting Physician: Dr Stephens Reason for Consult: goals of care, family support Family Members Present: Patient sister Maribell who is also MPOA over the phone - Pertinent HPI 58 year old female who presented to the emergency room with altered mental status, pronounced hyperglycemia. Combative, required ketamine for CT of brain and neck. Family reported that patient was found unresponsive and called EMS. Continued with altered mental status, hypertensive crisis. Was intubated to protect airway and admitted to the CCU for further evaluation and medical management. Complicated admission, Dr Ramírez hopeful for decrease in vent support 07/30 with breathing trial. - Pertinent PMH Pulmonary embolism, diabetes, morbid obesity, hypertension, HDL. - Social History Smoking Status: Never smoker Smoking: no tobacco exposure Alcohol Use: none Drug Use History: none Living Situation: independent - Medications MAR Reviewed: Yes - Allergies Allergies/Adverse Reactions: Allergies Allergy/AdvReac Type Severity Reaction Status Date / Time ciprofloxacin Allergy Verified 07/23/19 01:20 meloxicam Allergy Verified 07/23/19 01:20 morphine Allergy Verified 07/23/19 01:20 sulfamethoxazole Allergy Verified 07/23/19 01:20 [From Bactrim] trimethoprim [From Bactrim] Allergy Verified 07/23/19 01:20 - Subjective Mechanically intubated, sedated, encephalopathic - ROS Non Response: due to endotracheal tube, due to mental status - Objective Vital Signs: Vital Signs - Most Recent Temp Pulse Resp BP Pulse Ox 98.4 F 56 L 19 168/68 H 100 07/30/19 15:00 07/30/19 14:15 07/30/19 16:00 07/30/19 14:15 07/30/19 08:00 Palliative Performance Scale: 20 - Advance Directives Medical Power of Senior Bi Developer: Maribell Williamson, patient sister. Paper work scanned in - Physical Exam Constitutional: encephalitic, ill appearing HEENT: moist MMs Deviation from normal: Mechanical ventilation Cardiovascular: RRR Gastrointestinal: incontinent Deviation from normal: obese Genitourinary: fitzgerald catheter Musculoskeletal: no cyanosis, no clubbing, pulses present Deviation from normal: sedated Skin: bruising, fragile Deviation from normal: sedated, encephalopathic - Problem List (1) Palliative care encounter Code(s): Z51.5 - ENCOUNTER FOR PALLIATIVE CARE Current Visit: Yes Status: Acute (2) Respiratory failure requiring intubation Code(s): J96.90 - RESPIRATORY FAILURE, UNSP, UNSP W HYPOXIA OR HYPERCAPNIA Current Visit: Yes Status: Acute (3) Acute respiratory failure with hypoxia Code(s): J96.01 - ACUTE RESPIRATORY FAILURE WITH HYPOXIA Current Visit: Yes Status: Acute (4) Obesity Code(s): E66.9 - OBESITY, UNSPECIFIED Current Visit: Yes Status: Chronic Qualifiers: Obesity classification: adult class 3 (BMI >= 40) Body mass index: BMI 50.0 -59.9 (5) DKA (diabetic ketoacidoses) Code(s): E11.10 - TYPE 2 DIABETES MELLITUS WITH KETOACIDOSIS WITHOUT COMA Current Visit: Yes Status: Resolved Qualifiers: Diabetes mellitus type: type 2 (6) Acute worsening of stage 3 chronic kidney disease Code(s): N18.3 - CHRONIC KIDNEY DISEASE, STAGE 3 (MODERATE) Current Visit: No Status: Acute (7) COPD exacerbation Code(s): J44.1 - CHRONIC OBSTRUCTIVE PULMONARY DISEASE W (ACUTE) EXACERBATION Current Visit: No Status: Acute - Plan/Recommendations Plan: Assessed patient, reviewed records. Spoke with patient sister Maribell. Prior to admission patient lived independently and was able to carry out ADL. Reviewed current health status with Maribell and discussed Goals of Care from the perspective of "Hope for the Best/plan for the worst". Maribell states that she and her sister had discussed her wishes, and that currently she would not want to have resuscitative measures carried out. If she improves and able to transition to rehab she would like to rescind the DNAR. Maribell also states that her sister would not desire a Trach/Peg, but hopeful to have "the breathing tube removed" and get stronger. Transitioned to DNAR Alvina Barragan RN and Alvina Underwood RNcommunity health nurse witnessed. Communicated with Everett CAMPOS caring for patient. Maribell is requesting to face time tomorrow so she can talk to her sister and let her hear her voice, arranged for 4:30 when Maribell is off of work. [60] minutes spent on this encounter with >50% of the time in counseling and coordination of care. Thank you for this very appropriate consult.
[2019-07-30] MEDS: Atorvastatin Calcium 20 MG TAB PO SCH (21:31)
[2019-07-30] MEDS: Pregabalin 75 MG CAP PO SCH (21:32)
[2019-07-30] MEDS: Timolol 0.5% Ophth Soln 5 ml Bottle R EYE SCH (22:22)
[2019-07-31] MEDS: Lorazepam 2 MG/ML VIAL SLOW IVP PRN (00:40)
[2019-07-31] MEDS: HumaLOG 300 UNITS/3 ML VIAL SC PRN ×6 (00:51→20:35)
[2019-07-31 04:34] LABS: ALT (SGPT) 17 U/L (8-55); AST (SGOT) 9 U/L (5-34); Albumin 2.4 g/dL (3.5-5.0); Alkaline Phosphatase 154 U/L (40-110); Anion Gap 14 mmol/L (10-20); BUN (Urea Nitrogen) 52 mg/dL (9.8-20.1); Bilirubin, Total Less than 0.2 mg/dL (0.2-1.2); Calc. Creatinine Clearance 61 mL/min (70-130); Calcium 8.2 mg/dL (7.8-10.44); Carbon Dioxide 22 mmol/L (22-29); Chloride 109 mmol/L (98-107); Estimated GFR-MDRD 17; Globulin 3.4 g/dL (2.4-3.5); Glucose 289 mg/dL (70-105); Protein, Total 5.8 g/dL (6.0-8.3); Sodium 141 mmol/L (136-145)
[2019-07-31] MEDS: Haloperidol Lactate 5 MG/ML VIAL IM SCH ×4 (04:35→22:10)
[2019-07-31] MEDS: Levothyroxine Sodium 100 MCG TAB PO SCH (05:23)
[2019-07-31] MEDS: Sodium Chloride 0.45% 1,000 ML IV SCH ×2 (05:23→17:59)
[2019-07-31 05:36] LABS: Band 12 % (5-11); Eosinophils 1 % (0-10); Lymphocytes 10 % (21-51); MDiff Complete? YES; Mean Corpuscular HGB CONC 32.2 g/dL (32.0-36.0); Mean Corpuscular Hemoglobin 29.6 pg (27.0-31.0); Mean Platelet Volume 8.4 fL (7.4-10.4); Monocytes 6 % (0-10); Neutrophil 71 % (42-75); Platelet Count 202 thou/uL (130-400); Red Blood Cell (RBC) Count 2.71 mill/uL (4.20-5.40); White Blood Cell (WBC) Count 7.2 thou/uL (4.8-10.8)
[2019-07-31] MEDS: glipiZIDE 5 MG TAB PO SCH (07:26)
[2019-07-31] MEDS: cefTRIAXone\\ROCEPHIN 2 GM in Sodium Chloride 0.9% 100 ML IVPB SCH ×2 (07:46→20:08)
[2019-07-31] MEDS: Famotidine/PF 20 mg/2ml Vial SLOW IVP SCH (09:29)
[2019-07-31] MEDS: Heparin 5,000 UNITS/ML VIAL SC SCH ×3 (09:29→20:17)
[2019-07-31] MEDS: DULoxetine 60 MG CAP PO SCH (09:29)
[2019-07-31] MEDS: Alogliptin 25 MG TAB PO SCH (09:29)
[2019-07-31] MEDS: Insulin Glargine 30 UNITS in Pre-Filled Syringe 1 EACH SC SCH ×2 (09:30→20:18)
[2019-07-31] MEDS: Metoprolol Tartrate 25 MG TAB PO SCH ×2 (09:31→20:25)
[2019-07-31] MEDS: Pregabalin 75 MG CAP PO SCH ×2 (09:31→20:25)
[2019-07-31] MEDS: Sodium Bicarbonate Tab 325 MG TAB PO SCH ×2 (09:34→20:25)
[2019-07-31] MEDS: Timolol 0.5% Ophth Soln 5 ml Bottle R EYE SCH ×2 (10:15→20:20)
[2019-07-31] MEDS ORDERED: buPROPion 75 MG TAB PO SCH (10:30)
[2019-07-31] MEDS: Bupropion 150 MG XL TAB PO SCH (11:26)
--- NOTE | 2019-07-31 14:15 | PDOC.HOSPP ---
- Subjective Encounter Date: 07/31/19 Encounter Time: 07:40 Subjective: is on vent, sedated no overnight issues - Objective Vital Signs & Weight: Vital Signs (12 hours) Temp Pulse Resp BP 07/31/19 12:00 99 F 19 07/31/19 11:06 51 L 07/31/19 10:15 54 L 161/65 H 07/31/19 10:00 15 07/31/19 08:00 98.9 F 14 07/31/19 07:00 51 L 134/56 L 07/31/19 06:00 18 07/31/19 05:00 98.5 F 07/31/19 04:00 21 H 07/31/19 02:17 52 L Weight Admit Weight 361 lb Weight 388 lb 10.799 oz Most Recent Monitor Data Heart Rate from ECG 52 NIBP 147/66 NIBP BP-Mean 93 Respiration from ECG 16 SpO2 100 I&O: 07/30/19 07/31/19 08/01/19 06:59 06:59 06:59 Intake Total 3883 3553 425 Output Total 1290 1160 419 Balance 2593 2393 6 Result Diagrams: 07/31/19 04:00 07/31/19 04:00 Additional Labs: Accuchecks 07/31/19 07/30/19 07/30/19 00:53 22:48 16:12 POC Glucose 255 H 282 H 301 H 07/30/19 14:00 POC Glucose 305 H Hospitalist ROS - Medication Medications: Active Medications Generic Name Dose Route Start Last Admin Trade Name Freq PRN Reason Stop Dose Admin Acetaminophen 650 mg 07/23/19 16:54 07/24/19 05:57 Tylenol PO 650 mg Q6H PRN Administration Fever > 101 Alogliptin Benzoate 25 mg 07/31/19 09:00 07/31/19 09:29 Alogliptin PO 25 mg DAILY MAD[facility] Administration Atorvastatin Calcium 20 mg 07/23/19 21:00 07/30/19 21:31 Lipitor PO 20 mg HS MADISON Administration Duloxetine HCl 60 mg 07/24/19 09:00 07/31/19 09:29 Cymbalta PO 60 mg DAILY M[facility] Administration Glipizide 5 mg 07/31/19 07:30 07/31/19 07:26 Glucotrol PO 5 mg DAILY-AC MADISON Administration Haloperidol Lactate 10 mg 07/26/19 10:00 07/31/19 09:35 Haldol IM 10 mg Q6H M[facility] Administration Heparin Sodium (Porcine) 5,000 units 07/23/19 09:00 07/31/19 09:29 Heparin SC 5,000 units TID MAD[facility] Administration Hydralazine HCl 20 mg 07/27/19 09:14 07/28/19 17:09 Apresoline SLOW IVP 20 mg Q6H PRN Administration SBP Greater Than 170 Nicardipine HCl 50 mg/ Sodium 250 mls @ 0 mls/hr 07/23/19 00:15 07/23/19 05: 11 Chloride IV 250 mls INF M[facility] Administration Protocol As Directed Ceftriaxone Sodium 2 gm/ 100 mls @ 200 mls/hr 07/23/19 20:00 07/31/19 07:46 Sodium Chloride IVPB 100 mls 0800,2000 M[facility] Administration Dexmedetomidine HCl 400 mcg/ 100 mls @ 0 mls/hr 07/28/19 00:45 07/31/19 12:00 Sodium Chloride IVPB 100 mls INF M[facility] Administration Protocol Per Protocol Sodium Chloride 1,000 mls @ 75 mls/hr 07/28/19 10:30 07/31/19 05:23 1/2 Normal Saline IV 1,000 mls .[id number] M[facility] Administration Insulin Glargine 30 units/ 0.3 mls @ 0 mls/hr 07/29/19 09:00 07/31/19 09:30 Miscellaneous Medication SC 0.3 mls BID M[facility] Administration Insulin Human Lispro 0 units 07/23/19 18:05 07/31/19 12:53 Humalog SC 9 unit .AGGRESSIVE SLIDING PRN Administration Aggressive Correctional Scale Levothyroxine Sodium 100 mcg 07/24/19 06:00 07/31/19 05:23 Synthroid PO 100 mcg 0600 [facility] Administration Lorazepam 2 mg 07/22/19 23:43 07/31/19 00:40 Ativan SLOW IVP 08/21/19 23:43 2 mg Q1H PRN Administration Breakthrough agitation Metoprolol Tartrate 25 mg 07/28/19 21:00 07/31/19 09:31 Lopressor PO 25 mg BID [facility] Administration Miscellaneous Medication 1 pkt 07/23/19 11:01 07/23/19 12:47 Phos-Nak PO 1 pkt TIDPRN PRN Administration FOR PHOS LEVEL 1.0 - 1.8 Potassium Chloride 40 meq 07/23/19 11:01 07/29/19 08:51 Klor-Con PER TUBE 40 meq ASDIR PRN Administration FOR SERUM K+ 2.5-3.5 Pregabalin 75 mg 07/30/19 21:00 07/31/19 09:31 Lyrica PO 75 mg BID [facility] Administration Propofol 1,000 mg 07/22/19 23:43 07/27/19 07:23 Diprivan IV 08/21/19 23:43 1,000 mg INF PRN Administration TO ACHIEVE GOAL RASS Protocol Sertraline HCl 50 mg 07/24/19 09:00 07/31/19 09:33 Zoloft PO 50 mg DAILY [facility] Administration Sodium Bicarbonate 975 mg 07/23/19 21:00 07/31/19 09:34 Bicarbonate, Sodium PO 975 mg BID M[facility] Administration Sodium Chloride 10 ml 07/23/19 09:00 07/31/19 10:12 Flush - Normal Saline IVF 10 ml Q12HR M[facility] Administration Timolol Maleate 1 drop 07/30/19 21:00 07/31/19 10:15 Timoptic 0.5% Ophth Soln R EYE 1 drop BID MAD[facility] Administration - Exam Eye: PERRL, anicteric sclera ENT: no oropharyngeal lesions, dry oral mucosa Neck: supple, no JVD Heart: RRR, no murmur Respiratory: no wheezes, rhonchi Gastrointestinal: soft, non-tender, non-distended, normal bowel sounds Extremities: no cyanosis, 1+ LE edema Neurological: cranial nerve grossly intact, no focal deficits Hosp A/P (1) Acute metabolic encephalopathy Code(s): G93.41 - METABOLIC ENCEPHALOPATHY Status: Acute (2) DKA (diabetic ketoacidoses) Code(s): E11.10 - TYPE 2 DIABETES MELLITUS WITH KETOACIDOSIS WITHOUT COMA Status: Resolved Qualifiers: Diabetes mellitus type: type 2 (3) Acute worsening of stage 3 chronic kidney disease Code(s): N18.3 - CHRONIC KIDNEY DISEASE, STAGE 3 (MODERATE) Status: Acute (4) Metabolic acidosis Code(s): E87.2 - ACIDOSIS Status: Resolved (5) Anemia, normocytic normochromic Code(s): D64.9 - ANEMIA, UNSPECIFIED Status: Chronic (6) Anxiety and depression Code(s): F41.9 - ANXIETY DISORDER, UNSPECIFIED; F32.9 - MAJOR DEPRESSIVE DISORDER, SINGLE EPISODE, UNSPECIFIED Status: Chronic (7) DM type 2 (diabetes mellitus, type 2) Status: Chronic Qualifiers: Diabetes mellitus termite control representative insulin use: with termite control representative use Diabetes mellitus complication status: with kidney complications Diabetes mellitus complication detail: with chronic kidney disease Chronic kidney disease stage : stage 3 (moderate) Qualified Code(s): E11.22 - Type 2 diabetes mellitus with diabetic chronic kidney disease; N18.3 - Chronic kidney disease, stage 3 ( moderate); Z79.4 - intermediate card tender (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 of insulin (8) Dyslipidemia Code(s): E78.5 - HYPERLIPIDEMIA, UNSPECIFIED Status: Chronic (9) Hypertension Code(s): I10 - ESSENTIAL (PRIMARY) HYPERTENSION Status: Chronic Qualifiers: Hypertension type: essential hypertension Qualified Code(s): I10 - Essential (primary) hypertension (10) Sepsis Code(s): A41.9 - SEPSIS, UNSPECIFIED ORGANISM Status: Resolved Qualifiers: Sepsis type: sepsis due to unspecified organism (11) Obesity Code(s): E66.9 - OBESITY, UNSPECIFIED Status: Chronic Qualifiers: Obesity classification: adult class 3 (BMI >= 40) Body mass index: BMI 50.0 -59.9 (12) Acute respiratory failure with hypoxia Code(s): J96.01 - ACUTE RESPIRATORY FAILURE WITH HYPOXIA Status: Acute - Plan weaning per pulm advice is on haldol, lantus to 30u bid, home dose glipizide and gliptin. dka has resolved, is on 1/2 ns on ceftriaxone, lipitor, welbutrin, cymbalta, zoloft, synthroid hemostable
[2019-07-31] MEDS ORDERED: methylPREDNISolone Sod Succ/PF 125 MG/2 ML VIAL IVP SCH (15:00)
--- NOTE | 2019-07-31 15:44 | PRG ---
DATE OF SERVICE: 07/31/2019 David Verdugo continues to be mechanically ventilated. She is sedated for ventilation. Lungs, heart, and abdomen are unchanged. Her hemodynamics are stable. IMPRESSION: 1. Encephalopathy secondary to hyperosmolar state. 2. Life-threatening obesity. 3. Probable sleep apnea. We will decrease her ventilatory support. We will give her one dose of steroids today and do a leak test in the morning. Prognosis is quite guarded. Job ID: [id number]
--- NOTE | 2019-07-31 16:11 | PRG ---
DATE OF SERVICE: 07/31/2019 SUBJECTIVE: The patient is seen and examined in ICU. Remains intubated. SUBJECTIVE: GENERAL: This is a morbidly obese female, intubated. VITAL SIGNS: Temperature 99, pulse 50, respiratory rate 18, blood pressure 159/71. HEENT: Intubated. CV: S1 and S2 heard. RESPIRATORY: Clear. GI: Abdomen obese. MUSCULOSKELETAL: 1+ edema. LABORATORY DATA: Potassium 4.0, BUN is 52, and creatinine is 2.8. ASSESSMENT AND PLAN: 1. Acute kidney injury, on chronic kidney disease stage 3. Renal function is stable. 2. History of hypertension. 3. Anemia. 4. Acute hypoxic respiratory failure. 5. Hyperkalemia, better. 6. Renal function is stable. We will follow. Job ID: [id number]
[2019-07-31] MEDS: Atorvastatin Calcium 20 MG TAB PO SCH (20:25)
[2019-07-31] MEDS: buPROPion 75 MG TAB PO SCH (20:28)
[2019-08-01] MEDS: HumaLOG 300 UNITS/3 ML VIAL SC PRN ×5 (01:26→22:44)
[2019-08-01] MEDS: hydrALAZINE 20 MG/ML VIAL SLOW IVP PRN (02:27)
[2019-08-01] MEDS: Acetaminophen 325 MG TAB PO PRN (03:00)
[2019-08-01] MEDS: Haloperidol Lactate 5 MG/ML VIAL IM SCH ×4 (03:51→21:10)
[2019-08-01 04:42] LABS: ALT (SGPT) 19 U/L (8-55); AST (SGOT) 13 U/L (5-34); Albumin 2.5 g/dL (3.5-5.0); Alkaline Phosphatase 220 U/L (40-110); Anion Gap 13 mmol/L (10-20); BUN (Urea Nitrogen) 64 mg/dL (9.8-20.1); Bilirubin, Total Less than 0.2 mg/dL (0.2-1.2); Calc. Creatinine Clearance 58 mL/min (70-130); Calcium 8.7 mg/dL (7.8-10.44); Carbon Dioxide 23 mmol/L (22-29); Chloride 108 mmol/L (98-107); Estimated GFR-MDRD 16; Globulin 3.6 g/dL (2.4-3.5); Glucose 302 mg/dL (70-105); Potassium 4.7 mmol/L (3.5-5.1); Protein, Total 6.1 g/dL (6.0-8.3); Sodium 139 mmol/L (136-145)
[2019-08-01 05:20] LABS: Band 5 % (5-11); Lymphocytes 9 % (21-51); MDiff Complete? YES; Mean Corpuscular HGB CONC 30.7 g/dL (32.0-36.0); Mean Corpuscular Hemoglobin 28.6 pg (27.0-31.0); Mean Corpuscular Volume 93.4 fL (78.0-98.0); Mean Platelet Volume 8.9 fL (7.4-10.4); Metamyelocyte 1 % (0-0); Monocytes 7 % (0-10); Myelocyte 1 % (0-0); Neutrophil 77 % (42-75); Platelet Count 233 thou/uL (130-400); Red Blood Cell (RBC) Count 2.78 mill/uL (4.20-5.40); Rouleaux Formation SLIGHT = 1-5 cells (100X) (None Seen); White Blood Cell (WBC) Count 7.7 thou/uL (4.8-10.8)
[2019-08-01] MEDS: Levothyroxine Sodium 100 MCG TAB PO SCH (06:20)
[2019-08-01 06:47] LABS: Actual Bicarbonate (HCO3a) 21.7 mEq/L (22-28); Base Excess (BEa) -4.7 mEq/L (-2.0 to +3.0); Calcium, Ionized 1.21 mmol/L (1.12-1.30); Carboxyhemoglobin (COHb) 0.6 gm% (0.0-3.0); Hemoglobin (Hb) 8.5 g/dL (12.0-16.0); O2 Tension (PaO2) 109.6 mmHg (80.0-100.0); Potassium - ABG Lab 4.17 mmol/L (3.70-5.30); pH, Arterial 7.28 (7.35-7.45)
[2019-08-01 06:50] LABS: Puncture Site RRA
[2019-08-01] MEDS: Lorazepam 2 MG/ML VIAL SLOW IVP PRN ×3 (07:08→23:41)
[2019-08-01] MEDS: cefTRIAXone\\ROCEPHIN 2 GM in Sodium Chloride 0.9% 100 ML IVPB SCH (07:58)
[2019-08-01] MEDS: glipiZIDE 5 MG TAB PO SCH (07:58)
[2019-08-01] MEDS: Sodium Chloride 0.45% 1,000 ML IV SCH ×2 (07:58→20:34)
[2019-08-01] MEDS: Timolol 0.5% Ophth Soln 5 ml Bottle R EYE SCH ×2 (08:11→20:33)
[2019-08-01] MEDS: DULoxetine 60 MG CAP PO SCH (08:13)
[2019-08-01] MEDS: Alogliptin 25 MG TAB PO SCH (08:13)
[2019-08-01] MEDS: Pregabalin 75 MG CAP PO SCH ×2 (08:13→20:30)
[2019-08-01] MEDS: Sodium Bicarbonate Tab 325 MG TAB PO SCH ×2 (08:14→20:30)
[2019-08-01] MEDS: Heparin 5,000 UNITS/ML VIAL SC SCH ×3 (08:16→20:32)
[2019-08-01] MEDS: Insulin Glargine 30 UNITS in Pre-Filled Syringe 1 EACH SC SCH ×2 (08:16→20:32)
[2019-08-01] MEDS: buPROPion 75 MG TAB PO SCH ×2 (08:17→21:09)
[2019-08-01] MEDS: Metoprolol Tartrate 25 MG TAB PO SCH (08:20)
[2019-08-01] MEDS ORDERED: Famotidine 20 MG TAB PO SCH (09:00)
--- NOTE | 2019-08-01 09:27 | RAD ---
PORTABLE CHEST 1 VIEW: DATE: 08/01/2019. TIME: 5:08 AM. HISTORY: Respiratory failure. COMPARISON: 07/30/2019. FINDINGS/IMPRESSION: Allowing for differences in technique, no significant interval change is seen since the previous exam . POS: ALLYSON
--- NOTE | 2019-08-01 12:52 | PRG ---
DATE OF SERVICE: 08/01/2019 SUBJECTIVE: The patient is seen and examined in ICU and remains intubated. OBJECTIVE: GENERAL: This is a morbidly obese female, intubated. VITAL SIGNS: Temperature 98.4, pulse 51, respiratory rate 18, blood pressure 148/63. HEENT: Intubated. CVS: S1 and S2 heard. RESPIRATORY: Clear. GI: Abdomen is soft. MUSCULOSKELETAL: 1 to 2+ edema. LABORATORY DATA: Potassium 4.7, BUN is 64, creatinine is 3.01. ASSESSMENT AND PLAN: 1. Acute kidney injury on chronic kidney disease, stage 3, stable. 2. Acute hypoxic respiratory failure with multiorgan failure with poor prognosis. 3. Hyperkalemia. 4. Hypertension. 5. Anemia. 6. Morbid obesity. Prognosis seems to be poor. No acute indication for dialysis. We will follow. Avoid nephrotoxins. Continue bicarb orally. Talked with the bedside nurse. Job ID: [id number]
--- NOTE | 2019-08-01 14:58 | PRG ---
DATE OF SERVICE: 08/01/2019 SUBJECTIVE: Ms. Verdugo's heart rates in the 50s, blood pressure 135/55, respiratory rates in the teens. When her sedation is decreased, she gets very tachypneic, agitated, and hypoxic. Lungs, heart, and abdomen are otherwise unchanged. LABORATORY DATA: White count 7.7, hemoglobin 8.0, platelets 233. Sodium 139, potassium 4.7, chloride 108, bicarb 23, BUN 64, and creatinine 3.04 up from 2.88. Intake and outputs, positive 2817. IMPRESSION: Respiratory failure associated with encephalopathy, which likely was secondary to a hyperosmolar state(nonketotic hyperglycemic coma). Because of her life-threatening obesity, I cannot see any way that she can be successfully and easily weaned from mechanical ventilation without a tracheostomy. I tried to contact the sister today, but she did not answer or return call. We will have this discussion as soon as we get a hold of her. Job ID: [id number]
--- NOTE | 2019-08-01 16:18 | PDOC.HOSPP ---
- Subjective Encounter Date: 08/01/19 Encounter Time: 11:15 Subjective: sedated on vent per staff she gets very agitated when tried to wean, also this am was trying to gag and was placed on ng suction for a while. - Objective Vital Signs & Weight: Vital Signs (12 hours) Temp Pulse Resp BP Pulse Ox 08/01/19 14:21 51 L 135/55 L 08/01/19 12:00 98.3 F 10 L 08/01/19 10:30 51 L 148/64 H 08/01/19 10:00 10 L 08/01/19 08:11 67 152/58 H 08/01/19 08:00 98.4 F 10 L 97 08/01/19 07:33 67 140/77 08/01/19 06:00 15 Weight Admit Weight 361 lb 5.4 oz Weight 391 lb 5.128 oz Most Recent Monitor Data Heart Rate from ECG 51 NIBP 133/59 NIBP BP-Mean 83 Respiration from ECG 13 SpO2 100 I&O: 07/31/19 08/01/19 08/02/19 06:59 06:59 06:59 Intake Total 3553 4284 640 Output Total 1160 1414 530 Balance 2393 2870 110 Result Diagrams: 08/01/19 04:00 08/01/19 04:00 Additional Labs: Accuchecks 08/01/19 08/01/19 08/01/19 11:36 04:52 01:19 POC Glucose 286 H 312 H 297 H 07/31/19 20:19 POC Glucose 298 H Hospitalist ROS - Medication Medications: Active Medications Generic Name Dose Route Start Last Admin Trade Name Freq PRN Reason Stop Dose Admin Acetaminophen 650 mg 07/23/19 16:54 08/01/19 03:00 Tylenol PO 650 mg Q6H PRN Administration Fever > 101 Alogliptin Benzoate 25 mg 07/31/19 09:00 08/01/19 08:13 Alogliptin PO 25 mg DAILY [place] Administration Atorvastatin Calcium 20 mg 07/23/19 21:00 07/31/19 20:25 Lipitor PO 20 mg HS [place] Administration Bupropion HCl 150 mg 07/31/19 21:00 08/01/19 08:17 Wellbutrin PO 150 mg BID [place] Administration Duloxetine HCl 60 mg 07/24/19 09:00 08/01/19 08:13 Cymbalta PO 60 mg DAILY [place] Administration Glipizide 5 mg 07/31/19 07:30 08/01/19 07:58 Glucotrol PO 5 mg DAILY-AC [place] Administration Haloperidol Lactate 10 mg 07/26/19 10:00 08/01/19 11:25 Haldol IM 10 mg Q6H [place] Administration Heparin Sodium (Porcine) 5,000 units 07/23/19 09:00 08/01/19 15:32 Heparin SC 5,000 units TID [place] Administration Hydralazine HCl 20 mg 07/27/19 09:14 08/01/19 02:27 Apresoline SLOW IVP 20 mg Q6H PRN Administration SBP Greater Than 170 Nicardipine HCl 50 mg/ Sodium 250 mls @ 0 mls/hr 07/23/19 00:15 07/23/19 05: 11 Chloride IV 250 mls INF [place] Administration Protocol As Directed Dexmedetomidine HCl 400 mcg/ 100 mls @ 0 mls/hr 07/28/19 00:45 08/01/19 11:50 Sodium Chloride IVPB 100 mls INF [place] Administration Protocol Per Protocol Sodium Chloride 1,000 mls @ 75 mls/hr 07/28/19 10:30 08/01/19 07:58 1/2 Normal Saline IV 1,000 mls .[id number] [place] Administration Insulin Glargine 30 units/ 0.3 mls @ 0 mls/hr 07/29/19 09:00 08/01/19 08:16 Miscellaneous Medication SC 0.3 mls BID [place] Administration Insulin Human Lispro 0 units 07/23/19 18:05 08/01/19 11:36 Humalog SC 9 unit .AGGRESSIVE SLIDING PRN Administration Aggressive Correctional Scale Levothyroxine Sodium 100 mcg 07/24/19 06:00 08/01/19 06:20 Synthroid PO 100 mcg 0600 [place] Administration Lorazepam 2 mg 07/22/19 23:43 08/01/19 07:08 Ativan SLOW IVP 08/21/19 23:43 2 mg Q1H PRN Administration Breakthrough agitation Miscellaneous Medication 1 pkt 07/23/19 11:01 07/23/19 12:47 Phos-Nak PO 1 pkt TIDPRN PRN Administration FOR PHOS LEVEL 1.0 - 1.8 Potassium Chloride 40 meq 07/23/19 11:01 07/29/19 08:51 Klor-Con PER TUBE 40 meq ASDIR PRN Administration FOR SERUM K+ 2.5-3.5 Pregabalin 75 mg 07/30/19 21:00 08/01/19 08:13 Lyrica PO 75 mg BID [place] Administration Propofol 1,000 mg 07/22/19 23:43 07/27/19 07:23 Diprivan IV 08/21/19 23:43 1,000 mg INF PRN Administration TO ACHIEVE GOAL RASS Protocol Sertraline HCl 50 mg 07/24/19 09:00 08/01/19 08:15 Zoloft PO 50 mg DAILY [place] Administration Sodium Bicarbonate 975 mg 07/23/19 21:00 08/01/19 08:14 Bicarbonate, Sodium PO 975 mg BID [place] Administration Sodium Chloride 10 ml 07/23/19 09:00 08/01/19 08:12 Flush - Normal Saline IVF 10 ml Q12HR [place] Administration Timolol Maleate 1 drop 07/30/19 21:00 08/01/19 08:11 Timoptic 0.5% Ophth Soln R EYE 1 drop BID [place] Administration - Exam Eye: PERRL, anicteric sclera ENT: no oropharyngeal lesions, dry oral mucosa Neck: supple, no JVD Heart: RRR, no gallops Respiratory: no wheezes, no rales, rhonchi Gastrointestinal: soft, non-tender, non-distended, normal bowel sounds Extremities: no cyanosis, no edema Neurological: cranial nerve grossly intact, no focal deficits Hosp A/P (1) Acute metabolic encephalopathy Code(s): G93.41 - METABOLIC ENCEPHALOPATHY Status: Acute (2) DKA (diabetic ketoacidoses) Code(s): E11.10 - TYPE 2 DIABETES MELLITUS WITH KETOACIDOSIS WITHOUT COMA Status: Resolved Qualifiers: Diabetes mellitus type: type 2 (3) Acute worsening of stage 3 chronic kidney disease Code(s): N18.3 - CHRONIC KIDNEY DISEASE, STAGE 3 (MODERATE) Status: Acute (4) Metabolic acidosis Code(s): E87.2 - ACIDOSIS Status: Resolved (5) Anemia, normocytic normochromic Code(s): D64.9 - ANEMIA, UNSPECIFIED Status: Chronic (6) Anxiety and depression Code(s): F41.9 - ANXIETY DISORDER, UNSPECIFIED; F32.9 - MAJOR DEPRESSIVE DISORDER, SINGLE EPISODE, UNSPECIFIED Status: Chronic (7) DM type 2 (diabetes mellitus, type 2) Status: Chronic Qualifiers: Diabetes mellitus salvage determiner insulin use: with prison use Diabetes mellitus complication status: with kidney complications Diabetes mellitus complication detail: with chronic kidney disease Chronic kidney disease stage : stage 3 (moderate) Qualified Code(s): E11.22 - Type 2 diabetes mellitus with diabetic chronic kidney disease; N18.3 - Chronic kidney disease, stage 3 ( moderate); Z79.4 - salvage determiner (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 of insulin (8) Dyslipidemia Code(s): E78.5 - HYPERLIPIDEMIA, UNSPECIFIED Status: Chronic (9) Hypertension Code(s): I10 - ESSENTIAL (PRIMARY) HYPERTENSION Status: Chronic Qualifiers: Hypertension type: essential hypertension Qualified Code(s): I10 - Essential (primary) hypertension (10) Sepsis Code(s): A41.9 - SEPSIS, UNSPECIFIED ORGANISM Status: Resolved Qualifiers: Sepsis type: sepsis due to unspecified organism (11) Obesity Code(s): E66.9 - OBESITY, UNSPECIFIED Status: Chronic Qualifiers: Obesity classification: adult class 3 (BMI >= 40) Body mass index: BMI 50.0 -59.9 (12) Acute respiratory failure with hypoxia Code(s): J96.01 - ACUTE RESPIRATORY FAILURE WITH HYPOXIA Status: Acute - Plan difficulty weaning due to ongoing agitation and instability when off sedation might need trach, day 10, is trying to reach family to confirm if they are willing for it. is on haldol, lantus 30u bid, home dose glipizide and gliptin. dka has resolved, gentle iv hydration on lipitor, welbutrin, cymbalta, zoloft, synthroid initiate oral meds when she remains calm from gagging along ng nutrition hemostable
[2019-08-01] MEDS: Atorvastatin Calcium 20 MG TAB PO SCH (20:30)
[2019-08-02] MEDS: HumaLOG 300 UNITS/3 ML VIAL SC PRN ×5 (00:54→20:25)
[2019-08-02] MEDS: Haloperidol Lactate 5 MG/ML VIAL IM SCH ×4 (04:07→21:36)
[2019-08-02 05:03] LABS: ALT (SGPT) 15 U/L (8-55); AST (SGOT) 7 U/L (5-34); Albumin 2.3 g/dL (3.5-5.0); Alkaline Phosphatase 183 U/L (40-110); Anion Gap 14 mmol/L (10-20); BUN (Urea Nitrogen) 64 mg/dL (9.8-20.1); Bilirubin, Total Less than 0.2 mg/dL (0.2-1.2); Calc. Creatinine Clearance 57 mL/min (70-130); Calcium 8.6 mg/dL (7.8-10.44); Carbon Dioxide 23 mmol/L (22-29); Chloride 107 mmol/L (98-107); Estimated GFR-MDRD 15; Globulin 3.5 g/dL (2.4-3.5); Glucose 249 mg/dL (70-105); Potassium 4.3 mmol/L (3.5-5.1); Protein, Total 5.8 g/dL (6.0-8.3); Sodium 140 mmol/L (136-145)
[2019-08-02 05:19] LABS: Band 10 % (5-11); Hemoglobin 7.4 g/dL (12.0-16.0); Lymphocytes 8 % (21-51); MDiff Complete? YES; Mean Corpuscular HGB CONC 31.7 g/dL (32.0-36.0); Mean Corpuscular Hemoglobin 29.8 pg (27.0-31.0); Mean Corpuscular Volume 94.2 fL (78.0-98.0); Mean Platelet Volume 8.5 fL (7.4-10.4); Monocytes 11 % (0-10); Myelocyte 2 % (0-0); Neutrophil 68 % (42-75); Platelet Count 242 thou/uL (130-400); RBC Distribution Width 14.4 % (11.5-14.5); Red Blood Cell (RBC) Count 2.47 mill/uL (4.20-5.40); White Blood Cell (WBC) Count 6.5 thou/uL (4.8-10.8)
[2019-08-02] MEDS: Levothyroxine Sodium 100 MCG TAB PO SCH (05:37)
[2019-08-02] MEDS ORDERED: Fentanyl BOLUS 250 ML IVPB PRN (07:31)
[2019-08-02 07:37] LABS: Actual Bicarbonate (HCO3a) 23.9 mEq/L (22-28); Base Excess (BEa) -2.8 mEq/L (-2.0 to +3.0); CO2 Tension 51.9 mmHg (35.0-45.0); Calcium, Ionized 1.24 mmol/L (1.12-1.30); Carboxyhemoglobin (COHb) 1.1 gm% (0.0-3.0); Hemoglobin (Hb) 7.9 g/dL (12.0-16.0); O2 Tension (PaO2) 115.6 mmHg (80.0-100.0); Potassium - ABG Lab 4.26 mmol/L (3.70-5.30); pH, Arterial 7.28 (7.35-7.45)
[2019-08-02 07:39] LABS: ALV-art Gradient 104.725 (0-20); Puncture Site RRA
[2019-08-02] MEDS ORDERED: fentaNYL Citrate/PF 2,000 MCG in Sodium Chloride 0.9% 60 ML IV SCH (07:45)
--- NOTE | 2019-08-02 08:22 | RAD ---
RADIOGRAPH CHEST 1 VIEW: Date: 08/02/2019. Time: 4:10 a.m. HISTORY: A 58-year-old female with respiratory failure. COMPARISON: 08/01/2019 at 5:08 a.m. FINDINGS: Endotracheal tube and esophagogastric tube remain. Mild to moderate infiltrate at right lung base is probably unchanged. Small focal pulmonary scar or subsegmental atelectasis in the left upper lobe r emains. No catherine pulmonary alveolar edema. No pneumothorax. No interval change. IMPRESSION: No interval change. JN [] POS: JIN
[2019-08-02] MEDS: Pregabalin 75 MG CAP PO SCH ×2 (08:42→20:23)
[2019-08-02] MEDS: glipiZIDE 5 MG TAB PO SCH (08:42)
[2019-08-02] MEDS: DULoxetine 60 MG CAP PO SCH (08:42)
[2019-08-02] MEDS: Alogliptin 25 MG TAB PO SCH (08:42)
[2019-08-02] MEDS: Sodium Bicarbonate Tab 325 MG TAB PO SCH ×2 (08:42→20:23)
[2019-08-02] MEDS: Pantoprazole 40 MG VIAL IVP SCH (08:44)
[2019-08-02] MEDS: Heparin 5,000 UNITS/ML VIAL SC SCH ×3 (08:44→20:24)
[2019-08-02] MEDS: buPROPion 75 MG TAB PO SCH ×2 (08:45→20:24)
[2019-08-02] MEDS: Timolol 0.5% Ophth Soln 5 ml Bottle R EYE SCH ×2 (08:46→20:43)
[2019-08-02] MEDS: Insulin Glargine 40 UNITS in Pre-Filled Syringe 1 EACH SC SCH ×2 (08:49→20:25)
[2019-08-02] MEDS ORDERED: Bisacodyl 10 MG SUPP PR PRN (10:59)
--- NOTE | 2019-08-02 11:31 | PRG ---
DATE OF SERVICE: 08/02/2019 SUBJECTIVE: The patient was seen and examined at bedside. She remains in ICU, intubated. OBJECTIVE: GENERAL: A morbidly obese female, intubated. VITAL SIGNS: Temperature 97.5, pulse 46, respiratory rate 14, blood pressure 146/77. HEENT: Intubated. CVS: S1 and S2 heard. RESPIRATORY: Clear. Gi: Abdomen is obese MUSCULOSKELETAL: 1+ edema. NEUROLOGIC: Intubated. LABORATORY DATA: Potassium 4.3, BUN is 64, creatinine is 3.1. ASSESSMENT AND PLAN: 1. Acute kidney injury on chronic kidney disease stage 3 with worsening labs. Continue IV fluids. Continue supportive care. 2. Acute hypoxic respiratory failure. 3. Multiorgan failure. 4. Hyperkalemia. 5. History of hypertension. 6. Anemia. 7. Morbid obesity. 8. Prognosis poor. No acute indication for dialysis. Job ID: [id number]
[2019-08-02] MEDS: Sodium Chloride 0.45% 1,000 ML IV SCH (13:06)
--- NOTE | 2019-08-02 13:12 | PDOC.HOSPP ---
- Subjective Encounter Date: 08/02/19 Encounter Time: 12:00 Subjective: is on vent, sedated - Objective Vital Signs & Weight: Vital Signs (12 hours) Temp Pulse Resp BP Pulse Ox 08/02/19 12:00 13 08/02/19 10:47 45 L 156/72 H 08/02/19 10:00 16 08/02/19 08:46 45 L 146/75 H 08/02/19 08:00 97.5 F L 22 H 98 08/02/19 07:30 43 L 161/61 H 08/02/19 06:00 98.5 F 13 08/02/19 04:00 11 L 100 08/02/19 02:08 46 L 157/60 H 08/02/19 02:00 98.4 F 17 Weight Admit Weight 361 lb 5.4 oz Weight 390 lb 14.073 oz Most Recent Monitor Data Heart Rate from ECG 47 NIBP 163/74 NIBP BP-Mean 103 Respiration from ECG 2 SpO2 100 I&O: 08/01/19 08/02/19 08/03/19 06:59 06:59 06:59 Intake Total 4284 2989 Output Total 1414 1810 235 Balance 2870 1179 -235 Result Diagrams: 08/02/19 04:10 08/02/19 04:10 Additional Labs: Accuchecks 08/02/19 08/02/19 08/02/19 10:50 04:01 00:57 POC Glucose 273 H 257 H 265 H 08/01/19 08/01/19 22:46 16:19 POC Glucose 283 H 269 H Hospitalist ROS - Medication Medications: Active Medications Generic Name Dose Route Start Last Admin Trade Name Freq PRN Reason Stop Dose Admin Acetaminophen 650 mg 07/23/19 16:54 08/01/19 03:00 Tylenol PO 650 mg Q6H PRN Administration Fever > 101 Alogliptin Benzoate 25 mg 07/31/19 09:00 08/02/19 08:42 Alogliptin PO 25 mg DAILY [place] Administration Atorvastatin Calcium 20 mg 07/23/19 21:00 08/01/19 20:30 Lipitor PO 20 mg HS [place] Administration Bupropion HCl 150 mg 07/31/19 21:00 08/02/19 08:45 Wellbutrin PO 150 mg BID [place] Administration Duloxetine HCl 60 mg 07/24/19 09:00 08/02/19 08:42 Cymbalta PO 60 mg DAILY [place] Administration Glipizide 5 mg 07/31/19 07:30 08/02/19 08:42 Glucotrol PO 5 mg DAILY-AC [place] Administration Haloperidol Lactate 10 mg 07/26/19 10:00 08/02/19 10:49 Haldol IM 10 mg Q6H [place] Administration Heparin Sodium (Porcine) 5,000 units 07/23/19 09:00 08/02/19 08:44 Heparin SC 5,000 units TID [place] Administration Hydralazine HCl 20 mg 07/27/19 09:14 08/01/19 02:27 Apresoline SLOW IVP 20 mg Q6H PRN Administration SBP Greater Than 170 Nicardipine HCl 50 mg/ Sodium 250 mls @ 0 mls/hr 07/23/19 00:15 07/23/19 05: 11 Chloride IV 250 mls INF [place] Administration Protocol As Directed Dexmedetomidine HCl 400 mcg/ 100 mls @ 0 mls/hr 07/28/19 00:45 08/02/19 13:06 Sodium Chloride IVPB 100 mls INF [place] Administration Protocol Per Protocol Sodium Chloride 1,000 mls @ 75 mls/hr 07/28/19 10:30 08/02/19 13:06 1/2 Normal Saline IV 1,000 mls .[id number] [place] Administration Insulin Glargine 40 units/ 0.4 mls @ 0 mls/hr 08/02/19 09:00 08/02/19 08:49 Miscellaneous Medication SC 0.4 mls BID [place] Administration Insulin Human Lispro 0 units 07/23/19 18:05 08/02/19 10:49 Humalog SC 9 unit .AGGRESSIVE SLIDING PRN Administration Aggressive Correctional Scale Levothyroxine Sodium 100 mcg 07/24/19 06:00 08/02/19 05:37 Synthroid PO 100 mcg 0600 [place] Administration Miscellaneous Medication 1 pkt 07/23/19 11:01 07/23/19 12:47 Phos-Nak PO 1 pkt TIDPRN PRN Administration FOR PHOS LEVEL 1.0 - 1.8 Pantoprazole Sodium 40 mg 08/02/19 09:00 08/02/19 08:44 Protonix IVP 40 mg DAILY [place] Administration Potassium Chloride 40 meq 07/23/19 11:01 07/29/19 08:51 Klor-Con PER TUBE 40 meq ASDIR PRN Administration FOR SERUM K+ 2.5-3.5 Pregabalin 75 mg 07/30/19 21:00 08/02/19 08:42 Lyrica PO 75 mg BID [place] Administration Propofol 1,000 mg 07/22/19 23:43 07/27/19 07:23 Diprivan IV 08/21/19 23:43 1,000 mg INF PRN Administration TO ACHIEVE GOAL RASS Protocol Sertraline HCl 50 mg 07/24/19 09:00 08/02/19 08:43 Zoloft PO 50 mg DAILY [place] Administration Sodium Bicarbonate 975 mg 07/23/19 21:00 08/02/19 08:42 Bicarbonate, Sodium PO 975 mg BID [place] Administration Sodium Chloride 10 ml 07/23/19 09:00 08/02/19 08:46 Flush - Normal Saline IVF 10 ml Q12HR [place] Administration Timolol Maleate 1 drop 07/30/19 21:00 08/02/19 08:46 Timoptic 0.5% Ophth Soln R EYE 1 drop BID [place] Administration - Exam Eye: PERRL, anicteric sclera ENT: no oropharyngeal lesions, dry oral mucosa Neck: supple, no JVD Heart: RRR, no murmur Respiratory: no wheezes, no rales, rhonchi Gastrointestinal: soft, non-tender, non-distended, normal bowel sounds Extremities: no cyanosis, 1+ LE edema Neurological: cranial nerve grossly intact, no focal deficits Hosp A/P (1) Acute metabolic encephalopathy Code(s): G93.41 - METABOLIC ENCEPHALOPATHY Status: Acute (2) DKA (diabetic ketoacidoses) Code(s): E11.10 - TYPE 2 DIABETES MELLITUS WITH KETOACIDOSIS WITHOUT COMA Status: Resolved Qualifiers: Diabetes mellitus type: type 2 (3) Acute worsening of stage 3 chronic kidney disease Code(s): N18.3 - CHRONIC KIDNEY DISEASE, STAGE 3 (MODERATE) Status: Acute (4) Metabolic acidosis Code(s): E87.2 - ACIDOSIS Status: Resolved (5) Anemia, normocytic normochromic Code(s): D64.9 - ANEMIA, UNSPECIFIED Status: Chronic (6) Anxiety and depression Code(s): F41.9 - ANXIETY DISORDER, UNSPECIFIED; F32.9 - MAJOR DEPRESSIVE DISORDER, SINGLE EPISODE, UNSPECIFIED Status: Chronic (7) DM type 2 (diabetes mellitus, type 2) Status: Chronic Qualifiers: Diabetes mellitus supervisor intermediates insulin use: with senior care use Diabetes mellitus complication status: with kidney complications Diabetes mellitus complication detail: with chronic kidney disease Chronic kidney disease stage : stage 3 (moderate) Qualified Code(s): E11.22 - Type 2 diabetes mellitus with diabetic chronic kidney disease; N18.3 - Chronic kidney disease, stage 3 ( moderate); Z79.4 - jail (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 of insulin (8) Dyslipidemia Code(s): E78.5 - HYPERLIPIDEMIA, UNSPECIFIED Status: Chronic (9) Hypertension Code(s): I10 - ESSENTIAL (PRIMARY) HYPERTENSION Status: Chronic Qualifiers: Hypertension type: essential hypertension Qualified Code(s): I10 - Essential (primary) hypertension (10) Sepsis Code(s): A41.9 - SEPSIS, UNSPECIFIED ORGANISM Status: Resolved Qualifiers: Sepsis type: sepsis due to unspecified organism (11) Obesity Code(s): E66.9 - OBESITY, UNSPECIFIED Status: Chronic Qualifiers: Obesity classification: adult class 3 (BMI >= 40) Body mass index: BMI 50.0 -59.9 (12) Acute respiratory failure with hypoxia Code(s): J96.01 - ACUTE RESPIRATORY FAILURE WITH HYPOXIA Status: Acute - Plan difficulty weaning due to ongoing agitation and instability when off sedation for trach and peg, has been consulted. is on haldol, lantus 40u bid, home dose glipizide and gliptin. dka has resolved, gentle iv hydration on lipitor, welbutrin, cymbalta, zoloft, synthroid hemostable
--- NOTE | 2019-08-02 15:27 | PRG ---
DATE OF SERVICE: 08/02/2019 SUBJECTIVE: David Verdugo remains sedated for ventilation. The consult has been placed for trach and a PEG. The sister has changed her mind. OBJECTIVE: VITAL SIGNS: Blood pressure 163/74, heart rate is in the 40s, respiratory rates in the teens. LUNGS: Distant. HEART: Regular rhythm. ABDOMEN: Soft. EXTREMITIES: Without edema. LABORATORY DATA: White count 6.5, hemoglobin 7.4, platelets 242. Sodium 140, potassium 4.3, chloride 107, bicarb 23, BUN 64, and creatinine 3.11. IMPRESSION: 1. Respiratory failure. 2. Life-threatening obesity. 3. Encephalopathy secondary to hyperosmolar state on presentation. 4. Diabetes, poorly controlled. 5. Chronic kidney disease, stable, but given that her renal disease is most likely related to diabetes, she probably will require dialysis within the next 12 to 18 months, I would think. 6. An extra-long flexible tracheostomy tube will probably be the best tube to place in her (Bivona). She will have PEG placed at the same time. It is anticipated she will not be able to swallow initially secondary to weakness. The tracheostomy should facilitate weaning from mechanical ventilation. CRITICAL CARE TIME: 30 minutes. Job ID: [id number]
--- NOTE | 2019-08-02 18:22 | CON ---
DATE OF CONSULTATION: HISTORY OF PRESENT ILLNESS: A 58-year-old female, respiratory failure, morbidly obese, 5 feet 8, [address] Ramírez respiratory failure on the ventilator, unable to wean. I have been asked to see her regarding placement of Bivona tracheostomy and a PEG tube. Family consents and we will proceed tomorrow. ALLERGIES: LISTED CIPRO, MELOXICAM, MORPHINE, SULFA, TRIMETHOPRIM. MEDICATIONS: Home medications; 1. Hydralazine. 2. Glipizide. 3. Clonidine. 4. Wellbutrin. 5. Zolpidem. 6. Coumadin. 7. Eyedrops. 8. Simvastatin. 9. Sertraline. 10. Ranitidine. 11. Lyrica. 12. Lisinopril. 13. Tradjenta. 14. Levothyroxine. 15. Insulin. 16. Furosemide. 17. Iron sulfate. 18. Trulicity. 19. Cymbalta. 20. Vitamin B12. 21. Vitamin D3. 22. Augmentin. 23. Albuterol. PAST SURGICAL HISTORY: Right knee surgery, multiple other knee surgeries, hysterectomy, oophorectomy. PAST MEDICAL HISTORY: Morbid obesity, metabolic syndrome, pulmonary embolism, chronic kidney disease, hyperlipidemia, depression, history of pulmonary embolism. PHYSICAL EXAMINATION: GENERAL: The patient is sedated on the ventilator. She is morbidly obese, 5 feet 8, 390 pounds. LUNGS: Clear to auscultation. No wheezing. CARDIAC: ABDOMEN: Soft, obese, protuberant. EXTREMITIES: Unremarkable. LABORATORY DATA: White count 6, hemoglobin 7.4, BUN 64, creatinine 3.1, GFR 15. ASSESSMENT/PLAN: Medical problems as listed above including respiratory failure. Plan tracheostomy probably Bivona and PEG tube. Risk of infection, bleeding, visceral injury, reoperation discussed. Questions answered. Job ID: [id number]
[2019-08-02] MEDS: Atorvastatin Calcium 20 MG TAB PO SCH (20:23)
[2019-08-03] MEDS: HumaLOG 300 UNITS/3 ML VIAL SC PRN ×2 (00:26→03:46)
[2019-08-03] MEDS: Sodium Chloride 0.45% 1,000 ML IV SCH ×2 (00:26→12:03)
[2019-08-03] MEDS: Haloperidol Lactate 5 MG/ML VIAL IM SCH ×4 (03:55→22:05)
--- NOTE | 2019-08-03 05:17 | PRG ---
DATE OF SERVICE: 08/03/2019 SUBJECTIVE: David Verdugo remains mechanically ventilated. She is on the schedule for trach and PEG today. OBJECTIVE: VITAL SIGNS: Heart rate is in the high 40s, blood pressure 132/59, and FiO2 is at 40%. LUNGS: Clear. HEART: Regular rhythm. ABDOMEN: Soft. LABORATORY DATA: White count 6.5, hemoglobin 7.4, and platelets 242. Sodium 140, potassium 4.3, chloride 107, BUN 64, and creatinine 3.11. IMPRESSION: 1. Respiratory failure associated with hyperosmolar state (hyperglycemia). 2. Acute on chronic kidney disease with a transient acidosis associated with her intravascular volume depletion on presentation. I thought she was going to end up requiring dialysis, but her renal function has stabilized, but her GFR estimated is only 15. 3. Longstanding diabetes. 4. Life-threatening obesity. 5. Do not resuscitate status per her sister, but wants to have a PEG and a trach in. Hopefully, we can wean her from mechanical ventilation. Critical care time 35 min. Job ID: [id number] MTDD
[2019-08-03] MEDS: Levothyroxine Sodium 100 MCG TAB PO SCH (05:19)
[2019-08-03 05:34] LABS: ALT (SGPT) 14 U/L (8-55); AST (SGOT) 7 U/L (5-34); Albumin 2.4 g/dL (3.5-5.0); Alkaline Phosphatase 188 U/L (40-110); Anion Gap 11 mmol/L (10-20); BUN (Urea Nitrogen) 64 mg/dL (9.8-20.1); Bilirubin, Total Less than 0.2 mg/dL (0.2-1.2); Calc. Creatinine Clearance 62 mL/min (70-130); Calcium 8.6 mg/dL (7.8-10.44); Carbon Dioxide 25 mmol/L (22-29); Chloride 107 mmol/L (98-107); Estimated GFR-MDRD 16; Globulin 3.5 g/dL (2.4-3.5); Glucose 148 mg/dL (70-105); Potassium 4.2 mmol/L (3.5-5.1); Protein, Total 5.9 g/dL (6.0-8.3); Sodium 139 mmol/L (136-145)
[2019-08-03 05:36] LABS: Band 2 % (5-11); Hemoglobin 7.5 g/dL (12.0-16.0); Hypochromia SLIGHT = 6-15 cells (100X) (0-5/hpf); Lymphocytes 4 % (21-51); MDiff Complete? YES; Mean Corpuscular HGB CONC 31.7 g/dL (32.0-36.0); Mean Corpuscular Hemoglobin 29.7 pg (27.0-31.0); Mean Corpuscular Volume 93.9 fL (78.0-98.0); Mean Platelet Volume 8.4 fL (7.4-10.4); Monocytes 8 % (0-10); Neutrophil 86 % (42-75); Platelet Count 242 thou/uL (130-400); Platelet Morphology Comment Appears Adequate; RBC Distribution Width 14.3 % (11.5-14.5); Red Blood Cell (RBC) Count 2.52 mill/uL (4.20-5.40); White Blood Cell (WBC) Count 6.9 thou/uL (4.8-10.8)
[2019-08-03 06:43] LABS: Actual Bicarbonate (HCO3a) 22.7 mEq/L (22-28); CO2 Tension 50.3 mmHg (35.0-45.0); Calcium, Ionized 1.24 mmol/L (1.12-1.30); Carboxyhemoglobin (COHb) 0.7 gm% (0.0-3.0); Hemoglobin (Hb) 8.3 g/dL (12.0-16.0); O2 Tension (PaO2) 173.5 mmHg (80.0-100.0); Potassium - ABG Lab 4.09 mmol/L (3.70-5.30); pH, Arterial 7.27 (7.35-7.45)
[2019-08-03 06:45] LABS: Puncture Site LRA
[2019-08-03 06:46] LABS: ALV-art Gradient 48.825 (0-20)
[2019-08-03] MEDS: glipiZIDE 5 MG TAB PO SCH (08:11)
[2019-08-03] MEDS: Alogliptin 25 MG TAB PO SCH (08:11)
[2019-08-03] MEDS: DULoxetine 60 MG CAP PO SCH (08:17)
[2019-08-03] MEDS: Pregabalin 75 MG CAP PO SCH ×2 (08:17→20:10)
[2019-08-03] MEDS: Heparin 5,000 UNITS/ML VIAL SC SCH ×3 (08:18→20:07)
[2019-08-03] MEDS: buPROPion 75 MG TAB PO SCH ×2 (08:18→20:07)
[2019-08-03] MEDS: Pantoprazole 40 MG VIAL IVP SCH (08:18)
[2019-08-03] MEDS: Sodium Bicarbonate Tab 325 MG TAB PO SCH ×2 (08:20→20:07)
--- NOTE | 2019-08-03 09:11 | RAD ---
PORTABLE CHEST: Date: 08/03/2019 PROVIDED CLINICAL HISTORY: Respiratory insufficiency. FINDINGS: Comparison with 08/02/2019. The examination is rotated, limiting assessment. Cardiac and mediastinal silhouette is not definitely changed in appearance, accounting for differences in positioning. Apparent increased density overlyi ng the right hemithorax may be positional, though air space disease cannot be excluded. There is no d efinite evidence for pleural fluid or pneumothorax. IMPRESSION: Limited study with right hemithoracic air space disease not excluded. POS: [place]
[2019-08-03] MEDS: Insulin Glargine 40 UNITS in Pre-Filled Syringe 1 EACH SC SCH ×3 (09:26→20:12)
[2019-08-03] MEDS: Timolol 0.5% Ophth Soln 5 ml Bottle R EYE SCH ×2 (10:35→20:17)
--- NOTE | 2019-08-03 10:57 | PDOC.HOSPP ---
- Subjective Encounter Date: 08/03/19 Encounter Time: 10:00 Subjective: on vent, awakens and follows verbal stimuli is calm this am, still on sedation - Objective Vital Signs & Weight: Vital Signs (12 hours) Temp Pulse Resp BP 08/03/19 10:35 47 L 125/99 H 08/03/19 10:00 10 L 08/03/19 08:00 98.4 F 10 L 08/03/19 06:29 47 L 125/99 H 08/03/19 06:00 12 08/03/19 04:15 45 L 132/59 L 08/03/19 04:00 97.9 F 16 08/03/19 02:00 13 08/03/19 00:45 47 L 125/62 08/03/19 00:00 97.8 F 15 Weight Admit Weight 361 lb 5.4 oz Weight 418 lb 14.052 oz Most Recent Monitor Data Heart Rate from ECG 43 NIBP 120/55 NIBP BP-Mean 76 Respiration from ECG 10 SpO2 100 I&O: 08/02/19 08/03/19 08/04/19 06:59 06:59 06:59 Intake Total 2989 2776 80 Output Total 1810 975 165 Balance 1179 1801 -85 Result Diagrams: 08/03/19 04:00 08/03/19 04:00 Additional Labs: Accuchecks 08/03/19 08/03/19 08/03/19 08:42 03:49 00:10 POC Glucose 128 H 160 H 179 H 08/02/19 08/02/19 20:26 15:01 POC Glucose 187 H 189 H Hospitalist ROS - Medication Medications: Active Medications Generic Name Dose Route Start Last Admin Trade Name Freq PRN Reason Stop Dose Admin Acetaminophen 650 mg 07/23/19 16:54 08/01/19 03:00 Tylenol PO 650 mg Q6H PRN Administration Fever > 101 Alogliptin Benzoate 25 mg 07/31/19 09:00 08/03/19 08:11 Alogliptin PO Not Given DAILY [facility] Atorvastatin Calcium 20 mg 07/23/19 21:00 08/02/19 20:23 Lipitor PO 20 mg HS [facility] Administration Bupropion HCl 150 mg 07/31/19 21:00 08/03/19 08:18 Wellbutrin PO 150 mg BID [facility] Administration Duloxetine HCl 60 mg 07/24/19 09:00 08/03/19 08:17 Cymbalta PO 60 mg DAILY [facility] Administration Glipizide 5 mg 07/31/19 07:30 08/03/19 08:11 Glucotrol PO Not Given DAILY-AC [facility] Haloperidol Lactate 10 mg 07/26/19 10:00 08/03/19 10:29 Haldol IM 10 mg Q6H [facility] Administration Heparin Sodium (Porcine) 5,000 units 07/23/19 09:00 08/03/19 08:18 Heparin SC Not Given TID [facility] Hydralazine HCl 20 mg 07/27/19 09:14 08/01/19 02:27 Apresoline SLOW IVP 20 mg Q6H PRN Administration SBP Greater Than 170 Nicardipine HCl 50 mg/ Sodium 250 mls @ 0 mls/hr 07/23/19 00:15 07/23/19 05: 11 Chloride IV 250 mls INF [facility] Administration Protocol As Directed Dexmedetomidine HCl 400 mcg/ 100 mls @ 0 mls/hr 07/28/19 00:45 08/03/19 09:25 Sodium Chloride IVPB 100 mls INF [facility] Administration Protocol Per Protocol Sodium Chloride 1,000 mls @ 75 mls/hr 07/28/19 10:30 08/03/19 00:26 1/2 Normal Saline IV 1,000 mls .[id number] [facility] Administration Insulin Glargine 40 units/ 0.4 mls @ 0 mls/hr 08/02/19 09:00 08/03/19 09:26 Miscellaneous Medication SC Not Given BID [facility] Insulin Human Lispro 0 units 07/23/19 18:05 08/03/19 03:46 Humalog SC 3 unit .AGGRESSIVE SLIDING PRN Administration Aggressive Correctional Scale Lactulose 10 gm 08/02/19 21:00 08/03/19 08:18 Lactulose PER TUBE Not Given BID [facility] Levothyroxine Sodium 100 mcg 07/24/19 06:00 08/03/19 05:19 Synthroid PO 100 mcg 0600 [facility] Administration Miscellaneous Medication 1 pkt 07/23/19 11:01 07/23/19 12:47 Phos-Nak PO 1 pkt TIDPRN PRN Administration FOR PHOS LEVEL 1.0 - 1.8 Pantoprazole Sodium 40 mg 08/02/19 09:00 08/03/19 08:18 Protonix IVP 40 mg DAILY [facility] Administration Potassium Chloride 40 meq 07/23/19 11:01 07/29/19 08:51 Klor-Con PER TUBE 40 meq ASDIR PRN Administration FOR SERUM K+ 2.5-3.5 Pregabalin 75 mg 07/30/19 21:00 08/03/19 08:17 Lyrica PO 75 mg BID [facility] Administration Propofol 1,000 mg 07/22/19 23:43 07/27/19 07:23 Diprivan IV 08/21/19 23:43 1,000 mg INF PRN Administration TO ACHIEVE GOAL RASS Protocol Sertraline HCl 50 mg 07/24/19 09:00 08/03/19 08:18 Zoloft PO 50 mg DAILY [facility] Administration Sodium Bicarbonate 975 mg 07/23/19 21:00 08/03/19 08:20 Bicarbonate, Sodium PO 975 mg BID [facility] Administration Sodium Chloride 10 ml 07/23/19 09:00 08/03/19 09:25 Flush - Normal Saline IVF 10 ml Q12HR [facility] Administration Timolol Maleate 1 drop 07/30/19 21:00 08/03/19 10:35 Timoptic 0.5% Ophth Soln R EYE 1 drop BID [facility] Administration - Exam Eye: PERRL, anicteric sclera ENT: no oropharyngeal lesions, moist mucosa Neck: supple, no JVD Heart: RRR, no murmur Respiratory: no wheezes, no rales, rhonchi Gastrointestinal: soft, non-tender, non-distended, normal bowel sounds Extremities: no cyanosis, 1+ LE edema Neurological: cranial nerve grossly intact, no focal deficits Hosp A/P (1) Acute metabolic encephalopathy Code(s): G93.41 - METABOLIC ENCEPHALOPATHY Status: Acute (2) DKA (diabetic ketoacidoses) Code(s): E11.10 - TYPE 2 DIABETES MELLITUS WITH KETOACIDOSIS WITHOUT COMA Status: Resolved Qualifiers: Diabetes mellitus type: type 2 (3) Acute worsening of stage 3 chronic kidney disease Code(s): N18.3 - CHRONIC KIDNEY DISEASE, STAGE 3 (MODERATE) Status: Acute (4) Metabolic acidosis Code(s): E87.2 - ACIDOSIS Status: Resolved (5) Anemia, normocytic normochromic Code(s): D64.9 - ANEMIA, UNSPECIFIED Status: Chronic (6) Anxiety and depression Code(s): F41.9 - ANXIETY DISORDER, UNSPECIFIED; F32.9 - MAJOR DEPRESSIVE DISORDER, SINGLE EPISODE, UNSPECIFIED Status: Chronic (7) DM type 2 (diabetes mellitus, type 2) Status: Chronic Qualifiers: Diabetes mellitus senior living insulin use: with local intermodal truck driver use Diabetes mellitus complication status: with kidney complications Diabetes mellitus complication detail: with chronic kidney disease Chronic kidney disease stage : stage 3 (moderate) Qualified Code(s): E11.22 - Type 2 diabetes mellitus with diabetic chronic kidney disease; N18.3 - Chronic kidney disease, stage 3 ( moderate); Z79.4 - terminal clerk (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 of insulin (8) Dyslipidemia Code(s): E78.5 - HYPERLIPIDEMIA, UNSPECIFIED Status: Chronic (9) Hypertension Code(s): I10 - ESSENTIAL (PRIMARY) HYPERTENSION Status: Chronic Qualifiers: Hypertension type: essential hypertension Qualified Code(s): I10 - Essential (primary) hypertension (10) Sepsis Code(s): A41.9 - SEPSIS, UNSPECIFIED ORGANISM Status: Resolved Qualifiers: Sepsis type: sepsis due to unspecified organism (11) Obesity Code(s): E66.9 - OBESITY, UNSPECIFIED Status: Chronic Qualifiers: Obesity classification: adult class 3 (BMI >= 40) Body mass index: BMI 50.0 -59.9 (12) Acute respiratory failure with hypoxia Code(s): J96.01 - ACUTE RESPIRATORY FAILURE WITH HYPOXIA Status: Acute - Plan difficulty weaning due to ongoing agitation and instability when off sedation, is getting trach and peg today by . is on haldol, lantus 40u bid, home dose glipizide and gliptin. dka has resolved, gentle iv hydration on lipitor, welbutrin, cymbalta, zoloft, synthroid hemostable
--- NOTE | 2019-08-03 11:52 | PRG ---
DATE OF SERVICE: 08/03/2019 David Verdugo is scheduled for a trach and PEG today. Emergency procedures and lack of anesthesia resources prevent the patient from having her tracheostomy most likely today. If we were not able to perform this tracheostomy at a reasonable time in the day, then we will postpone it until Tuesday. Job ID: [id number]
[2019-08-03] MEDS: Lorazepam 2 MG/ML VIAL SLOW IVP PRN (12:10)
--- NOTE | 2019-08-03 16:41 | PRG ---
DATE OF SERVICE: 08/03/2019 SUBJECTIVE: The patient was seen and examined in the ICU, remains intubated. OBJECTIVE: GENERAL: This is an obese female, in no apparent distress. VITAL SIGNS: Temperature 97.8, pulse 48, respiratory rate 10, blood pressure 146/61. HEENT: Intubated. CVS: S1 and S2. RESPIRATORY: Clear. GI: Abdomen is obese. MUSCULOSKELETAL: 1+ edema. NEUROLOGICAL: Intubated. LABORATORY DATA: Potassium 4.2, BUN is 64, creatinine 3.02. ASSESSMENT AND PLAN: 1. Acute kidney injury on chronic kidney disease stage 3. Renal function is stable for the last few days. No acute indication for dialysis. 2. Acute hypoxic respiratory failure. 3. Multiorgan failure. 4. Hypertension. 5. Anemia. 6. Morbid obesity. 7. Renal function seems to be stable. No acute indication for dialysis. We will continue to monitor. Job ID: [id number]
[2019-08-03] MEDS: Atorvastatin Calcium 20 MG TAB PO SCH (20:07)
[2019-08-04 04:11] LABS: Band 1 % (5-11); Hemoglobin 7.7 g/dL (12.0-16.0); Lymphocytes 15 % (21-51); MDiff Complete? YES; Mean Corpuscular HGB CONC 31.2 g/dL (32.0-36.0); Mean Corpuscular Hemoglobin 29.6 pg (27.0-31.0); Mean Corpuscular Volume 94.8 fL (78.0-98.0); Mean Platelet Volume 7.7 fL (7.4-10.4); Metamyelocyte 1 % (0-0); Monocytes 3 % (0-10); Neutrophil 80 % (42-75); Platelet Count 250 thou/uL (130-400); Platelet Morphology Comment Appears Adequate; RBC Distribution Width 14.4 % (11.5-14.5); Red Blood Cell (RBC) Count 2.61 mill/uL (4.20-5.40); White Blood Cell (WBC) Count 8.6 thou/uL (4.8-10.8)
[2019-08-04 04:14] LABS: ALT (SGPT) 22 U/L (8-55); AST (SGOT) 23 U/L (5-34); Albumin 2.4 g/dL (3.5-5.0); Alkaline Phosphatase 220 U/L (40-110); Anion Gap 12 mmol/L (10-20); BUN (Urea Nitrogen) 63 mg/dL (9.8-20.1); Bilirubin, Total Less than 0.2 mg/dL (0.2-1.2); Calc. Creatinine Clearance 68 mL/min (70-130); Calcium 8.4 mg/dL (7.8-10.44); Carbon Dioxide 24 mmol/L (22-29); Chloride 107 mmol/L (98-107); Estimated GFR-MDRD 18; Globulin 3.5 g/dL (2.4-3.5); Glucose 124 mg/dL (70-105); Potassium 4.1 mmol/L (3.5-5.1); Protein, Total 5.9 g/dL (6.0-8.3); Sodium 139 mmol/L (136-145)
[2019-08-04] MEDS: Haloperidol Lactate 5 MG/ML VIAL IM SCH ×4 (04:20→22:04)
[2019-08-04] MEDS: hydrALAZINE 20 MG/ML VIAL SLOW IVP PRN ×4 (05:12→17:52)
[2019-08-04] MEDS: Levothyroxine Sodium 100 MCG TAB PO SCH (06:09)
[2019-08-04 07:21] LABS: Actual Bicarbonate (HCO3a) 23.5 mEq/L (22-28); Base Excess (BEa) -3.2 mEq/L (-2.0 to +3.0); CO2 Tension 51.1 mmHg (35.0-45.0); Calcium, Ionized 1.23 mmol/L (1.12-1.30); Carboxyhemoglobin (COHb) 0.6 gm% (0.0-3.0); Hemoglobin (Hb) 8.7 g/dL (12.0-16.0); O2 Tension (PaO2) 115.9 mmHg (80.0-100.0); Potassium - ABG Lab 4.02 mmol/L (3.70-5.30); pH, Arterial 7.28 (7.35-7.45)
[2019-08-04 07:22] LABS: Puncture Site RR
[2019-08-04 07:23] LABS: ALV-art Gradient 105.425 (0-20)
[2019-08-04] MEDS: glipiZIDE 5 MG TAB PO SCH (07:58)
[2019-08-04] MEDS: Pregabalin 75 MG CAP PO SCH ×2 (08:01→20:03)
[2019-08-04] MEDS: Sodium Bicarbonate Tab 325 MG TAB PO SCH ×2 (08:02→20:03)
[2019-08-04] MEDS: Alogliptin 25 MG TAB PO SCH (08:02)
[2019-08-04] MEDS: DULoxetine 60 MG CAP PO SCH (08:03)
[2019-08-04] MEDS: buPROPion 75 MG TAB PO SCH ×2 (08:04→20:03)
[2019-08-04] MEDS: Pantoprazole 40 MG VIAL IVP SCH (08:04)
[2019-08-04] MEDS: Heparin 5,000 UNITS/ML VIAL SC SCH ×3 (08:04→20:03)
[2019-08-04] MEDS: Timolol 0.5% Ophth Soln 5 ml Bottle R EYE SCH ×2 (08:05→20:49)
[2019-08-04] MEDS: Furosemide 40 MG/4 ML VIAL SLOW IVP SCH ×2 (08:32→20:03)
--- NOTE | 2019-08-04 08:44 | PRG ---
DATE OF SERVICE: 08/04/2019 SUBJECTIVE: This patient was supposed to have a tracheostomy yesterday, but because of anesthesia scheduling difficulties, it could not be done. She is currently awake, very cooperative on mechanical ventilation. OBJECTIVE: VITAL SIGNS: Her temperature is 98.1, pulse 60, blood pressure 191/80, O2 saturation 100%, 24-hour intake 2231, output 1220, weight currently at 415. It looks like her admission weight was 361. HEENT: Unremarkable. NECK: No adenopathy or JVD. LUNGS: Crackles bilaterally. CARDIAC: S1, S2. Regular. ABDOMEN: Soft and obese. EXTREMITIES: Edematous. LABORATORY DATA: White blood cell count 8.6, hematocrit 24.7, and platelet count 250. PH of 7.28, pCO2 of 51, PO2 of 115. On SIMV, rate 10, tidal volume 500, PEEP 5, pressure support 10, FiO2 40%. Sodium 139, potassium 4.1, chloride 107, CO2 of 24, BUN 63, creatinine 2.7, glucose 124. ASSESSMENT: 1. Acute on chronic respiratory failure, requiring mechanical ventilation. 2. Probable obesity hypoventilation syndrome and sleep apnea. 3. Acute kidney injury with improving BUN and creatinine. 4. The patient looks to be about 50 pounds fluid overloaded if her weights are to be believed. RECOMMENDATIONS: 1. Trach and PEG now scheduled for Tuesday. 2. Would try to begin restricting fluids as much as possible and perhaps even consider diuresing the patient. 3. Otherwise, continue supportive care. TIME SPENT: Above encompassed 30 minutes of critical care time. Job ID: [id number]
--- NOTE | 2019-08-04 09:20 | RAD ---
CHEST ONE VIEW PORTABLE: History: Respiratory insufficiency Comparison: 08-03-2019 FINDINGS\Impression: Left support tubes in place. Bilateral alveolar opacity changes, particularly in the perihilar region s and lower lung zones. Evidence for small bilateral pleural effusions. Little change from prior exam , 08-03-2019. Continued short term follow up for clearing or stability. POS: [facility]
[2019-08-04] MEDS: Insulin Glargine 40 UNITS in Pre-Filled Syringe 1 EACH SC SCH ×2 (09:34→20:50)
[2019-08-04] MEDS: Lorazepam 2 MG/ML VIAL SLOW IVP PRN ×2 (10:14→14:45)
--- NOTE | 2019-08-04 11:39 | PDOC.HOSPP ---
- Subjective Encounter Date: 08/04/19 Encounter Time: 10:30 Subjective: is on vent, awake and follows verbal stimuli, is moving all extremities is very weak in Lower extremities - Objective Vital Signs & Weight: Vital Signs (12 hours) Temp Pulse Resp BP Pulse Ox 08/04/19 10:33 70 191/99 H 08/04/19 10:05 69 191/80 H 08/04/19 10:00 15 08/04/19 08:05 69 191/80 H 08/04/19 08:00 98.2 F 12 98 08/04/19 07:13 69 191/80 H 08/04/19 06:00 12 08/04/19 05:12 55 L 209/77 H 08/04/19 04:26 55 L 08/04/19 04:00 98.1 F 12 08/04/19 02:00 10 L 08/04/19 00:18 55 L 150/63 H 08/04/19 00:00 98.0 F 10 L Weight Admit Weight 361 lb 5.4 oz Weight 415 lb 9.141 oz Most Recent Monitor Data Heart Rate from ECG 73 NIBP 174/72 NIBP BP-Mean 106 Respiration from ECG 27 SpO2 92 I&O: 08/03/19 08/04/19 08/05/19 06:59 06:59 06:59 Intake Total 2776 2271 100 Output Total 975 1220 890 Balance 1801 1051 -790 Result Diagrams: 08/04/19 03:15 08/04/19 03:15 Additional Labs: Accuchecks 08/04/19 08/04/19 08/03/19 09:06 00:16 20:16 POC Glucose 139 H 129 H 116 H 08/03/19 08/03/19 16:11 12:17 POC Glucose 103 113 H Hospitalist ROS - Medication Medications: Active Medications Generic Name Dose Route Start Last Admin Trade Name Freq PRN Reason Stop Dose Admin Acetaminophen 650 mg 07/23/19 16:54 08/01/19 03:00 Tylenol PO 650 mg Q6H PRN Administration Fever > 101 Alogliptin Benzoate 25 mg 07/31/19 09:00 08/04/19 08:02 Alogliptin PO 25 mg DAILY [facility] Administration Atorvastatin Calcium 20 mg 07/23/19 21:00 08/03/19 20:07 Lipitor PO 20 mg HS [facility] Administration Bupropion HCl 150 mg 07/31/19 21:00 08/04/19 08:04 Wellbutrin PO 150 mg BID [facility] Administration Duloxetine HCl 60 mg 07/24/19 09:00 08/04/19 08:03 Cymbalta PO 60 mg DAILY [facility] Administration Furosemide 40 mg 08/04/19 09:00 08/04/19 08:32 Lasix SLOW IVP 08/04/19 21:01 40 mg BID [facility] Administration Glipizide 5 mg 07/31/19 07:30 08/04/19 07:58 Glucotrol PO 5 mg DAILY-AC [facility] Administration Haloperidol Lactate 10 mg 07/26/19 10:00 08/04/19 09:27 Haldol IM 10 mg Q6H [facility] Administration Heparin Sodium (Porcine) 5,000 units 07/23/19 09:00 08/04/19 08:04 Heparin SC 5,000 units TID [facility] Administration Hydralazine HCl 20 mg 07/27/19 09:14 08/04/19 10:05 Apresoline SLOW IVP 20 mg Q6H PRN Administration SBP Greater Than 170 Nicardipine HCl 50 mg/ Sodium 250 mls @ 0 mls/hr 07/23/19 00:15 07/23/19 05: 11 Chloride IV 250 mls INF [facility] Administration Protocol As Directed Dexmedetomidine HCl 400 mcg/ 100 mls @ 0 mls/hr 07/28/19 00:45 08/04/19 10:48 Sodium Chloride IVPB 100 mls INF [facility] Administration Protocol Per Protocol Insulin Glargine 40 units/ 0.4 mls @ 0 mls/hr 08/02/19 09:00 08/04/19 09:34 Miscellaneous Medication SC 0.4 mls BID [facility] Administration Insulin Human Lispro 0 units 07/23/19 18:05 08/03/19 03:46 Humalog SC 3 unit .AGGRESSIVE SLIDING PRN Administration Aggressive Correctional Scale Lactulose 10 gm 08/02/19 21:00 08/04/19 08:04 Lactulose PER TUBE 10 gm BID [facility] Administration Levothyroxine Sodium 100 mcg 07/24/19 06:00 08/04/19 06:09 Synthroid PO 100 mcg 0600 [facility] Administration Lorazepam 2 mg 08/02/19 07:30 08/04/19 10:14 Ativan SLOW IVP 2 mg Q1H PRN Administration Breakthrough agitation Miscellaneous Medication 1 pkt 07/23/19 11:01 07/23/19 12:47 Phos-Nak PO 1 pkt TIDPRN PRN Administration FOR PHOS LEVEL 1.0 - 1.8 Pantoprazole Sodium 40 mg 08/02/19 09:00 08/04/19 08:04 Protonix IVP 40 mg DAILY [facility] Administration Potassium Chloride 40 meq 07/23/19 11:01 07/29/19 08:51 Klor-Con PER TUBE 40 meq ASDIR PRN Administration FOR SERUM K+ 2.5-3.5 Pregabalin 75 mg 07/30/19 21:00 08/04/19 08:01 Lyrica PO 75 mg BID [facility] Administration Propofol 1,000 mg 07/22/19 23:43 07/27/19 07:23 Diprivan IV 08/21/19 23:43 1,000 mg INF PRN Administration TO ACHIEVE GOAL RASS Protocol Sertraline HCl 50 mg 07/24/19 09:00 08/04/19 08:02 Zoloft PO 50 mg DAILY [facility] Administration Sodium Bicarbonate 975 mg 07/23/19 21:00 08/04/19 08:02 Bicarbonate, Sodium PO 975 mg BID [facility] Administration Sodium Chloride 10 ml 07/23/19 09:00 08/04/19 08:05 Flush - Normal Saline IVF 10 ml Q12HR [facility] Administration Timolol Maleate 1 drop 07/30/19 21:00 08/04/19 08:05 Timoptic 0.5% Ophth Soln R EYE 1 drop BID [facility] Administration - Exam General Appearance: awake alert Eye: PERRL, anicteric sclera ENT: no oropharyngeal lesions, moist mucosa Neck: supple, no JVD Heart: RRR, no murmur Respiratory: no wheezes, no rales Gastrointestinal: soft, non-tender, non-distended, normal bowel sounds Extremities: no cyanosis, 1+ LE edema Neurological: cranial nerve grossly intact, no focal deficits Psychiatric: A&O x 3 Hosp A/P (1) Acute metabolic encephalopathy Code(s): G93.41 - METABOLIC ENCEPHALOPATHY Status: Acute (2) DKA (diabetic ketoacidoses) Code(s): E11.10 - TYPE 2 DIABETES MELLITUS WITH KETOACIDOSIS WITHOUT COMA Status: Resolved Qualifiers: Diabetes mellitus type: type 2 (3) Acute worsening of stage 3 chronic kidney disease Code(s): N18.3 - CHRONIC KIDNEY DISEASE, STAGE 3 (MODERATE) Status: Acute (4) Metabolic acidosis Code(s): E87.2 - ACIDOSIS Status: Resolved (5) Anemia, normocytic normochromic Code(s): D64.9 - ANEMIA, UNSPECIFIED Status: Chronic (6) Anxiety and depression Code(s): F41.9 - ANXIETY DISORDER, UNSPECIFIED; F32.9 - MAJOR DEPRESSIVE DISORDER, SINGLE EPISODE, UNSPECIFIED Status: Chronic (7) DM type 2 (diabetes mellitus, type 2) Status: Chronic Qualifiers: Diabetes mellitus fpc insulin use: with fpc use Diabetes mellitus complication status: with kidney complications Diabetes mellitus complication detail: with chronic kidney disease Chronic kidney disease stage : stage 3 (moderate) Qualified Code(s): E11.22 - Type 2 diabetes mellitus with diabetic chronic kidney disease; N18.3 - Chronic kidney disease, stage 3 ( moderate); Z79.4 - longterm (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 of insulin (8) Dyslipidemia Code(s): E78.5 - HYPERLIPIDEMIA, UNSPECIFIED Status: Chronic (9) Hypertension Code(s): I10 - ESSENTIAL (PRIMARY) HYPERTENSION Status: Chronic Qualifiers: Hypertension type: essential hypertension Qualified Code(s): I10 - Essential (primary) hypertension (10) Sepsis Code(s): A41.9 - SEPSIS, UNSPECIFIED ORGANISM Status: Resolved Qualifiers: Sepsis type: sepsis due to unspecified organism (11) Obesity Code(s): E66.9 - OBESITY, UNSPECIFIED Status: Chronic Qualifiers: Obesity classification: adult class 3 (BMI >= 40) Body mass index: BMI 50.0 -59.9 (12) Acute respiratory failure with hypoxia Code(s): J96.01 - ACUTE RESPIRATORY FAILURE WITH HYPOXIA Status: Acute - Plan she is more awake and oriented on vent now, weaning per pulm adv for trach and peg on tuesday is on haldol, lantus 40u bid, home dose glipizide and gliptin. dka has resolved, gentle diuresis on lipitor, welbutrin, cymbalta, zoloft, synthroid hemostable
--- NOTE | 2019-08-04 17:44 | PRG ---
DATE OF SERVICE: 08/04/2019 SUBJECTIVE: The patient was seen and examined in ICU. OBJECTIVE: GENERAL: This is an obese female, intubated. VITAL SIGNS: Temperature 98.7, pulse 69, respiratory rate 18, blood pressure 178/86. LABORATORY DATA: Potassium 4, BUN is 63, creatinine is 2.7. ASSESSMENT AND PLAN: 1. Acute kidney injury on chronic kidney disease, stage 3, slight improvement. 2. Acute hypoxic respiratory failure. 3. Multiorgan failure. 4. Hypertension. 5. Anemia. 6. Morbid obesity. 7. Renal function is stable. We will follow. Job ID: [id number]
[2019-08-04] MEDS: Atorvastatin Calcium 20 MG TAB PO SCH (20:03)
[2019-08-05] MEDS: Lorazepam 2 MG/ML VIAL SLOW IVP PRN ×3 (03:18→21:22)
[2019-08-05 04:45] LABS: Hemoglobin 7.8 g/dL (12.0-16.0); Hypochromia SLIGHT = 6-15 cells (100X) (0-5/hpf); Lymphocytes 7 % (21-51); MDiff Complete? YES; Mean Corpuscular HGB CONC 31.3 g/dL (32.0-36.0); Mean Corpuscular Hemoglobin 29.4 pg (27.0-31.0); Mean Corpuscular Volume 93.9 fL (78.0-98.0); Mean Platelet Volume 7.9 fL (7.4-10.4); Monocytes 6 % (0-10); Neutrophil 87 % (42-75); Platelet Count 264 thou/uL (130-400); Platelet Morphology Comment Appears Adequate; RBC Distribution Width 14.5 % (11.5-14.5); Red Blood Cell (RBC) Count 2.64 mill/uL (4.20-5.40); White Blood Cell (WBC) Count 10.5 thou/uL (4.8-10.8)
[2019-08-05] MEDS: Haloperidol Lactate 5 MG/ML VIAL IM SCH (04:46)
[2019-08-05 04:51] LABS: ALT (SGPT) 19 U/L (8-55); AST (SGOT) 11 U/L (5-34); Albumin 2.4 g/dL (3.5-5.0); Alkaline Phosphatase 218 U/L (40-110); Anion Gap 13 mmol/L (10-20); BUN (Urea Nitrogen) 67 mg/dL (9.8-20.1); Bilirubin, Total 0.2 mg/dL (0.2-1.2); Calc. Creatinine Clearance 68 mL/min (70-130); Calcium 8.4 mg/dL (7.8-10.44); Carbon Dioxide 25 mmol/L (22-29); Chloride 107 mmol/L (98-107); Estimated GFR-MDRD 18; Globulin 3.6 g/dL (2.4-3.5); Glucose 87 mg/dL (70-105); Sodium 141 mmol/L (136-145)
[2019-08-05] MEDS: Levothyroxine Sodium 100 MCG TAB PO SCH (06:19)
[2019-08-05 06:55] LABS: Actual Bicarbonate (HCO3a) 25.8 mEq/L (22-28); Base Excess (BEa) -0.6 mEq/L (-2.0 to +3.0); Calcium, Ionized 1.22 mmol/L (1.12-1.30); Carboxyhemoglobin (COHb) 0.7 gm% (0.0-3.0); Hemoglobin (Hb) 8.9 g/dL (12.0-16.0); O2 Tension (PaO2) 93.4 mmHg (80.0-100.0); Potassium - ABG Lab 4.46 mmol/L (3.70-5.30); Puncture Site RR; pH, Arterial 7.31 (7.35-7.45)
[2019-08-05] MEDS: hydrALAZINE 20 MG/ML VIAL SLOW IVP PRN ×2 (08:20→12:07)
[2019-08-05] MEDS: Heparin 5,000 UNITS/ML VIAL SC SCH ×3 (08:20→21:18)
[2019-08-05] MEDS: Sodium Bicarbonate Tab 325 MG TAB PO SCH ×2 (08:21→21:17)
[2019-08-05] MEDS: Pantoprazole 40 MG VIAL IVP SCH (08:21)
[2019-08-05] MEDS: DULoxetine 60 MG CAP PO SCH (08:21)
[2019-08-05] MEDS: buPROPion 75 MG TAB PO SCH ×2 (08:22→21:18)
[2019-08-05] MEDS: Pregabalin 75 MG CAP PO SCH ×2 (08:24→21:18)
[2019-08-05] MEDS: glipiZIDE 5 MG TAB PO SCH (08:26)
[2019-08-05] MEDS: Timolol 0.5% Ophth Soln 5 ml Bottle R EYE SCH ×2 (08:27→21:18)
--- NOTE | 2019-08-05 08:52 | RAD ---
PORTABLE CHEST ONE VIEW: HISTORY: Respiratory insufficiency. COMPARISON: 08/04/2019 FINDINGS: Persistent but improving interstitial and alveolar and ground glass opacity changes throughout both l ungs. No new lobar pneumonia. Persistent cardiomegaly. IMPRESSION: Improving bilateral parenchymal changes. Continued followup for clearing. POS: [facility]
[2019-08-05] MEDS: Metoclopramide HCl 10 MG/2 ML VIAL IVP SCH ×3 (09:32→21:18)
--- NOTE | 2019-08-05 10:03 | PRG ---
DATE OF SERVICE: 08/05/2019 A 35 minutes of critical care time. SUBJECTIVE: The patient remains intubated on mechanical ventilation. She has not tolerated tube feeds well overnight. OBJECTIVE: VITAL SIGNS: Her temperature is 98.3, pulse 65, blood pressure 160/64, and O2 saturation 96%. Intake 2197 and output 3660. HEENT: Unremarkable. NECK: No JVD. LUNGS: Coarse breath sounds. CARDIAC: S1 and S2. Regular without audible murmur. ABDOMEN: Soft, obese, and nontender. EXTREMITIES: Edematous throughout. LABORATORY DATA: White blood cell count 10.5, hematocrit 24.9, and platelet count 264. A pH of 7.31, pCO2 of 52, pO2 of 93 on SIMV rate 7, tidal volume 500, PEEP 5, pressure support 10, and FiO2 of 40%. Sodium 141, potassium 4, chloride 107, CO2 of 25, BUN 67, creatinine 2.7, and glucose 87. ASSESSMENT: 1. Acute respiratory failure requiring mechanical ventilation. 2. Probable underlying obstructive sleep apnea/obesity hypoventilation syndrome. 3. Improving acute kidney injury. 4. Fluid overloaded. 5. Constipated. PLAN: 1. She is getting some Dulcolax today. Her a.m. long-acting insulin was held. 2. I will change her Haldol to p.r.n. as she is getting extremely sedated. 3. Add Reglan for elevated gastric residuals. Job ID: [id number]
--- NOTE | 2019-08-05 11:35 | PDOC.HOSPP ---
- Subjective Encounter Date: 08/05/19 Encounter Time: 09:20 Subjective: on vent, sedated this am had retching and tried to vomit over night, no bm - Objective Vital Signs & Weight: Vital Signs (12 hours) Temp Pulse Resp BP 08/05/19 10:56 74 152/108 H 08/05/19 10:00 14 08/05/19 08:27 62 186/66 H 08/05/19 08:20 62 186/66 H 08/05/19 08:00 18 08/05/19 06:40 62 160/74 H 08/05/19 06:00 14 08/05/19 04:33 62 160/62 H 08/05/19 04:00 98.3 F 18 08/05/19 02:00 17 08/05/19 00:00 98.4 F 13 Weight Admit Weight 361 lb 5.4 oz Weight 398 lb 13.059 oz Most Recent Monitor Data Heart Rate from ECG 70 NIBP 164/94 NIBP BP-Mean 117 Respiration from ECG 13 SpO2 98 I&O: 08/04/19 08/05/19 08/06/19 06:59 06:59 06:59 Intake Total 2271 2197 Output Total 1220 3660 40 Balance 1051 -1463 -40 Result Diagrams: 08/05/19 03:55 08/05/19 03:55 Additional Labs: Accuchecks 08/05/19 08/05/19 08/05/19 10:35 07:55 00:22 POC Glucose 75 76 112 H 08/04/19 08/04/19 08/04/19 20:06 16:11 12:34 POC Glucose 130 H 140 H 138 H Hospitalist ROS - Medication Medications: Active Medications Generic Name Dose Route Start Last Admin Trade Name Freq PRN Reason Stop Dose Admin Acetaminophen 650 mg 07/23/19 16:54 08/01/19 03:00 Tylenol PO 650 mg Q6H PRN Administration Fever > 101 Alogliptin Benzoate 25 mg 07/31/19 09:00 08/04/19 08:02 Alogliptin PO 25 mg DAILY [facility] Administration Atorvastatin Calcium 20 mg 07/23/19 21:00 08/04/19 20:03 Lipitor PO 20 mg HS [facility] Administration Bisacodyl 10 mg 08/02/19 10:59 08/05/19 08:22 Dulcolax MA 10 mg DAILYPRN PRN Administration Constipation Bupropion HCl 150 mg 07/31/19 21:00 08/05/19 08:22 Wellbutrin PO 150 mg BID [facility] Administration Duloxetine HCl 60 mg 07/24/19 09:00 08/05/19 08:21 Cymbalta PO 60 mg DAILY [facility] Administration Heparin Sodium (Porcine) 5,000 units 07/23/19 09:00 08/05/19 08:20 Heparin SC 5,000 units TID M[facility] Administration Hydralazine HCl 20 mg 08/04/19 15:11 08/05/19 08:20 Apresoline SLOW IVP 20 mg Q4H PRN Administration SBP Greater Than 170 Nicardipine HCl 50 mg/ Sodium 250 mls @ 0 mls/hr 07/23/19 00:15 07/23/19 05: 11 Chloride IV 250 mls INF M[facility] Administration Protocol As Directed Dexmedetomidine HCl 400 mcg/ 100 mls @ 0 mls/hr 07/28/19 00:45 08/05/19 11:09 Sodium Chloride IVPB 100 mls INF [facility] Administration Protocol Per Protocol Insulin Glargine 40 units/ 0.4 mls @ 0 mls/hr 08/02/19 09:00 08/04/19 20:50 Miscellaneous Medication SC 0.4 mls BID [facility] Administration Insulin Human Lispro 0 units 07/23/19 18:05 08/03/19 03:46 Humalog SC 3 unit .AGGRESSIVE SLIDING PRN Administration Aggressive Correctional Scale Lactulose 10 gm 08/02/19 21:00 08/05/19 08:22 Lactulose PER TUBE 10 gm BID [place] Administration Levothyroxine Sodium 100 mcg 07/24/19 06:00 08/05/19 06:19 Synthroid PO 100 mcg 0600 [facility] Administration Lorazepam 2 mg 08/02/19 07:30 08/05/19 03:18 Ativan SLOW IVP 2 mg Q1H PRN Administration Breakthrough agitation Metoclopramide HCl 10 mg 08/05/19 09:00 08/05/19 09:32 Reglan IVP 10 mg Q6H [place] Administration Miscellaneous Medication 1 pkt 07/23/19 11:01 07/23/19 12:47 Phos-Nak PO 1 pkt TIDPRN PRN Administration FOR PHOS LEVEL 1.0 - 1.8 Pantoprazole Sodium 40 mg 08/02/19 09:00 08/05/19 08:21 Protonix IVP 40 mg DAILY [facility] Administration Potassium Chloride 40 meq 07/23/19 11:01 07/29/19 08:51 Klor-Con PER TUBE 40 meq ASDIR PRN Administration FOR SERUM K+ 2.5-3.5 Pregabalin 75 mg 07/30/19 21:00 08/05/19 08:24 Lyrica PO 75 mg BID [place] Administration Propofol 1,000 mg 07/22/19 23:43 07/27/19 07:23 Diprivan IV 08/21/19 23:43 1,000 mg INF PRN Administration TO ACHIEVE GOAL RASS Protocol Sertraline HCl 50 mg 07/24/19 09:00 08/05/19 08:21 Zoloft PO 50 mg DAILY [facility] Administration Sodium Bicarbonate 975 mg 07/23/19 21:00 08/05/19 08:21 Bicarbonate, Sodium PO 975 mg BID [place] Administration Sodium Chloride 10 ml 07/23/19 09:00 08/05/19 08:25 Flush - Normal Saline IVF 10 ml Q12HR M[facility] Administration Timolol Maleate 1 drop 07/30/19 21:00 08/05/19 08:27 Timoptic 0.5% Ophth Soln R EYE 1 drop BID [place] Administration - Exam Eye: PERRL, anicteric sclera ENT: no oropharyngeal lesions, dry oral mucosa Neck: supple, no JVD Heart: RRR, no murmur Respiratory: no wheezes, no rales, rhonchi Gastrointestinal: soft, non-tender, non-distended, normal bowel sounds Extremities: no cyanosis, 1+ LE edema Neurological: cranial nerve grossly intact, no focal deficits Hosp A/P (1) Acute metabolic encephalopathy Code(s): G93.41 - METABOLIC ENCEPHALOPATHY Status: Acute (2) DKA (diabetic ketoacidoses) Code(s): E11.10 - TYPE 2 DIABETES MELLITUS WITH KETOACIDOSIS WITHOUT COMA Status: Resolved Qualifiers: Diabetes mellitus type: type 2 (3) Acute worsening of stage 3 chronic kidney disease Code(s): N18.3 - CHRONIC KIDNEY DISEASE, STAGE 3 (MODERATE) Status: Acute (4) Metabolic acidosis Code(s): E87.2 - ACIDOSIS Status: Resolved (5) Anemia, normocytic normochromic Code(s): D64.9 - ANEMIA, UNSPECIFIED Status: Chronic (6) Anxiety and depression Code(s): F41.9 - ANXIETY DISORDER, UNSPECIFIED; F32.9 - MAJOR DEPRESSIVE DISORDER, SINGLE EPISODE, UNSPECIFIED Status: Chronic (7) DM type 2 (diabetes mellitus, type 2) Status: Chronic Qualifiers: Diabetes mellitus terminal press operator insulin use: with terminal press operator use Diabetes mellitus complication status: with kidney complications Diabetes mellitus complication detail: with chronic kidney disease Chronic kidney disease stage : stage 3 (moderate) Qualified Code(s): E11.22 - Type 2 diabetes mellitus with diabetic chronic kidney disease; N18.3 - Chronic kidney disease, stage 3 ( moderate); Z79.4 - terminal clerk (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 of insulin (8) Dyslipidemia Code(s): E78.5 - HYPERLIPIDEMIA, UNSPECIFIED Status: Chronic (9) Hypertension Code(s): I10 - ESSENTIAL (PRIMARY) HYPERTENSION Status: Chronic Qualifiers: Hypertension type: essential hypertension Qualified Code(s): I10 - Essential (primary) hypertension (10) Sepsis Code(s): A41.9 - SEPSIS, UNSPECIFIED ORGANISM Status: Resolved Qualifiers: Sepsis type: sepsis due to unspecified organism (11) Obesity Code(s): E66.9 - OBESITY, UNSPECIFIED Status: Chronic Qualifiers: Obesity classification: adult class 3 (BMI >= 40) Body mass index: BMI 50.0 -59.9 (12) Acute respiratory failure with hypoxia Code(s): J96.01 - ACUTE RESPIRATORY FAILURE WITH HYPOXIA Status: Acute - Plan weaning per pulm adv for trach and peg in am. is on haldol prn dm is labile, am dose of lantus 40u bid will be held, home dose glipizide and gliptin. dka has resolved, gentle diuresis on lipitor, welbutrin, cymbalta, zoloft, synthroid HTN is labile, add hydralazine and lasix, pulse runs around 50's. hemostable
[2019-08-05] MEDS: Alogliptin 25 MG TAB PO SCH (11:44)
[2019-08-05] MEDS: Insulin Glargine 40 UNITS in Pre-Filled Syringe 1 EACH SC SCH (11:45)
[2019-08-05] MEDS: Furosemide 40 MG/4 ML VIAL SLOW IVP SCH (14:29)
[2019-08-05] MEDS: hydrALAZINE 25 MG TAB PO SCH ×2 (14:29→21:18)
--- NOTE | 2019-08-05 15:07 | PRG ---
DATE OF SERVICE: 08/05/2019 SUBJECTIVE: The patient was seen and examined in the ICU. OBJECTIVE: GENERAL: This is an obese female, intubated. VITAL SIGNS: Temperature 98.4, pulse 74, respiratory , blood pressure 181/75. HEENT: Intubated. CV: S1 and S2. RESPIRATORY: Clear NEUROLOGIC: Intubated. LABORATORY DATA: Potassium 4.0, BUN is 67, creatinine is 2.7. ASSESSMENT AND PLAN: 1. Acute kidney injury on chronic kidney disease stage 3, stable. 2. Acute hypoxic respiratory failure. 3. Multiorgan failure. 4. Anemia. 5. Morbid obesity. 6. Renal function is stable and making urine. Follow. Job ID: [id number]
[2019-08-05] MEDS ORDERED: Dextrose 5 %-0.45 % NaCl 1,000 ML IV SCH (16:30)
[2019-08-05] MEDS: Sodium Chloride 0.45% 1,000 ML IV SCH (19:57)
[2019-08-05] MEDS: Atorvastatin Calcium 20 MG TAB PO SCH (21:18)
[2019-08-06] MEDS: Metoclopramide HCl 10 MG/2 ML VIAL IVP SCH ×4 (02:31→20:47)
[2019-08-06] MEDS: Propofol 1,000 MG/100 ML VIAL IV PRN ×4 (02:31→23:56)
[2019-08-06 05:02] LABS: Band 23 % (5-11); Hemoglobin 7.6 g/dL (12.0-16.0); Lymphocytes 6 % (21-51); MDiff Complete? YES; Mean Corpuscular HGB CONC 31.2 g/dL (32.0-36.0); Mean Corpuscular Hemoglobin 29.9 pg (27.0-31.0); Mean Corpuscular Volume 95.6 fL (78.0-98.0); Mean Platelet Volume 7.9 fL (7.4-10.4); Monocytes 6 % (0-10); Neutrophil 65 % (42-75); Platelet Count 236 thou/uL (130-400); Platelet Morphology Comment Appears Adequate; RBC Distribution Width 14.7 % (11.5-14.5); Red Blood Cell (RBC) Count 2.53 mill/uL (4.20-5.40); White Blood Cell (WBC) Count 9.3 thou/uL (4.8-10.8)
[2019-08-06] MEDS: Levothyroxine Sodium 100 MCG TAB PO SCH (05:02)
[2019-08-06] MEDS: Furosemide 40 MG/4 ML VIAL SLOW IVP SCH ×2 (05:02→14:01)
[2019-08-06 05:07] LABS: ALT (SGPT) 16 U/L (8-55); AST (SGOT) 9 U/L (5-34); Albumin 2.3 g/dL (3.5-5.0); Alkaline Phosphatase 195 U/L (40-110); Anion Gap 13 mmol/L (10-20); BUN (Urea Nitrogen) 65 mg/dL (9.8-20.1); Bilirubin, Total Less than 0.2 mg/dL (0.2-1.2); Calc. Creatinine Clearance 69 mL/min (70-130); Calcium 8.5 mg/dL (7.8-10.44); Carbon Dioxide 25 mmol/L (22-29); Chloride 108 mmol/L (98-107); Estimated GFR-MDRD 18; Globulin 3.6 g/dL (2.4-3.5); Glucose 75 mg/dL (70-105); Potassium 4.2 mmol/L (3.5-5.1); Protein, Total 5.9 g/dL (6.0-8.3); Sodium 142 mmol/L (136-145)
[2019-08-06 07:26] LABS: Actual Bicarbonate (HCO3a) 24.4 mEq/L (22-28); Base Excess (BEa) 0.1 mEq/L (-2.0 to +3.0); CO2 Tension 38.1 mmHg (35.0-45.0); Carboxyhemoglobin (COHb) 1.4 gm% (0.0-3.0); Hemoglobin (Hb) 8.1 g/dL (12.0-16.0); O2 Tension (PaO2) 152.2 mmHg (80.0-100.0); pH, Arterial 7.43 (7.35-7.45)
[2019-08-06 07:28] LABS: ALV-art Gradient 85.375 (0-20); Puncture Site RRA
[2019-08-06] MEDS: Pantoprazole 40 MG VIAL IVP SCH (07:37)
[2019-08-06] MEDS: hydrALAZINE 25 MG TAB PO SCH ×3 (07:38→20:20)
[2019-08-06] MEDS: Heparin 5,000 UNITS/ML VIAL SC SCH ×3 (07:38→20:19)
[2019-08-06] MEDS: DULoxetine 60 MG CAP PO SCH (07:38)
[2019-08-06] MEDS: buPROPion 75 MG TAB PO SCH ×2 (07:38→20:47)
[2019-08-06] MEDS: Timolol 0.5% Ophth Soln 5 ml Bottle R EYE SCH ×2 (07:39→20:22)
[2019-08-06] MEDS: Sodium Bicarbonate Tab 325 MG TAB PO SCH ×2 (07:39→20:22)
[2019-08-06] MEDS: Pregabalin 75 MG CAP PO SCH ×2 (07:39→20:21)
--- NOTE | 2019-08-06 08:47 | RAD ---
PORTABLE CHEST: HISTORY: Respiratory distress. COMPARISON: Prior day's exam. Film technique makes it difficult to assess. The endotracheal tube is felt to still be in satisfacto ry position. Differences in technique make comparison somewhat difficult, but the right parahilar an d bibasilar lung changes appear fairly similar to the prior exam. Perhaps minimal increase in the c hanges in the right base, but this may just be technique related. IMPRESSION: Questionable minimal increased parenchymal changes in the right lung base. POS: [facility]
[2019-08-06] MEDS ORDERED: Lidocaine 1% w/Epinephrine 1:100K 20 ML VIAL ONE (10:01)
[2019-08-06] MEDS ORDERED: Bupivacaine PF 0.5% 30 ML VIAL ONE (10:01)
[2019-08-06] MEDS ORDERED: PROPOFOL 200 MG/20 ML VIAL ONE (10:56)
[2019-08-06] MEDS ORDERED: Rocuronium Bromide 10 MG/ML (10ML VIAL) ONE (10:56)
--- NOTE | 2019-08-06 15:00 | PDOC.HOSPP ---
- Subjective Encounter Date: 08/06/19 Encounter Time: 14:59 non-verbal - Objective Vital Signs & Weight: Vital Signs (12 hours) Temp Pulse Resp BP Pulse Ox 08/06/19 14:14 60 133/61 08/06/19 14:01 87 161/71 H 08/06/19 14:00 12 08/06/19 11:25 12 08/06/19 11:21 94 L 08/06/19 11:05 87 161/71 H 08/06/19 11:00 96.1 F L 08/06/19 08:48 98.6 F 08/06/19 08:00 98.6 F 08/06/19 07:39 55 L 155/68 H 08/06/19 07:38 55 L 155/68 H 08/06/19 07:18 11 L 100 08/06/19 06:40 55 L 155/68 H 08/06/19 06:00 17 08/06/19 04:00 97.9 F 11 L 08/06/19 03:44 58 L Weight Admit Weight 361 lb 5.4 oz Weight 412 lb 11.285 oz Most Recent Monitor Data Heart Rate from ECG 60 NIBP 133/61 NIBP BP-Mean 85 Respiration from ECG 9 SpO2 99 I&O: 08/05/19 08/06/19 08/07/19 06:59 06:59 06:59 Intake Total 2197 985.0 240 Output Total 3660 2760 830 Balance -1463 -1775.0 -590 Result Diagrams: 08/06/19 04:00 08/06/19 03:30 Additional Labs: Accuchecks 08/06/19 08/06/19 08/06/19 11:52 07:18 04:07 POC Glucose 95 84 81 08/06/19 08/05/19 08/05/19 00:06 21:19 16:16 POC Glucose 70 73 66 L Hospitalist ROS - Review of Systems ROS unobtainable: due to endotracheal tube - Medication Medications: Active Medications Generic Name Dose Route Start Last Admin Trade Name Freq PRN Reason Stop Dose Admin Acetaminophen 650 mg 07/23/19 16:54 08/01/19 03:00 Tylenol PO 650 mg Q6H PRN Administration Fever > 101 Atorvastatin Calcium 20 mg 07/23/19 21:00 08/05/19 21:18 Lipitor PO 20 mg HS [facility] Administration Bisacodyl 10 mg 08/02/19 10:59 08/05/19 08:22 Dulcolax AL 10 mg DAILYPRN PRN Administration Constipation Bupropion HCl 150 mg 07/31/19 21:00 08/06/19 07:38 Wellbutrin PO Not Given BID [facility] Duloxetine HCl 60 mg 07/24/19 09:00 08/06/19 07:38 Cymbalta PO Not Given DAILY [facility] Furosemide 40 mg 08/05/19 14:00 08/06/19 14:01 Lasix SLOW IVP 40 mg 0600,1400 [facility] Administration Heparin Sodium (Porcine) 5,000 units 07/23/19 09:00 08/06/19 14:01 Heparin SC 5,000 units TID [facility] Administration Hydralazine HCl 20 mg 08/04/19 15:11 08/05/19 12:07 Apresoline SLOW IVP 20 mg Q4H PRN Administration SBP Greater Than 170 Hydralazine HCl 75 mg 08/05/19 15:00 08/06/19 14:01 Apresoline PO 75 mg TID [facility] Administration Nicardipine HCl 50 mg/ Sodium 250 mls @ 0 mls/hr 07/23/19 00:15 07/23/19 05: 11 Chloride IV 250 mls INF [facility] Administration Protocol As Directed Dexmedetomidine HCl 400 mcg/ 100 mls @ 0 mls/hr 07/28/19 00:45 08/06/19 05:02 Sodium Chloride IVPB 100 mls INF [facility] Administration Protocol Per Protocol Dextrose/Sodium Chloride 1,000 mls @ 0 mls/hr 08/05/19 16:30 08/05/19 16:36 D5 1/2 Ns IV 1,000 mls .Q0M [facility] Administration KVO Insulin Human Lispro 0 units 07/23/19 18:05 08/03/19 03:46 Humalog SC 3 unit .AGGRESSIVE SLIDING PRN Administration Aggressive Correctional Scale Lactulose 10 gm 08/02/19 21:00 08/06/19 07:38 Lactulose PER TUBE Not Given BID [facility] Levothyroxine Sodium 100 mcg 07/24/19 06:00 08/06/19 05:02 Synthroid PO 100 mcg 0600 [facility] Administration Lorazepam 2 mg 08/02/19 07:30 08/05/19 21:22 Ativan SLOW IVP 2 mg Q1H PRN Administration Breakthrough agitation Metoclopramide HCl 10 mg 08/05/19 09:00 08/06/19 14:01 Reglan IVP 10 mg Q6H [facility] Administration Miscellaneous Medication 1 pkt 07/23/19 11:01 07/23/19 12:47 Phos-Nak PO 1 pkt TIDPRN PRN Administration FOR PHOS LEVEL 1.0 - 1.8 Pantoprazole Sodium 40 mg 08/02/19 09:00 08/06/19 07:37 Protonix IVP 40 mg DAILY [facility] Administration Potassium Chloride 40 meq 07/23/19 11:01 07/29/19 08:51 Klor-Con PER TUBE 40 meq ASDIR PRN Administration FOR SERUM K+ 2.5-3.5 Pregabalin 75 mg 07/30/19 21:00 08/06/19 07:39 Lyrica PO Not Given BID MAD[facility] Propofol 1,000 mg 07/22/19 23:43 08/06/19 02:31 Diprivan IV 08/21/19 23:43 1,000 mg INF PRN Administration TO ACHIEVE GOAL RASS Protocol Sertraline HCl 50 mg 07/24/19 09:00 08/06/19 07:39 Zoloft PO Not Given DAILY [facility] Sodium Bicarbonate 975 mg 07/23/19 21:00 08/06/19 07:39 Bicarbonate, Sodium PO Not Given BID MAD[facility] Sodium Chloride 10 ml 07/23/19 09:00 08/06/19 07:40 Flush - Normal Saline IVF 10 ml Q12HR [facility] Administration Timolol Maleate 1 drop 07/30/19 21:00 08/06/19 07:39 Timoptic 0.5% Ophth Soln R EYE 1 drop BID [facility] Administration - Exam General Appearance: ill appearing ENT: normocephalic atraumatic, no oropharyngeal lesions Neck: supple, symmetric, no JVD, no thyromegaly Heart: RRR, no murmur, no gallops Respiratory: CTAB Respiratory - other findings: intubated Gastrointestinal: soft Extremities: 2+ LE edema Neurological - other findings: sedated Hosp A/P (1) SINA (acute kidney injury) Code(s): N17.9 - ACUTE KIDNEY FAILURE, UNSPECIFIED Status: Acute (2) Acute metabolic encephalopathy Code(s): G93.41 - METABOLIC ENCEPHALOPATHY Status: Acute (3) Acute respiratory failure with hypoxia Code(s): J96.01 - ACUTE RESPIRATORY FAILURE WITH HYPOXIA Status: Acute (4) DKA (diabetic ketoacidoses) Code(s): E11.10 - TYPE 2 DIABETES MELLITUS WITH KETOACIDOSIS WITHOUT COMA Status: Resolved Qualifiers: Diabetes mellitus type: type 2 (5) Acute worsening of stage 3 chronic kidney disease Code(s): N18.3 - CHRONIC KIDNEY DISEASE, STAGE 3 (MODERATE) Status: Acute (6) Dyslipidemia Code(s): E78.5 - HYPERLIPIDEMIA, UNSPECIFIED Status: Chronic (7) Hypertension Code(s): I10 - ESSENTIAL (PRIMARY) HYPERTENSION Status: Chronic Qualifiers: Hypertension type: essential hypertension Qualified Code(s): I10 - Essential (primary) hypertension (8) Morbid obesity with BMI of 60.0-69.9, adult Code(s): E66.01 - MORBID (SEVERE) OBESITY DUE TO EXCESS CALORIES; Z68.44 - BODY MASS INDEX (BMI) 60.0-69.9, ADULT Status: Chronic - Plan Admitted for acute resiratory failure requiring intubation, complications with DKA, obesity Heading for Trach and peg today Continue current management Pending placement Continue sedation, insulin gtt, levothyroxine, nicardipine gtt
--- NOTE | 2019-08-06 17:18 | PRG ---
DATE OF SERVICE: 08/06/2019 SUBJECTIVE: A 58-year-old female being seen for acute kidney injury. The patient is intubated. The patient is resting. OBJECTIVE: GENERAL: The patient is resting. VITAL SIGNS: Afebrile, pulse 87, breathing at 16, blood pressure 133/61. HEENT: Head normocephalic and atraumatic. Eyes intact, no ulcers. Nose intact, no ulcers. Ears intact, no ulcers. NECK: Supple. No JVD. CHEST: Symmetrical and clear. CARDIOVASCULAR: Shows S1 and S2, no rub, no murmur. GASTROINTESTINAL: Abdomen is soft, bowel sounds positive. EXTREMITIES: Show no edema or ulcers. SKIN: Shows no rash or petechiae. MUSCULOSKELETAL: Shows no joint swelling or stiffness. GENITOURINARY: Shows no Cuevas or CVA tenderness. NEUROLOGIC: Motor intact. Cranial nerves intact. LABORATORY DATA: Reviewed. ASSESSMENT AND PLAN: 1. Acute kidney injury with chronic kidney disease stage 4, stable. 2. Hypertension, stable. 3. Anemia, stable. Medication based on GFR appropriate. 4. No indication for dialysis. Job ID: [id number]
--- NOTE | 2019-08-06 18:39 | OP ---
DATE OF PROCEDURE: 08/06/2019 PREOPERATIVE DIAGNOSES: Morbid obesity, hypoventilation syndrome, respiratory failure, pneumonia, dysphagia. POSTOPERATIVE DIAGNOSES: Morbid obesity, hypoventilation syndrome, respiratory failure, pneumonia, dysphagia. PROCEDURES PERFORMED: #8 Bivona tracheostomy. Percutaneous endoscopic gastrostomy tube. Note, at the completion of the procedure, Dr. Seven Vivar performed a disposable bronchoscopy after properly positioning the tracheostomy tube. There was noted to be ulcerations in the distal trachea from either endotracheal trauma or suctioning trauma. ANESTHESIA: General, local 0.5% Marcaine 30 mL mixed with 1% Xylocaine with epinephrine 20 mL, 10 mL mixture used. DESCRIPTION OF PROCEDURE: The patient was taken to the operating room, where under general anesthesia, neck and chest and abdomen were prepared with ChloraPrep and draped in routine fashion. Local anesthetic was infiltrated in the skin and subcutaneous tissue about the operative site. Incision was made transversely above the manubrium in the lower anterior neck and skin, subcutaneous tissue, platysma. Platysma flaps were directed superiorly and inferiorly. The tracheostomy strap muscles reflected laterally and thyroid divided at the isthmus with the cautery, identifying the trachea, placing two tracheostomy sutures of 3-0 Prolene on either side of the anterior lateral trachea and knots tied, secured to anterior chest wall with OpSite. An anterior tracheal window excised over 2 cartilaginous rings below the cricoid. Endotracheal tube withdrawn until under direct visualization #8 Bivona placed in the trachea. Balloon inflated, connected to the ventilator. At the completion of the procedure, bronchoscopy disposable performed by Dr. Seven Vivar, proper position of the tracheostomy tube above the connor with the above noted results. Wound was closed by a continuous suture of 3-0 Prolene on either side and tracheostomy appliance secured. Dressings applied. Endoscope was placed per os under direct visualization using air insufflation passed throughout the esophagus and the stomach insufflating the stomach, noting a good indentation in the left subxiphoid. Area had been prepared with ChloraPrep. Local anesthetic was infiltrated in the skin and subcutaneous tissue. A stab incision was made. Trocar catheter introduced percutaneously into the gastric lumen, visualized endoscopically and advancing a wire grasping with snare removing the endoscope and the wire, connecting the wire to the feeding device, which was lubricated, pulled back down through the mouth, esophagus and the stomach secured to the abdominal wall with a fixation device and tube tailored to length. The patient tolerated the procedure well. Job ID: [id number]
[2019-08-06] MEDS: Atorvastatin Calcium 20 MG TAB PO SCH (20:19)
--- NOTE | 2019-08-06 20:48 | PRG ---
DATE OF SERVICE: 08/06/2019 SUBJECTIVE: David Verdugo did not get her trach or PEG Tuesday. It was done today. Apparently, there were issues with anesthesia availability. OBJECTIVE: VITAL SIGNS: She is afebrile. Heart rate is in the 50s, respiratory rates in the teens to low 20s, FiO2 is at 40%, and blood pressure 120/55. LUNGS: Distant clear. HEART: Regular rhythm. ABDOMEN: Soft. EXTREMITIES: Without asymmetry. She still has stasis changes. LABORATORY DATA: White count 9.3, hemoglobin 7.6, platelets 236. Electrolytes are unremarkable. BUN 65 and creatinine is down to 2.7. IMPRESSION: 1. Diabetes with hyperosmolar state with an encephalopathy on presentation. 2. Respiratory failure. 3. Life-threatening obesity. 4. Diabetes. 5. Chronic kidney disease, almost requiring dialysis this admission. When she has her trach and a PEG, we will begin weaning and T-tube trials. Job ID: [id number]
[2019-08-06] MEDS: hydrALAZINE 20 MG/ML VIAL SLOW IVP PRN (23:20)
[2019-08-07] MEDS: Metoclopramide HCl 10 MG/2 ML VIAL IVP SCH ×4 (03:00→20:03)
[2019-08-07] MEDS: Propofol 1,000 MG/100 ML VIAL IV PRN ×4 (04:21→22:49)
[2019-08-07 05:46] LABS: Band 8 % (5-11); Lymphocytes 7 % (21-51); MDiff Complete? YES; Metamyelocyte 2 % (0-0); Monocytes 1 % (0-10); Neutrophil 82 % (42-75); Platelet Morphology Comment Appears Adequate
[2019-08-07 05:47] LABS: Mean Corpuscular HGB CONC 31.2 g/dL (32.0-36.0); Mean Corpuscular Hemoglobin 29.6 pg (27.0-31.0); Mean Corpuscular Volume 95.1 fL (78.0-98.0); Platelet Count 267 thou/uL (130-400); RBC Distribution Width 14.8 % (11.5-14.5); Red Blood Cell (RBC) Count 2.69 mill/uL (4.20-5.40); White Blood Cell (WBC) Count 12.4 thou/uL (4.8-10.8)
[2019-08-07 05:52] LABS: ALT (SGPT) 13 U/L (8-55); AST (SGOT) 10 U/L (5-34); Albumin 2.4 g/dL (3.5-5.0); Alkaline Phosphatase 222 U/L (40-110); Anion Gap 19 mmol/L (10-20); BUN (Urea Nitrogen) 63 mg/dL (9.8-20.1); Bilirubin, Total 0.2 mg/dL (0.2-1.2); Calc. Creatinine Clearance 69 mL/min (70-130); Calcium 8.8 mg/dL (7.8-10.44); Carbon Dioxide 22 mmol/L (22-29); Chloride 106 mmol/L (98-107); Estimated GFR-MDRD 19; Globulin 3.8 g/dL (2.4-3.5); Glucose 111 mg/dL (70-105); Potassium 4.3 mmol/L (3.5-5.1); Protein, Total 6.2 g/dL (6.0-8.3); Sodium 143 mmol/L (136-145)
[2019-08-07] MEDS: Furosemide 40 MG/4 ML VIAL SLOW IVP SCH ×2 (05:57→13:50)
[2019-08-07] MEDS: Levothyroxine Sodium 100 MCG TAB PO SCH (05:58)
[2019-08-07] MEDS: Pantoprazole 40 MG VIAL IVP SCH (07:20)
[2019-08-07] MEDS: Heparin 5,000 UNITS/ML VIAL SC SCH ×3 (07:20→20:02)
[2019-08-07] MEDS: Sodium Bicarbonate Tab 325 MG TAB PO SCH ×2 (07:20→20:04)
[2019-08-07] MEDS: Pregabalin 75 MG CAP PO SCH ×2 (07:21→20:03)
[2019-08-07] MEDS: buPROPion 75 MG TAB PO SCH ×2 (07:22→20:06)
[2019-08-07] MEDS: DULoxetine 60 MG CAP PO SCH (07:22)
[2019-08-07] MEDS: hydrALAZINE 25 MG TAB PO SCH ×3 (07:22→20:02)
[2019-08-07] MEDS: Timolol 0.5% Ophth Soln 5 ml Bottle R EYE SCH ×2 (07:23→20:04)
--- NOTE | 2019-08-07 08:57 | RAD ---
CHEST 1 VIEW: INDICATION: History of COVID and daily CCU examination. COMPARISON: Prior exam dated 08/06/2019. FINDINGS: Cardiomegaly persists. The patient has interval placement of a tracheostomy tube. Tracheostomy proj ects in the region of the mainstem trachea. The tip of the tracheostomy tube is 4.4 cm above the lev el of the connor. The perihilar airspace opacities persist. Cardiomegaly is stable-appearing. Mild parenchymal changes of the right lung base are stable-appearing. IMPRESSION: 1. Interval placement of tracheostomy tube. 2. Stable cardiomegaly. 3. Stable right lower lobe peripheral interstitial and airspace opacities. POS: [facility]
--- NOTE | 2019-08-07 09:48 | PDOC.PALPN ---
Palliative Progress Note - Subjective Mechanically ventilated via trach. - Objective Vital Signs: Vital Signs - Most Recent Temp Pulse Resp BP Pulse Ox 98.6 F 95 25 H 162/67 H 96 08/07/19 07:00 08/07/19 07:23 08/07/19 08:00 08/07/19 07:23 08/07/19 08:00 - Physical Exam Constitutional: encephalitic, ill appearing HEENT: EOMI, moist MMs, sclera anicteric Deviation from normal: Trach, Mechanical ventilation. Cardiovascular: RRR, diminished peripheral pulses Gastrointestinal: soft Deviation from normal: PEG, Obese Genitourinary: fitzgerald catheter Musculoskeletal: edema present, diffuse muscle atrophy Deviation from normal: Encephalopathy Skin: fragile Deviation from normal: encephalopathy - Assessment (1) Palliative care encounter Code(s): Z51.5 - ENCOUNTER FOR PALLIATIVE CARE Current Visit: Yes Status: Acute (2) Respiratory failure requiring intubation Code(s): J96.90 - RESPIRATORY FAILURE, UNSP, UNSP W HYPOXIA OR HYPERCAPNIA Current Visit: Yes Status: Acute (3) Acute respiratory failure with hypoxia Code(s): J96.01 - ACUTE RESPIRATORY FAILURE WITH HYPOXIA Current Visit: Yes Status: Acute (4) Obesity Code(s): E66.9 - OBESITY, UNSPECIFIED Current Visit: Yes Status: Chronic Qualifiers: Obesity classification: adult class 3 (BMI >= 40) Body mass index: BMI 50.0 -59.9 (5) DKA (diabetic ketoacidoses) Code(s): E11.10 - TYPE 2 DIABETES MELLITUS WITH KETOACIDOSIS WITHOUT COMA Current Visit: Yes Status: Resolved Qualifiers: Diabetes mellitus type: type 2 (6) Acute worsening of stage 3 chronic kidney disease Code(s): N18.3 - CHRONIC KIDNEY DISEASE, STAGE 3 (MODERATE) Current Visit: No Status: Acute (7) COPD exacerbation Code(s): J44.1 - CHRONIC OBSTRUCTIVE PULMONARY DISEASE W (ACUTE) EXACERBATION Current Visit: No Status: Acute - Plan Plan: Patient with placement 08/05 of Trach/PEG. Consult to CM for placement at LTAC. Lengthy conversation with patient sister Maribell (also MPOA). She is wanting to complete OOHDNAR. She hopes for her sister to improve, however does not want to have her suffer. Hopeful for placement and rehab at LTAC. In conversation addressing multiple morbidities Maribell is realistic in "Hope for the best, but plan for the worst". Discussed that if she declines at the LTAC she would not want her sister to suffer and is open to comfort measures. *Maribell will call and come to complete OOHDNAR Will notify hospitalist when OOHDNAR placed on chart. [40] minutes spent on this encounter with >50% of the time in counseling and coordination of care. - ROS Non Response: due to endotracheal tube, due to mental status
--- NOTE | 2019-08-07 10:17 | PRG ---
DATE OF SERVICE: David Verdugo is doing well today. Her tracheostomy and PEG tube were stable. Abdominal binder has been applied to the PEG tube and bolus tube feedings are being initiated. There was no complication from the tracheostomy tube. Weaning efforts are underway to wean her to her trach collar. LTAC has been submitted. She has a groin catheter and probably a PICC line is in order prior to LTAC transfer. At this point, I will see her as needed. Please call if necessary. Job ID: [id number]
[2019-08-07] MEDS: Acetaminophen 325 MG TAB PO PRN ×2 (11:50→19:49)
--- NOTE | 2019-08-07 13:21 | PRG ---
DATE OF SERVICE: 08/07/2019 SUBJECTIVE: A 58-year-old female being seen for acute kidney injury. The patient is resting. PHYSICAL EXAMINATION: General: The patient is resting. Vital Signs: Afebrile, pulse 75, breathing at 16, blood pressure 157/78. HEENT: Head normocephalic and atraumatic. Eyes intact, no ulcers. Nose intact, no ulcers. Ears intact, no ulcers. Neck: Supple. No JVD. Chest: Symmetrical and clear. Cardiovascular: Shows S1 and S2, no rub, no murmur. Gastrointestinal: Abdomen is soft, bowel sounds positive. Extremities: Show no edema or ulcers. Skin: Shows no rash or petechiae. Musculoskeletal: Shows no joint swelling or stiffness. Genitourinary: Shows no Cuevas or CVA tenderness. Neurologic: Motor intact. Cranial nerves intact. LABORATORY DATA: Labs reviewed. ASSESSMENT AND PLAN: 1. Stage 4 chronic kidney disease, stable. 2. Hypertension, stable. 3. Anemia, stable. I will sign off on this patient. Please reconsult as needed. Job ID: [id number]
--- NOTE | 2019-08-07 15:41 | PRG ---
DATE OF SERVICE: 08/07/2019 SUBJECTIVE: David Verdugo is now awake and cooperative and nods appropriately to questions. She is still on low-dose sedation. OBJECTIVE: VITAL SIGNS: Blood pressure 140/70, heart rate is 98, respiratory rate 16, oximetry is 96%. LUNGS: Unchanged. HEART: Unchanged. ABDOMEN: Unchanged. EXTREMITIES: She still has her stasis changes in her lower extremity extremities. LABORATORY DATA: White count 12.4, hemoglobin 8.0, platelets 267. Electrolytes normal. Creatinine is 2.66. We could probably decrease frequency of blood draws. PLAN: I would anticipate that she will wean from mechanical ventilation here in the next 24 hours to 48 hours, although she may do better sleeping at night with mechanical ventilation. Critical care time, 30 minutes. Job ID: [id number]
--- NOTE | 2019-08-07 16:22 | PDOC.HOSPP ---
- Subjective Encounter Date: 08/07/19 Encounter Time: 16:21 non-verbal - Objective Vital Signs & Weight: Vital Signs (12 hours) Temp Pulse Resp BP Pulse Ox 08/07/19 16:00 20 08/07/19 14:14 97 150/69 H 08/07/19 14:00 16 08/07/19 13:50 95 162/67 H 08/07/19 11:47 15 08/07/19 10:51 15 08/07/19 10:30 97 169/69 H 08/07/19 10:00 17 08/07/19 08:00 25 H 96 08/07/19 07:23 95 162/67 H 08/07/19 07:22 95 162/67 H 08/07/19 07:00 98.6 F 08/07/19 06:17 95 162/67 H 08/07/19 06:00 13 Weight Admit Weight 361 lb 5.4 oz Weight 406 lb 8.518 oz Most Recent Monitor Data Heart Rate from ECG 99 NIBP 157/78 NIBP BP-Mean 104 Respiration from ECG 22 SpO2 97 I&O: 08/06/19 08/07/19 08/08/19 06:59 06:59 06:59 Intake Total 985.0 1447 270 Output Total 2760 3425 1630 Balance -1775.0 -1978 -1360 Result Diagrams: 08/07/19 04:00 08/07/19 04:00 Additional Labs: Accuchecks 08/07/19 08/07/19 08/07/19 11:50 08:05 04:25 POC Glucose 135 H 140 H 118 H 08/07/19 08/06/19 08/06/19 00:14 20:34 16:21 POC Glucose 126 H 115 H 115 H Hospitalist ROS - Review of Systems ROS unobtainable: due to endotracheal tube - Medication Medications: Active Medications Generic Name Dose Route Start Last Admin Trade Name Freq PRN Reason Stop Dose Admin Acetaminophen 650 mg 07/23/19 16:54 08/07/19 11:50 Tylenol PO 650 mg Q6H PRN Administration Fever > 101 Atorvastatin Calcium 20 mg 07/23/19 21:00 08/06/19 20:19 Lipitor PO 20 mg HS MADISON Administration Bisacodyl 10 mg 08/02/19 10:59 08/05/19 08:22 Dulcolax [place] 10 mg DAILYPRN PRN Administration Constipation Bupropion HCl 150 mg 07/31/19 21:00 08/07/19 07:22 Wellbutrin PO 150 mg BID [place] Administration Duloxetine HCl 60 mg 07/24/19 09:00 08/07/19 07:22 Cymbalta PO 60 mg DAILY [place] Administration Furosemide 40 mg 08/05/19 14:00 08/07/19 13:50 Lasix SLOW IVP 40 mg 0600,1400 MADISON Administration Heparin Sodium (Porcine) 5,000 units 07/23/19 09:00 08/07/19 13:50 Heparin SC 5,000 units TID MADISON Administration Hydralazine HCl 20 mg 08/04/19 15:11 08/06/19 23:20 Apresoline SLOW IVP 20 mg Q4H PRN Administration SBP Greater Than 170 Hydralazine HCl 75 mg 08/05/19 15:00 08/07/19 13:50 Apresoline PO 75 mg TID M[place] Administration Nicardipine HCl 50 mg/ Sodium 250 mls @ 0 mls/hr 07/23/19 00:15 07/23/19 05: 11 Chloride IV 250 mls INF M[place] Administration Protocol As Directed Dexmedetomidine HCl 400 mcg/ 100 mls @ 0 mls/hr 07/28/19 00:45 08/07/19 11:50 Sodium Chloride IVPB 100 mls INF M[facility]ISON Administration Protocol Per Protocol Dextrose/Sodium Chloride 1,000 mls @ 0 mls/hr 08/05/19 16:30 08/05/19 16:36 D5 1/2 Ns IV 1,000 mls .Q0M [place] Administration KVO Insulin Human Lispro 0 units 07/23/19 18:05 08/03/19 03:46 Humalog SC 3 unit .AGGRESSIVE SLIDING PRN Administration Aggressive Correctional Scale Levothyroxine Sodium 100 mcg 07/24/19 06:00 08/07/19 05:58 Synthroid PO 100 mcg 0600 [place] Administration Lorazepam 2 mg 08/02/19 07:30 08/05/19 21:22 Ativan SLOW IVP 2 mg Q1H PRN Administration Breakthrough agitation Metoclopramide HCl 10 mg 08/05/19 09:00 08/07/19 13:55 Reglan IVP 10 mg Q6H [place] Administration Miscellaneous Medication 1 pkt 07/23/19 11:01 07/23/19 12:47 Phos-Nak PO 1 pkt TIDPRN PRN Administration FOR PHOS LEVEL 1.0 - 1.8 Pantoprazole Sodium 40 mg 08/02/19 09:00 08/07/19 07:20 Protonix IVP 40 mg DAILY [place] Administration Potassium Chloride 40 meq 07/23/19 11:01 07/29/19 08:51 Klor-Con PER TUBE 40 meq ASDIR PRN Administration FOR SERUM K+ 2.5-3.5 Pregabalin 75 mg 07/30/19 21:00 08/07/19 07:21 Lyrica PO 75 mg BID [place] Administration Propofol 1,000 mg 07/22/19 23:43 08/07/19 11:50 Diprivan IV 08/21/19 23:43 1,000 mg INF PRN Administration TO ACHIEVE GOAL RASS Protocol Sertraline HCl 50 mg 07/24/19 09:00 08/07/19 07:21 Zoloft PO 50 mg DAILY [place] Administration Sodium Bicarbonate 975 mg 07/23/19 21:00 08/07/19 07:20 Bicarbonate, Sodium PO 975 mg BID [place] Administration Sodium Chloride 10 ml 07/23/19 09:00 08/07/19 07:24 Flush - Normal Saline IVF 10 ml Q12HR [place] Administration Timolol Maleate 1 drop 07/30/19 21:00 08/07/19 07:23 Timoptic 0.5% Ophth Soln R EYE 1 drop BID [place] Administration - Exam General - other findings: SEDATED Eye: PERRL, anicteric sclera ENT: normocephalic atraumatic, no oropharyngeal lesions ENT - other findings: + Trach Neck: supple, symmetric, no JVD, no thyromegaly Heart: RRR, no murmur, no gallops Respiratory: CTAB, no wheezes, no rales Gastrointestinal - other findings: + PEG Extremities: 1+ LE edema Neurological - other findings: SEDATED Hosp A/P (1) SINA (acute kidney injury) Code(s): N17.9 - ACUTE KIDNEY FAILURE, UNSPECIFIED Status: Acute (2) Acute metabolic encephalopathy Code(s): G93.41 - METABOLIC ENCEPHALOPATHY Status: Acute (3) Acute respiratory failure with hypoxia Code(s): J96.01 - ACUTE RESPIRATORY FAILURE WITH HYPOXIA Status: Acute (4) DKA (diabetic ketoacidoses) Code(s): E11.10 - TYPE 2 DIABETES MELLITUS WITH KETOACIDOSIS WITHOUT COMA Status: Resolved Qualifiers: Diabetes mellitus type: type 2 (5) Acute worsening of stage 3 chronic kidney disease Code(s): N18.3 - CHRONIC KIDNEY DISEASE, STAGE 3 (MODERATE) Status: Acute (6) Dyslipidemia Code(s): E78.5 - HYPERLIPIDEMIA, UNSPECIFIED Status: Chronic (7) Hypertension Code(s): I10 - ESSENTIAL (PRIMARY) HYPERTENSION Status: Chronic Qualifiers: Hypertension type: essential hypertension Qualified Code(s): I10 - Essential (primary) hypertension (8) Morbid obesity with BMI of 60.0-69.9, adult Code(s): E66.01 - MORBID (SEVERE) OBESITY DUE TO EXCESS CALORIES; Z68.44 - BODY MASS INDEX (BMI) 60.0-69.9, ADULT Status: Chronic - Plan Admitted for acute resiratory failure requiring intubation, complications with DKA, obesity s/p tRACH AND PEG Attempts to wean down to trach collar Continued sedation and patient on vent but spontaneously breathing Continue current management Pending placement Continue sedation, insulin gtt, levothyroxine, nicardipine gtt Palliative care consult. Out of Hospital DNR is pending from sister who is DWAIN
[2019-08-07] MEDS: HumaLOG 300 UNITS/3 ML VIAL SC PRN ×3 (16:29→23:59)
[2019-08-07] MEDS: Atorvastatin Calcium 20 MG TAB PO SCH (20:02)
[2019-08-08] MEDS: Acetaminophen 325 MG TAB PO PRN ×2 (03:22→10:35)
[2019-08-08] MEDS: Metoclopramide HCl 10 MG/2 ML VIAL IVP SCH ×4 (03:22→20:25)
[2019-08-08] MEDS: HumaLOG 300 UNITS/3 ML VIAL SC PRN ×5 (04:08→20:27)
[2019-08-08] MEDS: Propofol 1,000 MG/100 ML VIAL IV PRN (04:09)
[2019-08-08 04:51] LABS: Band 12 % (5-11); Eosinophils 2 % (0-10); Hemoglobin 7.4 g/dL (12.0-16.0); Lymphocytes 5 % (21-51); MDiff Complete? YES; Mean Corpuscular Hemoglobin 28.6 pg (27.0-31.0); Mean Corpuscular Volume 95.4 fL (78.0-98.0); Mean Platelet Volume 8.2 fL (7.4-10.4); Metamyelocyte 1 % (0-0); Monocytes 5 % (0-10); Neutrophil 75 % (42-75); Platelet Count 216 thou/uL (130-400); Platelet Morphology Comment Appears Adequate; RBC Distribution Width 15.1 % (11.5-14.5); Red Blood Cell (RBC) Count 2.57 mill/uL (4.20-5.40); White Blood Cell (WBC) Count 9.9 thou/uL (4.8-10.8)
[2019-08-08 04:53] LABS: ALT (SGPT) 10 U/L (8-55); AST (SGOT) 9 U/L (5-34); Albumin 2.4 g/dL (3.5-5.0); Alkaline Phosphatase 220 U/L (40-110); Anion Gap 16 mmol/L (10-20); BUN (Urea Nitrogen) 65 mg/dL (9.8-20.1); Bilirubin, Total 0.2 mg/dL (0.2-1.2); Calc. Creatinine Clearance 67 mL/min (70-130); Calcium 8.7 mg/dL (7.8-10.44); Carbon Dioxide 26 mmol/L (22-29); Chloride 105 mmol/L (98-107); Estimated GFR-MDRD 18; Globulin 3.7 g/dL (2.4-3.5); Glucose 197 mg/dL (70-105); Potassium 4.2 mmol/L (3.5-5.1); Protein, Total 6.1 g/dL (6.0-8.3); Sodium 143 mmol/L (136-145)
[2019-08-08] MEDS: Levothyroxine Sodium 100 MCG TAB PO SCH (05:34)
[2019-08-08] MEDS: hydrALAZINE 20 MG/ML VIAL SLOW IVP PRN (05:34)
[2019-08-08] MEDS: Furosemide 40 MG/4 ML VIAL SLOW IVP SCH ×2 (05:34→13:58)
[2019-08-08] MEDS: niCARdipine 50 MG in Sodium Chloride 0.9% 250 ML 230 ML IV SCH ×2 (07:14→22:18)
[2019-08-08] MEDS: buPROPion 75 MG TAB PO SCH ×2 (08:52→20:24)
[2019-08-08] MEDS: Sodium Bicarbonate Tab 325 MG TAB PO SCH ×2 (08:53→20:26)
[2019-08-08] MEDS: DULoxetine 60 MG CAP PO SCH (08:54)
[2019-08-08] MEDS: Pregabalin 75 MG CAP PO SCH ×2 (08:54→20:25)
[2019-08-08] MEDS: hydrALAZINE 25 MG TAB PO SCH ×3 (08:56→20:25)
[2019-08-08] MEDS: Heparin 5,000 UNITS/ML VIAL SC SCH ×3 (08:56→20:25)
[2019-08-08] MEDS: Pantoprazole 40 MG VIAL IVP SCH (08:57)
[2019-08-08] MEDS: Timolol 0.5% Ophth Soln 5 ml Bottle R EYE SCH ×2 (08:59→20:41)
--- NOTE | 2019-08-08 09:48 | PDOC.PALPN ---
Palliative Progress Note - Subjective Awake, alert. Able to ask questions and communicate with soft speech, mouthing words. - Objective Vital Signs: Vital Signs - Most Recent Temp Pulse Resp BP Pulse Ox 96.6 F L 100 16 173/76 H 91 L 08/08/19 08:00 08/08/19 08:59 08/08/19 07:57 08/08/19 08:59 08/08/19 07:57 - Physical Exam Constitutional: ill appearing HEENT: EOMI, moist MMs, sclera anicteric Respiratory: no wheezing, diminished lung sound Deviation from normal: Trach Cardiovascular: RRR Gastrointestinal: soft Deviation from normal: PEG, slight tenderness Genitourinary: fitzgerald catheter Musculoskeletal: no cyanosis, edema present, diffuse muscle atrophy Neurology: moves all 4 limbs, no focal deficits Skin: fragile Psychiatric: normal mood Deviation from normal: Oriented to self and place. - Assessment (1) Palliative care encounter Code(s): Z51.5 - ENCOUNTER FOR PALLIATIVE CARE Current Visit: Yes Status: Acute (2) Respiratory failure requiring intubation Code(s): J96.90 - RESPIRATORY FAILURE, UNSP, UNSP W HYPOXIA OR HYPERCAPNIA Current Visit: Yes Status: Acute (3) Acute respiratory failure with hypoxia Code(s): J96.01 - ACUTE RESPIRATORY FAILURE WITH HYPOXIA Current Visit: Yes Status: Acute (4) Obesity Code(s): E66.9 - OBESITY, UNSPECIFIED Current Visit: Yes Status: Chronic Qualifiers: Obesity classification: adult class 3 (BMI >= 40) Body mass index: BMI 50.0 -59.9 (5) DKA (diabetic ketoacidoses) Code(s): E11.10 - TYPE 2 DIABETES MELLITUS WITH KETOACIDOSIS WITHOUT COMA Current Visit: Yes Status: Resolved Qualifiers: Diabetes mellitus type: type 2 (6) Acute worsening of stage 3 chronic kidney disease Code(s): N18.3 - CHRONIC KIDNEY DISEASE, STAGE 3 (MODERATE) Current Visit: No Status: Acute (7) COPD exacerbation Code(s): J44.1 - CHRONIC OBSTRUCTIVE PULMONARY DISEASE W (ACUTE) EXACERBATION Current Visit: No Status: Acute - Plan Plan: Patient sister elected trach/peg as MPOA. Ms Verdugo awake today, discussed trach/peg. Teaching will need to be reinforced. Understanding and discussed that she will transition to LTAC. Dr Stephens also shared with patient that she does not require dialysis currently. Ms Kartik hopeful for meaningful recovery , but does not want any further aggressive interventions other than rehab/abx as needed. Goal of Care Continue with DNAR, OOHDNAR on chart. Transition to LTAC for continued care and rehab with Trach/Peg Secondary to current Goal of care in place and Advanced Directives addressed Palliative Care will sign off. If we can assist in the future with any needs please reconsult our Team [40] minutes spent on this encounter with >50% of the time in counseling and coordination of care. - ROS Non Response: due to endotracheal tube (Partial ROS) Constitutional: alert, weakness ENT: other (Complains of discomfort at trach site) Respiratory: other Cardiology: other (deneis chest pain) Gastrointestinal: bloating Musculoskeletal: other (Denies pain to extremities)
[2019-08-08] MEDS: Amlodipine 10 MG TAB PO SCH (10:33)
[2019-08-08] MEDS: Lorazepam 2 MG/ML VIAL SLOW IVP PRN ×3 (10:50→23:28)
--- NOTE | 2019-08-08 11:30 | PRG ---
DATE OF SERVICE: 08/08/2019 Ms. Verdugo was tried on trach collar early this morning, but started getting fatigued, so she is back on the ventilator now. Heart rate 100, blood pressure 173/76. Cardene drip was started this morning. I have started her on 10 mg of Norvasc a day. Heart rates in the 80s, respiratory rates in the teens. Lungs, heart, and abdomen are otherwise unchanged. She will need a PICC line. I recognize she has renal insufficiency, but hesitant to place an internal jugular or subclavian line prior to transfer to a long-term care facility. Her hemoglobin is 7.4, two days ago was 7.6. White count 9.9, platelets 216,000. Electrolytes are normal. BUN 65, creatinine 2.73. Once her PICC line is sedate her at night. Use Precedex during the day. Get her transferred to long-term Tuesday. Critical care time, 30 minutes. Job ID: [id number]
--- NOTE | 2019-08-08 12:30 | SPC ---
Ultrasound guided left upper extremity PICC placement HISTORY: Need for central vascular access. FINDINGS: Informed consent obtained prior to the procedure. An appropriate access site was determined with ultrasound guidance. The area was then meticulously pr epped and draped in usual sterile fashion. Skin overlying the left basilic vein anesthetized with 1% buffered lidocaine. Utilizing direct sonogr aphic guidance, vascular access is obtained via the left basilic vein, and an 0.018in guidewire was advanced to the distal SVC. Intravascular length is calculated at 47 cm, and the PICC is cut accordin gly. Needle is removed and replaced with a peel-away sheath. The PICC was advanced over the wire. Wire and peel-away sheath were removed. The tip of the catheter overlies the distal SVC. The catheter was accessed and aspirated/flushed easily. FINDINGS: Technically successful placement of a 47 centimeter dual-lumen 5 [place] left upper extremity PICC jesusita weiss IMPRESSION: Successful ultrasound guided placement of a left upper extremity PICC.
--- NOTE | 2019-08-08 16:54 | PDOC.HOSPP ---
- Subjective Encounter Date: 08/08/19 Encounter Time: 16:51 non-verbal - Objective Vital Signs & Weight: Vital Signs (12 hours) Temp Pulse Resp BP Pulse Ox 08/08/19 16:00 15 08/08/19 15:07 91 155/63 H 08/08/19 14:56 97 151/69 H 08/08/19 14:00 17 08/08/19 12:00 98.4 F 18 08/08/19 10:33 97 151/69 H 08/08/19 10:32 97 151/69 H 08/08/19 10:00 17 08/08/19 08:59 100 173/76 H 08/08/19 08:56 100 173/76 H 08/08/19 08:00 96.6 F L 08/08/19 07:57 16 91 L 08/08/19 07:46 15 08/08/19 07:25 100 173/76 H 08/08/19 06:00 16 08/08/19 05:34 76 180/90 H Weight Admit Weight 361 lb 5.4 oz Weight 404 lb 8.772 oz Most Recent Monitor Data Heart Rate from ECG 85 NIBP 173/71 NIBP BP-Mean 105 Respiration from ECG 16 SpO2 97 I&O: 08/07/19 08/08/19 08/09/19 06:59 06:59 06:59 Intake Total 1447 1929 310 Output Total 6861 0010 2708 [facility]1978 -2081 -2635 Result Diagrams: 08/08/19 04:00 08/08/19 04:00 Additional Labs: Accuchecks 08/08/19 08/08/19 08/08/19 16:26 12:42 08:36 POC Glucose 268 H 232 H 201 H 08/08/19 08/08/19 08/07/19 04:06 00:01 19:52 POC Glucose 205 H 207 H 202 H 08/07/19 16:32 POC Glucose 188 H Hospitalist ROS - Review of Systems ROS unobtainable: due to endotracheal tube - Medication Medications: Active Medications Generic Name Dose Route Start Last Admin Trade Name Freq PRN Reason Stop Dose Admin Acetaminophen 650 mg 07/23/19 16:54 08/08/19 10:35 Tylenol PO 650 mg Q6H PRN Administration Fever > 101 Amlodipine Besylate 10 mg 08/08/19 09:00 08/08/19 10:33 Norvasc PO 10 mg DAILY [place] Administration Atorvastatin Calcium 20 mg 07/23/19 21:00 08/07/19 20:02 Lipitor PO 20 mg HS MADISON Administration Bisacodyl 10 mg 08/02/19 10:59 08/05/19 08:22 Dulcolax [place] 10 mg DAILYPRN PRN Administration Constipation Bupropion HCl 150 mg 07/31/19 21:00 08/08/19 08:52 Wellbutrin PO 150 mg BID [place] Administration Duloxetine HCl 60 mg 07/24/19 09:00 08/08/19 08:54 Cymbalta PO 60 mg DAILY [place] Administration Furosemide 40 mg 08/05/19 14:00 08/08/19 13:58 Lasix SLOW IVP 40 mg 0600,1400 [place] Administration Heparin Sodium (Porcine) 5,000 units 07/23/19 09:00 08/08/19 14:56 Heparin SC 5,000 units TID M[place] Administration Hydralazine HCl 20 mg 08/04/19 15:11 08/08/19 05:34 Apresoline SLOW IVP 20 mg Q4H PRN Administration SBP Greater Than 170 Hydralazine HCl 75 mg 08/05/19 15:00 08/08/19 14:56 Apresoline PO 75 mg TID [place] Administration Nicardipine HCl 50 mg/ Sodium 250 mls @ 0 mls/hr 07/23/19 00:15 08/08/19 07: 14 Chloride IV 250 mls INF [place] Administration Protocol As Directed Dexmedetomidine HCl 400 mcg/ 100 mls @ 0 mls/hr 07/28/19 00:45 08/08/19 13:59 Sodium Chloride IVPB 100 mls INF [facility] Administration Protocol Per Protocol Dextrose/Sodium Chloride 1,000 mls @ 0 mls/hr 08/05/19 16:30 08/05/19 16:36 D5 1/2 Ns IV 1,000 mls .Q0M [place] Administration KVO Insulin Human Lispro 0 units 07/23/19 18:05 08/08/19 16:26 Humalog SC 6 unit .AGGRESSIVE SLIDING PRN Administration Aggressive Correctional Scale Levothyroxine Sodium 100 mcg 07/24/19 06:00 08/08/19 05:34 Synthroid PO 100 mcg 0600 [place] Administration Lorazepam 2 mg 08/02/19 07:30 08/08/19 13:58 Ativan SLOW IVP 2 mg Q1H PRN Administration Breakthrough agitation Metoclopramide HCl 10 mg 08/05/19 09:00 08/08/19 14:58 Reglan IVP 10 mg Q6H [place] Administration Miscellaneous Medication 1 pkt 07/23/19 11:01 07/23/19 12:47 Phos-Nak PO 1 pkt TIDPRN PRN Administration FOR PHOS LEVEL 1.0 - 1.8 Pantoprazole Sodium 40 mg 08/02/19 09:00 08/08/19 08:57 Protonix IVP 40 mg DAILY [place] Administration Potassium Chloride 40 meq 07/23/19 11:01 07/29/19 08:51 Klor-Con PER TUBE 40 meq ASDIR PRN Administration FOR SERUM K+ 2.5-3.5 Pregabalin 75 mg 07/30/19 21:00 08/08/19 08:54 Lyrica PO 75 mg BID [place] Administration Propofol 1,000 mg 07/22/19 23:43 08/08/19 04:09 Diprivan IV 08/21/19 23:43 1,000 mg INF PRN Administration TO ACHIEVE GOAL RASS Protocol Sertraline HCl 50 mg 07/24/19 09:00 08/08/19 08:53 Zoloft PO 50 mg DAILY [place] Administration Sodium Bicarbonate 975 mg 07/23/19 21:00 08/08/19 08:53 Bicarbonate, Sodium PO 975 mg BID M[place] Administration Sodium Chloride 10 ml 07/23/19 09:00 08/08/19 08:58 Flush - Normal Saline IVF Not Given Q12HR MADISON Timolol Maleate 1 drop 07/30/19 21:00 08/08/19 08:59 Timoptic 0.5% Ophth Soln R EYE 1 drop BID MAD[place] Administration - Exam General - other findings: SEDATED Eye: PERRL, anicteric sclera ENT: normocephalic atraumatic, no oropharyngeal lesions ENT - other findings: +ET tube Neck: supple, symmetric, no JVD Heart: RRR, no murmur, no gallops Respiratory: CTAB, no wheezes, no rales Gastrointestinal: soft, non-tender, non-distended Gastrointestinal - other findings: + PEF Extremities: no cyanosis, no clubbing, no edema Skin: normal turgor, no lesions Neurological - other findings: sedated Hosp A/P (1) SINA (acute kidney injury) Code(s): N17.9 - ACUTE KIDNEY FAILURE, UNSPECIFIED Status: Acute (2) Acute metabolic encephalopathy Code(s): G93.41 - METABOLIC ENCEPHALOPATHY Status: Acute (3) Acute respiratory failure with hypoxia Code(s): J96.01 - ACUTE RESPIRATORY FAILURE WITH HYPOXIA Status: Acute (4) DKA (diabetic ketoacidoses) Code(s): E11.10 - TYPE 2 DIABETES MELLITUS WITH KETOACIDOSIS WITHOUT COMA Status: Resolved Qualifiers: Diabetes mellitus type: type 2 (5) Acute worsening of stage 3 chronic kidney disease Code(s): N18.3 - CHRONIC KIDNEY DISEASE, STAGE 3 (MODERATE) Status: Acute (6) Dyslipidemia Code(s): E78.5 - HYPERLIPIDEMIA, UNSPECIFIED Status: Chronic (7) Hypertension Code(s): I10 - ESSENTIAL (PRIMARY) HYPERTENSION Status: Chronic Qualifiers: Hypertension type: essential hypertension Qualified Code(s): I10 - Essential (primary) hypertension (8) Morbid obesity with BMI of 60.0-69.9, adult Code(s): E66.01 - MORBID (SEVERE) OBESITY DUE TO EXCESS CALORIES; Z68.44 - BODY MASS INDEX (BMI) 60.0-69.9, ADULT Status: Chronic - Plan Admitted for acute resiratory failure requiring intubation, complications with DKA, obesity s/p TRACH AND PEG Attempts to wean down to trach collar Continue current management Pending placement to LTAC Palliative care consult. Out of Hospital DNR SIGNED
--- NOTE | 2019-08-08 20:18 | PRG ---
DATE OF SERVICE: 08/08/2019 SUBJECTIVE: A 58-year-old female, being seen for acute kidney injury. The patient denied nausea, vomiting, or chest pain. PHYSICAL EXAMINATION: General: The patient is awake and alert. Vital Signs: Afebrile, pulse , breathing at 16, blood pressure 159/79. HEENT: Head normocephalic and atraumatic. Eyes intact, no ulcers. Nose intact, no ulcers. Ears intact, no ulcers. Neck: Supple. No JVD. Chest: Symmetrical and clear. Cardiovascular: Shows S1 and S2, no rub, no murmur. Gastrointestinal: Abdomen is soft, bowel sounds positive. Extremities: Show no edema or ulcers. Skin: Shows no rash or petechiae. Musculoskeletal: Shows no joint swelling or stiffness. Genitourinary: Shows no Cuevas or CVA tenderness. Neurologic: Motor intact. Cranial nerves intact. LABORATORY DATA: Showed hemoglobin 7.4, creatinine 2.7. ASSESSMENT AND PLAN: 1. Chronic kidney disease, stage 4, stable. 2. Hypertension, stable. 3. Anemia, stable. I will sign off on this patient. Please reconsult as needed. Job ID: [id number]
[2019-08-08] MEDS: Atorvastatin Calcium 20 MG TAB PO SCH (20:24)
[2019-08-08] MEDS ORDERED: Insulin Glargine 20 UNITS in Pre-Filled Syringe SC SCH (21:00)
[2019-08-09] MEDS: HumaLOG 300 UNITS/3 ML VIAL SC PRN ×5 (00:06→15:06)
[2019-08-09] MEDS: hydrALAZINE 20 MG/ML VIAL SLOW IVP PRN ×4 (00:35→22:17)
[2019-08-09] MEDS: Acetaminophen 325 MG TAB PO PRN ×4 (01:28→20:41)
[2019-08-09] MEDS: niCARdipine 50 MG in Sodium Chloride 0.9% 250 ML 230 ML IV SCH (02:11)
[2019-08-09] MEDS: Metoclopramide HCl 10 MG/2 ML VIAL IVP SCH ×4 (02:12→20:34)
[2019-08-09] MEDS: Lorazepam 2 MG/ML VIAL SLOW IVP PRN ×3 (03:26→22:18)
[2019-08-09 04:47] LABS: ALT (SGPT) 8 U/L (8-55); AST (SGOT) 7 U/L (5-34); Albumin 2.3 g/dL (3.5-5.0); Alkaline Phosphatase 216 U/L (40-110); Anion Gap 13 mmol/L (10-20); BUN (Urea Nitrogen) 60 mg/dL (9.8-20.1); Bilirubin, Total 0.2 mg/dL (0.2-1.2); Calc. Creatinine Clearance 77 mL/min (70-130); Calcium 8.1 mg/dL (7.8-10.44); Carbon Dioxide 28 mmol/L (22-29); Chloride 107 mmol/L (98-107); Estimated GFR-MDRD 22; Globulin 3.6 g/dL (2.4-3.5); Glucose 238 mg/dL (70-105); Potassium 3.6 mmol/L (3.5-5.1); Protein, Total 5.9 g/dL (6.0-8.3); Sodium 144 mmol/L (136-145)
[2019-08-09 04:48] LABS: Band 5 % (5-11); Hemoglobin 7.6 g/dL (12.0-16.0); Hypochromia SLIGHT = 6-15 cells (100X) (0-5/hpf); Lymphocytes 8 % (21-51); MDiff Complete? YES; Mean Corpuscular HGB CONC 30.9 g/dL (32.0-36.0); Mean Corpuscular Hemoglobin 29.5 pg (27.0-31.0); Mean Corpuscular Volume 95.7 fL (78.0-98.0); Monocytes 2 % (0-10); Neutrophil 85 % (42-75); Platelet Count 221 thou/uL (130-400); Platelet Morphology Comment Appears Adequate; RBC Distribution Width 15.3 % (11.5-14.5); Red Blood Cell (RBC) Count 2.57 mill/uL (4.20-5.40); White Blood Cell (WBC) Count 12.8 thou/uL (4.8-10.8)
[2019-08-09] MEDS: Furosemide 40 MG/4 ML VIAL SLOW IVP SCH (05:14)
[2019-08-09] MEDS: Levothyroxine Sodium 100 MCG TAB PO SCH (05:14)
[2019-08-09] MEDS: Sodium Bicarbonate Tab 325 MG TAB PO SCH ×2 (07:21→20:50)
[2019-08-09] MEDS: hydrALAZINE 25 MG TAB PO SCH ×3 (07:23→20:33)
[2019-08-09] MEDS: Pregabalin 75 MG CAP PO SCH ×2 (07:23→20:34)
[2019-08-09] MEDS: DULoxetine 60 MG CAP PO SCH (07:24)
[2019-08-09] MEDS: Amlodipine 10 MG TAB PO SCH (07:24)
[2019-08-09] MEDS: Heparin 5,000 UNITS/ML VIAL SC SCH ×3 (07:24→20:33)
[2019-08-09] MEDS: buPROPion 75 MG TAB PO SCH ×2 (07:25→20:33)
[2019-08-09] MEDS: Pantoprazole 40 MG VIAL IVP SCH (07:25)
[2019-08-09] MEDS: Haloperidol Lactate 5 MG/ML VIAL IM PRN ×2 (07:29→14:57)
[2019-08-09 07:40] LABS: Actual Bicarbonate (HCO3a) 31.8 mEq/L (22-28); CO2 Tension 53.8 mmHg (35.0-45.0); Calcium, Ionized 1.17 mmol/L (1.12-1.30); Carboxyhemoglobin (COHb) 0.3 gm% (0.0-3.0); Hemoglobin (Hb) 8.7 g/dL (12.0-16.0); O2 Tension (PaO2) 62.5 mmHg (80.0-100.0); Potassium - ABG Lab 3.82 mmol/L (3.70-5.30); pH, Arterial 7.39 (7.35-7.45)
[2019-08-09 07:43] LABS: Puncture Site L.R.
[2019-08-09] MEDS: Timolol 0.5% Ophth Soln 5 ml Bottle R EYE SCH ×2 (07:59→20:53)
[2019-08-09] MEDS ORDERED: Lisinopril 20 MG TAB PO SCH (11:05)
[2019-08-09] MEDS ORDERED: hydrALAZINE 25 MG TAB PO SCH (11:05)
[2019-08-09] MEDS ORDERED: Insulin Glargine 15 UNITS in Pre-Filled Syringe 1 EACH SC SCH (11:45)
[2019-08-09] MEDS: cloNIDine 0.1 MG TAB PO PRN ×2 (12:08→14:59)
[2019-08-09] MEDS: Fentanyl 100 MCG/2 ML VIAL SLOW IVP PRN ×3 (12:31→21:26)
--- NOTE | 2019-08-09 16:38 | PRG ---
DATE OF SERVICE: 08/09/2019 SUBJECTIVE: David Verdugo remains stable. She likes being sedated. OBJECTIVE: VITAL SIGNS: Heart rate is in the 90s, blood pressure is elevated today at 194/81. Her hypertension medications have been adjusted. Respiratory rates in the teens. LUNGS: Otherwise unchanged. HEART: Otherwise unchanged. ABDOMEN: Otherwise unchanged. LABORATORY DATA: White count 12.8, hemoglobin stable at 7.6, platelets 221. Sodium 144, potassium 3.6, chloride 107, bicarb 20, BUN 60, creatinine 2.32. Her PICC line is in. Creatinine is low, it has been since admission. IMPRESSION: 1. Encephalopathy secondary to hyperosmolar state, resolved. 2. Respiratory failure, now largely secondary to weakness, deconditioning, obesity. 3. Probable obesity hypoventilation syndrome. She is tentatively on the schedule to go to a long-term acute care tomorrow. I would strongly recommend that she not have her tracheostomy tube removed while she is at the LTAC facility. At some point with weight loss, Shiley XLT proximal tracheostomy tube probably could be exchanged for the Bivona tracheostomy tube, but unless she can get a sleep study with a capped trach while she is at the LTAC, I do not think I would consider removing this. I would anticipate that she will be in a long-term acute care facility for at least a month, maybe longer. Job ID: [id number]
[2019-08-09] MEDS: Mometasone 200 MCG/Formoterol 5 MCG 120 PUFF INHALER INH SCH (18:40)
--- NOTE | 2019-08-09 19:25 | PDOC.HOSPP ---
- Subjective Encounter Date: 08/09/19 Encounter Time: 12:30 Subjective: pt nonverbal but follows command - Objective Vital Signs & Weight: Vital Signs (12 hours) Temp Pulse Resp BP Pulse Ox 08/09/19 18:33 101 H 183/82 H 08/09/19 18:00 18 08/09/19 16:00 97.1 F L 19 08/09/19 15:35 94 194/81 H 08/09/19 14:59 198/87 H 08/09/19 14:58 100 198/87 H 08/09/19 14:57 99 198/87 H 08/09/19 14:00 17 08/09/19 12:08 191/89 H 08/09/19 12:07 190/75 H 08/09/19 12:00 98.4 F 20 08/09/19 11:29 100 191/89 H 08/09/19 10:00 18 08/09/19 08:00 98.4 F 17 95 08/09/19 07:59 94 169/68 H 08/09/19 07:27 108 H 177/78 H 08/09/19 07:24 106 H 177/78 H 08/09/19 07:23 105 H 177/78 H 08/09/19 07:22 110 H 177/78 H Weight Admit Weight 361 lb 5.4 oz Weight 395 lb 4.621 oz Most Recent Monitor Data Heart Rate from ECG 96 NIBP 205/92 NIBP BP-Mean 129 Respiration from ECG 15 SpO2 97 I&O: 08/08/19 08/09/19 08/10/19 06:59 06:59 06:59 Intake Total 1929 3045.6 1239 Output Total 4010 5400 2745 [facility]2081 -2354.4 -1506 Result Diagrams: 08/09/19 04:14 08/09/19 04:14 Additional Labs: Accuchecks 08/09/19 08/09/19 08/09/19 15:09 12:21 07:41 POC Glucose 230 H 243 H 244 H 08/09/19 08/09/19 08/08/19 04:00 00:05 20:27 POC Glucose 248 H 255 H 249 H Hospitalist ROS - Review of Systems Cardiovascular: denies: chest pain, palpitations, orthopnea, paroxysmal noc. dyspnea, edema, light headedness, other Gastrointestinal: denies: nausea, vomiting, abdominal pain, diarrhea, constipation, melena, hematochezia, other Genitourinary: denies: dysuria, frequency, incontinence, hematuria, retention, other Musculoskeletal: denies: neck pain, shoulder pain, arm pain, back pain, hand pain, leg pain, foot pain, other - Medication Medications: Active Medications Generic Name Dose Route Start Last Admin Trade Name Freq PRN Reason Stop Dose Admin Acetaminophen 650 mg 07/23/19 16:54 08/09/19 14:58 Tylenol PO 650 mg Q6H PRN Administration Fever > 101 Amlodipine Besylate 10 mg 08/08/19 09:00 08/09/19 07:24 Norvasc PO 10 mg DAILY [place] Administration Atorvastatin Calcium 20 mg 07/23/19 21:00 08/08/19 20:24 Lipitor PO 20 mg HS [place] Administration Bisacodyl 10 mg 08/02/19 10:59 08/05/19 08:22 Dulcolax KS 10 mg DAILYPRN PRN Administration Constipation Bupropion HCl 150 mg 07/31/19 21:00 08/09/19 07:25 Wellbutrin PO 150 mg BID [place] Administration Clonidine 0.1 mg 08/09/19 11:03 08/09/19 14:59 Catapres PO 0.1 mg Q4H PRN Administration Systolic BP > 180 Duloxetine HCl 60 mg 07/24/19 09:00 08/09/19 07:24 Cymbalta PO 60 mg DAILY [place] Administration Fentanyl 25 mcg 08/09/19 11:50 08/09/19 14:56 Sublimaze SLOW IVP 25 mcg Q4H PRN Administration Pain Haloperidol Lactate 10 mg 08/05/19 08:55 08/09/19 14:57 Haldol IM 10 mg Q6H PRN Administration Agitation Heparin Sodium (Porcine) 5,000 units 07/23/19 09:00 08/09/19 14:57 Heparin SC 5,000 units TID [place] Administration Hydralazine HCl 20 mg 08/04/19 15:11 08/09/19 14:57 Apresoline SLOW IVP 20 mg Q4H PRN Administration SBP Greater Than 170 Hydralazine HCl 75 mg 08/05/19 15:00 08/09/19 14:58 Apresoline PO 75 mg TID [place] Administration Nicardipine HCl 50 mg/ Sodium 250 mls @ 0 mls/hr 07/23/19 00:15 08/09/19 02: 11 Chloride IV 250 mls INF [place] Administration Protocol As Directed Dexmedetomidine HCl 400 mcg/ 100 mls @ 0 mls/hr 07/28/19 00:45 08/09/19 09:59 Sodium Chloride IVPB 100 mls INF [place] Administration Protocol Per Protocol Dextrose/Sodium Chloride 1,000 mls @ 0 mls/hr 08/05/19 16:30 08/05/19 16:36 D5 1/2 Ns IV 1,000 mls .Q0M [place] Administration KVO Insulin Human Lispro 0 units 07/23/19 18:05 08/09/19 15:06 Humalog SC 6 unit .AGGRESSIVE SLIDING PRN Administration Aggressive Correctional Scale Levothyroxine Sodium 100 mcg 07/24/19 06:00 08/09/19 05:14 Synthroid PO 100 mcg 0600 [place] Administration Lorazepam 2 mg 08/02/19 07:30 08/09/19 16:20 Ativan SLOW IVP 2 mg Q1H PRN Administration Breakthrough agitation Metoclopramide HCl 10 mg 08/05/19 09:00 08/09/19 07:30 Reglan IVP 10 mg Q6H [place] Administration Miscellaneous Medication 1 pkt 07/23/19 11:01 07/23/19 12:47 Phos-Nak PO 1 pkt TIDPRN PRN Administration FOR PHOS LEVEL 1.0 - 1.8 Mometasone Furoate/Formoterol Fumar 2 puff 08/09/19 18:30 08/09/19 18:40 Dulera 200 Mcg/5 Mcg Inhaler INH Not Given BID-RT [place] Potassium Chloride 40 meq 07/23/19 11:01 07/29/19 08:51 Klor-Con PER TUBE 40 meq ASDIR PRN Administration FOR SERUM K+ 2.5-3.5 Pregabalin 75 mg 07/30/19 21:00 08/09/19 07:23 Lyrica PO 75 mg BID [place] Administration Propofol 1,000 mg 07/22/19 23:43 08/08/19 04:09 Diprivan IV 08/21/19 23:43 1,000 mg INF PRN Administration TO ACHIEVE GOAL RASS Protocol Sertraline HCl 50 mg 07/24/19 09:00 08/09/19 07:22 Zoloft PO 50 mg DAILY [place] Administration Sodium Bicarbonate 975 mg 07/23/19 21:00 08/09/19 07:21 Bicarbonate, Sodium PO 975 mg BID [place] Administration Sodium Chloride 10 ml 07/23/19 09:00 08/09/19 08:00 Flush - Normal Saline IVF 10 ml Q12HR [place] Administration Timolol Maleate 1 drop 07/30/19 21:00 08/09/19 07:59 Timoptic 0.5% Ophth Soln R EYE 1 drop BID [place] Administration - Exam Neck: negative: supple, symmetric, no JVD, no thyromegaly, no lymphadenopathy, no carotid bruit, JVD Heart: negative: RRR, no murmur, no gallops, no rubs, normal peripheral pulses, irregular, diminshed peripheral pulses, murmur present, II/IV, III/IV Respiratory - other findings: decrease breath sound to bases, some rhonchi all over Gastrointestinal: negative: soft, non-tender, non-distended, normal bowel sounds , no palpable masses, no hepatomegaly, no splenomegaly, no bruit, no guarding, no rigidity, tender to palpation, distended, diminished bowl sounds, voluntary guarding Extremities: 1+ LE edema Neurological - other findings: pt awake moving all 4 ext, follows Hosp A/P (1) Acute metabolic encephalopathy Code(s): G93.41 - METABOLIC ENCEPHALOPATHY Status: Acute (2) SINA (acute kidney injury) Code(s): N17.9 - ACUTE KIDNEY FAILURE, UNSPECIFIED Status: Acute (3) DM type 2 (diabetes mellitus, type 2) Status: Chronic Qualifiers: Diabetes mellitus assisted insulin use: with assisted use Diabetes mellitus complication status: with kidney complications Diabetes mellitus complication detail: with chronic kidney disease Chronic kidney disease stage : stage 3 (moderate) Qualified Code(s): E11.22 - Type 2 diabetes mellitus with diabetic chronic kidney disease; N18.3 - Chronic kidney disease, stage 3 ( moderate); Z79.4 - alf (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 of insulin (4) Hypertension Code(s): I10 - ESSENTIAL (PRIMARY) HYPERTENSION Status: Chronic Qualifiers: Hypertension type: essential hypertension Qualified Code(s): I10 - Essential (primary) hypertension (5) Morbid obesity with BMI of 60.0-69.9, adult Code(s): E66.01 - MORBID (SEVERE) OBESITY DUE TO EXCESS CALORIES; Z68.44 - BODY MASS INDEX (BMI) 60.0-69.9, ADULT Status: Chronic (6) Sepsis Code(s): A41.9 - SEPSIS, UNSPECIFIED ORGANISM Status: Resolved Qualifiers: Sepsis type: sepsis due to unspecified organism (7) DKA (diabetic ketoacidoses) Code(s): E11.10 - TYPE 2 DIABETES MELLITUS WITH KETOACIDOSIS WITHOUT COMA Status: Resolved Qualifiers: Diabetes mellitus type: type 2 - Plan pt's has been afebrile, will continue abx for now. will order LP to rule meningitis. spoke with sister who states that pt has multiple medical issues but at baseline able to function independently. she also states that on the day of admission she texted her which did not make sense. pt also texted pt's friend and stated that she had a fall, slept for 2hours then woke up. Pt's friend and sister when over to check on pt. she was confused and was unable to follow commands. At this time ems was called. she did have a elevated blood sugar and fever. Urine/cxr/blood cx/covid all negative. pt's change in mental status could be due to hyperglycemia but unclear about pt's fever. she is on broad spectrum abx. Her creatinine is improving no need for dialysis for now. she has good urine output. ck normal, mild elevated trop. will monitor. neurology consulted. 07/26 will continue abx for now.she is on precedex. will add long acting insulin. Her creatinine is improving. she is on bicarb drip, nephrology notified and will follow. cta negative. MRI brain unable to do due to obesity. 08/08 pt's bp still high, will start home meds. will start her home dose of lantus. creatinine improving. Discharge soon once bp and blood sugars stabilize.
[2019-08-09] MEDS ORDERED: Nitroglycerin 2% Ointment 1 INCH/1 GM Packet TOP SCH (19:30)
[2019-08-09] MEDS: Atorvastatin Calcium 20 MG TAB PO SCH (20:33)
[2019-08-09] MEDS: Famotidine 20 MG TAB PO SCH (20:33)
[2019-08-09] MEDS: Metoprolol Tartrate 50 MG TAB PO SCH (20:34)
[2019-08-09] MEDS ORDERED: Non-Formulary Item 1 EACH (Insulin Glargine,Hum.Rec.Anlog [Toujeo Solostar] 70 UNIT) SQ SCH (21:00)
[2019-08-09] MEDS ORDERED: Non-Formulary Item 1 EACH (Fluticasone/Salmeterol [Advair Diskus 100/50] 1 INH) IH SCH (21:00)
[2019-08-09] MEDS ORDERED: Insulin Glargine 50 UNITS in Pre-Filled Syringe 1 EACH SC SCH (21:00)
[2019-08-09] MEDS ORDERED: Insulin Glargine 20 UNITS in Pre-Filled Syringe 1 EACH SC SCH (21:00)
[2019-08-09] MEDS ORDERED: Zolpidem Tartrate 5 MG TAB PO SCH (21:00)
[2019-08-10] MEDS: HumaLOG 300 UNITS/3 ML VIAL SC PRN ×4 (00:01→13:48)
[2019-08-10] MEDS: Metoclopramide HCl 10 MG/2 ML VIAL IVP SCH ×3 (03:05→14:45)
[2019-08-10 05:31] LABS: ALT (SGPT) 7 U/L (8-55); AST (SGOT) 9 U/L (5-34); Albumin 2.4 g/dL (3.5-5.0); Alkaline Phosphatase 224 U/L (40-110); Anion Gap 12 mmol/L (10-20); BUN (Urea Nitrogen) 69 mg/dL (9.8-20.1); Bilirubin, Total 0.2 mg/dL (0.2-1.2); Calc. Creatinine Clearance 77 mL/min (70-130); Calcium 8.7 mg/dL (7.8-10.44); Carbon Dioxide 33 mmol/L (22-29); Chloride 106 mmol/L (98-107); Estimated GFR-MDRD 22; Globulin 3.8 g/dL (2.4-3.5); Glucose 246 mg/dL (70-105); Potassium 4.3 mmol/L (3.5-5.1); Protein, Total 6.2 g/dL (6.0-8.3); Sodium 147 mmol/L (136-145)
[2019-08-10 05:36] LABS: Band 9 % (5-11); Hemoglobin 8.2 g/dL (12.0-16.0); Lymphocytes 7 % (21-51); MDiff Complete? YES; Mean Corpuscular HGB CONC 28.8 g/dL (32.0-36.0); Mean Corpuscular Hemoglobin 28.2 pg (27.0-31.0); Mean Corpuscular Volume 97.6 fL (78.0-98.0); Mean Platelet Volume 7.8 fL (7.4-10.4); Monocytes 4 % (0-10); Neutrophil 80 % (42-75); Platelet Count 220 thou/uL (130-400); RBC Distribution Width 15.7 % (11.5-14.5); White Blood Cell (WBC) Count 11.4 thou/uL (4.8-10.8)
[2019-08-10] MEDS: Mometasone 200 MCG/Formoterol 5 MCG 120 PUFF INHALER INH SCH (06:45)
[2019-08-10 06:51] LABS: Base Excess (BEa) 6.3 mEq/L (-2.0 to +3.0); Calcium, Ionized 1.21 mmol/L (1.12-1.30); Carboxyhemoglobin (COHb) 1.1 gm% (0.0-3.0); Hemoglobin (Hb) 8.5 g/dL (12.0-16.0); O2 Tension (PaO2) 72.8 mmHg (80.0-100.0)
[2019-08-10 06:54] LABS: CO2 Tension 70.6 mmHg (35.0-45.0); Puncture Site RRAD
[2019-08-10] MEDS: Furosemide 40 MG/4 ML VIAL SLOW IVP SCH ×2 (07:40→13:32)
[2019-08-10] MEDS: Levothyroxine Sodium 100 MCG TAB PO SCH (07:40)
[2019-08-10] MEDS ORDERED: Ferrous Sulfate 325 MG TAB PO SCH (08:00)
[2019-08-10] MEDS ORDERED: Insulin Glargine 15 UNITS in Pre-Filled Syringe 1 EACH SC SCH (09:00)
[2019-08-10] MEDS ORDERED: Furosemide 40 MG TAB PO SCH (09:00)
[2019-08-10] MEDS ORDERED: Lisinopril 20 MG TAB PO SCH (09:00)
[2019-08-10] MEDS ORDERED: Cyanocobalamin (Vitamin B-12) 1,000 MCG TAB PO SCH (09:00)
--- NOTE | 2019-08-10 09:19 | PRG ---
DATE OF SERVICE: 08/10/2019 SUBJECTIVE: David Verdugo remains hemodynamically stable. PICC line is in. OBJECTIVE: VITAL SIGNS: Respiratory rates in the teens. Oximetry is 100%. FiO2 is 50%. Blood pressure is 159/67. LUNGS: Unchanged. HEART: Unchanged. ABDOMEN: Unchanged. LABORATORY DATA: White count 11.4, hemoglobin 8.2, platelets 220. Sodium 147, potassium 4.3, chloride 106, bicarb 33, BUN 69, creatinine 2.31. Intake and output negative 1537. IMPRESSION AND PLAN: 1. Respiratory failure secondary to encephalopathy associated with hyperosmolar state. 2. Diabetes. 3. Hypertension which is improved today after adjustment of medications yesterday. 4. Status post tracheostomy and PEG. 5. Life-threatening obesity with deconditioning. 6. COVID-19 ruled out. 7. Probable obesity hypoventilation syndrome. I would recommend that she keep a trach long-term until she can have a sleep study at a later date. It would not be unreasonable to place a Shiley XL proximal smaller size once she is successfully weaned from mechanical ventilation, but I would recommend not decannulating her prior to discharge from long-term acute care until her sleep apnea can be worked up as an outpatient. She is stable for transfer to long-term acute care today. Critical care time 30 min. Job ID: [id number] [id number]
[2019-08-10] MEDS: DULoxetine 60 MG CAP PO SCH (09:31)
[2019-08-10] MEDS: hydrALAZINE 25 MG TAB PO SCH ×2 (09:32→14:45)
[2019-08-10] MEDS: Amlodipine 10 MG TAB PO SCH (09:32)
[2019-08-10] MEDS: Pregabalin 75 MG CAP PO SCH (09:33)
[2019-08-10] MEDS: Metoprolol Tartrate 50 MG TAB PO SCH (09:33)
[2019-08-10] MEDS: Famotidine 20 MG TAB PO SCH (09:33)
[2019-08-10] MEDS: Heparin 5,000 UNITS/ML VIAL SC SCH ×2 (09:34→14:45)
[2019-08-10] MEDS: Sodium Bicarbonate Tab 325 MG TAB PO SCH (09:34)
[2019-08-10 09:35] VITALS: BP 169/69
[2019-08-10] MEDS: Timolol 0.5% Ophth Soln 5 ml Bottle R EYE SCH (09:35)
[2019-08-10] MEDS: buPROPion 75 MG TAB PO SCH (09:39)
[2019-08-10 13:23] VITALS: TEMP 98.2
[2019-08-10 15:04] VITALS: BMI 58.6
[2019-08-10] MEDS: Acetaminophen 325 MG TAB PO PRN (16:01)
[2019-08-10] MEDS: Lorazepam 2 MG/ML VIAL SLOW IVP PRN (16:34)
== END 2019-08-10 16:40 | DRG 4 ==
LOC: ERS 20:48 → EEVIPCON 22:46 → CCU 22:46
PROVIDERS: ADMIT Internal Medicine; ATTEND Internal Medicine
PROC: 0BH18EZ Insertion of Endotracheal Airway into Trachea, Via Natural or Artificial Opening Endoscopic (ICD-10-PCS; principal; 2019-07-22)
PROC: 8E0ZXY6 Isolation (ICD-10-PCS; 2019-07-22)
PROC: 5A1955Z Respiratory Ventilation, Greater than 96 Consecutive Hours (ICD-10-PCS; 2019-07-22)
PROC: 06HY33Z Insertion of Infusion Device into Lower Vein, Percutaneous Approach (ICD-10-PCS; 2019-07-28)
PROC: 0B110F4 Bypass Trachea to Cutaneous with Tracheostomy Device, Open Approach (ICD-10-PCS; 2019-08-06)
PROC: 0DH63UZ Insertion of Feeding Device into Stomach, Percutaneous Approach (ICD-10-PCS; 2019-08-06)
PROC: 0BJ08ZZ Inspection of Tracheobronchial Tree, Via Natural or Artificial Opening Endoscopic (ICD-10-PCS; 2019-08-06)
PROC: 0BP1XDZ Removal of Intraluminal Device from Trachea, External Approach (ICD-10-PCS; 2019-08-06)
PROC: 02HV33Z Insertion of Infusion Device into Superior Vena Cava, Percutaneous Approach (ICD-10-PCS; 2019-08-08)
PROC: B548ZZA Ultrasonography of Superior Vena Cava, Guidance (ICD-10-PCS; 2019-08-08)
DX: J96.01 Acute respiratory failure with hypoxia (principal); A41.9 Sepsis, unspecified organism; E11.01 Type 2 diabetes mellitus with hyperosmolarity with coma; G93.41 Metabolic encephalopathy; Z66 Do not resuscitate; E11.10 Type 2 diabetes mellitus with ketoacidosis without coma; N17.0 Acute kidney failure with tubular necrosis; E87.4 Mixed disorder of acid-base balance; Z68.43 Body mass index [BMI] 50.0-59.9, adult; I16.9 Hypertensive crisis, unspecified; J44.1 Chronic obstructive pulmonary disease with (acute) exacerbation; E66.2 Morbid (severe) obesity with alveolar hypoventilation; E11.22 Type 2 diabetes mellitus with diabetic chronic kidney disease; E78.5 Hyperlipidemia, unspecified; F32.9 Major depressive disorder, single episode, unspecified; E11.65 Type 2 diabetes mellitus with hyperglycemia; D64.9 Anemia, unspecified; R40.2142 Coma scale, eyes open, spontaneous, at arrival to emergency department; R40.2242 Coma scale, best verbal response, confused conversation, at arrival to emergency department; R40.2362 Coma scale, best motor response, obeys commands, at arrival to emergency department; Z20.828 Contact with and (suspected) exposure to other viral communicable diseases; N14.1 Nephropathy induced by other drugs, medicaments and biological substances; T50.8X5A Adverse effect of diagnostic agents, initial encounter; F41.9 Anxiety disorder, unspecified; I12.9 Hypertensive chronic kidney disease with stage 1 through stage 4 chronic kidney disease, or unspecified chronic kidney disease; N18.3 Chronic kidney disease, stage 3 (moderate); R53.81 Other malaise; R13.10 Dysphagia, unspecified; E87.5 Hyperkalemia; K59.00 Constipation, unspecified; E87.70 Fluid overload, unspecified; J39.8 Other specified diseases of upper respiratory tract; Z86.711 Personal history of pulmonary embolism; Z90.710 Acquired absence of both cervix and uterus; Z90.721 Acquired absence of ovaries, unilateral; Z88.1 Allergy status to other antibiotic agents; Z88.6 Allergy status to analgesic agent; Z88.8 Allergy status to other drugs, medicaments and biological substances
CPT/HCPCS: 31500; 36415; 36416; 36569; 51702; 70450; 70496; 70498; 71045; 80053; 80202; 80306; 80307; 81003; 81015; 82010; 82330; 82533; 82550; 82553; 82803; 82805; 83605; 83690; 83735; 83880; 83930; 84100; 84443; 84484; 85007; 85025; 85027; 85610; 85730; 87040; 87070; 87081; 87086; 87205; 87430; 87633; 87804; 93005; 94002; 94003; 96361; 96365; 96366; 96372; 96375; C1751; C1752; C9113; J0133; J0290; J0360; J0696; J1630; J1642; J1644; J1650; J1815; J1940; J2060; J2405; J2704; J2765; J2930; J3010; J3370; J3480; J3490; J7030; J7050; J7620; Q9967; S0020; S0028; U0001